=== PATIENT | female | born 1945 | race Two or more races ===

== ENCOUNTER 2022-01-14 13:46 | Inpatient (IN) | payer OTHER, MEDICAID ==
[~2022-01-14] VITALS: Ht 154.9 cm; Wt 74.5 kg
[2022-01-14] MEDS ORDERED: ONDANSETRON HCL 4 MG/2 ML VIAL IV ONE (14:00)
[2022-01-14 14:41] LABS: Basophils # (auto) 0 10 ^3/uL (0-0.2); Basophils % (auto) 0.2 % (0.0-2.0); Eosinophils # (auto) 0.2 10 ^3/uL (0-0.8); Hematocrit 38.3 % (36.0-46.0); Hemoglobin 12.3 g/dL (12.2-16.2); Lymphocytes # (auto) 1.5 10 ^3/uL (0.4-5.4); Lymphocytes % (auto) 21.7 % (10.0-50.0); Mean Corpuscular Hemoglobin 30.4 pg (28.0-32.0); Mean Corpuscular Hgb Conc. 32.1 g/dL (32.0-36.0); Mean Corpuscular Volume 94.7 fL (80.0-100.0); Monocytes # (auto) 0.4 10 ^3/uL (0-1.3); Monocytes % (auto) 5.7 % (0.0-12.0); Neutrophils # (auto) 4.9 10 ^3/uL (1.6-8.6); Neutrophils % (auto) 69.4 % (37.0-80.0); Nucleated Red Blood Cells % 0.1 %; Red Blood Cells 4.04 10^6/uL (4.0-5.20); Red Cell Distribution Width 16.2 % (11.8-14.3); White Blood Cell 7.1 10^3/uL (4.4-10.8)
[2022-01-14 15:01] LABS: Calcium 8.7 mg/dL (8.5-10.1); Magnesium 2.2 mg/dL (1.6-2.6); Potassium 3.8 mmol/L (3.5-5.1)
[2022-01-14 15:07] LABS: Bilirubin, Total 0.3 mg/dL (0.2-1.0); Total Protein 6.9 g/dL (6.4-8.2)
[2022-01-14 15:29] LABS: BUN/Creatinine Ratio 12.4
[2022-01-14] MEDS ORDERED: SODIUM CHLORIDE 0.9% 500 ML IV ONE ×2 (17:30→20:50)
[2022-01-14] MEDS ORDERED: methylPREDNISolone SOD SUCC 125 MG/2 ML VL IV ONE (18:30)
[2022-01-14] MEDS ORDERED: PIPERACILLIN-TAZOB 3.375GM 100 ML IV ONE (18:30)
[2022-01-14] MEDS ORDERED: AZITHROMYCIN 500MG/ 250ML 250 ML IV ONE (18:30)
[2022-01-14] MEDS ORDERED: NOREPINEPHRINE 8 MG/250ML KIT 250 ML IV ONE (18:44)
[2022-01-14 19:39] LABS: Lactic Acid w/Reflex 2.1 mmol/L (0.4-2.0)
[2022-01-14] MEDS ORDERED: VANCOMYCIN PER PHARMACY 0 MG IV SCH (20:00)
[2022-01-14] MEDS ORDERED: ACETAMINOPHEN 325 MG TAB PO PRN (20:50)
[2022-01-14] MEDS ORDERED: ONDANSETRON HCL 4 MG/2 ML VIAL IV PRN (20:50)
[2022-01-14] MEDS ORDERED: HYDROcodone-ACET 5/325MG TAB PO PRN (20:50)
[2022-01-14] MEDS ORDERED: DEXTROSE (50%) 50ML SYRG IV PRN (20:50)
[2022-01-14] MEDS ORDERED: MORPHINE SULFATE INJ 2 MG/ml SYRG IV PRN (20:50)
[2022-01-14] MEDS ORDERED: VANCOMYCIN 1GM/250ML 250 ML IV ONE (21:30)
[2022-01-14] MEDS ORDERED: PIPERACILLIN-TAZOB 3.375GM 100 ML IV SCH (22:00)
[2022-01-14] MEDS ORDERED: ALBUTEROL SULF 2.5 MG/0.5ML(0.5%) NEB SOLN NEB SCH (22:00)
[2022-01-14] MEDS: ACCU-CHEK COMFORT CURVE STRIP VI SCH (22:51)
[2022-01-14] MEDS: InsuLIN REG 1unit/0.01ml Soln (100units/ml) SC SCH (22:58)
[2022-01-15] MEDS: PIPERACILLIN-TAZOB 2.25GM 50 ML IV SCH ×4 (01:42→18:00)
[2022-01-15 02:05] VITALS: BP 95/68
[2022-01-15] MEDS: NOREPINEPHRINE 8 MG/250ML KIT 250 ML IV SCH (05:44)
[2022-01-15] MEDS ORDERED: ALBUTEROL SULF 2.5 MG/0.5ML(0.5%) NEB SOLN NEB PRN (06:00)
[2022-01-15] MEDS: ACCU-CHEK COMFORT CURVE STRIP VI SCH ×3 (06:57→18:28)
[2022-01-15] MEDS: InsuLIN REG 1unit/0.01ml Soln (100units/ml) SC SCH ×3 (06:58→17:00)
[2022-01-15 08:42] LABS: Hematocrit 35.1 % (36.0-46.0); Hemoglobin 11.2 g/dL (12.2-16.2); Mean Corpuscular Hemoglobin 30.1 pg (28.0-32.0); Mean Corpuscular Hgb Conc. 31.9 g/dL (32.0-36.0); Mean Corpuscular Volume 94.5 fL (80.0-100.0); Red Blood Cells 3.71 10^6/uL (4.0-5.20); Red Cell Distribution Width 15.9 % (11.8-14.3); White Blood Cell 6.6 10^3/uL (4.4-10.8)
[2022-01-15 08:45] LABS: Basophils % (manual) 0 (0.0-2.0); Blast Cells 0; Eosinophils % (manual) 0 (0-7); Myelocytes % 0; Promyelocytes % 0; Reactive Lymphocytes 0
[2022-01-15 08:56] LABS: Band Neutrophils % (manual) 32; Lymphocytes % (manual) 26 (10.0-50.0); Metamyelocytes % 4; Monocytes % (manual) 4 (0-12)
[2022-01-15] MEDS ORDERED: LORazepam 2MG/ML-1ML VIAL IV PRN (09:00)
[2022-01-15 09:04] LABS: BUN/Creatinine Ratio 13.6; Potassium 4.7 mmol/L (3.5-5.1)
[2022-01-15] MEDS: PANTOPRAZOLE 40 MG/10 ML VIAL INJ IV SCH (10:32)
[2022-01-15] MEDS ORDERED: HEPARIN 1,000 UNITS/ml 1ML VIAL IV ONE (12:15)
[2022-01-15] MEDS ORDERED: LIDOCAINE 1%HCL (LOCAL ANESTH) 10 ML MDV ONE (13:29)
[2022-01-15] MEDS ORDERED: LIDOCAINE 1% HCL (LOCAL ANESTH.) INJ 20ML MDV ID ONE (13:30)
[2022-01-15] MEDS ORDERED: LORazepam 2MG/ML-1ML VIAL IV ONE (14:15)
[2022-01-15] MEDS: BUMETANIDE 2.5mg/10ml (0.25 mg/ml) INJ IV SCH (18:00)
[2022-01-15 21:17] LABS: Free T4 (Free Thyroxine) 0.94 ng/dL (0.89-1.76)
[2022-01-16] MEDS: NOREPINEPHRINE 8 MG/250ML KIT 250 ML IV SCH (00:10)
[2022-01-16] MEDS: ACCU-CHEK COMFORT CURVE STRIP VI SCH ×5 (00:11→21:46)
[2022-01-16] MEDS: InsuLIN REG 1unit/0.01ml Soln (100units/ml) SC SCH ×5 (00:15→21:46)
[2022-01-16 05:00] VITALS: BP 110/68
[2022-01-16] MEDS: PIPERACILLIN-TAZOB 2.25GM 50 ML IV SCH ×4 (06:03→18:27)
[2022-01-16] MEDS: BUMETANIDE 2.5mg/10ml (0.25 mg/ml) INJ IV SCH ×2 (06:56→17:46)
[2022-01-16 09:00] VITALS: BP 150/63
[2022-01-16] MEDS: PANTOPRAZOLE 40 MG/10 ML VIAL INJ IV SCH (09:34)
[2022-01-16 09:44] LABS: Basophils # (auto) 0 10 ^3/uL (0-0.2); Basophils % (auto) 0.3 % (0.0-2.0); Eosinophils # (auto) 0.2 10 ^3/uL (0-0.8); Eosinophils % (auto) 2.1 % (0.0-7.0); Hematocrit 29.8 % (36.0-46.0); Hemoglobin 9.7 g/dL (12.2-16.2); Lymphocytes # (auto) 1.3 10 ^3/uL (0.4-5.4); Lymphocytes % (auto) 12.8 % (10.0-50.0); Mean Corpuscular Hemoglobin 30.3 pg (28.0-32.0); Mean Corpuscular Hgb Conc. 32.6 g/dL (32.0-36.0); Monocytes # (auto) 0.4 10 ^3/uL (0-1.3); Monocytes % (auto) 3.6 % (0.0-12.0); Neutrophils # (auto) 8.5 10 ^3/uL (1.6-8.6); Neutrophils % (auto) 81.2 % (37.0-80.0); Red Blood Cells 3.21 10^6/uL (4.0-5.20); Red Cell Distribution Width 15.6 % (11.8-14.3); White Blood Cell 10.5 10^3/uL (4.4-10.8)
[2022-01-16 10:02] LABS: Albumin 2.1 g/dL (3.4-5.0); Calcium 8.2 mg/dL (8.5-10.1); Potassium 4.3 mmol/L (3.5-5.1)
[2022-01-16 10:05] LABS: BUN/Creatinine Ratio 15.3; Bilirubin, Total 0.4 mg/dL (0.2-1.0); Total Protein 5.1 g/dL (6.4-8.2)
[2022-01-16] MEDS: ALBUTEROL SULF 2.5 MG/0.5ML(0.5%) NEB SOLN NEB SCH ×2 (11:03→18:50)
[2022-01-16] MEDS: IPRATROPIUM BROM 0.5 MG/2.5ML INH SOL NEB SCH ×2 (11:03→18:50)
[2022-01-16 13:00] VITALS: BP 151/64
[2022-01-16] MEDS: SOD CHL 0.45% 1,000 ML IV SCH ×2 (14:44→23:30)
[2022-01-16 16:26] LABS: Urine Bacteria NONE SEEN /hpf (None Seen); Urine Blood TRACE /uL (Negative); Urine Specific Gravity 1.013 (1.001-1.035); Urine WBC 9 /hpf (0 - 5)
[2022-01-16 16:44] LABS: Creatinine, Urine 59.4 mg/dL (30.0-125.0); Protein, Urine 132.1 mg/dL (0.0-11.9)
[2022-01-16 16:56] VITALS: BP 149/57
[2022-01-16] MEDS ORDERED: FUROSEMIDE 20 MG TAB PO SCH (21:00)
[2022-01-16] MEDS ORDERED: TEMAZEPAM 15 MG CAP PO PRN (21:00)
[2022-01-16 21:43] VITALS: BP 140/60
[2022-01-16] MEDS ORDERED: TICAGRELOR 60 MG TAB PO SCH (22:00)
[2022-01-16] MEDS ORDERED: PHENYTOIN SODIUM 100 MG CAP PO SCH (22:00)
[2022-01-16] MEDS ORDERED: DONEPEZIL HYDROCHLORIDE 5 MG TAB PO SCH (22:00)
[2022-01-17] MEDS: PIPERACILLIN-TAZOB 2.25GM 50 ML IV SCH ×5 (00:01→23:46)
[2022-01-17 04:42] VITALS: BP 144/66
[2022-01-17 05:29] LABS: Basophils # (auto) 0 10 ^3/uL (0-0.2); Basophils % (auto) 0.3 % (0.0-2.0); Eosinophils # (auto) 0.4 10 ^3/uL (0-0.8); Eosinophils % (auto) 3.2 % (0.0-7.0); Hematocrit 27.7 % (36.0-46.0); Hemoglobin 9.3 g/dL (12.2-16.2); Lymphocytes # (auto) 1.5 10 ^3/uL (0.4-5.4); Lymphocytes % (auto) 13.4 % (10.0-50.0); Mean Corpuscular Hemoglobin 31.2 pg (28.0-32.0); Mean Corpuscular Hgb Conc. 33.5 g/dL (32.0-36.0); Monocytes # (auto) 0.5 10 ^3/uL (0-1.3); Monocytes % (auto) 4.2 % (0.0-12.0); Neutrophils # (auto) 8.8 10 ^3/uL (1.6-8.6); Neutrophils % (auto) 78.9 % (37.0-80.0); Red Blood Cells 2.98 10^6/uL (4.0-5.20); Red Cell Distribution Width 15.4 % (11.8-14.3); White Blood Cell 11.2 10^3/uL (4.4-10.8)
[2022-01-17] MEDS ORDERED: AMLO-489 PO (05:38)
[2022-01-17] MEDS ORDERED: TICA90TA PO ×2 (05:38→18:47)
[2022-01-17 05:53] LABS: Potassium 4.2 mmol/L (3.5-5.1)
[2022-01-17] MEDS: ACCU-CHEK COMFORT CURVE STRIP VI SCH ×4 (05:57→21:32)
[2022-01-17] MEDS: BUMETANIDE 2.5mg/10ml (0.25 mg/ml) INJ IV SCH ×2 (05:57→18:09)
[2022-01-17] MEDS: InsuLIN REG 1unit/0.01ml Soln (100units/ml) SC SCH ×4 (06:00→21:30)
[2022-01-17 06:05] LABS: BUN/Creatinine Ratio 14.4; Bilirubin, Total 0.5 mg/dL (0.2-1.0); Calcium 8.4 mg/dL (8.5-10.1); Total Protein 5.8 g/dL (6.4-8.2)
[2022-01-17] MEDS: ALBUTEROL SULF 2.5 MG/0.5ML(0.5%) NEB SOLN NEB SCH ×3 (06:12→19:38)
[2022-01-17] MEDS: IPRATROPIUM BROM 0.5 MG/2.5ML INH SOL NEB SCH ×3 (06:12→19:38)
[2022-01-17 08:40] VITALS: BP 172/72
[2022-01-17] MEDS: SOD CHL 0.45% 1,000 ML IV SCH ×2 (09:30→19:30)
[2022-01-17] MEDS ORDERED: METOPROLOL TARTRATE 50 MG TAB PO SCH (10:00)
[2022-01-17] MEDS ORDERED: amLODIPine BESYLATE 5 MG TAB PO SCH (10:00)
[2022-01-17] MEDS ORDERED: DOCUSATE SOD 100 MG CAP PO SCH (10:00)
[2022-01-17] MEDS: PANTOPRAZOLE 40 MG/10 ML VIAL INJ IV SCH (10:55)
[2022-01-17 12:31] VITALS: BP 151/63
[2022-01-17 16:46] VITALS: BP 148/82
[2022-01-17] MEDS ORDERED: DONE10TA5 PO (18:37)
[2022-01-17] MEDS ORDERED: DOCU100T15 PO (18:37)
[2022-01-17] MEDS ORDERED: FURO1TAB33 PO (18:39)
[2022-01-17] MEDS ORDERED: MET25T PO (18:41)
[2022-01-17] MEDS ORDERED: PHE100C PO (18:42)
[2022-01-17] MEDS ORDERED: TEMA15CA2 PO (18:46)
[2022-01-17] MEDS ORDERED: AML5T PO (18:48)
[2022-01-17 22:00] VITALS: BP 148/76
[2022-01-17 23:20] VITALS: BP 148/76
[2022-01-18 05:30] VITALS: BP 187/73
[2022-01-18] MEDS: IPRATROPIUM BROM 0.5 MG/2.5ML INH SOL NEB SCH ×3 (06:23→19:11)
[2022-01-18] MEDS: ALBUTEROL SULF 2.5 MG/0.5ML(0.5%) NEB SOLN NEB SCH ×3 (06:23→19:10)
[2022-01-18] MEDS: SOD CHL 0.45% 1,000 ML IV SCH (06:24)
[2022-01-18] MEDS: PIPERACILLIN-TAZOB 2.25GM 50 ML IV SCH ×4 (06:24→23:39)
[2022-01-18] MEDS: BUMETANIDE 2.5mg/10ml (0.25 mg/ml) INJ IV SCH ×2 (06:24→17:33)
[2022-01-18] MEDS: InsuLIN REG 1unit/0.01ml Soln (100units/ml) SC SCH ×4 (06:26→21:01)
[2022-01-18] MEDS: ACCU-CHEK COMFORT CURVE STRIP VI SCH ×4 (06:26→21:00)
[2022-01-18 06:29] LABS: Albumin 2.3 g/dL (3.4-5.0); Calcium 8.9 mg/dL (8.5-10.1)
[2022-01-18 06:37] LABS: BUN/Creatinine Ratio 13.7; Bilirubin, Total 0.5 mg/dL (0.2-1.0); Total Protein 6.4 g/dL (6.4-8.2)
[2022-01-18] MEDS: hydrALAZINE HCL 10 MG TAB PO PRN ×3 (08:40→21:54)
[2022-01-18] MEDS ORDERED: LIDOCAINE 2% (LOCAL ANESTH.) PF 5ml SDV ONE (08:47)
[2022-01-18 09:00] VITALS: BP 198/77
[2022-01-18] MEDS: PANTOPRAZOLE 40 MG/10 ML VIAL INJ IV SCH (10:20)
[2022-01-18] MEDS ORDERED: amLODIPine BESYLATE 5 MG TAB PO ONE (10:45)
[2022-01-18] MEDS: METOPROLOL TARTRATE 25 MG TAB PO SCH ×2 (12:19→21:00)
[2022-01-18 12:48] LABS: Hepatitis B Surface Antibody Negative (Negative)
[2022-01-18] MEDS ORDERED: BUME1TAB3 PO (12:52)
[2022-01-18] MEDS ORDERED: CLIN300C8 PO (12:52)
[2022-01-18] MEDS ORDERED: LEVO500T31 PO (12:52)
[2022-01-18] MEDS ORDERED: MET25T PO (12:52)
[2022-01-18] MEDS ORDERED: LEVE500T32 PO (12:52)
[2022-01-18] MEDS ORDERED: levoFLOXacin 500 MG TAB PO ONE (13:15)
[2022-01-18 13:20] LABS: Hepatitis A Total Antibody Negative (Negative)
[2022-01-18 13:52] LABS: Hepatitis C Antibody Negative (Negative)
[2022-01-18 13:58] LABS: Folate (Folic Acid) 4.71 ng/mL (5.38-24)
[2022-01-18 17:01] VITALS: BP 153/70
[2022-01-18 21:33] VITALS: BP 168/58
[2022-01-18] MEDS ORDERED: cloNIDine HCL 0.1 MG TAB PO PRN (23:45)
[2022-01-19] MEDS: PIPERACILLIN-TAZOB 2.25GM 50 ML IV SCH ×2 (05:17→12:39)
[2022-01-19 05:18] VITALS: BP 161/67
[2022-01-19] MEDS: BUMETANIDE 2.5mg/10ml (0.25 mg/ml) INJ IV SCH (05:34)
[2022-01-19] MEDS: InsuLIN REG 1unit/0.01ml Soln (100units/ml) SC SCH ×3 (06:16→17:28)
[2022-01-19] MEDS: ACCU-CHEK COMFORT CURVE STRIP VI SCH ×3 (06:16→17:27)
[2022-01-19] MEDS: ALBUTEROL SULF 2.5 MG/0.5ML(0.5%) NEB SOLN NEB SCH ×2 (06:31→12:16)
[2022-01-19] MEDS: IPRATROPIUM BROM 0.5 MG/2.5ML INH SOL NEB SCH ×2 (06:31→12:16)
[2022-01-19 08:00] VITALS: BP 154/76
[2022-01-19 08:54] VITALS: BP 154/76
[2022-01-19] MEDS ORDERED: CYANOCOBALAMIN (B-12) 1000 MCG/1 ML VIAL IM ONE (10:00)
[2022-01-19] MEDS ORDERED: CYANOCOBALAMIN 500 MCG TAB PO SCH (10:00)
[2022-01-19] MEDS ORDERED: FOLIC ACID 1 MG in D5W 5% 50 ML INJ SCH (10:00)
[2022-01-19] MEDS ORDERED: amLODIPine BESYLATE 5 MG TAB PO SCH (10:00)
[2022-01-19] MEDS: PANTOPRAZOLE 40 MG/10 ML VIAL INJ IV SCH (11:21)
[2022-01-19] MEDS: METOPROLOL TARTRATE 25 MG TAB PO SCH (11:22)
[2022-01-19] MEDS: hydrALAZINE HCL 10 MG TAB PO PRN (12:37)
[2022-01-19 12:40] VITALS: BP 166/76
[2022-01-19 13:52] VITALS: BP 166/76
[2022-01-19 16:38] VITALS: BP 153/74
== END 2022-01-19 17:45 | disposition home health service (06) | DRG 193 ==
LOC: ER 13:46 → EDBD 13:46 → TELE 20:36 → TELE-WESTW 01-15 23:52
PROVIDERS: ADMIT Nurse Practitioner Family; ATTEND Internal Medicine
PROC: 06HM33Z Insertion of Infusion Device into Right Femoral Vein, Percutaneous Approach (ICD-10-PCS; 2022-01-14)
PROC: 0JPV3XZ Removal of Tunneled Vascular Access Device from Upper Extremity Subcutaneous Tissue and Fascia, Percutaneous Approach (ICD-10-PCS; principal; 2022-01-15)
DX: J18.9 Pneumonia, unspecified organism (principal); G92.8 Other toxic encephalopathy; J96.01 Acute respiratory failure with hypoxia; N18.6 End stage renal disease; E87.20 Acidosis, unspecified; I13.2 Hypertensive heart and chronic kidney disease with heart failure and with stage 5 chronic kidney disease, or end stage renal disease; J98.11 Atelectasis; D63.1 Anemia in chronic kidney disease; I95.9 Hypotension, unspecified; B96.89 Other specified bacterial agents as the cause of diseases classified elsewhere; K57.90 Diverticulosis of intestine, part unspecified, without perforation or abscess without bleeding; G40.909 Epilepsy, unspecified, not intractable, without status epilepticus; E11.22 Type 2 diabetes mellitus with diabetic chronic kidney disease; E11.65 Type 2 diabetes mellitus with hyperglycemia; E66.9 Obesity, unspecified; Z68.32 Body mass index [BMI] 32.0-32.9, adult; E78.5 Hyperlipidemia, unspecified; G30.9 Alzheimer's disease, unspecified; R74.01 Elevation of levels of liver transaminase levels; M79.602 Pain in left arm; Z20.822 Contact with and (suspected) exposure to COVID-19; F02.80 Dementia in other diseases classified elsewhere, unspecified severity, without behavioral disturbance, psychotic disturbance, mood disturbance, and anxiety; I25.10 Atherosclerotic heart disease of native coronary artery without angina pectoris; I50.9 Heart failure, unspecified; Z99.2 Dependence on renal dialysis
CPT/HCPCS: 36415; 36600; 70450; 70551; 71045; 74176; 76705; 80048; 80053; 81001; 82306; 82570; 82607; 82746; 82805; 82962; 83605; 83735; 83970; 84100; 84156; 84300; 84439; 84443; 84484; 85007; 85025; 85027; 86704; 86706; 86708; 86803; 87040; 87070; 87340; 87426; 93005; 93306; 94640; 95819; 96361; 96365; 96368; 96375; 97110; 97116; 97163; 97530; 99291; C9113; G0378; J1815; J2001; J2405; J2543; J7060

== ENCOUNTER → 2023-04-07 | Outpatient (CLI) | payer OTHER ==
[~2023-04-07] MED LIST: AML5T PO; AMLO1TAB22 PO; BUME1TAB3 PO; CLIN300C70 PO; DOCU100T15 PO; DONE10TA9 PO; LEVE500T40 PO; LEVO500T31 PO; MET25T PO; TICA90TA PO
[2023-04-07 12:07] LABS: Basophils # (auto) 0 10 ^3/uL (0-0.2); Basophils % (auto) 0.5 % (0.0-2.0); Eosinophils # (auto) 0.4 10 ^3/uL (0-0.8); Eosinophils % (auto) 4.5 % (0.0-7.0); Hemoglobin 10.8 g/dL (12.2-16.2); Lymphocytes # (auto) 2.1 10 ^3/uL (0.4-5.4); Lymphocytes % (auto) 26.9 % (10.0-50.0); Mean Corpuscular Hemoglobin 29.2 pg (28.0-32.0); Mean Corpuscular Hgb Conc. 31.8 g/dL (32.0-36.0); Monocytes # (auto) 0.7 10 ^3/uL (0-1.3); Monocytes % (auto) 8.4 % (0.0-12.0); Neutrophils # (auto) 4.8 10 ^3/uL (1.6-8.6); Neutrophils % (auto) 59.7 % (37.0-80.0); Nucleated Red Blood Cells % 0.1 %; Red Blood Cells 3.69 10^6/uL (4.0-5.20); Red Cell Distribution Width 13.7 % (11.8-14.3)
[2023-04-07 12:20] LABS: Albumin 4.2 g/dL (3.2-4.8); Alkaline Phosphatase 166 U/L (46-116); Anion Gap 11 (5-15); Aspartate Aminotransferase 21 U/L (13-40); BUN/Creatinine Ratio 16.7 (10.0-20.0); Blood Urea Nitrogen 52 mg/dL (9-23); Calcium 9.4 mg/dL (8.5-10.1); Carbon Dioxide 22 mmol/L (20-30); Chloride 111 mmol/L (98-107); Cholesterol 193 mg/dL (< 200); Glucose 150 mg/dL (74-106); HDL Cholesterol 79 mg/dL (40-59); LDL Cholesterol 85 mg/dL (< 100); Potassium 4.4 mmol/L (3.5-5.1); Sodium 144 mmol/L (136-145); Triglycerides 77 mg/dL (< 150)
[2023-04-07 12:21] LABS: Bilirubin, Total 0.3 mg/dL (0.2-1.0); Total Protein 7.1 g/dL (5.7-8.2)
[2023-04-07 12:25] LABS: Alanine Aminotransferase < 9 U/L (7-40)
[2023-04-07 12:39] LABS: Urine Bacteria NONE SEEN /hpf (None Seen); Urine Blood TRACE /uL (Negative); Urine Clarity Clear (Clear); Urine Color Colorless (Yellow); Urine Protein, UAD 3+ (Negative); Urine Specific Gravity 1.011 (1.001-1.035); Urine Urobilinogen Normal (Negative); Urine WBC <1 /hpf (0 - 5); Urine pH 6.5 (5.0-8.0)
== END | disposition home or self-care (01) ==
LOC: LAB 11:13
PROVIDERS: ATTEND Internal Medicine
DX: Z12.11 Encounter for screening for malignant neoplasm of colon (principal); E11.69 Type 2 diabetes mellitus with other specified complication; R68.89 Other general symptoms and signs; E78.5 Hyperlipidemia, unspecified
CPT/HCPCS: 36415; 80053; 80061; 81001; 83036; 85025

== ENCOUNTER 2023-04-22 14:18 | Emergency (ER) | payer OTHER ==
[~2023-04-22] VITALS: Ht 154.9 cm; Wt 74.0 kg
[2023-04-22 14:54] LABS: Basophils # (auto) 0 10 ^3/uL (0-0.2); Basophils % (auto) 0.5 % (0.0-2.0); Eosinophils # (auto) 0.4 10 ^3/uL (0-0.8); Eosinophils % (auto) 5.4 % (0.0-7.0); Hematocrit 36.1 % (36.0-46.0); Hemoglobin 11.7 g/dL (12.2-16.2); Lymphocytes # (auto) 1.8 10 ^3/uL (0.4-5.4); Lymphocytes % (auto) 25.6 % (10.0-50.0); Mean Corpuscular Hemoglobin 29.9 pg (28.0-32.0); Mean Corpuscular Hgb Conc. 32.3 g/dL (32.0-36.0); Mean Corpuscular Volume 92.6 fL (80.0-100.0); Monocytes # (auto) 0.5 10 ^3/uL (0-1.3); Monocytes % (auto) 6.8 % (0.0-12.0); Neutrophils # (auto) 4.4 10 ^3/uL (1.6-8.6); Neutrophils % (auto) 61.7 % (37.0-80.0); Nucleated Red Blood Cells % 0.2 %; Red Blood Cells 3.89 10^6/uL (4.0-5.20); White Blood Cell 7.1 10^3/uL (4.4-10.8)
[2023-04-22 15:16] LABS: INR 0.98 (0.9-1.15); Partial Thromboplastin Time 27.6 SEC (24.5-34.5); Prothrombin Time 10.3 sec (9.3-11.8)
[2023-04-22 15:25] LABS: Albumin 4.3 g/dL (3.2-4.8); Alkaline Phosphatase 218 U/L (46-116); Anion Gap 7 (5-15); Aspartate Aminotransferase 16 U/L (13-40); BUN/Creatinine Ratio 13.8 (10.0-20.0); Bilirubin, Total 0.2 mg/dL (0.2-1.0); Blood Urea Nitrogen 41 mg/dL (9-23); Carbon Dioxide 24 mmol/L (20-30); Chloride 110 mmol/L (98-107); Glucose 237 mg/dL (74-106); Magnesium 2.1 mg/dL (1.6-2.6); Potassium 4.6 mmol/L (3.5-5.1); Sodium 141 mmol/L (136-145); Total Protein 7.3 g/dL (5.7-8.2)
[2023-04-22 15:27] LABS: Alanine Aminotransferase < 9 U/L (7-40)
[2023-04-22 19:02] VITALS: BP 147/87; PULSE 52; RESP 19; TEMP 97.8; O2SAT 96
== END 2023-04-22 19:04 | disposition home or self-care (01) ==
LOC: ER 14:18
DX: R07.89 Other chest pain (principal); I13.0 Hypertensive heart and chronic kidney disease with heart failure and stage 1 through stage 4 chronic kidney disease, or unspecified chronic kidney disease; E11.22 Type 2 diabetes mellitus with diabetic chronic kidney disease; N18.9 Chronic kidney disease, unspecified; I50.9 Heart failure, unspecified; F03.90 Unspecified dementia, unspecified severity, without behavioral disturbance, psychotic disturbance, mood disturbance, and anxiety; E78.5 Hyperlipidemia, unspecified; I25.10 Atherosclerotic heart disease of native coronary artery without angina pectoris; Z79.899 Other long term (current) drug therapy
CPT/HCPCS: 36415; 71045; 80053; 83735; 83880; 84484; 85025; 85610; 85730; 93005

== ENCOUNTER → 2023-09-02 | Outpatient (CLI) | payer MEDICAID, OTHER ==
[~2023-09-02] MED LIST changes: +CLIN1CAP70 PO; -CLIN300C70 PO
[2023-09-02 13:14] LABS: Base Excess -1.6 mmol/L (-2.0-2.0)
== END | disposition home or self-care (01) ==
LOC: RT 12:31
PROVIDERS: ATTEND Internal Medicine
DX: I50.22 Chronic systolic (congestive) heart failure (principal)
CPT/HCPCS: 36600; 82805

== ENCOUNTER 2023-10-01 20:42 | Inpatient (IN) | payer OTHER, MEDICAID ==
[~2023-10-01] VITALS: Ht 154.9 cm; Wt 92.2 kg
[2023-10-01] MEDS: cloNIDine HCL 0.1 MG TAB PO ONE (23:43)
[2023-10-02] MEDS: cloNIDine HCL 0.1 MG TAB PO ONE (00:51)
[2023-10-02 03:13] LABS: Albumin 3.5 g/dL (3.2-4.8); Alkaline Phosphatase 144 U/L (46-116); Anion Gap 6 (5-15); Aspartate Aminotransferase 12 U/L (13-40); BUN/Creatinine Ratio 12.1 (10.0-20.0); Bilirubin, Total 0.3 mg/dL (0.2-1.0); Blood Urea Nitrogen 37 mg/dL (9-23); Calcium 9.2 mg/dL (8.7-10.4); Carbon Dioxide 23 mmol/L (20-30); Chloride 113 mmol/L (98-107); Glucose 149 mg/dL (74-106); Lipase 39 U/L (12-53); Potassium 4.7 mmol/L (3.5-5.1); Sodium 142 mmol/L (136-145); Total Protein 6.4 g/dL (5.7-8.2)
[2023-10-02 03:14] LABS: Basophils # (auto) 0 10 ^3/uL (0-0.2); Basophils % (auto) 0.3 % (0.0-2.0); Eosinophils # (auto) 0.3 10 ^3/uL (0-0.8); Eosinophils % (auto) 4.1 % (0.0-7.0); Hemoglobin 9.6 g/dL (12.2-16.2); Lymphocytes # (auto) 2.1 10 ^3/uL (0.4-5.4); Lymphocytes % (auto) 26.5 % (10.0-50.0); Mean Corpuscular Hemoglobin 28.3 pg (28.0-32.0); Mean Corpuscular Volume 88.5 fL (80.0-100.0); Monocytes # (auto) 0.6 10 ^3/uL (0-1.3); Monocytes % (auto) 7.2 % (0.0-12.0); Neutrophils % (auto) 61.9 % (37.0-80.0); Nucleated Red Blood Cells % 0.1 %; Red Blood Cells 3.39 10^6/uL (4.0-5.20); Red Cell Distribution Width 13.7 % (11.8-14.3)
[2023-10-02 03:15] LABS: Alanine Aminotransferase < 9 U/L (7-40)
[2023-10-02] MEDS ORDERED: ACETAMINOPHEN 325 MG TAB PO PRN (03:15)
[2023-10-02] MEDS ORDERED: ONDANSETRON HCL 4 MG/2 ML VIAL IV PRN (03:15)
[2023-10-02] MEDS ORDERED: DEXTROSE (50%) 50ML SYRG IV PRN (03:15)
[2023-10-02 04:42] VITALS: PULSE 59; RESP 17; O2SAT 97
[2023-10-02] MEDS: SODIUM CHLOR 0.9% PF (SALINE LOCK) 10ML VIAL/SYR IV SCH (06:04)
[2023-10-02 06:45] LABS: Alkaline Phosphatase 176 U/L (46-116); Anion Gap 8 (5-15); BUN/Creatinine Ratio 12.4 (10.0-20.0); Basophils # (auto) 0.1 10 ^3/uL (0-0.2); Basophils % (auto) 0.5 % (0.0-2.0); Blood Urea Nitrogen 40 mg/dL (9-23); Calcium 9.9 mg/dL (8.5-10.1); Carbon Dioxide 24 mmol/L (20-30); Chloride 110 mmol/L (98-107); Eosinophils # (auto) 0.4 10 ^3/uL (0-0.8); Eosinophils % (auto) 4.2 % (0.0-7.0); Glucose 199 mg/dL (74-106); Hematocrit 34.1 % (36.0-46.0); Hemoglobin 11.1 g/dL (12.2-16.2); Lymphocytes # (auto) 2.4 10 ^3/uL (0.4-5.4); Lymphocytes % (auto) 26.2 % (10.0-50.0); Mean Corpuscular Hemoglobin 28.9 pg (28.0-32.0); Mean Corpuscular Hgb Conc. 32.7 g/dL (32.0-36.0); Mean Corpuscular Volume 88.7 fL (80.0-100.0); Monocytes # (auto) 0.8 10 ^3/uL (0-1.3); Monocytes % (auto) 8.7 % (0.0-12.0); Neutrophils # (auto) 5.6 10 ^3/uL (1.6-8.6); Neutrophils % (auto) 60.4 % (37.0-80.0); Nucleated Red Blood Cells % 0.1 %; Potassium 4.9 mmol/L (3.5-5.1); Red Blood Cells 3.85 10^6/uL (4.0-5.20); Red Cell Distribution Width 13.4 % (11.8-14.3); Sodium 142 mmol/L (136-145); White Blood Cell 9.3 10^3/uL (4.4-10.8)
[2023-10-02 06:46] LABS: Albumin 4.2 g/dL (3.2-4.8); Aspartate Aminotransferase 13 U/L (13-40); Bilirubin, Total 0.3 mg/dL (0.2-1.0); Total Protein 7.3 g/dL (5.7-8.2)
[2023-10-02 06:50] LABS: Alanine Aminotransferase < 9 U/L (7-40)
[2023-10-02] MEDS: hydrALAZINE HCL 10 MG TAB PO ONE (06:57)
[2023-10-02] MEDS: ACCU-CHEK COMFORT CURVE STRIP VI SCH (07:11)
[2023-10-02] MEDS: InsuLIN REG 1unit/0.01ml Soln (100units/ml) SC SCH (07:18)
[2023-10-02] MEDS: FUROSEMIDE 40 MG/4 ML VIAL IV SCH (07:24)
[2023-10-02] MEDS ORDERED: NITROGLYCERIN 0.4 MG SL TAB SL PRN (07:30)
[2023-10-02] MEDS ORDERED: MORPHINE SULFATE INJ 2 MG/ml SYRG IV PRN (07:30)
[2023-10-02 08:00] VITALS: PULSE 50; RESP 12; O2SAT 98
[2023-10-02 09:06] LABS: Phosphorus 3.9 mg/dL (2.4-5.1)
[2023-10-02] MEDS: hydrALAZINE HCL 25 MG TAB PO ONE (09:31)
[2023-10-02] MEDS: NIFEdipine ER 30 MG TAB PO SCH (09:32)
[2023-10-02] MEDS: levETIRAcetam 500 mg/100ml 100 ML IV SCH (09:32)
[2023-10-02] MEDS ORDERED: amLODIPine BESYLATE 5 MG TAB PO SCH (10:00)
[2023-10-02] MEDS ORDERED: ASPirin 81 mg TAB PO SCH (10:00)
[2023-10-02] MEDS ORDERED: METOPROLOL TARTRATE 50 MG TAB PO SCH (10:00)
[2023-10-02 10:14] LABS: Triglycerides 74 mg/dL (< 150)
[2023-10-02 10:15] LABS: LDL Cholesterol 73 mg/dL (< 100)
[2023-10-02 10:16] LABS: HDL Cholesterol 61 mg/dL (40-59)
[2023-10-02 10:17] LABS: Cholesterol 153 mg/dL (< 200)
[2023-10-02] MEDS: TICAGRELOR 90 MG TAB PO SCH (12:07)
[2023-10-02] MEDS ORDERED: PREG150C PO (15:18)
[2023-10-02] MEDS: hydrALAZINE HCL 25 MG TAB PO SCH (15:40)
[2023-10-02 17:00] VITALS: BP 125/71; PULSE 54; RESP 17; TEMP 97.9; O2SAT 100
[2023-10-02 20:00] VITALS: PULSE 64; PULSE 68; RESP 18; O2SAT 99
[2023-10-02 21:34] VITALS: BP 155/81; PULSE 68; RESP 18; TEMP 97.8; O2SAT 99
[2023-10-02] MEDS ORDERED: ATORVASTATIN 20 MG TAB PO SCH (22:00)
[2023-10-02] MEDS: ATORVASTATIN 20 MG TAB PO SCH (22:39)
[2023-10-02] MEDS: DONEPEZIL HYDROCHLORIDE 5 MG TAB PO SCH (22:39)
[2023-10-02] MEDS: HEPARIN SODIUM (PORCINE) 5000 UNITS/ML 1ML VIAL SC SCH (22:48)
[2023-10-03] VITALS (10 sets, daily range): BP systolic 101–197; BP diastolic 55–86; PULSE 61–86; RESP 17–19; TEMP 97.5–98.2; O2SAT 97–100
[2023-10-03 06:50] LABS: Basophils # (auto) 0 10 ^3/uL (0-0.2); Basophils % (auto) 0.3 % (0.0-2.0); Eosinophils # (auto) 0.3 10 ^3/uL (0-0.8); Eosinophils % (auto) 3.6 % (0.0-7.0); Hematocrit 31.5 % (36.0-46.0); Hemoglobin 10.5 g/dL (12.2-16.2); Lymphocytes # (auto) 1.7 10 ^3/uL (0.4-5.4); Lymphocytes % (auto) 21.1 % (10.0-50.0); Mean Corpuscular Hgb Conc. 33.5 g/dL (32.0-36.0); Mean Corpuscular Volume 89.4 fL (80.0-100.0); Monocytes # (auto) 0.6 10 ^3/uL (0-1.3); Monocytes % (auto) 7.1 % (0.0-12.0); Neutrophils # (auto) 5.5 10 ^3/uL (1.6-8.6); Neutrophils % (auto) 67.9 % (37.0-80.0); Nucleated Red Blood Cells % 0.1 %; Red Blood Cells 3.52 10^6/uL (4.0-5.20); Red Cell Distribution Width 13.4 % (11.8-14.3); White Blood Cell 8.1 10^3/uL (4.4-10.8)
[2023-10-03 07:07] LABS: Alkaline Phosphatase 171 U/L (46-116); Anion Gap 7 (5-15); BUN/Creatinine Ratio 11.4 (10.0-20.0); Blood Urea Nitrogen 41 mg/dL (9-23); Calcium 9.6 mg/dL (8.7-10.4); Carbon Dioxide 22 mmol/L (20-30); Chloride 112 mmol/L (98-107); Glucose 148 mg/dL (74-106); Potassium 4.7 mmol/L (3.5-5.1); Sodium 141 mmol/L (136-145)
[2023-10-03 07:09] LABS: Albumin 3.8 g/dL (3.2-4.8); Aspartate Aminotransferase 15 U/L (13-40); Bilirubin, Total 0.2 mg/dL (0.2-1.0)
[2023-10-03 07:32] LABS: Alanine Aminotransferase < 9 U/L (7-40)
[2023-10-03] MEDS: NIFEdipine ER 30 MG TAB PO SCH (10:59)
[2023-10-03] MEDS: hydrALAZINE HCL 20 MG/ML VL IV PRN (12:39)
[2023-10-03] MEDS ORDERED: TICA1TAB PO (14:17)
[2023-10-03 14:20] LABS: Hepatitis C Antibody Negative (Negative)
[2023-10-03] MEDS ORDERED: METO25TA36 PO (14:23)
[2023-10-03] MEDS ORDERED: INSUINJ37 SC (14:23)
[2023-10-03] MEDS ORDERED: NIFE1TAB36 PO (14:23)
[2023-10-03] MEDS ORDERED: LIDO5PAD12 EX (14:23)
[2023-10-03] MEDS ORDERED: FURO40TA4 PO (14:26)
[2023-10-03] MEDS: FUROSEMIDE 40 MG TAB PO SCH (16:58)
[2023-10-03] MEDS: ISOSORBIDE DINITRATE 10 MG TAB PO SCH (16:59)
[2023-10-03] MEDS: hydrALAZINE HCL 25 MG TAB PO SCH (17:00)
[2023-10-03] MEDS: HYDROcodone-ACET 5/325MG TAB PO PRN (17:02)
[2023-10-03] MEDS: DOCUSATE SOD 100 MG CAP PO PRN (22:07)
[2023-10-03] MEDS: levETIRAcetam 500 MG TAB PO SCH (22:11)
[2023-10-03 23:20] LABS: Protein, Urine 160.9 mg/dL (0.0-11.9)
[2023-10-03 23:23] LABS: Creatinine, Urine 58.47 mg/dL (30.0-125.0)
[2023-10-03 23:27] LABS: Urine Bacteria MOD /hpf (None Seen); Urine Blood Negative /uL (Negative); Urine Clarity Clear (Clear); Urine Color Light-Yellow (Yellow); Urine Protein, UAD 2+ (Negative); Urine Specific Gravity 1.011 (1.001-1.035); Urine Urobilinogen Normal (Negative); Urine WBC 1 /hpf (0 - 5)
[2023-10-04] VITALS (8 sets, daily range): BP systolic 122–168; BP diastolic 59–83; PULSE 73–84; RESP 16–19; TEMP 98–98.1; O2SAT 95–100
[2023-10-04 03:40] LABS: Hepatitis B Surface Antigen Negative (Negative)
[2023-10-04 07:04] LABS: Albumin 3.7 g/dL (3.2-4.8); Alkaline Phosphatase 147 U/L (46-116); Anion Gap 16 (5-15); Aspartate Aminotransferase 14 U/L (13-40); BUN/Creatinine Ratio 10.5 (10.0-20.0); Blood Urea Nitrogen 36 mg/dL (9-23); Calcium 9.3 mg/dL (8.7-10.4); Carbon Dioxide 14 mmol/L (20-30); Chloride 111 mmol/L (98-107); Glucose 125 mg/dL (74-106); Potassium 4.8 mmol/L (3.5-5.1); Sodium 141 mmol/L (136-145)
[2023-10-04 07:05] LABS: Alanine Aminotransferase < 9 U/L (7-40); Bilirubin, Total 0.3 mg/dL (0.2-1.0); Total Protein 6.7 g/dL (5.7-8.2)
[2023-10-04 07:07] LABS: Basophils # (auto) 0 10 ^3/uL (0-0.2); Basophils % (auto) 0.3 % (0.0-2.0); Eosinophils # (auto) 0.3 10 ^3/uL (0-0.8); Eosinophils % (auto) 3.4 % (0.0-7.0); Hemoglobin 9.9 g/dL (12.2-16.2); Lymphocytes # (auto) 1.5 10 ^3/uL (0.4-5.4); Lymphocytes % (auto) 16.4 % (10.0-50.0); Mean Corpuscular Hemoglobin 28.9 pg (28.0-32.0); Mean Corpuscular Hgb Conc. 32.9 g/dL (32.0-36.0); Monocytes # (auto) 0.7 10 ^3/uL (0-1.3); Monocytes % (auto) 7.4 % (0.0-12.0); Neutrophils # (auto) 6.7 10 ^3/uL (1.6-8.6); Neutrophils % (auto) 72.5 % (37.0-80.0); Nucleated Red Blood Cells % 0.1 %; Red Cell Distribution Width 13.7 % (11.8-14.3); White Blood Cell 9.3 10^3/uL (4.4-10.8)
[2023-10-04] MEDS: METOPROLOL SUCCINATE XL 50 MG TAB PO ONE (11:53)
[2023-10-04 13:51] LABS: % Iron Saturation 21.5 % (15-50)
[2023-10-04] MEDS ORDERED: SODIUM BICARBONATE 650 MG TAB PO SCH (14:00)
[2023-10-04] MEDS: FERROUS SULFATE 325mg EC TAB PO ONE (22:25)
[2023-10-04] MEDS: SODIUM BICARBONATE 650 MG TAB PO SCH (22:26)
[2023-10-04] MEDS: PREGABALIN 25 MG CAP PO SCH (22:28)
[2023-10-05] VITALS (7 sets, daily range): BP systolic 132–167; BP diastolic 68–84; PULSE 71–85; RESP 16–20; TEMP 97.8–98.7; O2SAT 95–98
[2023-10-05 06:27] LABS: Albumin 3.7 g/dL (3.2-4.8); Alkaline Phosphatase 148 U/L (46-116); Anion Gap 9 (5-15); Aspartate Aminotransferase 13 U/L (13-40); BUN/Creatinine Ratio 9.6 (10.0-20.0); Bilirubin, Total 0.3 mg/dL (0.2-1.0); Blood Urea Nitrogen 35 mg/dL (9-23); Calcium 9.6 mg/dL (8.7-10.4); Carbon Dioxide 22 mmol/L (20-30); Chloride 111 mmol/L (98-107); Glucose 121 mg/dL (74-106); Potassium 5.1 mmol/L (3.5-5.1); Sodium 142 mmol/L (136-145); Total Protein 6.8 g/dL (5.7-8.2)
[2023-10-05 06:31] LABS: Alanine Aminotransferase < 9 U/L (7-40)
[2023-10-05 06:41] LABS: Basophils # (auto) 0 10 ^3/uL (0-0.2); Basophils % (auto) 0.3 % (0.0-2.0); Eosinophils # (auto) 0.2 10 ^3/uL (0-0.8); Eosinophils % (auto) 2.6 % (0.0-7.0); Hematocrit 32.5 % (36.0-46.0); Hemoglobin 10.5 g/dL (12.2-16.2); Lymphocytes # (auto) 1.9 10 ^3/uL (0.4-5.4); Lymphocytes % (auto) 20.6 % (10.0-50.0); Mean Corpuscular Hgb Conc. 32.3 g/dL (32.0-36.0); Mean Corpuscular Volume 89.9 fL (80.0-100.0); Monocytes # (auto) 0.7 10 ^3/uL (0-1.3); Neutrophils # (auto) 6.2 10 ^3/uL (1.6-8.6); Neutrophils % (auto) 68.5 % (37.0-80.0); Nucleated Red Blood Cells % 0.1 %; Red Blood Cells 3.62 10^6/uL (4.0-5.20); Red Cell Distribution Width 13.9 % (11.8-14.3)
[2023-10-05] MEDS: METOPROLOL SUCCINATE XL 50 MG TAB PO ONE (11:45)
[2023-10-05] MEDS ORDERED: SODI650T PO (14:54)
[2023-10-05] MEDS ORDERED: NIFE90TA75 PO (14:54)
[2023-10-06] MEDS ORDERED: SALI1SPR (03:40)
[2023-10-06] MEDS ORDERED: METOPROLOL SUCCINATE XL 50 MG TAB PO SCH (10:00)
== END 2023-10-05 17:15 | disposition home or self-care (01) | DRG 125 ==
LOC: ER 20:42 → TELE 10-02 07:18 → TELE-CENTR 10-02 14:15
PROVIDERS: ADMIT Internal Medicine; ATTEND Internal Medicine
PROC: 05HA33Z Insertion of Infusion Device into Left Brachial Vein, Percutaneous Approach (ICD-10-PCS; principal; 2023-10-02)
PROC: B54NZZA Ultrasonography of Left Upper Extremity Veins, Guidance (ICD-10-PCS; 2023-10-02)
DX: H11.32 Conjunctival hemorrhage, left eye (principal); I16.1 Hypertensive emergency; N17.9 Acute kidney failure, unspecified; N18.5 Chronic kidney disease, stage 5; I69.351 Hemiplegia and hemiparesis following cerebral infarction affecting right dominant side; I24.9 Acute ischemic heart disease, unspecified; I13.2 Hypertensive heart and chronic kidney disease with heart failure and with stage 5 chronic kidney disease, or end stage renal disease; I50.42 Chronic combined systolic (congestive) and diastolic (congestive) heart failure; I67.4 Hypertensive encephalopathy; E11.65 Type 2 diabetes mellitus with hyperglycemia; D63.1 Anemia in chronic kidney disease; E11.22 Type 2 diabetes mellitus with diabetic chronic kidney disease; F03.90 Unspecified dementia, unspecified severity, without behavioral disturbance, psychotic disturbance, mood disturbance, and anxiety; I25.10 Atherosclerotic heart disease of native coronary artery without angina pectoris; E78.5 Hyperlipidemia, unspecified; G40.909 Epilepsy, unspecified, not intractable, without status epilepticus; G89.29 Other chronic pain; E66.9 Obesity, unspecified; Z98.61 Coronary angioplasty status; Z68.38 Body mass index [BMI] 38.0-38.9, adult; Z79.4 Long term (current) use of insulin; Z90.710 Acquired absence of both cervix and uterus
CPT/HCPCS: 36415; 36600; 70450; 71045; 76775; 80053; 80061; 81001; 82306; 82570; 82728; 82805; 82962; 83036; 83540; 83550; 83690; 83735; 83880; 83970; 84100; 84156; 84300; 84443; 84484; 85025; 86803; 87340; 93005; 93306; 97110; 97116; 97163; 97530; G0378; J1815

== ENCOUNTER → 2023-10-05 | Emergency (ER) | payer OTHER, MEDICAID ==
[~2023-10-05] VITALS: Ht 154.9 cm; Wt 75.0 kg
[~2023-10-05] MED LIST changes: -AML5T PO; -BUME1TAB3 PO; -CLIN1CAP70 PO; -DOCU100T15 PO; +FURO40TA4 PO; +INSUINJ37 SC; -LEVO500T31 PO; +LIDO5PAD12 EX; -MET25T PO; +METO25TA36 PO; +NIFE1TAB36 PO; +NIFE90TA75 PO; +PREG150C PO; +SALI1SPR; +SODI650T PO; +TICA1TAB PO; -TICA90TA PO
[2023-10-05 22:16] VITALS: BP 152/64; PULSE 76; RESP 16; O2SAT 95
== END | disposition home or self-care (01) ==
LOC: ER 21:55
DX: S90.922A Unspecified superficial injury of left foot, initial encounter (principal); E11.9 Type 2 diabetes mellitus without complications; Z53.21 Procedure and treatment not carried out due to patient leaving prior to being seen by health care provider; X58.XXXA Exposure to other specified factors, initial encounter; Y93.89 Activity, other specified; Y92.89 Other specified places as the place of occurrence of the external cause; Y99.8 Other external cause status

== ENCOUNTER 2023-10-06 01:10 | Emergency (ER) | payer OTHER, MEDICAID ==
[~2023-10-06] VITALS: Ht 165.1 cm; Wt 81.8 kg
[~2023-10-06 01:10] MED LIST changes: -SALI1SPR
[2023-10-06 02:25] VITALS: TEMP 97.9
[2023-10-06 02:31] VITALS: PULSE 75; RESP 10; O2SAT 95
[2023-10-06 02:51] LABS: Basophils # (auto) 0 10 ^3/uL (0-0.2); Basophils % (auto) 0.4 % (0.0-2.0); Eosinophils # (auto) 0.1 10 ^3/uL (0-0.8); Eosinophils % (auto) 0.8 % (0.0-7.0); Hematocrit 29.8 % (36.0-46.0); Hemoglobin 9.9 g/dL (12.2-16.2); Lymphocytes # (auto) 1.7 10 ^3/uL (0.4-5.4); Lymphocytes % (auto) 14.2 % (10.0-50.0); Mean Corpuscular Hemoglobin 29.1 pg (28.0-32.0); Mean Corpuscular Hgb Conc. 33.1 g/dL (32.0-36.0); Mean Corpuscular Volume 87.8 fL (80.0-100.0); Monocytes # (auto) 1.1 10 ^3/uL (0-1.3); Neutrophils # (auto) 9.1 10 ^3/uL (1.6-8.6); Neutrophils % (auto) 75.6 % (37.0-80.0); Red Cell Distribution Width 13.6 % (11.8-14.3); White Blood Cell 12.1 10^3/uL (4.4-10.8)
[2023-10-06] MEDS: hydrALAZINE HCL 10 MG TAB PO ONE (02:52)
[2023-10-06 02:57] LABS: Calcium 10.1 mg/dL (8.7-10.4); Carbon Dioxide 23 mmol/L (20-30)
[2023-10-06 03:02] LABS: BUN/Creatinine Ratio 9.9 (10.0-20.0); Blood Urea Nitrogen 40 mg/dL (9-23); Glucose 269 mg/dL (74-106)
[2023-10-06 03:09] LABS: Anion Gap 7 (5-15); Chloride 110 mmol/L (98-107); Potassium 4.6 mmol/L (3.5-5.1); Sodium 140 mmol/L (136-145)
[2023-10-06 03:17] LABS: INR 1.01 (0.9-1.15); Partial Thromboplastin Time 29.4 SEC (24.5-34.5); Prothrombin Time 10.7 sec (9.3-11.8)
[2023-10-06] MEDS ORDERED: SALI1SPR (03:40)
[2023-10-06 03:50] VITALS: BP 138/54; PULSE 75; RESP 14; O2SAT 97
== END 2023-10-06 03:55 | disposition home or self-care (01) ==
LOC: ER 01:10 → EDBD 01:10 → EDUNIT# 01:10 → ER 03:50
DX: R04.0 Epistaxis (principal); E11.22 Type 2 diabetes mellitus with diabetic chronic kidney disease; I13.0 Hypertensive heart and chronic kidney disease with heart failure and stage 1 through stage 4 chronic kidney disease, or unspecified chronic kidney disease; N18.9 Chronic kidney disease, unspecified; I50.9 Heart failure, unspecified; E78.5 Hyperlipidemia, unspecified; Z90.49 Acquired absence of other specified parts of digestive tract
CPT/HCPCS: 36415; 80048; 84484; 85025; 85610; 85730

== ENCOUNTER 2024-01-10 06:35 | Inpatient (IN) | payer OTHER, MEDICAID ==
[~2024-01-10] VITALS: Ht 154.9 cm; Wt 74.6 kg
[~2024-01-10 06:35] MED LIST changes: +CEPH250C PO; +METO-289 PO; +MUPI2OIN2 TOP; +SALI1SPR
[2024-01-10 07:40] LABS: Basophils # (auto) 0 10 ^3/uL (0-0.2); Basophils % (auto) 0.3 % (0.0-2.0); Eosinophils # (auto) 0.3 10 ^3/uL (0-0.8); Eosinophils % (auto) 3.2 % (0.0-7.0); Hematocrit 33.3 % (36.0-46.0); Hemoglobin 11.1 g/dL (12.2-16.2); Lymphocytes # (auto) 1.7 10 ^3/uL (0.4-5.4); Mean Corpuscular Hemoglobin 30.1 pg (28.0-32.0); Mean Corpuscular Hgb Conc. 33.4 g/dL (32.0-36.0); Monocytes # (auto) 0.8 10 ^3/uL (0-1.3); Monocytes % (auto) 9.5 % (0.0-12.0); Neutrophils # (auto) 5.4 10 ^3/uL (1.6-8.6); Nucleated Red Blood Cells % 0.1 %; Platelet Count (auto) 263 10^3/uL (140-450); White Blood Cell 8.1 10^3/uL (4.4-10.8)
[2024-01-10 07:43] LABS: Chloride 111 mmol/L (98-107); Potassium 3.5 mmol/L (3.5-5.1); Sodium 143 mmol/L (136-145)
[2024-01-10 07:44] LABS: Anion Gap 10 (5-15); Calcium 9.8 mg/dL (8.7-10.4); Carbon Dioxide 22 mmol/L (20-31)
[2024-01-10 07:49] LABS: BUN/Creatinine Ratio 8.9 (10.0-20.0); Blood Urea Nitrogen 34 mg/dL (9-23); Glucose 211 mg/dL (74-106)
[2024-01-10] MEDS: hydrALAZINE HCL 20 MG/ML VL IV ONE (08:18)
[2024-01-10] MEDS: SODIUM CHLORIDE 0.9% 1,000 ML IV ONE (11:18)
[2024-01-10] MEDS ORDERED: MORPHINE SULFATE INJ 2 MG/ml SYRG IV PRN (13:30)
[2024-01-10] MEDS ORDERED: hydrALAZINE HCL 20 MG/ML VL IV PRN (13:30)
[2024-01-10] MEDS ORDERED: ONDANSETRON HCL 4 MG/2 ML VIAL IV PRN (13:30)
[2024-01-10] MEDS ORDERED: ACETAMINOPHEN 325 MG TAB PO PRN (13:30)
[2024-01-10] MEDS ORDERED: DEXTROSE (50%) 50ML SYRG IV PRN (13:30)
[2024-01-10] MEDS ORDERED: NITROGLYCERIN 0.4 MG SL TAB SL PRN (13:30)
[2024-01-10] MEDS: ACCU-CHEK COMFORT CURVE STRIP VI SCH (17:13)
[2024-01-10] MEDS: InsuLIN REG 1unit/0.01ml Soln (100units/ml) SC SCH ×2 (17:17→21:23)
[2024-01-10 18:52] VITALS: PULSE 81; RESP 16; O2SAT 96
[2024-01-10 20:00] VITALS: PULSE 78
[2024-01-10 21:00] VITALS: BP 151/85; PULSE 82; RESP 20; TEMP 98.5; O2SAT 95
[2024-01-10] MEDS: DONEPEZIL HYDROCHLORIDE 5 MG TAB PO SCH (21:06)
[2024-01-10] MEDS: levETIRAcetam 500 MG TAB PO SCH (21:06)
[2024-01-10] MEDS: FUROSEMIDE 40 MG TAB PO SCH (21:06)
[2024-01-11] VITALS (7 sets, daily range): BP systolic 108–125; BP diastolic 45–82; PULSE 67–79; RESP 17–18; TEMP 97.7–98.3; O2SAT 93–100
[2024-01-11 05:14] LABS: Basophils # (auto) 0 10 ^3/uL (0-0.2); Basophils % (auto) 0.3 % (0.0-2.0); Eosinophils # (auto) 0.2 10 ^3/uL (0-0.8); Eosinophils % (auto) 2.4 % (0.0-7.0); Hematocrit 29.6 % (36.0-46.0); Lymphocytes # (auto) 1.8 10 ^3/uL (0.4-5.4); Lymphocytes % (auto) 21.9 % (10.0-50.0); Mean Corpuscular Hgb Conc. 33.7 g/dL (32.0-36.0); Monocytes # (auto) 0.8 10 ^3/uL (0-1.3); Monocytes % (auto) 9.5 % (0.0-12.0); Neutrophils # (auto) 5.5 10 ^3/uL (1.6-8.6); Neutrophils % (auto) 65.9 % (37.0-80.0); Nucleated Red Blood Cells % 0.1 %; Platelet Count (auto) 282 10^3/uL (140-450); Red Blood Cells 3.33 10^6/uL (4.0-5.20); Red Cell Distribution Width 15.3 % (11.8-14.3); White Blood Cell 8.3 10^3/uL (4.4-10.8)
[2024-01-11 05:20] LABS: Anion Gap 10 (5-15); Carbon Dioxide 21 mmol/L (20-31); Chloride 113 mmol/L (98-107); Potassium 3.8 mmol/L (3.5-5.1); Sodium 144 mmol/L (136-145)
[2024-01-11 05:21] LABS: Calcium 9.3 mg/dL (8.7-10.4)
[2024-01-11 05:25] LABS: Glucose 199 mg/dL (74-106)
[2024-01-11 05:26] LABS: BUN/Creatinine Ratio 7.8 (10.0-20.0); Blood Urea Nitrogen 34 mg/dL (9-23)
[2024-01-11] MEDS: METOPROLOL SUCCINATE XL 50 MG TAB PO SCH (10:00)
[2024-01-11] MEDS: NIFEdipine ER 30 MG TAB PO SCH (10:01)
[2024-01-11] MEDS: TICAGRELOR 60 MG TAB PO SCH (10:04)
[2024-01-11 10:58] LABS: Free T4 (Free Thyroxine) 1.24 ng/dL (0.89-1.76)
[2024-01-11 10:59] LABS: Free T3 3.16 pg/mL (2.3-4.2)
[2024-01-11] MEDS: ERGOCALCIFEROL 50,000 UNIT(1.25MG) CAP PO SCH (13:08)
[2024-01-11] MEDS: levETIRAcetam 500 MG/5ML ORAL SOLN UD PO SCH (15:00)
[2024-01-11 20:24] LABS: Magnesium 1.8 mg/dL (1.6-2.6)
[2024-01-11 20:25] LABS: Phosphorus 2.4 mg/dL (2.4-5.1)
[2024-01-11 21:06] LABS: Urine Bacteria None Seen /hpf (None Seen)
[2024-01-11] MEDS: ATORVASTATIN 20 MG TAB PO SCH (21:28)
[2024-01-11 21:33] LABS: Protein, Urine 111.5 mg/dL (1-14)
[2024-01-11] MEDS: HEPARIN SODIUM (PORCINE) 5000 UNITS/ML 1ML VIAL SC SCH (21:33)
[2024-01-11 21:36] LABS: Creatinine, Urine 73.52 mg/dL (30.0-125.0); Urine Protein/Creatinine Ratio 1.52
[2024-01-11 21:38] LABS: Urine Blood Negative /uL (Negative); Urine Clarity Clear (Clear); Urine Color Colorless (Yellow); Urine Hyaline Cast FEW /lpf (0 - 2); Urine Mucus FEW (None Seen); Urine Protein, UAD 1+ (Negative); Urine Specific Gravity 1.009 (1.001-1.035); Urine Urobilinogen Normal (Negative); Urine WBC <1 /hpf (0 - 5); Urine pH 5.5 (5.0-9.0)
[2024-01-11] MEDS ORDERED: levETIRAcetam 500 MG/5ML ORAL SOLN UD GT SCH (22:00)
[2024-01-11 22:32] LABS: Creatinine, Urine 72.98 mg/dL (30.0-125.0)
[2024-01-12] VITALS (8 sets, daily range): BP systolic 103–148; BP diastolic 52–61; PULSE 54–71; RESP 17–20; TEMP 97.8–98.6; O2SAT 95–98
[2024-01-12 07:06] LABS: Chloride 113 mmol/L (98-107); Potassium 3.5 mmol/L (3.5-5.1); Sodium 142 mmol/L (136-145)
[2024-01-12 07:07] LABS: Anion Gap 9 (5-15); Calcium 9.4 mg/dL (8.7-10.4); Carbon Dioxide 20 mmol/L (20-31)
[2024-01-12 07:12] LABS: BUN/Creatinine Ratio 7.4 (10.0-20.0); Blood Urea Nitrogen 31 mg/dL (9-23); Glucose 137 mg/dL (74-106)
[2024-01-12 08:44] LABS: Hepatitis B Surface Antigen Negative (Negative)
[2024-01-12 09:05] LABS: Hepatitis C Antibody Negative (Negative)
[2024-01-12] MEDS: CALCITRIOL 0.25 MCG CAP PO SCH (11:46)
[2024-01-13] VITALS (7 sets, daily range): BP systolic 132–160; BP diastolic 62–87; PULSE 60–88; RESP 17–20; TEMP 36.8; O2SAT 96–100
[2024-01-13 06:19] LABS: Chloride 112 mmol/L (98-107); Potassium 3.6 mmol/L (3.5-5.1); Sodium 142 mmol/L (136-145)
[2024-01-13 06:20] LABS: Anion Gap 11 (5-15); Calcium 9.4 mg/dL (8.7-10.4); Carbon Dioxide 19 mmol/L (20-31)
[2024-01-13] MEDS: PANTOPRAZOLE 40 MG TAB PO SCH (06:24)
[2024-01-13 06:25] LABS: BUN/Creatinine Ratio 7.7 (10.0-20.0); Blood Urea Nitrogen 30 mg/dL (9-23); Glucose 127 mg/dL (74-106)
[2024-01-13] MEDS ORDERED: CALC0.25 PO (16:11)
== END 2024-01-13 18:20 | disposition home or self-care (01) | DRG 304 ==
LOC: EDBD 06:35 → ER 06:35 → TELE 13:42 → TELE-EAST 18:35 → EAST 01-12 15:27
PROVIDERS: ADMIT Internal Medicine; ATTEND Internal Medicine
DX: I16.1 Hypertensive emergency (principal); N17.0 Acute kidney failure with tubular necrosis; I50.22 Chronic systolic (congestive) heart failure; N25.81 Secondary hyperparathyroidism of renal origin; N18.4 Chronic kidney disease, stage 4 (severe); I13.0 Hypertensive heart and chronic kidney disease with heart failure and stage 1 through stage 4 chronic kidney disease, or unspecified chronic kidney disease; E78.5 Hyperlipidemia, unspecified; D63.1 Anemia in chronic kidney disease; E11.22 Type 2 diabetes mellitus with diabetic chronic kidney disease; F03.90 Unspecified dementia, unspecified severity, without behavioral disturbance, psychotic disturbance, mood disturbance, and anxiety; I25.10 Atherosclerotic heart disease of native coronary artery without angina pectoris; E11.65 Type 2 diabetes mellitus with hyperglycemia; G40.909 Epilepsy, unspecified, not intractable, without status epilepticus; E55.9 Vitamin D deficiency, unspecified; E05.80 Other thyrotoxicosis without thyrotoxic crisis or storm; Z90.49 Acquired absence of other specified parts of digestive tract; Z91.199 Patient's noncompliance with other medical treatment and regimen due to unspecified reason; Z82.49 Family history of ischemic heart disease and other diseases of the circulatory system; Z83.3 Family history of diabetes mellitus
CPT/HCPCS: 36415; 70450; 71045; 74176; 76775; 80048; 81001; 82306; 82550; 82570; 82607; 82962; 83036; 83735; 83880; 83935; 83970; 84100; 84156; 84300; 84439; 84443; 84481; 84484; 84550; 85025; 86803; 87340; 93005; 97163; 99291; G0378; J1815

== ENCOUNTER 2024-04-19 00:02 | Inpatient (IN) | payer OTHER ==
[2024-04-19] VITALS (9 sets, daily range): BP systolic 109–199; BP diastolic 44–95; PULSE 59–70; RESP 17–18; TEMP 97.5–98.9; O2SAT 96–100
[~2024-04-19] VITALS: Ht 154.9 cm; Wt 77.0 kg
[~2024-04-19 00:02] MED LIST changes: +CALC0.25 PO; -FURO40TA4 PO; -METO25TA36 PO; -NIFE1TAB36 PO; -SALI1SPR; -SODI650T PO
--- NOTE | 2024-04-19 04:38 | DVHHPRES ---
History of Present Illness Resident Creating Document: MASHA VIEYRA RESDIENT History of Present Illness This is a 78-year-old female with past medical history of CKD, diabetes mellitus, hyperlipidemia, hypertension, seizure, TIA, was admitted at [facility] for altered level of consciousness. per [facility] papers, patient was vitally stable and lab studies were significant for raised BUN at 74 and creatinine at 5.32 otherwise lab studies were unremarkable. The patient was admitted on the line of uremic encephalopathy in [facility]. Head CT scan was showing no acute intracranial abnormalities. Upon transfer of the patient to the [facility], patient reports that had dizziness and blurry vision since 1 day. She also reports of left-sided weakness which later on resolved. Currently, the patient still has blurry vision. Patient denies fever, chest pain, shortness of breath, nausea, vomiting, and any recent changes in bowel and bladder habits. PMHx: CKD, diabetes mellitus, hyperlipidemia, hypertension, seizure, TIA, was admitted at [facility] for altered level of consciousness Social history: Lives at home, use walker for mobility, ex-smoker, denies any other drug use Allergic history: No known allergies Review of Systems Review of Systems General: patient denies fever, fatigue, weaknes, sweating, any recent changes in appetite and weight HEENT: Reports blurry vision and dizzy Cardiovascular: Denies chest pain, palpitations, dyspnea on exertion, orthopnea, or claudication. Respiratory: No cough, and wheezing. Gastrointestinal: Denies nausea, vomiting, dysphagia, odynophagia, heartburn, abdominal pain, flatulence, bloating, diarrhea, constipation, change in stool, or blood in stool. Genitourinary: No dysuria, hematuria, discharge, frequency, urgency, nocturia, incontinence, and urinary retention. Endocrine: No heat or cold intolerance, polydipsia, polyuria, and polyphagia. Neurological: Reports left-sided weakness Psychiatric: Denies depression, anxiety,or insomnia. Musculoskeletal: Denies neck pain, stiffness and swelling, back pain, muscle weakness, joint pain, stiffness, swelling, or limited range of motion. Skin: No rashes, itching, skin lesion, changes in hair, nail, skin texture and breast. Hematologic/Lymphatic: Denies easy bruising, bleeding tendencies, or lymph node enlargement. Allergies: Coded Allergies: NO KNOWN ALLERGIES (Unverified , 01/14/22) Exam Vital Signs Vital Signs Date Time Temp Pulse Resp B/P (MAP) Pulse Ox O2 Delivery O2 Flow Rate FiO2 04/19/24 03:42 97.5 70 18 199/71 (113) 100 97.5 04/19/24 03:26 Room Air* 0 21 Exam General Appearance: Alert, Oriented X3, Cooperative, No acute distress HEENT: Atraumatic, PERRLA, EOMI, Mucous membrane moist/pink Respiratory: Clear to auscultation, Normal air movement Cardiovascular: Regular rate, Normal S1, Normal S2, No murmurs, no chest wall tenderness Abdominal: Normal bowel sounds, Soft, No tenderness, No hepatospenomegaly, No masses Extremities: No clubbing, No cyanosis, No edema, Normal pulses, No tenderness/swelling Skin: No rashes, No breakdown, No significant lesion Neuro: Normal gait, Normal speech, Strength at 5/5 X4 ext, Normal tone, Sensation intact, Cranial nerves 3-12 NL, Reflexes 2+ Psych/Mental Status: Mental status NL, Mood NL Assessment/Plan Assessment/Plan Intensive emergency leading to hypertensive encephalopathy Resume home medicine including metoprolol and nifedipine Inj. Labetalol Hydralazine 10 mg stat Hydralazine p.r.n. Check head CT CKD grade 5 Check RFT consulted nephrology Diabetes mellitus type 2 Insulin mild SS History of seizure Continue Keppra History of TIA Continue atorvastatin Head CT scan DIET: Diabetic CODE STATUS: Goal of care discussed for more than 20 minutes, full code DISPOSITION: Telemetry Patient's status and paln discussed with the patient Case discussed with Dr. Diaz Plan discussed with: Patient, Other (RN) My Orders Orders - HEWADMAL,HEWAD RESDIENT Procedure Category Date Status Time * Dietary Consult CONS 04/19/24 Transmitted 04:24 * Wound Consult CONS 04/19/24 Transmitted Date of Service: Apr 19, 2024 Billing Provider: VANESSA DIAZ MD Common Visit Codes: [id number] INP/OBS CARE (HIGH) Secondary Visit Codes: [id number] CARE PLAN 30 MINUTES HEWADMAL,HEWAD RESDIENT Apr 19, 2024 04:38 VANESSA DIAZ MD Apr 19, 2024 09:48
[2024-04-19] MEDS: METOPROLOL SUCCINATE XL 50 MG TAB PO ONE (04:45)
[2024-04-19] MEDS ORDERED: DEXTROSE (50%) 50ML SYRG IV PRN (04:45)
[2024-04-19] MEDS ORDERED: hydrALAZINE HCL 20 MG/ML VL IV PRN (04:45)
[2024-04-19] MEDS: hydrALAZINE HCL 20 MG/ML VL IV ONE (05:31)
[2024-04-19] MEDS: ATORVASTATIN 20 MG TAB PO ONE (05:32)
[2024-04-19] MEDS: NIFEdipine ER 30 MG TAB PO ONE (05:32)
[2024-04-19] MEDS: ACCU-CHEK COMFORT CURVE STRIP VI SCH (08:04)
[2024-04-19] MEDS: SEVELAMER 800 MG TAB PO SCH (08:04)
[2024-04-19] MEDS: InsuLIN REG 1unit/0.01ml Soln (100units/ml) SC SCH (08:13)
--- NOTE | 2024-04-19 09:20 | DVH ---
CT HEAD WITHOUT CONTRAST INDICATION: ALOC EXAM DATE: 04/19/2024 08:49 AM COMPARISON: CT HEAD WITHOUT CONTRAST on DOS: 01/10/24, CT HEAD WITHOUT CONTRAST on DOS: 01/10/24, CT HEAD WITHOUT CONTRAST on DOS: 10/02/23 RADIATION DOSE: CTDIvol: 48.98 mGy, DLP: 785.41 mGy*cm PROCEDURE: CT scans of the head were obtained from the vertex to the skull base. Sagittal and coronal reconstructions were provided. All CT scans at this medical facility are performed using dose modulation techniques as appropriate t o a performed exam including the following: Automated exposure control was utilized; adjustment of th e MA and/or KV according to patient size; and use of iterative reconstruction technique. FINDINGS: There is sulcal and ventricular prominence. The brainshows normal morphology and boss-whi te matter differentiation, without intracranial hemorrhage, extra-axial fluid collection, mass effect or acute large vessel infarct. The ventricles are normal in size. The basal cisterns are patent. The skull and visible facial bones are intact. The paranasal sinuses, mastoid air cells and middle ear c avities are well-aerated. The soft tissues of the scalp are unremarkable. IMPRESSION: No acute intracranial abnormality.
--- NOTE | 2024-04-19 09:20 | DVH ---
XY CHEST XRAY 1 VIEW, HISTORY: Pneumonia COMPARISON: XY CHEST PORTABLE on DOS: 01/10/24, XY CHEST PORTABLE on DOS: 10/02/23, XY CHEST PORTABLE o n DOS: 04/22/23 XY CHEST PORTABLE on DOS: 01/10/24, XY CHEST PORTABLE on DOS: 10/02/23, XY CHEST PORTABLE on DOS: TECHNICAL DATA: 1 view of the chest was obtained. FINDINGS: Lines and tubes: None Cardiomediastinal silhouette: normal Pulmonary vasculature: normal Lung expansion: normal Lung airspace: normal Lung interstitium: normal Pleura: normal Pneumothorax: no Bones: Unremarkable Other: no IMPRESSION: No acute intrathoracic abnormality.
[2024-04-19] MEDS: levETIRAcetam 500 MG TAB PO SCH (09:23)
[2024-04-19] MEDS: LABETALOL HCL 20 MG/4 ML VL IV ONE (09:24)
[2024-04-19 11:00] LABS: Basophils # (auto) 0 10 ^3/uL (0-0.2); Basophils % (auto) 0.4 % (0.0-2.0); Eosinophils # (auto) 0.2 10 ^3/uL (0-0.8); Eosinophils % (auto) 2.5 % (0.0-7.0); Hematocrit 31.7 % (36.0-46.0); Hemoglobin 10.4 g/dL (12.2-16.2); Lymphocytes # (auto) 2.3 10 ^3/uL (0.4-5.4); Lymphocytes % (auto) 31.2 % (10.0-50.0); Mean Corpuscular Hemoglobin 28.9 pg (28.0-32.0); Mean Corpuscular Hgb Conc. 32.7 g/dL (32.0-36.0); Mean Corpuscular Volume 88.5 fL (80.0-100.0); Monocytes # (auto) 0.7 10 ^3/uL (0-1.3); Monocytes % (auto) 9.7 % (0.0-12.0); Neutrophils # (auto) 4.2 10 ^3/uL (1.6-8.6); Neutrophils % (auto) 56.2 % (37.0-80.0); Nucleated Red Blood Cells % 0.1 %; Platelet Count (auto) 228 10^3/uL (140-450); Red Blood Cells 3.58 10^6/uL (4.0-5.20); Red Cell Distribution Width 13.7 % (11.8-14.3); White Blood Cell 7.4 10^3/uL (4.4-10.8)
--- NOTE | 2024-04-19 11:00 | DVHINCON2 ---
Date of service: Apr 19, [address] Philip Reason for Consultation Acute kidney injury History of Present Illness Patient is 78-year-old male with past medical history significant for CKD stage IV, diabetes mellitus, hyperlipidemia, hypertension, seizure, and TIA TIA, is transferred from [facility] for altered level of consciousness. Nephrology is consulted for acute kidney injury Past Medical History CKD, diabetes mellitus, hyperlipidemia, hypertension, seizure, TIA, Past Surgical History Patient denies Allergies: Coded Allergies: NO KNOWN ALLERGIES (Unverified , 01/14/22) Home Meds Active Scripts Calcitriol (Calcitriol) 0.25 Mcg Cap, 0.25 MCG PO DAILY for 30 Days, #30 CAP 2 Refills Prov:RAMSES HERNANDES 01/13/24 Nifedipine (Nifedipine Er) 90 Mg Tab, 90 MG PO DAILY for 30 Days, #30 TAB 3 Refills Prov:ARIANNE RIZO MD 10/05/23 Levetiracetam (Keppra) 500 Mg Tab, 1 TAB PO BID, #60 TAB 0 Refills Prov:DARIN CONWAY MD 01/18/22 Reported Medications Mupirocin (Pseudomonas Fluores (Mupirocin) 2 % Oin, TOP UD for CORNS AND CALLOSITIES APPLY OINTMENT TOPICALLY TO AFFECTED AREA THREE TIMES DAILY FOR 5 DAYS 01/11/24 Cephalexin (KEFLEX CAPSULE) 250 Mg Cp, 1 CAP PO QID for 10 Days, #40 01/11/24 Metoprolol Succinate (Metoprolol Succinate Er) 50 Mg Tab, 1 TAB PO DAILY for 90 Days, #90 01/11/24 Lidocaine (Lidocaine Patch 5%) 5 % Pad, 5 % EX DAILY, PAD APPLY ONE PATCH TOPICALLY TO CLEAN, DRY SKIN. LEAVE ON FOR 12 HOURS THEN REMOVE. MUST WAIT AT LEAST 12 HOURS BEFORE APPLYING PATCH(ES) AGAIN. 10/03/23 Insulin Glargine (Lantus Solostar) 100 Unit/Ml Inj, 20 UNIT SC DAILY, INJ 10/03/23 Ticagrelor Base (Brilinta) 60 Mg Tab, 60 MG PO DAILY, TAB 10/03/23 Pregabalin (Lyrica) 150 Mg Cap, 1 CAP PO BID, #60 CAP 5 Refills 10/02/23 Donepezil Hydrochloride (Aricept) 10 Mg Tab, 10 MG PO QPM, TAB 10/23/22 Amlodipine Besylate (Amlodipine Besylate) 5 Mg Tab, 5 MG PO DAILY for 30 Days, MG 01/17/22 Current Medications Current Medications Medications (Trade) Dose Ordered Sig/Deepak Route PRN Reason Start Time Stop Time Status Last Admin Diagnostic Test (Pha) (Accu-Chek Comfort Curve T) 1 strip IQ4HR 04/19/24 08:00 04/19/24 12:47 Insulin Human Regular (InsuLIN R) IQ4HR SC 04/19/24 08:00 04/19/24 12:54 Dextrose 50 ml UD PRN IV Blood Sugar LESS THAN 60 04/19/24 04:45 Nifedipine (Procardia Xl (Time-Release)) 90 mg DAILY PO 04/20/24 10:00 Metoprolol Succinate (Toprol Xl) 50 mg DAILY PO 04/20/24 10:00 Levetiracetam (Keppra Tablet) 500 mg BID PO 04/19/24 10:00 04/19/24 09:23 Hydralazine HCl (Apresoline Injection) 10 mg Q4HPRN PRN IV SBP>160 04/19/24 04:45 Atorvastatin Calcium (Lipitor) 20 mg HS PO 04/20/24 22:00 Sevelamer HCl (Renagel) 800 mg TIDWM PO 04/19/24 08:00 04/19/24 12:47 Family History: Diabetes mellitus G8 MOTHER Hypertension G8 FATHER Review of Systems All 12 item review of systems reviewed with the patient nonsignificant except what is mentioned in the history of present illness H&P Exam Vital Signs/I&O Vital Sign Date Time Temp Pulse Resp B/P (MAP) Pulse Ox O2 Delivery O2 Flow Rate FiO2 04/19/24 13:17 97.6 63 18 139/95 (110) 97 97.6 04/19/24 03:26 Room Air* 0 21 Intake and Output 04/18/24 04/19/24 19:00 07:00 Intake Total 240 ml Balance 240 ml Intake Oral 240 ml # Voids 1 Physical Exam Patient lying in bed in no acute distress Lungs clear to auscultation bilaterally Cardiac exam regular rate and rhythm GI soft bowel sounds are present normal Extremity trace pitting edema Neuro patient is awake and alert Labs/Diagnostic Data Labs/Diagnostic Data Laboratory Tests Test 04/19/24 13:17 04/19/24 10:38 Range/Units White Blood Count 7.4 4.4-10.8 10^3/uL Red Blood Count 3.58 L 4.0-5.20 10^6/uL Hemoglobin 10.4 L 12.2-16.2 g/dL Hematocrit 31.7 L 36.0-46.0 % Mean Corpuscular Volume 88.5 80.0-100.0 fL Mean Corpuscular Hemoglobin 28.9 28.0-32.0 pg Mean Corpuscular Hemoglobin Concent 32.7 32.0-36.0 g/dL Red Cell Distribution Width 13.7 11.8-14.3 % Platelet Count 228 140-450 10^3/uL Mean Platelet Volume 7.3 6.9-10.8 fL Neutrophils (%) (Auto) 56.2 37.0-80.0 % Lymphocytes (%) (Auto) 31.2 10.0-50.0 % Monocytes (%) (Auto) 9.7 0.0-12.0 % Eosinophils (%) (Auto) 2.5 0.0-7.0 % Basophils (%) (Auto) 0.4 0.0-2.0 % Neutrophils # (Auto) 4.2 1.6-8.6 10 ^3/uL Lymphocytes # (Auto) 2.3 0.4-5.4 10 ^3/uL Monocytes # (Auto) 0.7 0-1.3 10 ^3/uL Eosinophils # (Auto) 0.2 0-0.8 10 ^3/uL Basophils # (Auto) 0 0-0.2 10 ^3/uL Nucleated Red Blood Cells 0.1 % Prothrombin Time 10.9 9.3-11.8 sec Prothrombin Time INR 1.03 0.9-1.15 Sodium Level 140 136-145 mmol/L Potassium Level 3.7 3.5-5.1 mmol/L Chloride Level 105 98-107 mmol/L Carbon Dioxide Level 25 20-31 mmol/L Anion Gap 10 5-15 Blood Urea Nitrogen 61 H 9-23 mg/dL Creatinine 4.85 H 0.550-1.02 mg/dL Glomerular Filtration Rate Calc 9 >90 mL/min BUN/Creatinine Ratio 12.6 10.0-20.0 Serum Glucose 293 H 74-106 mg/dL Lactic Acid Level 2.5 *H 0.4-2.0 mmol/L Calcium Level 9.6 8.7-10.4 mg/dL Phosphorus Level 4.4 2.4-5.1 mg/dL Magnesium Level 2.0 1.6-2.6 mg/dL Total Bilirubin 0.2 0.2-1.0 mg/dL Aspartate Amino Transferase (AST) 9 L 13-40 U/L Alanine Aminotransferase (ALT) < 9 7-40 U/L Alkaline Phosphatase 130 H 46-116 U/L Ammonia < 10 L 11-32 umol/L Creatine Kinase 93 34-145 U/L Troponin I High Sensitivity 10 </=34 ng/L Total Protein 7.0 5.7-8.2 g/dL Albumin 4.0 3.2-4.8 g/dL Vitamin B12 Level 454 211-911 pg/mL Vitamin D 25-Hydroxy 24.5 L 30.0-100 ng/mL Thyroid Stimulating Hormone (TSH) 1.44 0.55-4.78 uIU/mL Parathyroid Hormone (Intact) 569.9 H 18.4-80.1 pg/mL Hepatitis B Surface Antigen Negative Negative Hepatitis C Antibody Negative Negative Assessment Acute kidney injury superimposed Chronic Kidney Disease secondary hemodynamic mediated Congestive heart failure, ejection 45% Diabetes mellitus type 2 Hypertension Anemia of chronic kidney disease Recommendations Closely monitor fluid and electrolytes Avoid nephrotoxic medications Jhaveri catheter Strict I&Os Check urinalysis urine electrolytes and urine protein excretion Check kidney ultrasound Renal diet Blood pressure control We will continue to follow Patient seen and examined by myself. I discussed my plan of care with the patient and primary nurse at the bedside I would like to thank and Dr. Diaz for the consult, will follow Plan discussed with: Patient OKSANA LORENZO MD Apr 19, 2024 11:00
[2024-04-19 11:20] LABS: Alanine Aminotransferase < 9 U/L (7-40); Alkaline Phosphatase 130 U/L (46-116); Anion Gap 10 (5-15); BUN/Creatinine Ratio 12.6 (10.0-20.0); Blood Urea Nitrogen 61 mg/dL (9-23); Calcium 9.6 mg/dL (8.7-10.4); Carbon Dioxide 25 mmol/L (20-31); Chloride 105 mmol/L (98-107); Creatine Kinase IFCC 93 U/L (34-145); Glucose 293 mg/dL (74-106); Phosphorus 4.4 mg/dL (2.4-5.1); Potassium 3.7 mmol/L (3.5-5.1); Sodium 140 mmol/L (136-145)
--- NOTE | 2024-04-19 11:20 | DVH ---
RENAL ULTRASOUND CLINICAL HISTORY: noemi TECHNIQUE: Multiple ultrasound images of the kidneys and bladder were obtained. COMPARISON: US KIDNEY on DOS: 01/11/24, US KIDNEY on DOS: 10/02/23 FINDINGS: The left kidney is partially obscured by bowel gas. The right kidney measures 8.6 cm in length. The l eft kidney measures 8.7 cm. Both kidneys appear mildly echogenic which May relate to medical renal di sease. There is a 2.4 x 1.2 cm right upper pole renal cyst. There is no sonographic evidence of nephr olithiasis or hydronephrosis. The bladder appears within normal limits with prevoid volume measuring 471 cc. IMPRESSION: 1. The kidneys appear mildly echogenic which May relate to medical renal disease. 2. 2.4 cm right upper pole renal cyst. HS:Y
[2024-04-19 11:22] LABS: Aspartate Aminotransferase 9 U/L (13-40); Bilirubin, Total 0.2 mg/dL (0.2-1.0); Lactic Acid w/Reflex 2.5 mmol/L (0.4-2.0)
[2024-04-19 11:23] LABS: INR 1.03 (0.9-1.15); Prothrombin Time 10.9 sec (9.3-11.8)
[2024-04-19 12:49] LABS: Hepatitis B Surface Antigen Negative (Negative); Hepatitis C Antibody Negative (Negative)
[2024-04-19] MEDS: SODIUM CHLORIDE 0.9% 250 ML IV ONE (17:42)
[2024-04-19 19:06] LABS: Sodium Urine 55 mmol/L (40-220)
[2024-04-19 19:10] LABS: Urine Bacteria FEW /hpf (None Seen); Urine Blood Negative /uL (Negative); Urine Clarity Clear (Clear); Urine Color Light-Yellow (Yellow); Urine Protein, UAD 2+ (Negative); Urine Specific Gravity 1.012 (1.001-1.035); Urine Squamous Epithelial Cell FEW /hpf (<5); Urine Urobilinogen Normal (Negative); Urine WBC < 1 /HPF (0-5)
[2024-04-19 19:11] LABS: Protein, Urine 134.3 mg/dL (1-14)
[2024-04-19 19:13] LABS: Creatinine, Urine 85.68 mg/dL (30.0-125.0)
[2024-04-19 19:14] LABS: Creatinine, Urine 84.27 mg/dL (30.0-125.0); Urine Protein/Creatinine Ratio 1.59
[2024-04-19 19:18] LABS: Amphetamine Screen, Urine Neg (NEGATIVE); Barbiturate Scree,Urine Neg (NEGATIVE); Benzodiazephine Screen, Urine Neg (NEGATIVE); Cannabinoid Screen, Urine Neg (NEGATIVE); Cocaine Screen, Urine Neg (NEGATIVE); Opiate Scree,Urine Neg (NEGATIVE); Phencyclidine Screen, Urine Neg (NEGATIVE)
[2024-04-20] VITALS (8 sets, daily range): BP systolic 119–155; BP diastolic 40–59; PULSE 56–81; RESP 16–18; TEMP 97.6–98; O2SAT 96–100
[2024-04-20 06:35] LABS: Chloride 106 mmol/L (98-107); Potassium 4.5 mmol/L (3.5-5.1); Sodium 140 mmol/L (136-145)
[2024-04-20 06:36] LABS: Anion Gap 11 (5-15); Carbon Dioxide 23 mmol/L (20-31)
[2024-04-20 06:37] LABS: Calcium 9.7 mg/dL (8.7-10.4)
[2024-04-20 06:41] LABS: BUN/Creatinine Ratio 12.5 (10.0-20.0)
[2024-04-20 06:42] LABS: Blood Urea Nitrogen 60 mg/dL (9-23); Glucose 128 mg/dL (74-106)
[2024-04-20] MEDS: NIFEdipine ER 30 MG TAB PO SCH (08:44)
[2024-04-20] MEDS: METOPROLOL SUCCINATE XL 50 MG TAB PO SCH (08:45)
--- NOTE | 2024-04-20 12:24 | DVHPN2 ---
Progress Note Date Seen: Apr 20, 2024 Medical Necessity Reason Pt with a Central, PICC or Fol: No Subjective Patient reports: No new complaints Other Systems: Patient seen and examined by myself today in follow-up Objective vital signs Vital Sign Date Time Temp Pulse Resp B/P (MAP) Pulse Ox O2 Delivery O2 Flow Rate FiO2 04/20/24 09:00 98.0 66 18 119/40 (66) 100 98.0 04/20/24 08:00 Room Air* 0 21 Total Intake and Output 04/19/24 04/19/24 04/20/24 15:00 23:00 07:00 Intake Total 200 ml 250 ml Output Total 300 ml Balance 200 ml -50 ml medications Current Medications Medications Dose Ordered Sig/Deepak Route Start Time Stop Time Status Last Admin Dose Admin Diagnostic Test (Pha) 1 strip IQ4HR 04/19/24 08:00 04/20/24 12:04 1 STRIP Insulin Human Regular IQ4HR SC 04/19/24 08:00 04/20/24 12:11 3 UNITS Dextrose 50 ml UD PRN IV 04/19/24 04:45 Nifedipine 90 mg DAILY PO 04/20/24 10:00 04/20/24 08:44 90 MG Metoprolol Succinate 50 mg DAILY PO 04/20/24 10:00 04/20/24 08:45 50 MG Levetiracetam 500 mg BID PO 04/19/24 10:00 04/20/24 08:43 500 MG Hydralazine HCl 10 mg Q4HPRN PRN IV 04/19/24 04:45 Atorvastatin Calcium 20 mg HS PO 04/20/24 22:00 Sevelamer HCl 800 mg TIDWM PO 04/19/24 08:00 04/20/24 12:16 800 MG Examination: LUNGS:Normal, CVS:Normal, MSK:Normal laboratory and microbiology Laboratory Tests 04/20/24 05:00 04/19/24 10:38 Test 04/20/24 05:00 Range/Units Serum Glucose 128 H 74-106 mg/dL Problem List/Assessment/Plan Problem List/Assessment/Plan Acute kidney injury superimposed Chronic Kidney Disease secondary hemodynamic mediated Proteinuria, mild due to underlying diabetic nephropathy Congestive heart failure, ejection 45% Diabetes mellitus type 2 Hypertension Anemia of chronic kidney disease Recommendations Kidney function stabilize Chronic Kidney Disease stage 5 Acid base and electrolytes are acceptable No indication for acute hemodialysis Strict I&Os kidney ultrasound reported bilateral echogenic kidney with simple cyst Renal diet Blood pressure control We will continue to follow Plan discussed with: Patient Dietary Evaluation Review Comments: Follow current diet regimen and monitor Intake to meet 785% of her needs Expected Outcomes/Goals: improved nutrition related lab values. gradual weight loss. OKSANA LORENZO MD Apr 20, 2024 12:24
[2024-04-20] MEDS: CALCITRIOL 0.25 MCG CAP PO SCH (13:38)
[2024-04-20] MEDS: ATORVASTATIN 20 MG TAB PO SCH (19:51)
[2024-04-21] VITALS (8 sets, daily range): BP systolic 101–164; BP diastolic 52–79; PULSE 60–98; RESP 17–20; TEMP 97.5–98.3; O2SAT 91–100
--- NOTE | 2024-04-21 11:43 | DVHPN2 ---
Progress Note Date Seen: Apr 21, 2024 Medical Necessity Reason Pt with a Central, PICC or Fol: No Subjective Patient reports: No new complaints Other Systems: Patient seen and examined by myself today in follow-up Objective vital signs Vital Sign Date Time Temp Pulse Resp B/P (MAP) Pulse Ox O2 Delivery O2 Flow Rate FiO2 04/21/24 09:26 146/61 04/21/24 09:25 61 04/21/24 08:30 98.0 18 98 98.0 04/21/24 08:00 Room Air* 0 21 Total Intake and Output 04/20/24 04/20/24 04/21/24 15:00 23:00 07:00 Intake Total 460 ml 200 ml Output Total 800 ml Balance -340 ml 200 ml medications Current Medications Medications Dose Ordered Sig/Deepak Route Start Time Stop Time Status Last Admin Dose Admin Diagnostic Test (Pha) 1 strip IQ4HR 04/19/24 08:00 04/21/24 04:00 1 STRIP Insulin Human Regular IQ4HR SC 04/19/24 08:00 04/20/24 16:49 2 UNITS Dextrose 50 ml UD PRN IV 04/19/24 04:45 Nifedipine 90 mg DAILY PO 04/20/24 10:00 04/21/24 09:26 90 MG Metoprolol Succinate 50 mg DAILY PO 04/20/24 10:00 04/21/24 09:25 50 MG Levetiracetam 500 mg BID PO 04/19/24 10:00 04/21/24 09:25 500 MG Hydralazine HCl 10 mg Q4HPRN PRN IV 04/19/24 04:45 Atorvastatin Calcium 20 mg HS PO 04/20/24 22:00 04/20/24 19:51 20 MG Sevelamer HCl 800 mg TIDWM PO 04/19/24 08:00 04/21/24 09:25 800 MG Calcitriol 0.25 mcg DAILY PO 04/20/24 12:30 04/21/24 09:26 0.25 MCG Examination: LUNGS:Normal, CVS:Normal, MSK:Normal laboratory and microbiology Laboratory Tests 04/20/24 05:00 04/19/24 10:38 Test 04/20/24 05:00 Range/Units Serum Glucose 128 H 74-106 mg/dL Problem List/Assessment/Plan Problem List/Assessment/Plan Acute kidney injury superimposed 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 Proteinuria, mild due to underlying diabetic nephropathy Congestive heart failure, ejection 45% Diabetes mellitus type 2 Hypertension Anemia of chronic kidney disease Recommendations Kidney function stabilized Chronic Kidney Disease stage 5 Acid base and electrolytes are acceptable No indication for acute hemodialysis Strict I&Os kidney ultrasound reported bilateral echogenic kidney with simple cyst Renal diet Blood pressure control Patient cleared from Nephrology for discharge follow-up with nephrology two weeks after discharge Plan discussed with: Patient My Orders My Orders Orders - OKSANA LORENZO MD Procedure Category Date Status Time Calcitriol Capsule PHA 04/20/24 In Process (Rocaltrol Capsule) 12:30 Dietary Evaluation Review Comments: Follow current diet regimen and monitor Intake to meet 785% of her needs Expected Outcomes/Goals: improved nutrition related lab values. gradual weight loss. OKSANA LORENZO MD Apr 21, 2024 11:43
--- NOTE | 2024-04-21 15:49 | DVHDS2 ---
Discharge Summary Date of Admission Apr 19, 2024 at 02:40 Date of Discharge: Apr 21, 2024 Admitting Diagnosis Hypertensive emergency leading to hypertensive encephalopathy CKD Stage 5 Diabetes mellitus type 2 History of seizure History of TIA Labs/Diagnostic Data: Laboratory Results Test 04/21/24 11:56 04/20/24 05:00 04/19/24 18:15 04/19/24 18:00 POC Glucose 154 mg/dl (70-106) Sodium Level 140 mmol/L (136-145) Potassium Level 4.5 mmol/L (3.5-5.1) Chloride Level 106 mmol/L (98-107) Carbon Dioxide Level 23 mmol/L (20-31) Anion Gap 11 (5-15) Blood Urea Nitrogen 60 mg/dL (9-23) Creatinine 4.80 mg/dL (0.550-1.02) Glomerular Filtration Rate Calc 9 mL/min (>90) BUN/Creatinine Ratio 12.5 (10.0-20.0) Serum Glucose 128 mg/dL (74-106) Calcium Level 9.7 mg/dL (8.7-10.4) Lactic Acid Level 2.0 mmol/L (0.4-2.0) Urine Color Light-yellow (Yellow) Urine Clarity Clear (Clear) Urine pH 6.0 (5.0-9.0) Urine Specific [place] 1.012 (1.001-1.035) Urine Protein 2+ (Negative) Urine Ketones Negative (Negative) Urine Blood Negative /uL (Negative) Urine Nitrite Negative (Negative) Urine Bilirubin Negative (Negative) Urine Urobilinogen Normal mg/dL (Negative) Urine Leukocyte Esterase Negative /uL (Negative) Urine RBC <1 /hpf (0 - 4) Urine Microscopic WBC < 1 /HPF (0-5) Urine Squamous Epithelial Cells Few /hpf (<5) Urine Bacteria Few /hpf (None Seen) Urine Osmolality 361 mOsm/kg Urine Creatinine 84.27 mg/dL (30.0-125.0) Urine Protein/Creatinine Ratio 1.59 Urine Sodium 55 mmol/L (40-220) Urine Glucose 1+ mg/dL (Normal) Urine Total Protein 134.3 mg/dL (1-14) Urine Opiates Screen Neg (NEGATIVE) Urine Fentanyl Screen Neg (NEGATIVE) Urine Barbiturates Screen Neg (NEGATIVE) Urine Phencyclidine Screen Neg (NEGATIVE) Urine Amphetamines Screen Neg (NEGATIVE) Urine Benzodiazepines Screen Neg (NEGATIVE) Urine Cocaine Screen Neg (NEGATIVE) Urine Cannabinoids Screen Neg (NEGATIVE) Test 04/19/24 10:38 White Blood Count 7.4 10^3/uL (4.4-10.8) Red Blood Count 3.58 10^6/uL (4.0-5.20) Hemoglobin 10.4 g/dL (12.2-16.2) Hematocrit 31.7 % (36.0-46.0) Mean Corpuscular Volume 88.5 fL (80.0-100.0) Mean Corpuscular Hemoglobin 28.9 pg (28.0-32.0) Mean Corpuscular Hemoglobin Concent 32.7 g/dL (32.0-36.0) Red Cell Distribution Width 13.7 % (11.8-14.3) Platelet Count 228 10^3/uL (140-450) Mean Platelet Volume 7.3 fL (6.9-10.8) Neutrophils (%) (Auto) 56.2 % (37.0-80.0) Lymphocytes (%) (Auto) 31.2 % (10.0-50.0) Monocytes (%) (Auto) 9.7 % (0.0-12.0) Eosinophils (%) (Auto) 2.5 % (0.0-7.0) Basophils (%) (Auto) 0.4 % (0.0-2.0) Neutrophils # (Auto) 4.2 10 ^3/uL (1.6-8.6) Lymphocytes # (Auto) 2.3 10 ^3/uL (0.4-5.4) Monocytes # (Auto) 0.7 10 ^3/uL (0-1.3) Eosinophils # (Auto) 0.2 10 ^3/uL (0-0.8) Basophils # (Auto) 0 10 ^3/uL (0-0.2) Nucleated Red Blood Cells 0.1 % Prothrombin Time 10.9 sec (9.3-11.8) Prothrombin Time INR 1.03 (0.9-1.15) Phosphorus Level 4.4 mg/dL (2.4-5.1) Magnesium Level 2.0 mg/dL (1.6-2.6) Total Bilirubin 0.2 mg/dL (0.2-1.0) Aspartate Amino Transferase (AST) 9 U/L (13-40) Alanine Aminotransferase (ALT) < 9 U/L (7-40) Alkaline Phosphatase 130 U/L (46-116) Ammonia < 10 umol/L (11-32) Creatine Kinase 93 U/L (34-145) Troponin I High Sensitivity 10 ng/L (</=34) Total Protein 7.0 g/dL (5.7-8.2) Albumin 4.0 g/dL (3.2-4.8) Vitamin B12 Level 454 pg/mL (211-911) Vitamin D 25-Hydroxy 24.5 ng/mL (30.0-100) Thyroid Stimulating Hormone (TSH) 1.44 uIU/mL (0.55-4.78) Parathyroid Hormone (Intact) 569.9 pg/mL (18.4-80.1) Hepatitis B Surface Antigen Negative (Negative) Hepatitis C Antibody Negative (Negative) Other Laboratory Tests 04/20/24 05:00 04/19/24 10:38 Brief Hx & Hospital Course: . This is a 78 years old female with past medical history of chronic kidney disease, diabetes type 2, hyperlipidemia, hypertension, seizure, TIA, was admitted to [facility] for altered mental status. The patient apparently was discharged home. Head CT showed no intracranial abnormality. The patient however still remained hypertensive urgency and emergency. The patient was alter mental status. The patient had left-sided weakness which resolved. The patient also complained of blurred vision. The patient was transferred to [facility]. The patient was treated with hypertensive medication, the patient was also given IV hydralazine p.r.n. for systolic greater than 160. Today the patient's blood pressure control. She alert oriented x3. I am going to discharge her home. Advised her to follow up with primary care physician 1-2 weeks. 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 Activity as tolerated. Diet renal diet. Physical exam: HEENT: Normocephalic atraumatic pupils equal react to light and accommodation. Extraocular muscles intact, conjunctiva pink, oropharynx moist, no thrush, no exudate. Lymphatic: No lymphadenopathy Cardiovascular exam: S1, S2 was heard. No murmurs, rubs, gallops Lung: Clear on auscultation bilaterally, no wheeze, rale, rhonchi. GI: Abdominal soft, nondistended, nontenderness, positive bowel sounds. Extremity: No crepitus, cyanosis, edema. Pedal pulses present bilateral. Full range of motion. Skin: Normal turgor, no rash. Psych: Alert, oriented x3. Neurology: No focal deficits, cranial nerve II to XII grossly intact. This medical document was created using an electronic medical record system with [employer] direct computerized dictation system. Although this document has been carefully reviewed, there may still be some phonetic and typographical errors. These areas are purely typographical due to imperfections of the software programs, and do not reflect any compromise in the patient's medical care. Condition at Discharge: Stable Final Diagnosis/Problems List Hypertensive emergency leading to hypertensive encephalopathy, resolved. Hypertension CKD Stage 5 Diabetes mellitus type 2 History of seizure History of TIA Discharge Disposition: Home Discharge Statement: "Patient was advised to return to the ER or call 911 if any headaches, dizziness, shortness of breath, chest pain, abdominal pain, bleeding, fevers, or worsening of medical condition. Patient was counseled about treatment plan, medications, possible side effects, patientverbalized understanding. All questions were answered to the best of my ability. This discharge took greater then 30 minutes in planning, reviewing documentation, counseling the patient, and discussing with other team members." ASSESSMENT ASSESSMENT Assessment Date of Service: Apr 21, 2024 Billing Provider: NATHANIEL ETIENNE MD Common Visit Codes: [id number] DISCH DAY >30min NATHANIEL ETIENNE MD Apr 21, 2024 15:49
--- NOTE | 2024-04-21 23:11 | DVHPN2 ---
Objective Vitals Vital Signs Date Time Temp Pulse Resp B/P (MAP) Pulse Ox O2 Delivery O2 Flow Rate FiO2 04/21/24 18:25 98.3 61 17 96 04/21/24 17:31 146/79 (101) 04/21/24 08:00 Room Air* 0 21 Intake/Output Intake and Output 04/21/24 07:00 Intake Total 660 ml Output Total 800 ml Balance -140 ml Intake Oral 660 ml Output Urine Total 800 ml Medications Current Medications Medications Dose Ordered Sig/Deepak Route Start Time Stop Time Status Last Admin Dose Admin Diagnostic Test (Pha) 1 strip IQ4HR 04/19/24 08:00 04/21/24 21:03 1 STRIP Insulin Human Regular IQ4HR SC 04/19/24 08:00 04/21/24 21:08 3 UNITS Dextrose 50 ml UD PRN IV 04/19/24 04:45 Nifedipine 90 mg DAILY PO 04/20/24 10:00 04/21/24 09:26 90 MG Metoprolol Succinate 50 mg DAILY PO 04/20/24 10:00 04/21/24 09:25 50 MG Levetiracetam 500 mg BID PO 04/19/24 10:00 04/21/24 21:00 500 MG Hydralazine HCl 10 mg Q4HPRN PRN IV 04/19/24 04:45 Atorvastatin Calcium 20 mg HS PO 04/20/24 22:00 04/21/24 21:00 20 MG Sevelamer HCl 800 mg TIDWM PO 04/19/24 08:00 04/21/24 17:14 800 MG Calcitriol 0.25 mcg DAILY PO 04/20/24 12:30 04/21/24 09:26 0.25 MCG Laboratory Results Laboratory Tests 04/19/24 10:38 04/20/24 05:00 Urinalysis Test 04/19/24 18:00 Urine Color Light-yellow (Yellow) Urine Clarity Clear (Clear) Urine pH 6.0 (5.0-9.0) Urine Specific [place] 1.012 (1.001-1.035) Urine Protein 2+ (Negative) H Urine Ketones Negative (Negative) Urine Blood Negative /uL (Negative) Urine Nitrite Negative (Negative) Urine Bilirubin Negative (Negative) Urine Urobilinogen Normal mg/dL (Negative) Urine Leukocyte Esterase Negative /uL (Negative) Urine RBC <1 /hpf (0 - 4) Urine Microscopic WBC < 1 /HPF (0-5) Urine Squamous Epithelial Cells Few /hpf (<5) Urine Bacteria Few /hpf (None Seen) H Urine Osmolality 361 mOsm/kg Urine Creatinine 84.27 mg/dL (30.0-125.0) Urine Protein/Creatinine Ratio 1.59 Urine Sodium 55 mmol/L (40-220) Urine Glucose 1+ mg/dL (Normal) H Urine Total Protein 134.3 mg/dL (1-14) H Assessment/Plan My Orders Orders - NATHANIEL ETIENNE MD Procedure Category Date Status Time Discharge DISCHARGE 04/21/24 Transmitted 15:49 NATHANIEL ETIENNE MD Apr 21, 2024 23:11
[2024-04-22] VITALS (7 sets, daily range): BP systolic 133–174; BP diastolic 49–99; PULSE 53–60; RESP 14–18; TEMP 97.4–97.9; O2SAT 98–100
--- NOTE | 2024-04-22 11:28 | DVHPN2 ---
Progress Note Date Seen: Apr 22, 2024 Medical Necessity Reason Pt with a Central, PICC or Fol: No Subjective Patient reports: No new complaints Other Systems: Patient seen and examined by myself today in follow-up Objective vital signs Vital Sign Date Time Temp Pulse Resp B/P (MAP) Pulse Ox O2 Delivery O2 Flow Rate FiO2 04/22/24 09:00 97.8 56 14 138/49 (78) 100 97.8 04/22/24 08:00 Room Air* 0 21 Total Intake and Output 04/21/24 04/21/24 04/22/24 15:00 23:00 07:00 Intake Total 820 ml 240 ml Output Total 1600 ml Balance -780 ml 240 ml medications Current Medications Medications Dose Ordered Sig/Deepak Route Start Time Stop Time Status Last Admin Dose Admin Diagnostic Test (Pha) 1 strip IQ4HR 04/19/24 08:00 04/22/24 04:32 1 STRIP Insulin Human Regular IQ4HR SC 04/19/24 08:00 04/21/24 21:08 3 UNITS Dextrose 50 ml UD PRN IV 04/19/24 04:45 Nifedipine 90 mg DAILY PO 04/20/24 10:00 04/22/24 08:32 90 MG Metoprolol Succinate 50 mg DAILY PO 04/20/24 10:00 04/22/24 08:33 50 MG Levetiracetam 500 mg BID PO 04/19/24 10:00 04/22/24 08:31 500 MG Hydralazine HCl 10 mg Q4HPRN PRN IV 04/19/24 04:45 Atorvastatin Calcium 20 mg HS PO 04/20/24 22:00 04/21/24 21:00 20 MG Sevelamer HCl 800 mg TIDWM PO 04/19/24 08:00 04/22/24 08:31 800 MG Calcitriol 0.25 mcg DAILY PO 04/20/24 12:30 04/22/24 08:32 0.25 MCG Examination: LUNGS:Normal, CVS:Normal, MSK:Normal laboratory and microbiology Laboratory Tests 04/20/24 05:00 04/19/24 10:38 Test 04/20/24 05:00 Range/Units Serum Glucose 128 H 74-106 mg/dL Problem List/Assessment/Plan Problem List/Assessment/Plan Acute kidney injury superimposed 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 Proteinuria, mild due to underlying diabetic nephropathy Congestive heart failure, ejection 45% Diabetes mellitus type 2 Hypertension Anemia of chronic kidney disease Recommendations Kidney function stabilized Chronic Kidney Disease stage 5 Acid base and electrolytes are acceptable No indication for acute hemodialysis Strict I&Os kidney ultrasound reported bilateral echogenic kidney with simple cyst Renal diet Blood pressure control I will sign off please refer patient to my clinic two weeks after discharge for Chronic Kidney Disease follow-up Thank you for the consult Plan discussed with: Patient Dietary Evaluation Review Comments: Follow current diet regimen and monitor Intake to meet 785% of her needs Expected Outcomes/Goals: improved nutrition related lab values. gradual weight loss. OKSANA LORENZO MD Apr 22, 2024 11:28
--- NOTE | 2024-04-22 20:01 | DVHPN2 ---
Subjective The patient is seen and examined at bedside. The patient had no complaint today. No headache. No dizziness. The patient was discharged yesterday but did not go home because nobody pick her. Her grandson was out of town and today he coming back and he will pick her up. Reviewed: Care Plan, H&P, Labs, Medications, Previous Orders, Radiology Changes from previous H/P or p: No Changes Objective Vitals Vital Signs Date Time Temp Pulse Resp B/P (MAP) Pulse Ox O2 Delivery O2 Flow Rate FiO2 04/22/24 16:32 97.6 60 18 145/99 (114) 99 97.6 04/22/24 08:00 Room Air* 0 21 Intake/Output Intake and Output 04/22/24 07:00 Intake Total 1060 ml Output Total 1600 ml Balance -540 ml Intake Oral 1060 ml Output Urine Total 1600 ml # Voids 1 General Appearance: Alert, Cooperative, No acute distress HEENT: Atraumatic, PERRLA, EOMI, Mucous membr. moist/pink Neck: Supple Lungs: Clear to auscultation, Normal air movement Cardiovascular: Regular rate, Normal S1, Normal S2, No murmurs, Gallops, Rubs Abdomen: Normal bowel sounds, Soft, No tenderness Neuro: Cranial nerves 3-12 NL Psych/Mental Status: Mental status NL Medications Current Medications Medications Dose Ordered Sig/Deepak Route Start Time Stop Time Status Last Admin Dose Admin Diagnostic Test (Pha) 1 strip IQ4HR 04/19/24 08:00 04/22/24 16:38 1 STRIP Insulin Human Regular IQ4HR SC 04/19/24 08:00 04/21/24 21:08 3 UNITS Dextrose 50 ml UD PRN IV 04/19/24 04:45 Nifedipine 90 mg DAILY PO 04/20/24 10:00 04/22/24 08:32 90 MG Metoprolol Succinate 50 mg DAILY PO 04/20/24 10:00 04/22/24 08:33 50 MG Levetiracetam 500 mg BID PO 04/19/24 10:00 04/22/24 08:31 500 MG Hydralazine HCl 10 mg Q4HPRN PRN IV 04/19/24 04:45 Atorvastatin Calcium 20 mg HS PO 04/20/24 22:00 04/21/24 21:00 20 MG Sevelamer HCl 800 mg TIDWM PO 04/19/24 08:00 04/22/24 12:12 800 MG Calcitriol 0.25 mcg DAILY PO 04/20/24 12:30 04/22/24 08:32 0.25 MCG Laboratory Results Laboratory Tests 04/19/24 10:38 04/20/24 05:00 Urinalysis Test 04/19/24 18:00 Urine Color Light-yellow (Yellow) Urine Clarity Clear (Clear) Urine pH 6.0 (5.0-9.0) Urine Specific [place] 1.012 (1.001-1.035) Urine Protein 2+ (Negative) H Urine Ketones Negative (Negative) Urine Blood Negative /uL (Negative) Urine Nitrite Negative (Negative) Urine Bilirubin Negative (Negative) Urine Urobilinogen Normal mg/dL (Negative) Urine Leukocyte Esterase Negative /uL (Negative) Urine RBC <1 /hpf (0 - 4) Urine Microscopic WBC < 1 /HPF (0-5) Urine Squamous Epithelial Cells Few /hpf (<5) Urine Bacteria Few /hpf (None Seen) H Urine Osmolality 361 mOsm/kg Urine Creatinine 84.27 mg/dL (30.0-125.0) Urine Protein/Creatinine Ratio 1.59 Urine Sodium 55 mmol/L (40-220) Urine Glucose 1+ mg/dL (Normal) H Urine Total Protein 134.3 mg/dL (1-14) H Labs and/or images reviewed: Labs reviewed by me Assessment/Plan Assessment/Plan Hypertensive emergency leading to hypertensive encephalopathy CKD Stage 5 Diabetes mellitus type 2 History of seizure History of TIA Continuing current management continuing with IV hydralazine and hypertensive medication. Continuing with Keppra. Continuing with sliding scale insulin. Continuing with statin. Discharge today. Plan discussed with: Patient My Orders Orders - NATHANIEL ETIENNE MD Procedure Category Date Status Time * Teacher Emotionally Impaired CONS 04/22/24 Transmitted Consult Date of Service: Apr 22, 2024 Billing Provider: NATHANIEL ETIENNE MD Common Visit Codes: [id number] INP/OBS CARE(HIGH) NATHANIEL ETIENNE MD Apr 22, 2024 20:01
== END 2024-04-22 20:10 | disposition home health service (06) | DRG 305 ==
LOC: TELE-WESTW 02:40 → WEST WING 23:33
PROVIDERS: ATTEND Internal Medicine
DX: I16.1 Hypertensive emergency (principal); I67.4 Hypertensive encephalopathy; N17.9 Acute kidney failure, unspecified; N18.5 Chronic kidney disease, stage 5; I13.2 Hypertensive heart and chronic kidney disease with heart failure and with stage 5 chronic kidney disease, or end stage renal disease; I50.9 Heart failure, unspecified; E11.22 Type 2 diabetes mellitus with diabetic chronic kidney disease; E78.5 Hyperlipidemia, unspecified; D63.1 Anemia in chronic kidney disease; Z86.73 Personal history of transient ischemic attack (TIA), and cerebral infarction without residual deficits; Z87.891 Personal history of nicotine dependence; Z82.49 Family history of ischemic heart disease and other diseases of the circulatory system; Z83.3 Family history of diabetes mellitus
CPT/HCPCS: 36415; 70450; 71045; 76775; 80048; 80053; 80307; 81001; 82140; 82306; 82550; 82570; 82607; 82962; 83605; 83735; 83935; 83970; 84100; 84156; 84300; 84443; 84484; 85025; 85610; 86803; 87340; 96361; 96374; 96375; G0378; J1815

== ENCOUNTER 2024-06-12 01:39 | Inpatient (IN) | payer OTHER ==
[~2024-06-12] VITALS: Ht 154.9 cm; Wt 71.3 kg
[2024-06-12] VITALS (15 sets, daily range): BP systolic 98–154; BP diastolic 52–85; PULSE 44–75; RESP 12–18; TEMP 97.3–98.1; O2SAT 95–100
[~2024-06-12 01:39] MED LIST changes: +ASPI81CH59 PO; +CALC667C PO; +FURO40TA4 PO; +HYDR50TA47 PO; -LIDO5PAD12 EX; +LIDO5PAD12 TOP; +SODI650T PO
--- NOTE | 2024-06-12 04:53 | DVHHPRES ---
History of Present Illness Resident Creating Document: MASHA VIEYRA RESDIENT History of Present Illness This is a 78-year-old female with past medical history of possible dementia, CKD, diabetes mellitus, hyperlipidemia, hypertension, seizure, TIA, was admitted at [facility] for altered level of consciousness status post mechanical fall. per [facility] papers, patient was vitally stable and lab studies were significant for raised BUN at 42 and creatinine at 4.41, otherwise lab studies were unremarkable. Head CT scan was showing no acute intracranial abnormalities. Upon transfer of the patient to the [facility], patient reports that had body stiffness. And due to altered level of consciousness, the patient could not provide proper history. Patient denies fever, chest pain, shortness of breath, nausea, vomiting, and any recent changes in bowel and bladder habits. PMHx: Possible dementia, CKD, diabetes mellitus, hyperlipidemia, hypertension, seizure, TIA, was admitted at [facility] for altered level of conscious ness Social history: Lives at home, use walker for mobility, ex-smoker, denies any other drug use Allergic history: No known allergies Review of Systems Review of Systems Due to altered mental status, review of systems could not obtain. Allergies: Coded Allergies: NO KNOWN ALLERGIES (Unverified , 01/14/22) Exam Exam General Appearance: Alert, Oriented X3, Cooperative, No acute distress HEENT: Atraumatic, PERRLA, EOMI, Mucous membrane moist/pink Respiratory: Clear to auscultation, Normal air movement Cardiovascular: Regular rate, Normal S1, Normal S2, No murmurs, no chest wall tenderness Abdominal: Normal bowel sounds, Soft, No tenderness, No hepatospenomegaly, No masses Extremities: No clubbing, No cyanosis, No edema, Normal pulses, No tenderness/swelling Skin: No rashes, No breakdown, No significant lesion Neuro: Normal gait, Normal speech, Strength at 5/5 X4 ext, Normal tone, Sensation intact, Cranial nerves 3-12 NL, Reflexes 2+ Psych/Mental Status: Mental status NL, Mood NL Assessment/Plan Assessment/Plan ALOC, status post mechanical fall Possible dementia Possible syncope History of TIA History of seizure Per [facility] record, head CT scan was showing no acute intracranial abnormalities Echocardiogram Continue atorvastatin Telemetry CKD, grade 5 Diabetes mellitus Hyperlipidemia History of coronary artery disease status post PTCA Hypertension Continue meds DIET: Diabetic diet DVT PROPHYLAXIS: Lovenox GI PROPHYLAXIS:: Protonix CODE STATUS: Patient is confused and could not provide history. DISPOSITION: Telemetry Patient's status and paln discussed with bedside nurse, tried multiple times to reach out to the family but could not. Case discussed with Dr. Diaz Plan discussed with: Patient, Other (RN) My Orders Orders - HEWADMBERNARDIVYLEONARDO RESDIENT Procedure Category Date Status Time Admit ADMIT 06/12/24 Transmitted 04:46 Code Status CODE 06/12/24 Transmitted 04:46 Review Orders With ZEKE 06/12/24 Transmitted Adm. 04:46 Consistent DIET 06/12/24 Transmitted Carb(Ccho)Diabetes Breakfast Docusate Sodium PHA 06/12/24 Transmitted Capsule (Colace 05:00 Acetaminophen Tablet PHA 06/12/24 Transmitted (Tylenol Tablet) 05:00 Notify Of Changes [facility] 06/12/24 Transmitted From Base 04:46 Advance Directive [facility] 06/12/24 Transmitted 04:46 Chest Two Views XY 06/13/24 Transmitted Routine 04:00 Echo 2d Mode Cardiac US 06/12/24 Transmitted DOP 04:46 Urinalysis LAB 06/12/24 Transmitted 04:46 Complete Blood Count LAB 06/12/24 Transmitted 04:46 Blood Culture NING 06/12/24 Transmitted 04:46 Urine Bacterial NING 06/12/24 Transmitted Culture 04:46 Patient Condition ORDERS 06/12/24 Transmitted 04:46 Allergies [facility] 06/12/24 Transmitted 04:46 Ondansetron Hcl PHA 06/12/24 Transmitted (Zofran) 05:00 Drug Screen LAB 06/12/24 Transmitted 04:46 Hemoglobin A1c LAB 06/12/24 Transmitted 04:46 Oxygen By Nasal RT 06/12/24 Transmitted Cannula 04:46 Stat Ekg For Chest [facility] 06/12/24 Transmitted Pain 04:46 Notify Md Of Changes [facility] 06/12/24 Transmitted From Base 04:46 Psychiatric Social Worker For [facility] 06/12/24 Transmitted 24 Hours 04:46 Emergency Dysrhythmia [facility] 06/12/24 Transmitted Protocol 04:46 Rhythm Strips Once [facility] 06/12/24 Transmitted Every Shift 04:46 Carotid Duplx W Color US 06/12/24 Transmitted DOP 04:46 Electrocardigram EKG 06/12/24 Transmitted 04:46 Date of Service: Jun 12, 2024 Billing Provider: VANESSA DIAZ MD Common Visit Codes: [id number] INP/OBS CARE (HIGH) Secondary Visit Codes: [id number] CARE PLAN 30 MINUTES MASHA VIEYRA Jun 12, 2024 04:53 VANESSA DIAZ MD Jun 12, 2024 17:43
[2024-06-12] MEDS ORDERED: ACETAMINOPHEN 325 MG TAB PO PRN (05:00)
[2024-06-12] MEDS ORDERED: DOCUSATE SOD 100 MG CAP PO PRN (05:00)
[2024-06-12] MEDS ORDERED: ONDANSETRON HCL 4 MG/2 ML VIAL IV PRN (05:00)
[2024-06-12 06:41] LABS: INR 0.94 (0.9-1.15); Partial Thromboplastin Time 21.7 SEC (24.5-34.5)
[2024-06-12 06:46] LABS: Magnesium 2.2 mg/dL (1.6-2.6)
[2024-06-12 07:39] LABS: Basophils # (auto) 0 10 ^3/uL (0-0.2); Basophils % (auto) 0.5 % (0.0-2.0); Eosinophils # (auto) 0.3 10 ^3/uL (0-0.8); Eosinophils % (auto) 3.7 % (0.0-7.0); Hematocrit 37.7 % (36.0-46.0); Hemoglobin 12.4 g/dL (12.2-16.2); Lymphocytes # (auto) 2.2 10 ^3/uL (0.4-5.4); Lymphocytes % (auto) 29.4 % (10.0-50.0); Mean Corpuscular Hemoglobin 29.1 pg (28.0-32.0); Mean Corpuscular Hgb Conc. 32.9 g/dL (32.0-36.0); Mean Corpuscular Volume 88.5 fL (80.0-100.0); Monocytes # (auto) 0.4 10 ^3/uL (0-1.3); Monocytes % (auto) 5.7 % (0.0-12.0); Neutrophils # (auto) 4.6 10 ^3/uL (1.6-8.6); Neutrophils % (auto) 60.7 % (37.0-80.0); Nucleated Red Blood Cells % 0.2 %; Platelet Count (auto) 259 10^3/uL (140-450); Red Blood Cells 4.26 10^6/uL (4.0-5.20); Red Cell Distribution Width 13.8 % (11.8-14.3); White Blood Cell 7.6 10^3/uL (4.4-10.8)
[2024-06-12 07:57] LABS: Albumin 4.5 g/dL (3.2-4.8); Alkaline Phosphatase 110 U/L (46-116); Anion Gap 14 (5-15); Aspartate Aminotransferase 15 U/L (13-40); BUN/Creatinine Ratio 8.2 (10.0-20.0); Bilirubin, Total 0.3 mg/dL (0.2-1.0); Calcium 10.3 mg/dL (8.7-10.4); Potassium 4.1 mmol/L (3.5-5.1); Sodium 142 mmol/L (136-145); Total Protein 7.7 g/dL (5.7-8.2)
[2024-06-12 07:58] LABS: Alanine Aminotransferase < 9 U/L (7-40); Blood Urea Nitrogen 35 mg/dL (9-23); Carbon Dioxide 19 mmol/L (20-31); Chloride 109 mmol/L (98-107); Glucose 148 mg/dL (74-106)
[2024-06-12] MEDS ORDERED: DEXTROSE (50%) 50ML SYRG IV PRN (08:00)
--- NOTE | 2024-06-12 08:31 | DVH ---
Carotid Duplex Clinical History: Syncope Comparison: None Technique: Duplex Doppler evaluation of the extracranial carotid and vertebral arteries including color Doppler and spectral/pulsed waveform analysis was performed. Findings: RIGHT SIDE: The peak systolic velocities are 74 cm/s in the CCA, 72 cm/s in the ICA. The ICA/CCA ratio is 1.0. The external carotid artery is patent with peak systolic velocity of 78 cm/s proximally. There is appropriate antegrade flow in the right vertebral artery. LEFT SIDE: The peak systolic velocities are 64 cm/s in the CCA, 86 cm/s in the ICA. The ICA/CCA ratio is 1.3. The external carotid artery is patent with peak systolic velocity of 50 cm/s proximally. There is appropriate antegrade flow in the left vertebral artery. IMPRESSION: Less than 50% stenosis of bilateral carotid artery system based on peak systolic velocity criteria an d presence of atheromatous plaque. Reference: Radiology 2003; [id number] Normal ICA PSV is <125 cm/sec and no plaque or intimal thickening is visible sonographically additional criteria include ICA/CCA PSV ratio <2.0 and ICA EDV <40 cm/sec <50% ICA stenosis ICA PSV is <125 cm/sec and plaque or intimal thickening is visible sonographically additional criteria include ICA/CCA PSV ratio <2.0 and ICA EDV <40 cm/sec 50-69% ICA stenosis ICA PSV is 125-230 cm/sec and plaque is visible sonographically additional criteria include ICA/CCA PSV ratio of 2.0-4.0 and ICA EDV of 40-100 cm/sec 70% ICA stenosis but less than near occlusion ICA PSV is >230 cm/sec and visible plaque and luminal narrowing are seen at boss-scale and color Dopp ler ultrasound (the higher the Doppler parameters lie above the threshold of 230 cm/sec, the greater the likelihood of severe disease) additional criteria include ICA/CCA PSV ratio >4 and ICA EDV >100 cm/sec
[2024-06-12] MEDS: IPRATROPIUM BROM 0.5 MG/2.5ML INH SOL NEB PRN (11:27)
[2024-06-12] MEDS: LEVALBUTEROL HCL 1.25 MG/3 ML NEB NEB PRN (11:28)
[2024-06-12] MEDS: ACCU-CHEK COMFORT CURVE STRIP VI SCH (11:30)
[2024-06-12] MEDS: ERGOCALCIFEROL 50,000 UNIT(1.25MG) CAP PO SCH (11:58)
[2024-06-12] MEDS ORDERED: LEVALBUTEROL HCL 1.25 MG/3 ML NEB NEB SCH (12:00)
[2024-06-12] MEDS ORDERED: IPRATROPIUM BROM 0.5 MG/2.5ML INH SOL NEB SCH (12:00)
[2024-06-12] MEDS: InsuLIN REG 1unit/0.01ml Soln (100units/ml) SC SCH (12:01)
--- NOTE | 2024-06-12 12:03 | DVH ---
EXAM: XY CHEST XRAY 1 VIEW Indication: Syncope Technique: Single frontal view of the chest was obtained Comparison: XY CHEST XRAY 1 VIEW on DOS: 04/19/24, XY CHEST PORTABLE on DOS: 01/10/24, XY CHEST PORTAB LE on DOS: 10/02/23, XY CHEST PORTABLE on DOS: 04/22/23, CHEST PORTABLE on DOS: 01/14/22 FINDINGS: Lines and Tubes: None Lungs: No focal consolidation. Pleura: No effusion. No pneumothorax. Cardiomediastinal contours: Unremarkable. Atherosclerotic vascular calcifications of the thoracic ao rta are noted. Bones: No acute osseous abnormality. IMPRESSION: No acute cardiopulmonary disease.
--- NOTE | 2024-06-12 15:35 | DVHPNRES ---
Progress Note Date Seen: Jun 12, 2024 Resident Creating Document: RUCHI TORREZ RESIDENT Medical Necessity Reason Pt with a Central, PICC or Fol: No Subjective Review of Systems This is a 78-year-old female who was admitted at [facility] for altered level of consciousness status post mechanical fall. PMHx: Possible dementia, CKD, diabetes mellitus, hyperlipidemia, hypertension, seizure, TIA, was admitted at [facility] for altered level of consciousness Social history: Lives at home, use walker for mobility, ex-smoker, denies any other drug use Allergic history: No known allergies Per [facility] papers, patient was vitally stable and lab studies were significant for raised BUN at 42 and creatinine at 4.41, otherwise lab studies were unremarkable. Head CT scan was showing no acute intracranial abnormalities. Upon transfer of the patient to the [place] [facility], patient reports that had body stiffness. And due to altered level of consciousness, the patient could not provide proper history. Patient denies fever, chest pain, shortness of breath, nausea, vomiting, and any recent changes in bowel and bladder habits. Patient has a carotid artery Doppler which was unremarkable, Objective vital signs Vital Sign Date Time Temp Pulse Resp B/P (MAP) Pulse Ox O2 Delivery O2 Flow Rate FiO2 06/12/24 14:45 56 18 151/52 98 1.0 21 06/12/24 13:00 97.8 97.8 06/12/24 11:32 Nasal Cannula* Total Intake and Output 06/11/24 06/11/24 06/12/24 15:00 23:00 07:00 Intake Total 110 ml Output Total 0 ml Balance 110 ml medications Current Medications Medications Dose Ordered Sig/Deepak Route Start Time Stop Time Status Last Admin Dose Admin Docusate Sodium 100 mg BIDPRN PRN PO 06/12/24 05:00 Acetaminophen 650 mg Q6HP PRN PO 06/12/24 05:00 Ondansetron HCl 4 mg Q4HP PRN IV 06/12/24 05:00 Ergocalciferol 50,000 unit Q7D PO 06/12/24 08:00 06/12/24 11:58 50,000 UNIT Diagnostic Test (Pha) 1 strip ACHS 06/12/24 11:30 06/12/24 11:30 1 STRIP Insulin Human Regular ACHS SC 06/12/24 11:30 06/12/24 12:01 4 UNITS Dextrose 50 ml UD PRN IV 06/12/24 08:00 Ipratropium [place] 0.5 mg Q6HWA PRN NEB 06/12/24 12:00 06/12/24 11:27 0.5 MG Levalbuterol HCl 0.625 mg Q6HR PRN NEB 06/12/24 12:00 06/12/24 11:28 0.625 MG Examination General: A&O x2 no distress HEENT: Head is normocephalic and atraumatic. Pupils are equal, round, and reactive to light. Neck: Supple with no cervical lymphadenopathy No meningismus. No goiter. Heart: Sinus bradycardia without murmur, rub, or gallop. Lungs: Equal breath sounds bilaterally with no wheezing, rales, or rhonchi. There is no chest wall tenderness or instability. Abdomen: No external sign of injury. Bowel sounds are present. Abdomen is soft, nontender. No rebound, no guarding, no rigidity. There are no palpable masses. There is no flank pain on exam. Extremities: Strong peripheral pulses. There is no clubbing, no cyanosis, and no edema. Skin: No rash. Neurologic: Cranial nerves II-XII intact without motor, sensory deficits. laboratory and microbiology Laboratory Tests 06/12/24 06:04 Test 06/12/24 06:04 Range/Units Serum Glucose 148 H 74-106 mg/dL Labs and/or images reviewed: Labs reviewed by me, Image(s) reviewed by me Problem List/Assessment/Plan Problem List/Assessment/Plan #ALOC, status post mechanical fall #Possible dementia #Possible syncope #Sinus bradycardia #History of TIA #History of seizure #CKD, stage 5 #Diabetes mellitus #Hyperlipidemia #History of coronary artery disease status post PTCA #Hypertension Plan: Hold beta-blockers and any AV blocking agents Per [facility] record, head CT scan was showing no acute intracranial abnormalities Echocardiogram pending Continue atorvastatin Insulin mild a.c. HS Continue Telemetry Carotid Doppler unremarkable Orthostatic vitals Physical therapy requested Continue hydralazine 50 mg p.o. t.i.d. Continue Keppra 500 mg p.o. b.i.d. Lactic acid normal, ammonia within normal limits, B12 normal, CBC unremarkable, hemoglobin A1c 6.9%. CRP within normal limits, pending urinalysis DIET: Diabetic diet DVT PROPHYLAXIS: Lovenox GI PROPHYLAXIS:: Protonix We have tried multiple times to reach out to the family but could not. Case discussed with Dr. Diaz Plan discussed with: Patient, Other (RN) My Orders My Orders Orders - RUCHI TORREZ RESIDENT Procedure Category Date Status Time Ergocalciferol PHA 06/12/24 In Process (Vitamin D 50,000 08:00 Glucose Blood PHA 06/12/24 In Process (Accu-Chek Comfort 11:30 Insulin R (Human) PHA 06/12/24 In Process (Insulin R) 11:30 Dextrose 50% Syringe PHA 06/12/24 In Process 08:00 Communication Order ORDERS 06/12/24 Transmitted 10:12 Ipratropium Medneb PHA 06/12/24 In Process (Atrovent Medneb) 12:00 Levalbuterol Hcl PHA 06/12/24 In Process (Xopenex Medneb) 12:00 Orthostatic Vital ORDERS 06/12/24 Transmitted Signs 10:49 Date of Service: Jun 12, 2024 Billing Provider: VANESSA DIAZ MD Common Visit Codes: [id number] INP/OBS CARE(HIGH) RUCHI TORREZ RESIDENT Jun 12, 2024 15:35 VANESSA DIAZ MD Jun 12, 2024 17:50
[2024-06-12] MEDS ORDERED: ALBUTEROL SULF 2.5 MG/0.5ML(0.5%) NEB SOLN NEB PRN (15:45)
--- NOTE | 2024-06-12 17:16 | DVHSR ---
APPROVED REPORT EXAM: Two-dimensional and M-mode echocardiogram with Doppler and color Doppler. Blood Pressure: 114/85 mmHg INDICATION Syncope RISK FACTORS Height: 64, Weight: 194 DIMENSIONS LVDd4.0 (3.8-5.7cm)LA (2D)4.0 (1.9-4.0cm)Aortic Root3.6 (2.0-3.7cm) LVDs2.7 (2.5-4.0cm)LA (MM) (1.9-4.0cm)Aortic Cusp Exc1.4 (1.5-2.0cm) EF (%) 60.0 (55-70%)Rt. Atrium (1.9-4.0cm)Asc. Aorta cm IVSd1.2 (0.7-1.1cm)RV (D) (1.8-2.4cm) PWd1.5 (0.7-1.1cm) Mitral Valve MitralMitral Stenosis E wave0.78m/sMV Mean GR.mmHg A wave0.77m/sMV Peak GR.mmHg E/A ratio1.02D MVAcm2 DECEL [id number] 1/2 Timems Aortic Valve Aortic ValveAortic Stenosis V10.70m/Farhana Mean GR.4mmHg V21.31m/Farhana Peak GR.7mmHg LVOT Diameter1.9 (1.8-2.4cm)Doppler AVA1.51cm2 Pulmonic Valve V20.70m/s Tricuspid Valve TR Velocity3.26m/s [id number] Other Information Technically limited study due to body habitus and patient position. Conclusion Normal biventricular size and systolic function. LVEF 60-65%. Normal wall motion. [id number] LV H. Normal diastolic function for age. Mild LA enlargement. No significant valvular disease. Trace TR. RVSP estimated at 46 mmHg + CVP. IVC not seen. No pericardial effusion. Sinus bradycardia.
[2024-06-12 19:26] LABS: Urine Bacteria MANY /hpf (None Seen); Urine Blood TRACE /uL (Negative); Urine Clarity Turbid (Clear); Urine Color Colorless (Yellow); Urine Protein, UAD 1+ (Negative); Urine Squamous Epithelial Cell FEW /hpf (<5); Urine Urobilinogen Normal (Negative); Urine WBC 10 /HPF (0-5); Urine pH 5.5 (5.0-9.0)
[2024-06-12 19:30] LABS: Protein, Urine 89.9 mg/dL (1-14)
[2024-06-12 19:32] LABS: Amphetamine Screen, Urine Neg (NEGATIVE); Creatinine, Urine 72.02 mg/dL (30.0-125.0); Creatinine, Urine 72.33 mg/dL (30.0-125.0); Urine Protein/Creatinine Ratio 1.25
[2024-06-12 19:33] LABS: Barbiturate Scree,Urine Neg (NEGATIVE); Benzodiazephine Screen, Urine Neg (NEGATIVE); Cocaine Screen, Urine Neg (NEGATIVE); Opiate Scree,Urine Neg (NEGATIVE); Phencyclidine Screen, Urine Neg (NEGATIVE)
[2024-06-12 19:34] LABS: Cannabinoid Screen, Urine Neg (NEGATIVE)
[2024-06-12] MEDS: SODIUM BICARB 8.4% 50Meq/50ml SYR Vial IV ONE ×2 (21:32→22:50)
[2024-06-12] MEDS: SODIUM BICARB 50mEq/50ml Vial 100 ML in D5W 5% 1,000 ML IV SCH (22:49)
[2024-06-12] MEDS: levETIRAcetam 500 MG TAB PO SCH (22:50)
[2024-06-13] VITALS (12 sets, daily range): BP systolic 116–170; BP diastolic 44–75; PULSE 46–69; RESP 13–17; TEMP 97.8–98.9; O2SAT 94–100
[2024-06-13] MEDS: cefTRIAXone 1GM/50ML D5W 50 ML IV ONE (00:40)
[2024-06-13 08:26] LABS: Basophils # (auto) 0 10 ^3/uL (0-0.2); Basophils % (auto) 0.3 % (0.0-2.0); Eosinophils # (auto) 0.3 10 ^3/uL (0-0.8); Eosinophils % (auto) 3.5 % (0.0-7.0); Hematocrit 34.6 % (36.0-46.0); Hemoglobin 11.8 g/dL (12.2-16.2); Lymphocytes # (auto) 1.6 10 ^3/uL (0.4-5.4); Lymphocytes % (auto) 21.8 % (10.0-50.0); Mean Corpuscular Hemoglobin 30.2 pg (28.0-32.0); Mean Corpuscular Hgb Conc. 34.1 g/dL (32.0-36.0); Mean Corpuscular Volume 88.7 fL (80.0-100.0); Monocytes # (auto) 0.4 10 ^3/uL (0-1.3); Monocytes % (auto) 5.8 % (0.0-12.0); Neutrophils # (auto) 4.9 10 ^3/uL (1.6-8.6); Neutrophils % (auto) 68.6 % (37.0-80.0); Nucleated Red Blood Cells % 0.1 %; Platelet Count (auto) 225 10^3/uL (140-450); White Blood Cell 7.2 10^3/uL (4.4-10.8)
[2024-06-13 08:36] LABS: Chloride 106 mmol/L (98-107); Potassium 4.1 mmol/L (3.5-5.1); Sodium 141 mmol/L (136-145)
[2024-06-13 08:37] LABS: Calcium 9.8 mg/dL (8.7-10.4)
[2024-06-13 08:42] LABS: BUN/Creatinine Ratio 8.5 (10.0-20.0); Glucose 192 mg/dL (74-106); Magnesium 2.1 mg/dL (1.6-2.6)
[2024-06-13] MEDS: hydrALAZINE HCL 25 MG TAB PO PRN (09:29)
--- NOTE | 2024-06-13 10:06 | DVH ---
CLINICAL INFORMATION: Acute loss of consciousness. TECHNIQUE: Axial imaging was obtained through the brain without contrast. Coronal and sagittal reform atted images were obtained, reviewed, and stored. Images were reviewed in brain and bone windows. Al l CT scans at this medical facility are performed using dose modulation techniques as appropriate to a performed exam including the following: Automated exposure control was utilized; adjustment of the MA and/or KV according to patient size; and use of iterative reconstruction technique. CTDIvol = 52.5 6 mGy DLP = 930.87 mGy-cm COMPARISON: CT HEAD WITHOUT CONTRAST on DOS: 04/19/24, CT HEAD WITHOUT CONTRAST on DOS: 01/10/24, CT H EAD WITHOUT CONTRAST on DOS: 01/10/24 FINDINGS: There is no acute intracranial hemorrhage. No mass effect or midline shift. Scattered areas of hypoattenuation are seen in the periventricular and subcortical white matter, which are nonspecif ic but most likely sequelae of small vessel ischemic disease. The ventricles and sulci are within nor mal limits in size for age. Basal cisterns are patent. The calvarium is unremarkable. Paranasal sinu ses and mastoid air cells are clear. IMPRESSION: 1. No CT evidence of acute intracranial abnormality. 2. Nonacute findings as described above
--- NOTE | 2024-06-13 11:18 | DVHCONRES ---
Date Seen: Jun 13, 2024 Resident Creating Document: KEN ESPINOSA RESIDENT Referring Physician Dr. Philip. Reason for Consultation JL on CKD History of Present Illness Ms. Elmer Mcelroy, a 78-year-old female with a history of possible dementia, CKD V, diabetes mellitus, hyperlipidemia, hypertension, seizures, and TIA was admitted to [facility] for altered consciousness following a mechanical fall. She was vitally stable, noted JL with LVH/HFpEF in echo, head CT CXR, and carotid Doppler grossly unremarkable. She denied fever, chest pain, shortness of breath, nausea, vomiting, and changes in bowel or bladder habits. At baseline lives at home, uses a walker. Past Medical History Possible dementia, CKD, diabetes mellitus, hyperlipidemia, hypertension, seizure, TIA, was admitted at [facility] for altered level of consciousness Past Surgical History unknown Family History: Diabetes mellitus G8 MOTHER Hypertension G8 FATHER Family History likely noncontributory Social History Lives at home, use walker for mobility, ex-smoker, denies any other drug use Allergies: Coded Allergies: NO KNOWN ALLERGIES (Unverified , 01/14/22) Home Meds Active Scripts Calcitriol (Calcitriol) 0.25 Mcg Cap, 0.25 MCG PO DAILY for 30 Days, #30 CAP 2 Refills Prov:RAMSES HERNANDES 01/13/24 Nifedipine (Nifedipine Er) 90 Mg Tab, 90 MG PO DAILY for 30 Days, #30 TAB 3 Refills Prov:ARIANNE RIZO MD 10/05/23 Levetiracetam (Keppra) 500 Mg Tab, 1 TAB PO BID, #60 TAB 0 Refills Prov:DARIN CONWAY MD 01/18/22 Reported Medications Mupirocin (Pseudomonas Fluores (Mupirocin) 2 % Oin, TOP UD for CORNS AND CALLOSITIES APPLY OINTMENT TOPICALLY TO AFFECTED AREA THREE TIMES DAILY FOR 5 DAYS 01/11/24 Cephalexin (KEFLEX CAPSULE) 250 Mg Cp, 1 CAP PO QID for 10 Days, #40 01/11/24 Metoprolol Succinate (Metoprolol Succinate Er) 50 Mg Tab, 1 TAB PO DAILY for 90 Days, #90 01/11/24 Lidocaine (Lidocaine Patch 5%) 5 % Pad, 5 % EX DAILY, PAD APPLY ONE PATCH TOPICALLY TO CLEAN, DRY SKIN. LEAVE ON FOR 12 HOURS THEN REMOVE. MUST WAIT AT LEAST 12 HOURS BEFORE APPLYING PATCH(ES) AGAIN. 10/03/23 Insulin Glargine (Lantus Solostar) 100 Unit/Ml Inj, 20 UNIT SC DAILY, INJ 10/03/23 Ticagrelor Base (Brilinta) 60 Mg Tab, 60 MG PO DAILY, TAB 10/03/23 Pregabalin (Lyrica) 150 Mg Cap, 1 CAP PO BID, #60 CAP 5 Refills 10/02/23 Donepezil Hydrochloride (Aricept) 10 Mg Tab, 10 MG PO QPM, TAB 01/17/22 Amlodipine Besylate (Amlodipine Besylate) 5 Mg Tab, 5 MG PO DAILY for 30 Days, MG 01/17/22 Current Medications Current Medications Medications (Trade) Dose Ordered Sig/Deepak Route PRN Reason Start Time Stop Time Status Last Admin Ipratropium [place] (Atrovent Medneb) 0.5 mg Q6HWA NEB 06/12/24 12:00 06/12/24 10:50 DC Levalbuterol HCl (Xopenex Medneb) 0.625 mg Q6HR NEB 06/12/24 12:00 06/12/24 10:50 DC Diagnostic Test (Pha) (Accu-Chek Comfort Curve T) 1 strip ACHS 06/12/24 11:30 06/13/24 06:31 Insulin Human Regular (InsuLIN R) ACHS SC 06/12/24 11:30 06/13/24 06:30 Ipratropium [place] (Atrovent Medneb) 0.5 mg Q6HWA PRN NEB SHORTNESS OF BREATH 06/12/24 12:00 06/12/24 18:37 Levalbuterol HCl (Xopenex Medneb) 0.625 mg Q6HR PRN NEB SHORTNESS OF BREATH 06/12/24 12:00 06/12/24 15:33 DC 06/12/24 11:28 Levetiracetam (Keppra Tablet) 500 mg BID PO 06/12/24 22:00 06/13/24 09:29 Hydralazine HCl (Apresoline Tablet) 50 mg TID PRN PO SBP>150 06/12/24 15:30 06/13/24 09:29 Albuterol (Ventolin Medneb) 2.5 mg Q6HPRN PRN NEB SHORTNESS OF BREATH 06/12/24 15:45 Sodium Bicarbonate 100 ml/Dextrose 1,100 ml @ 100 mls/hr Q11H IV 06/12/24 19:15 06/12/24 22:49 Ceftriaxone Sodium 50 ml @ 100 mls/hr DAILY@09 IV 06/13/24 09:00 Review of Systems HEENT:Normal, CVS:Normal, RESPIRATORY:Normal, GI:Normal, :Normal, MSK:Normal, NEURO:ALOC Vital Signs Vital Signs Date Time Temp Pulse Resp B/P (MAP) Pulse Ox O2 Delivery O2 Flow Rate FiO2 06/13/24 09:29 170/61 06/13/24 09:00 98.9 56 16 96 98.9 06/13/24 07:08 Nasal Cannula* 1 24 Physical Exam GENERAL:Normal, pleasant, HEENT:Normal, NECK:Normal, LUNGS:Normal, in RA no, crackles. CVS:Normal, ABDOMEN:Normal, MSK: Dry no pedal edema, SKIN:Normal, NEURO:Normal, AAO x 4, :[place] Labs/Diagnostic Data Labs Test 06/13/24 07:53 06/13/24 06:23 06/12/24 19:09 06/12/24 06:04 Range/Units White Blood Count 7.2 4.4-10.8 10^3/uL Red Blood Count 3.90 L 4.0-5.20 10^6/uL Hemoglobin 11.8 L 12.2-16.2 g/dL Hematocrit 34.6 L 36.0-46.0 % Mean Corpuscular Volume 88.7 80.0-100.0 fL Mean Corpuscular Hemoglobin 30.2 28.0-32.0 pg Mean Corpuscular Hemoglobin Concent 34.1 32.0-36.0 g/dL Red Cell Distribution Width 14.0 11.8-14.3 % Platelet Count 225 140-450 10^3/uL Mean Platelet Volume 7.0 6.9-10.8 fL Neutrophils (%) (Auto) 68.6 37.0-80.0 % Lymphocytes (%) (Auto) 21.8 10.0-50.0 % Monocytes (%) (Auto) 5.8 0.0-12.0 % Eosinophils (%) (Auto) 3.5 0.0-7.0 % Basophils (%) (Auto) 0.3 0.0-2.0 % Neutrophils # (Auto) 4.9 1.6-8.6 10 ^3/uL Lymphocytes # (Auto) 1.6 0.4-5.4 10 ^3/uL Monocytes # (Auto) 0.4 0-1.3 10 ^3/uL Eosinophils # (Auto) 0.3 0-0.8 10 ^3/uL Basophils # (Auto) 0 0-0.2 10 ^3/uL Nucleated Red Blood Cells 0.1 % Sodium Level 141 136-145 mmol/L Potassium Level 4.1 3.5-5.1 mmol/L Chloride Level 106 98-107 mmol/L Carbon Dioxide Level 26 20-31 mmol/L Blood Urea Nitrogen 31 H 9-23 mg/dL Creatinine 3.64 H 0.550-1.02 mg/dL Glomerular Filtration Rate Calc 12 >90 mL/min BUN/Creatinine Ratio 8.5 L 10.0-20.0 Serum Glucose 192 H 74-106 mg/dL Calcium Level 9.8 8.7-10.4 mg/dL Magnesium Level 2.1 1.6-2.6 mg/dL POC Glucose 200 H 70-106 mg/dl Urine Color Colorless Yellow Urine Clarity Turbid H Clear Urine pH 5.5 5.0-9.0 Urine Specific [place] 1.010 1.001-1.035 Urine Protein 1+ H Negative Urine Ketones Negative Negative Urine Blood Trace H Negative /uL Urine Nitrite Negative Negative Urine Bilirubin Negative Negative Urine Urobilinogen Normal Negative mg/dL Urine Leukocyte Esterase 2+ Negative /uL Urine RBC 2 0 - 4 /hpf Urine Microscopic WBC 10 H 0-5 /HPF Urine Squamous Epithelial Cells Few <5 /hpf Urine Bacteria Many H None Seen /hpf Urine Osmolality 304 mOsm/kg Urine Creatinine 72.02 30.0-125.0 mg/dL Urine Protein/Creatinine Ratio 1.25 Urine Sodium 54 40-220 mmol/L Urine Glucose Normal Normal mg/dL Urine Total Protein 89.9 H 1-14 mg/dL Urine Opiates Screen Neg NEGATIVE Urine Fentanyl Screen Neg NEGATIVE Urine Barbiturates Screen Neg NEGATIVE Urine Phencyclidine Screen Neg NEGATIVE Urine Amphetamines Screen Neg NEGATIVE Urine Benzodiazepines Screen Neg NEGATIVE Urine Cocaine Screen Neg NEGATIVE Urine Cannabinoids Screen Neg NEGATIVE Prothrombin Time 10.0 9.3-11.8 sec Prothrombin Time INR 0.94 0.9-1.15 Activated Partial Thromboplast Time 21.7 L 24.5-34.5 SEC Hemoglobin A1c 6.9 H <5.7 % A1C Lactic Acid Level 1.2 0.4-2.0 mmol/L Phosphorus Level 4.0 2.4-5.1 mg/dL Total Bilirubin 0.3 0.2-1.0 mg/dL Aspartate Amino Transferase (AST) 15 13-40 U/L Alanine Aminotransferase (ALT) < 9 7-40 U/L Alkaline Phosphatase 110 46-116 U/L Ammonia < 10 L 11-32 umol/L C-Reactive Protein High Sensitivity 0.73 <1.0 mg/dL B-Type Natriuretic Peptide 254.83 0-100 pg/mL Total Protein 7.7 5.7-8.2 g/dL Albumin 4.5 3.2-4.8 g/dL Vitamin B12 Level 535 211-911 pg/mL Vitamin D 25-Hydroxy 24.2 L 30.0-100 ng/mL Thyroid Stimulating Hormone (TSH) 1.03 0.55-4.78 uIU/mL Microbiology Date/Time Source Procedure Growth Status 06/12/24 19:09 Voided Urine Urine Culture - Preliminary Resulted 06/12/24 06:04 Blood Blood Culture - Preliminary NO GROWTH AFTER 24 HOURS OF INCUBATION. Resulted Assessment #JL likely VMN, prerenal intrarenal mixed, baseline Cr. 3.0 #Possible ATN osmolality 304, to rule out. #CKD, grade 5, follows Dr. Bonilla, 40 mg daily lasix and sodium bicarbonate 650 daily and calcium acetate tid. #Hypovitaminosis D #UTI with Gram Negative Rods, final cx pending on IV ceftriaxone. #Diabetes mellitus with insulin, 6.9 HbA1C controlled. #Sinus bradycardia? on tele cardiology evaluation ongoing SSS/conduction disorder. #Normocytic anemia #Likely metabolic encephalopathy. #ALOC, status post mechanical fall #Hyperlipidemia #History of CAD status post PTCA #H/o Hypertension, uncontrolled. Nifedipine, hydralazine, #History of TIA #History of seizure on keppra maintaninance #Hypertensive heart disease, [id number] LVH. Findings: #HnH stable with platelets. #FeNa: 1.9% (skewed with diuretics) #GFR: 10>12 #Creatinine: 4.27>3.64 (BL Cr. 3.0 around) #BUN: 35>31 #I&O: 684-400= (+284), since AM 350 cc u/o in 6 hours. #Urine protein: cr: 1.2 g/day #Fluid status: Dry to euvolemic on D5 NaHCO3 drip 100 cc/hour for ~12 hours Plan/Recommendation #Hold daily lasix for today, hold iv fluid and continue sodium bicarbonate 650 daily and vitamin D supplements. Will consider sevelamer 800 tid now and at discharge given higher level of serum Ca++ instead of calcium acetate. #Strict I&O on saucedo's and check Daily weight, Avoid Nephrotoxics, Avoid hyper/hypo tension and keep MAP > 65. Encourage, oral fluid intake. #Kidney Ultrasound Pending. #Daily BMP, and Correct electrolytes. one time check of Serum Phosphorus, Ferritin, CK . #Following Dr. Horn's Group: Dr. Bonilla at discharge every 2 week, still producing urine on diuretics but close to HD, will consider outpatient discussion for HD access. #Target BP as per AHA/ACC 130/80 around for diabetic hypertensive. #Rest of the management as per primary team & cardiology. Thank you for the opportunity to follow up on your patient. In case of any question feel free to reach out to the Nephrology team. Will follow up. Discussed with Nephrology attending Dr. Clark. Addendum Patient seen and examined, plan discussed with resident. Agree with above, we will follow closely DC bicarb drip Resume home medications No indication for renal replacement therapy yet Plan discussed with: Patient, Other ([facility] team, RN) KEN ESPINOSA RESIDENT Jun 13, 2024 11:18 TIFF CLARK MD Jun 13, 2024 15:03
[2024-06-13] MEDS: cefTRIAXone 1GM/50ML D5W 50 ML IV SCH (11:19)
[2024-06-13 11:58] LABS: Blood Urea Nitrogen 31 mg/dL (9-23)
[2024-06-13 12:05] LABS: Anion Gap 9 (5-15); Carbon Dioxide 26 mmol/L (20-31)
--- NOTE | 2024-06-13 12:36 | DVH ---
Renal ultrasound HISTORY: r/o obstruction. TECHNIQUE: 2 D ultrasound was performed with transaxial and longitudinal images. FINDINGS: Right kidney measures 7.3 cm and left kidney measures 7.6 cm. Echogenic renal parenchyma. There is a 2.3 cm cyst in the upper pole of the right kidney. No stones or hydronephrosis No mass stone or hydronephrosis of the left kidney. Jhaveri catheter within the urinary bladder IMPRESSION: 1. Echogenic renal parenchyma consistent with chronic renal parenchymal disease.Simple 2. Cyst upper pole of the right kidney 3. No urinary tract calculi or hydronephrosis
--- NOTE | 2024-06-13 13:32 | DVHPNRES ---
Progress Note Date Seen: Jun 13, 2024 Resident Creating Document: RUCHI TORREZ RESIDENT Medical Necessity Reason Pt with a Central, PICC or Fol: No Subjective Review of Systems Patient states feeling well, denies any complain. We have trying consistently reaching out to family members, no answer yet. Headt ct wnl. UA shows UTI, started rocephin, pending urine culture. Objective vital signs Vital Sign Date Time Temp Pulse Resp B/P (MAP) Pulse Ox O2 Delivery O2 Flow Rate FiO2 06/13/24 09:29 170/61 06/13/24 09:00 98.9 56 16 96 98.9 06/13/24 07:08 Nasal Cannula* 1 24 Total Intake and Output 06/12/24 06/12/24 06/13/24 15:00 23:00 07:00 Intake Total 534 ml 150 ml Output Total 400 ml Balance 534 ml -250 ml medications Current Medications Medications Dose Ordered Sig/Deepak Route Start Time Stop Time Status Last Admin Dose Admin Docusate Sodium 100 mg BIDPRN PRN PO 06/12/24 05:00 Acetaminophen 650 mg Q6HP PRN PO 06/12/24 05:00 Ondansetron HCl 4 mg Q4HP PRN IV 06/12/24 05:00 Ergocalciferol 50,000 unit Q7D PO 06/12/24 08:00 06/12/24 11:58 50,000 UNIT Diagnostic Test (Pha) 1 strip ACHS 06/12/24 11:30 06/13/24 11:30 1 STRIP Insulin Human Regular ACHS SC 06/12/24 11:30 06/13/24 12:06 4 UNITS Dextrose 50 ml UD PRN IV 06/12/24 08:00 Ipratropium [place] 0.5 mg Q6HWA PRN NEB 06/12/24 12:00 06/12/24 18:37 0.5 MG Levetiracetam 500 mg BID PO 06/12/24 22:00 06/13/24 09:29 500 MG Hydralazine HCl 50 mg TID PRN PO 06/12/24 15:30 06/13/24 09:29 50 MG Albuterol 2.5 mg Q6HPRN PRN NEB 06/12/24 15:45 Sodium Bicarbonate 100 ml/Dextrose 1,100 ml @ 100 mls/hr Q11H IV 06/12/24 19:15 06/12/24 22:49 100 MLS/HR Ceftriaxone Sodium 50 ml @ 100 mls/hr DAILY@09 IV 06/13/24 09:00 06/13/24 11:19 100 MLS/HR Examination General: A&O x2 no distress HEENT: Head is normocephalic and atraumatic. Pupils are equal, round, and reactive to light. Neck: Supple with no cervical lymphadenopathy No meningismus. No goiter. Heart: Sinus bradycardia without murmur, rub, or gallop. Lungs: Equal breath sounds bilaterally with no wheezing, rales, or rhonchi. There is no chest wall tenderness or instability. Abdomen: No external sign of injury. Bowel sounds are present. Abdomen is soft, nontender. No rebound, no guarding, no rigidity. There are no palpable masses. There is no flank pain on exam. Extremities: Strong peripheral pulses. There is no clubbing, no cyanosis, and no edema. Skin: No rash. Neurologic: Cranial nerves II-XII intact without motor, sensory deficits. laboratory and microbiology Laboratory Tests 06/13/24 07:53 Test 06/13/24 07:53 Range/Units Serum Glucose 192 H 74-106 mg/dL Microbiology Date/Time Source Procedure Growth Status 06/12/24 19:09 Voided Urine Urine Culture - Preliminary Resulted 06/12/24 06:04 Blood Blood Culture - Preliminary NO GROWTH AFTER 24 HOURS OF INCUBATION. Resulted Labs and/or images reviewed: Labs reviewed by me, Image(s) reviewed by me Problem List/Assessment/Plan Problem List/Assessment/Plan #ALOC, status post mechanical fall #Metabolic encephalopathy due to UTI #Possible dementia #Possible syncope #Sinus bradycardia #History of TIA #History of seizure #JL on CKD, stage 5 #Diabetes mellitus #Hyperlipidemia #History of coronary artery disease status post PTCA #Hypertension Plan: Hold beta-blockers and any AV blocking agents head CT scan showing no acute intracranial abnormalities Echocardiogram shows 60-65% EF, rvsp 46, Continue atorvastatin Insulin mild a.c. HS Continue Telemetry Carotid Doppler unremarkable Orthostatic vitals pending Physical therapy requested Continue hydralazine 50 mg p.o. t.i.d. Continue Keppra 500 mg p.o. b.i.d. Continue rocephin 1g iv qd Pending urine cx, growing gram (-) rods Pending nephrology consult PT requested DIET: Diabetic diet DVT PROPHYLAXIS: Lovenox GI PROPHYLAXIS:: Protonix We have tried multiple times to reach out to the family but could not. Case discussed with Dr. Diaz Plan discussed with: Patient, Other (RN) My Orders My Orders Orders - RUCHI TORREZ RESIDENT Procedure Category Date Status Time Pt Request For Service PT 06/12/24 Logged 15:23 Levetiracetam Tablet PHA 06/12/24 In Process (Keppra Tablet) 22:00 Hydralazine Hcl PHA 06/12/24 In Process Tablet (Apresoline 15:30 Albuterol Medneb PHA 06/12/24 In Process (Ventolin Medneb) 15:45 Insert/Manage Urinary ZEKE 06/12/24 In Process Catheter 17:46 Date of Service: Jun 13, 2024 Billing Provider: VANESSA DIAZ MD Common Visit Codes: [id number] INP/OBS CARE(HIGH) RUCHI TORREZ RESIDENT Jun 13, 2024 13:32 VANESSA DIAZ MD Jun 13, 2024 17:32
[2024-06-13] MEDS: SEVELAMER 800 MG TAB PO SCH (17:47)
--- NOTE | 2024-06-13 20:55 | DVHINCON2 ---
Date of service: Jun 13, [address] Diaz Reason for Consultation ALOC History of Present Illness Ms. Elmer Mcelroy is a 78 years old female with a history of hypertension, diabetes, dyslipidemia, coronary artery disease, congestive heart failure, chronic kidney failure on hemodialysis, dementia, seizure, TIA, she was transferred from the [facility] for ALOC brought to the [facility] on 01/14/2022 with a chief complaint of ALOC. At this time, she is awake, oriented to herself, but with reasonable social skills, and she follows, no family available for history. I reviewed the paperwork from the [facility], talked to her nurse and other medical staff I saw on 01/15/2022 for seizure and dementia She was sent to the [facility] on 06/11/2024 with a chief company of altered mental status. Apparently, the patient was had a mechanical fall and he hit his head during the fall. There was no ALOC. In the [facility] ER, the patient was found to have evidence of urinary tract infection Her lab reports from the [facility] and [facility] showed evidence of dehydration/acute on chronic kidney failure According to our external medical history, the patient was supposed to be on aspirin 81 mg daily, Keppra 500 mg b.i.d., Lyrica 150 mg b.i.d., Aricept 10 mg daily [phone], no answer, no answer [facility] Home medication includes: Plavix 75 mg daily BUN/CR, 06/11/2024: 42/4.41 GFR, 06/11/2024: 10 CT head, 06/11/2024: Unremarkable UDS, 06/12/2024: Negative Urinalysis, 06/12/2024: WBC: 10, urine leukocyte esterase: 2+ CBC, 06/12/2024: Unremarkable BUN/CR, 06/12/2024: 35/4.27, 06/13/2024: 31/3.64 HCO3, 06/12/2024: 19, 06/13/2024: 26 HGB A1c, 06/12/2024: 649 Liver function tests, 06/12/2024: Unremarkable Vitamin B12, 12/2021: 301, 05/2024: 535 Folic acid, 12/2020: 4.71 TSH, 12/2021: 0.73, 05/2024: 1.03 Chest x-ray, 01/14/2022: Mild pulmonary vascular congestion CT head, 06/13/2024: 1. No CT evidence of acute intracranial abnormality. 2. Nonacute findings as described above MRI head, 01/15/2022: There is mild to moderate microvascular ischemic disease of the supratentorial white matter and brainstem. There is no acute infarct Past Medical History Hypertension, diabetes, dyslipidemia, coronary artery disease, congestive heart failure, chronic kidney failure on hemodialysis, dementia, seizure, TIA Past Surgical History Unobtainable Family History: Diabetes mellitus G8 MOTHER Hypertension G8 FATHER Family History Hypertension, diabetes Social History She was a tobacco smoker, but no history of alcohol or recreational substance abuse Allergies: Coded Allergies: NO KNOWN ALLERGIES (Unverified , 01/14/22) Home Meds Active Scripts Calcitriol (Calcitriol) 0.25 Mcg Cap, 0.25 MCG PO DAILY for 30 Days, #30 CAP 2 Refills Prov:RAMSES HERNANDES 01/13/24 Nifedipine (Nifedipine Er) 90 Mg Tab, 90 MG PO DAILY for 30 Days, #30 TAB 3 Refills Prov:ARIANNE RIZO MD 10/05/23 Levetiracetam (Keppra) 500 Mg Tab, 1 TAB PO BID, #60 TAB 0 Refills Prov:DARIN CONWAY MD 01/18/22 Reported Medications Mupirocin (Pseudomonas Fluores (Mupirocin) 2 % Oin, TOP UD for CORNS AND CALLOSITIES APPLY OINTMENT TOPICALLY TO AFFECTED AREA THREE TIMES DAILY FOR 5 DAYS 01/11/24 Cephalexin (KEFLEX CAPSULE) 250 Mg Cp, 1 CAP PO QID for 10 Days, #40 01/11/24 Metoprolol Succinate (Metoprolol Succinate Er) 50 Mg Tab, 1 TAB PO DAILY for 90 Days, #90 01/11/24 Lidocaine (Lidocaine Patch 5%) 5 % Pad, 5 % EX DAILY, PAD APPLY ONE PATCH TOPICALLY TO CLEAN, DRY SKIN. LEAVE ON FOR 12 HOURS THEN REMOVE. MUST WAIT AT LEAST 12 HOURS BEFORE APPLYING PATCH(ES) AGAIN. 10/03/23 Insulin Glargine (Lantus Solostar) 100 Unit/Ml Inj, 20 UNIT SC DAILY, INJ 10/03/23 Ticagrelor Base (Brilinta) 60 Mg Tab, 60 MG PO DAILY, TAB 10/03/23 Pregabalin (Lyrica) 150 Mg Cap, 1 CAP PO BID, #60 CAP 5 Refills 10/02/23 Donepezil Hydrochloride (Aricept) 10 Mg Tab, 10 MG PO QPM, TAB 01/17/22 Amlodipine Besylate (Amlodipine Besylate) 5 Mg Tab, 5 MG PO DAILY for 30 Days, MG 01/17/22 Current Medications Current Medications Medications (Trade) Dose Ordered Sig/Deepak Route PRN Reason Start Time Stop Time Status Last Admin Levetiracetam (Keppra Tablet) 500 mg BID PO 06/12/24 22:00 06/13/24 09:29 Ceftriaxone Sodium 50 ml @ 100 mls/hr DAILY@09 IV 06/13/24 09:00 06/13/24 11:19 Sevelamer HCl (Renagel) 800 mg TIDWM PO 06/13/24 18:00 06/13/24 17:47 Hydralazine HCl (Apresoline Tablet) 50 mg TID PO 06/13/24 22:00 Review of Systems Unobtainable Vital Signs Vital Signs Date Time Temp Pulse Resp B/P (MAP) Pulse Ox O2 Delivery O2 Flow Rate FiO2 06/13/24 18:10 55 150/62 (91) 06/13/24 17:00 98.9 17 100 98.9 06/13/24 10:00 Nasal Cannula 1.0 06/13/24 10:00 24 Physical Exam GENERAL EXAM: General: the patient is well developed and nourished. No acute distress. HEENT: Normocephalic, neck is supple, no carotid bruits. No mass RESPIRATORY: Normal respiratory effort with symmetrical lung expansion. Lungs clear to auscultation. CARDIOVASCULAR: Regular rate and rhythm with no murmurs. S1, S2. ABDOMEN: Soft, nontender, normal bowel sound NEUROLOGICAL: MENTAL STATUS: Awake and alert. Oriented to self, SPEECH, LANGUAGE, HIGHER CORTICAL FUNCTION: no aphasia but her voice is very weak. CRANIAL NERVES: #2: Intact visual nichols to confrontation. The optic discs were sharp. #3,4,6: Pupils are equal, round and reactive. EOMs full and conjugate. No nystagmus. #5: Facial sensation intact in all three divisions bilaterally. Mandibular strength intact. #7: Facial muscles symmetrical and strength intact. #8: Hearing grossly normal to voice. #9,10: Uvula and soft palate rise in the midline. Swallow and voice are normal. #11: Trapezius and sternomastoid strength intact bilaterally. #12: Tongue midline. No fasciculations or atrophy. SENSATION: Sensation to touch and pinprick is normal. MOTOR: Normal tone in the upper and lower extremity. Normal muscle bulk. No fas ciculations. No abnormal movements or posturing. She moves her arms and legs slightly to be, less in the left upper extremity REFLEXES: Deep tendon reflexes are symmetrical. No pathological reflexes. CEREBELLAR/COORDINATION: Deferred GAIT/STATION: deferred Labs/Diagnostic Data Labs Test 06/13/24 17:42 06/13/24 07:53 06/12/24 19:09 06/12/24 06:04 Range/Units POC Glucose 122 H 70-106 mg/dl White Blood Count 7.2 4.4-10.8 10^3/uL Red Blood Count 3.90 L 4.0-5.20 10^6/uL Hemoglobin 11.8 L 12.2-16.2 g/dL Hematocrit 34.6 L 36.0-46.0 % Mean Corpuscular Volume 88.7 80.0-100.0 fL Mean Corpuscular Hemoglobin 30.2 28.0-32.0 pg Mean Corpuscular Hemoglobin Concent 34.1 32.0-36.0 g/dL Red Cell Distribution Width 14.0 11.8-14.3 % Platelet Count 225 140-450 10^3/uL Mean Platelet Volume 7.0 6.9-10.8 fL Neutrophils (%) (Auto) 68.6 37.0-80.0 % Lymphocytes (%) (Auto) 21.8 10.0-50.0 % Monocytes (%) (Auto) 5.8 0.0-12.0 % Eosinophils (%) (Auto) 3.5 0.0-7.0 % Basophils (%) (Auto) 0.3 0.0-2.0 % Neutrophils # (Auto) 4.9 1.6-8.6 10 ^3/uL Lymphocytes # (Auto) 1.6 0.4-5.4 10 ^3/uL Monocytes # (Auto) 0.4 0-1.3 10 ^3/uL Eosinophils # (Auto) 0.3 0-0.8 10 ^3/uL Basophils # (Auto) 0 0-0.2 10 ^3/uL Nucleated Red Blood Cells 0.1 % Sodium Level 141 136-145 mmol/L Potassium Level 4.1 3.5-5.1 mmol/L Chloride Level 106 98-107 mmol/L Carbon Dioxide Level 26 20-31 mmol/L Anion Gap 9 5-15 Blood Urea Nitrogen 31 H 9-23 mg/dL Creatinine 3.64 H 0.550-1.02 mg/dL Glomerular Filtration Rate Calc 12 >90 mL/min BUN/Creatinine Ratio 8.5 L 10.0-20.0 Serum Glucose 192 H 74-106 mg/dL Calcium Level 9.8 8.7-10.4 mg/dL Magnesium Level 2.1 1.6-2.6 mg/dL Creatine Kinase 46 34-145 U/L Urine Color Colorless Yellow Urine Clarity Turbid H Clear Urine pH 5.5 5.0-9.0 Urine Specific [place] 1.010 1.001-1.035 Urine Protein 1+ H Negative Urine Ketones Negative Negative Urine Blood Trace H Negative /uL Urine Nitrite Negative Negative Urine Bilirubin Negative Negative Urine Urobilinogen Normal Negative mg/dL Urine Leukocyte Esterase 2+ Negative /uL Urine RBC 2 0 - 4 /hpf Urine Microscopic WBC 10 H 0-5 /HPF Urine Squamous Epithelial Cells Few <5 /hpf Urine Bacteria Many H None Seen /hpf Urine Osmolality 304 mOsm/kg Urine Creatinine 72.02 30.0-125.0 mg/dL Urine Protein/Creatinine Ratio 1.25 Urine Sodium 54 40-220 mmol/L Urine Glucose Normal Normal mg/dL Urine Total Protein 89.9 H 1-14 mg/dL Urine Opiates Screen Neg NEGATIVE Urine Fentanyl Screen Neg NEGATIVE Urine Barbiturates Screen Neg NEGATIVE Urine Phencyclidine Screen Neg NEGATIVE Urine Amphetamines Screen Neg NEGATIVE Urine Benzodiazepines Screen Neg NEGATIVE Urine Cocaine Screen Neg NEGATIVE Urine Cannabinoids Screen Neg NEGATIVE Prothrombin Time 10.0 9.3-11.8 sec Prothrombin Time INR 0.94 0.9-1.15 Activated Partial Thromboplast Time 21.7 L 24.5-34.5 SEC Hemoglobin A1c 6.9 H <5.7 % A1C Lactic Acid Level 1.2 0.4-2.0 mmol/L Phosphorus Level 4.0 2.4-5.1 mg/dL Total Bilirubin 0.3 0.2-1.0 mg/dL Aspartate Amino Transferase (AST) 15 13-40 U/L Alanine Aminotransferase (ALT) < 9 7-40 U/L Alkaline Phosphatase 110 46-116 U/L Ammonia < 10 L 11-32 umol/L C-Reactive Protein High Sensitivity 0.73 <1.0 mg/dL B-Type Natriuretic Peptide 254.83 0-100 pg/mL Total Protein 7.7 5.7-8.2 g/dL Albumin 4.5 3.2-4.8 g/dL Vitamin B12 Level 535 211-911 pg/mL Vitamin D 25-Hydroxy 24.2 L 30.0-100 ng/mL Thyroid Stimulating Hormone (TSH) 1.03 0.55-4.78 uIU/mL Microbiology Date/Time Source Procedure Growth Status 06/12/24 19:09 Voided Urine Urine Culture - Preliminary Resulted 06/12/24 06:04 Blood Blood Culture - Preliminary NO GROWTH AFTER 24 HOURS OF INCUBATION. Resulted Assessment Altered mental status Metabolic encephalopathy secondary to UTI Dementia, ? Alzheimer disease Reported seizure Plan/Recommendation Monitoring Supportive treatment Telemetry Lip-id profilearice IV antibiotics Aricept 10 mg daily Keppra 500 mg b.i.d. GI prophylaxis Up to chair Physical therapy Nephrology on case Progress: Poor This medical document was created using an electronic medical record system with [employer] dictation system. Although this document has been carefully reviewed, there may still be some phonetic and typographical errors. These areas are purely typographical due to imperfections of the software programs, and do not reflect any compromise in the patient's medical care. Plan discussed with: Other CORAL KABA MD Jun 13, 2024 20:55
[2024-06-13] MEDS: DONEPEZIL HYDROCHLORIDE 5 MG TAB PO SCH (22:02)
[2024-06-13] MEDS: hydrALAZINE HCL 25 MG TAB PO SCH (22:02)
[2024-06-14] VITALS (12 sets, daily range): BP systolic 106–173; BP diastolic 49–73; PULSE 52–84; RESP 15–17; TEMP 97.4–98.2; O2SAT 95–100
[2024-06-14 05:20] LABS: Potassium 4.1 mmol/L (3.5-5.1); Sodium 140 mmol/L (136-145)
[2024-06-14 05:21] LABS: Anion Gap 8 (5-15); Calcium 9.6 mg/dL (8.7-10.4); Carbon Dioxide 25 mmol/L (20-31)
[2024-06-14 05:26] LABS: BUN/Creatinine Ratio 9.9 (10.0-20.0)
[2024-06-14 05:32] LABS: Blood Urea Nitrogen 35 mg/dL (9-23); Chloride 107 mmol/L (98-107); Glucose 142 mg/dL (74-106)
[2024-06-14] MEDS ORDERED: VANCOMYCIN PER PHARMACY 0 MG IV SCH (06:15)
[2024-06-14] MEDS ORDERED: VANCOMYCIN 1.5GM/250ML 250 ML IV ONE (06:30)
--- NOTE | 2024-06-14 06:39 | DVHPNRES ---
Progress Note Date Seen: Jun 14, 2024 Resident Creating Document: RUCHI TORREZ RESIDENT Medical Necessity Reason Pt with a Central, PICC or Fol: No Subjective Review of Systems Patient states feeling well, denies any complain. A&OX2 We have trying consistently reaching out to family members, no answer yet. Objective vital signs Vital Sign Date Time Temp Pulse Resp B/P (MAP) Pulse Ox O2 Delivery O2 Flow Rate FiO2 06/14/24 05:48 173/72 06/14/24 05:00 97.4 52 15 100 97.4 06/13/24 22:06 Nasal Cannula* 1 24 Total Intake and Output 06/13/24 06/13/24 06/14/24 15:00 23:00 07:00 Intake Total 50 ml 600 ml 300 ml Output Total 250 ml 500 ml Balance 50 ml 350 ml -200 ml medications Current Medications Medications Dose Ordered Sig/Deepak Route Start Time Stop Time Status Last Admin Dose Admin Docusate Sodium 100 mg BIDPRN PRN PO 06/12/24 05:00 Acetaminophen 650 mg Q6HP PRN PO 06/12/24 05:00 Ondansetron HCl 4 mg Q4HP PRN IV 06/12/24 05:00 Ergocalciferol 50,000 unit Q7D PO 06/12/24 08:00 06/12/24 11:58 50,000 UNIT Diagnostic Test (Pha) 1 strip ACHS 06/12/24 11:30 06/14/24 05:53 1 STRIP Insulin Human Regular ACHS SC 06/12/24 11:30 06/13/24 12:06 4 UNITS Dextrose 50 ml UD PRN IV 06/12/24 08:00 Ipratropium [place] 0.5 mg Q6HWA PRN NEB 06/12/24 12:00 06/12/24 18:37 0.5 MG Levetiracetam 500 mg BID PO 06/12/24 22:00 06/13/24 22:02 500 MG Albuterol 2.5 mg Q6HPRN PRN NEB 06/12/24 15:45 Ceftriaxone Sodium 50 ml @ 100 mls/hr DAILY@09 IV 06/13/24 09:00 06/13/24 11:19 100 MLS/HR Sevelamer HCl 800 mg TIDWM PO 06/13/24 18:00 06/13/24 17:47 800 MG Hydralazine HCl 50 mg TID PO 06/13/24 22:00 06/14/24 05:48 50 MG Aspirin 81 mg DAILY PO 06/14/24 10:00 Donepezil HCl 10 mg HS PO 06/13/24 22:00 06/13/24 22:02 10 MG Vancomycin HCl 0 ml @ 0 mls/hr UD IV 06/14/24 06:15 UNV Examination General: A&O x2 no distress HEENT: Head is normocephalic and atraumatic. Pupils are equal, round, and reactive to light. Neck: Supple with no cervical lymphadenopathy No meningismus. No goiter. Heart: Sinus bradycardia without murmur, rub, or gallop. Lungs: Equal breath sounds bilaterally with no wheezing, rales, or rhonchi. There is no chest wall tenderness or instability. Abdomen: No external sign of injury. Bowel sounds are present. Abdomen is soft, nontender. No rebound, no guarding, no rigidity. There are no palpable masses. There is no flank pain on exam. Extremities: Strong peripheral pulses. There is no clubbing, no cyanosis, and no edema. Skin: No rash. Neurologic: Cranial nerves II-XII intact without motor, sensory deficits. laboratory and microbiology Laboratory Tests 06/14/24 04:24 06/13/24 07:53 Test 06/14/24 04:24 Range/Units Serum Glucose 142 H 74-106 mg/dL Microbiology Date/Time Source Procedure Growth Status 06/12/24 19:09 Voided Urine Urine Culture - Preliminary Resulted 06/12/24 06:04 Blood Blood Culture - Preliminary Resulted Labs and/or images reviewed: Labs reviewed by me, Image(s) reviewed by me Problem List/Assessment/Plan Problem List/Assessment/Plan #ALOC, status post mechanical fall #Metabolic encephalopathy due to UTI #Possible bacteremia #Possible dementia #Possible syncope #Sinus bradycardia #History of TIA #History of seizure #JL on CKD, stage 5 #Diabetes mellitus #Hyperlipidemia #History of coronary artery disease status post PTCA #Hypertension Plan: Hold beta-blockers and any AV blocking agents head CT scan showing no acute intracranial abnormalities Echocardiogram shows 60-65% EF, rvsp 46, Continue atorvastatin Insulin mild a.c. HS Continue Telemetry Carotid Doppler unremarkable Orthostatic vitals pending Physical therapy requested Continue hydralazine 50 mg p.o. t.i.d. Nifedipine 90mg po qd Continue Keppra 500 mg p.o. b.i.d. Continue rocephin 1g iv qd Pending urine cx, growing gram (-) rods nephrology following neurology following PT requested Repeated blood cx, started vancomycin due to gram (+) cocci in clusters DIET: Diabetic diet DVT PROPHYLAXIS: Lovenox GI PROPHYLAXIS:: Protonix We have tried multiple times to reach out to the family but could not. Case discussed with Dr. Diaz Plan discussed with: Patient, Other (RN) My Orders My Orders Orders - RUCHI TORREZ Procedure Category Date Status Time Insert Jhaveri Catheter ZEKE 06/13/24 In Process 15:03 Hydralazine Hcl PHA 06/13/24 In Process Tablet (Apresoline 22:00 Vancomycin Per PHA 06/14/24 Pending Pharmacy 06:15 Blood Culture NING 06/14/24 Logged 06:12 Vancomycin PHA 06/14/24 In Process 1.5gm/250ml 06:30 Date of Service: Jun 14, 2024 Billing Provider: VANESSA DIAZ MD Common Visit Codes: [id number] INP/OBS CARE(HIGH) RUCHI TORREZ RESIDENT Jun 14, 2024 06:39 VANESSA DIAZ MD Jun 15, 2024 12:44
[2024-06-14] MEDS: NIFEdipine ER 30 MG TAB PO ONE (07:45)
[2024-06-14] MEDS: ASPirin-EC 81 mg tab PO SCH (09:19)
[2024-06-14] MEDS: VANCOMYCIN 1.5GM/250ML 250 ML IV ONE (09:21)
--- NOTE | 2024-06-14 09:54 | ECG ---
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
--- NOTE | 2024-06-14 10:05 | DVHPNRES ---
Progress Note Date Seen: Jun 14, 2024 Resident Creating Document: KEN ESPINOSA RESIDENT Medical Necessity Reason Pt with a Central, PICC or Fol: No Objective vital signs Vital Sign Date Time Temp Pulse Resp B/P (MAP) Pulse Ox O2 Delivery O2 Flow Rate FiO2 06/14/24 07:45 163/42 06/14/24 07:20 60 16 100 06/14/24 07:15 Nasal Cannula* 1 24 06/14/24 05:00 97.4 97.4 Total Intake and Output 06/13/24 06/13/24 06/14/24 15:00 23:00 07:00 Intake Total 50 ml 600 ml 300 ml Output Total 250 ml 500 ml Balance 50 ml 350 ml -200 ml medications Current Medications Medications Dose Ordered Sig/Deepak Route Start Time Stop Time Status Last Admin Dose Admin Docusate Sodium 100 mg BIDPRN PRN PO 06/12/24 05:00 Acetaminophen 650 mg Q6HP PRN PO 06/12/24 05:00 Ondansetron HCl 4 mg Q4HP PRN IV 06/12/24 05:00 Ergocalciferol 50,000 unit Q7D PO 06/12/24 08:00 06/12/24 11:58 50,000 UNIT Diagnostic Test (Pha) 1 strip ACHS 06/12/24 11:30 06/14/24 05:53 1 STRIP Insulin Human Regular ACHS SC 06/12/24 11:30 06/13/24 12:06 4 UNITS Dextrose 50 ml UD PRN IV 06/12/24 08:00 Ipratropium [place] 0.5 mg Q6HWA PRN NEB 06/12/24 12:00 06/14/24 07:15 0.5 MG Levetiracetam 500 mg BID PO 06/12/24 22:00 06/14/24 09:17 500 MG Albuterol 2.5 mg Q6HPRN PRN NEB 06/12/24 15:45 Ceftriaxone Sodium 50 ml @ 100 mls/hr DAILY@09 IV 06/13/24 09:00 06/14/24 09:19 100 MLS/HR Sevelamer HCl 800 mg TIDWM PO 06/13/24 18:00 06/14/24 09:17 800 MG Hydralazine HCl 50 mg TID PO 06/13/24 22:00 06/14/24 05:48 50 MG Aspirin 81 mg DAILY PO 06/14/24 10:00 06/14/24 09:19 81 MG Donepezil HCl 10 mg HS PO 06/13/24 22:00 06/13/24 22:02 10 MG Vancomycin HCl 0 ml @ 0 mls/hr UD IV 06/14/24 06:15 Nifedipine 90 mg DAILY PO 06/15/24 10:00 Examination GENERAL:Normal, pleasant, HEENT:Normal, NECK:Normal, LUNGS:Normal, in RA no, crackles. CVS:Normal, ABDOMEN:Normal, MSK: Dry no pedal edema, SKIN:Normal, NEURO:Normal, AAO x 4, :[facility]' laboratory and microbiology Laboratory Tests 06/14/24 04:24 06/13/24 07:53 Test 06/14/24 04:24 Range/Units Serum Glucose 142 H 74-106 mg/dL Microbiology Date/Time Source Procedure Growth Status 06/12/24 19:09 Voided Urine Urine Culture - Preliminary Escherichia coli Resulted 06/12/24 06:04 Blood Blood Culture - Preliminary Resulted Labs and/or images reviewed: Labs reviewed by me, Image(s) reviewed by me Problem List/Assessment/Plan Problem List/Assessment/Plan Ms. Elmer Mcelroy, a 78-year-old female with a history of possible dementia, CKD V, diabetes mellitus, hyperlipidemia, hypertension, seizures, and TIA was admitted to [facility] for altered consciousness following a mechanical fall. She was vitally stable, noted JL with LVH/HFpEF in echo, head CT CXR, and carotid Doppler grossly unremarkable. She denied fever, chest pain, shortness of breath, nausea, vomiting, and changes in bowel or bladder habits. At baseline lives at home, uses a walker. Still hypertensive in 160s, BP management ongoing. Improving renal function, u/o improved on foleys. 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 3.0 #Possible ATN osmolality 304, to rule out. #CKD, grade 5, follows Dr. Bonilla, 40 mg daily lasix and sodium bicarbonate 650 daily and calcium acetate tid. #Hypovitaminosis D #Renal cyst on US, R upper pole. #UTI with Gram Negative Rods, final cx pending on IV ceftriaxone. #Diabetes mellitus with insulin, 6.9 HbA1C controlled. #Sinus bradycardia? on tele cardiology evaluation ongoing SSS/conduction disorder. #Normocytic anemia #Likely metabolic encephalopathy. #ALOC, status post mechanical fall #Hyperlipidemia #History of CAD status post PTCA #H/o Hypertension, uncontrolled. Nifedipine, hydralazine, #History of TIA #History of seizure on keppra maintaninance #Hypertensive heart disease, [id number] LVH. Findings: #HnH stable with platelets. #FeNa: 1.9% (skewed with diuretics) #GFR: 10>12>13 #Creatinine: 4.27>3.64>3.53 (BL Cr. 3.0 around) #BUN: 35>31>35 #I&O: 950-750=+200 on foleys. #Urine protein: cr: 1.2 g/day #Fluid status: Dry to euvolemic on D5 NaHCO3 drip 100 cc/hour for ~12 hours off of drips. #Kidney Ultrasound: cyst and CKD specific changes Plan/Recommendation #No need of IV fluids. D/c foleys' #Diuresis with iv lasix 40 mg daily for now, at discharge will continue oral lasix 40 bid. #continue sodium bicarbonate 650 daily, vitamin D supplements, sevelamer 800 tid now and at discharge. #Strict I&O, Avoid Nephrotoxics, Avoid hyper/hypo tension and keep MAP > 65. Target BP as per AHA/ACC 130/80 around for diabetic hypertensive. #Daily BMP, and Correct electrolytes #Follow Dr. Bonilla at discharge every 2 week, still producing urine on diuretics but close to HD, will consider outpatient discussion for HD access. #Rest of the management as per primary team & cardiology. ok to discharge from Nephrology perspective Thank you for the opportunity to follow up on your patient. In case of any question feel free to reach out to the Nephrology team. Will follow up if remains in hospital. Discussed with Nephrology attending Dr. Clark. Addendum Patient seen and examined, plan discussed with resident. Agree with above, we will follow closely Plan discussed with: Patient, Other (RN) My Orders My Orders Orders - KEN ESPINOSA Procedure Category Date Status Time Kidney US 06/13/24 Resulted 10:29 Sevelamer (Renagel) PHA 06/13/24 In Process 18:00 KEN ESPINOSA RESIDENT Jun 14, 2024 10:05 TIFF CLARK MD Jun 14, 2024 21:07
--- NOTE | 2024-06-14 10:33 | CONS ---
Pharmacy Clinical Information: From Heart Failure Fallout Report on CQM Application, Elmer Mcelroy Jennifer Amado is a 78 year old female with PMH of DM, HLD, CKD, HTN, TIA, dementia, seizures. His LFTs are WNL. Per hospitalist note, continue atorvastatin. DREW LAUGHLIN PHARMACIST Jun 14, 2024 10:32
[2024-06-14] MEDS: FUROSEMIDE 40 MG/4 ML VIAL IV SCH (20:01)
--- NOTE | 2024-06-14 20:50 | DVHPN2 ---
Progress Note - Dictate Date Seen: Jun 14, 2024 Medical Necessity Reason Pt with a Central, PICC or Fol: No Subjective Ms. Elmer Mcelroy is a 78 years old female with a history of hypertension, diabetes, dyslipidemia, coronary artery disease, congestive heart failure, chronic kidney failure on hemodialysis, dementia, seizure, TIA, she was transferred from the [facility] for ALOC brought to the [facility] on 01/14/2022 with a chief complaint of ALOC. I saw on 01/15/2022 for seizure and dementia I have seen and examined the patient was, I have talked to her nurse, she was alert, looks better today, oriented to person, place, she follows verbal commands, she reports no pain or other new troubles [phone], no answer, , her sister answered, but she did not have password. [facility] Home medication includes: Plavix 75 mg daily BUN/CR, 06/11/2024: 42/4.41 GFR, 06/11/2024: 10 CT head, 06/11/2024: Unremarkable UDS, 06/12/2024: Negative Urinalysis, 06/12/2024: WBC: 10, urine leukocyte esterase: 2+ CBC, 06/12/2024: Unremarkable BUN/CR, 06/12/2024: 35/4.27, 06/13/2024: 31/3.64 HCO3, 06/12/2024: 19, 06/13/2024: 26 HGB A1c, 06/12/2024: 649 Liver function tests, 06/12/2024: Unremarkable TG/HDL/LDL/HDL, 09/2023: 74/153/73/61 Vitamin B12, 12/2021: 301, 05/2024: 535 Folic acid, 12/2020: 4.71 TSH, 12/2021: 0.73, 05/2024: 1.03 Chest x-ray, 01/14/2022: Mild pulmonary vascular congestion CT head, 06/13/2024: 1. No CT evidence of acute intracranial abnormality. 2. Nonacute findings as described above MRI head, 01/15/2022: There is mild to moderate microvascular ischemic disease of the supratentorial white matter and brainstem. There is no acute infarct vital signs Vital Sign Date Time Temp Pulse Resp B/P (MAP) Pulse Ox O2 Delivery O2 Flow Rate FiO2 06/14/24 20:01 133/60 06/14/24 17:00 97.9 71 17 99 97.9 06/14/24 10:00 Room Air 0.0 06/14/24 10:00 21 Total Intake and Output 06/13/24 06/13/24 06/14/24 15:00 23:00 07:00 Intake Total 50 ml 600 ml 300 ml Output Total 250 ml 500 ml Balance 50 ml 350 ml -200 ml medications Current Medications Medications Dose Ordered Sig/Deepak Route Start Time Stop Time Status Last Admin Dose Admin Docusate Sodium 100 mg BIDPRN PRN PO 06/12/24 05:00 Acetaminophen 650 mg Q6HP PRN PO 06/12/24 05:00 Ondansetron HCl 4 mg Q4HP PRN IV 06/12/24 05:00 Ergocalciferol 50,000 unit Q7D PO 06/12/24 08:00 06/12/24 11:58 50,000 UNIT Diagnostic Test (Pha) 1 strip ACHS 06/12/24 11:30 06/14/24 17:55 1 STRIP Insulin Human Regular ACHS SC 06/12/24 11:30 06/14/24 18:02 3 UNITS Dextrose 50 ml UD PRN IV 06/12/24 08:00 Ipratropium [place] 0.5 mg Q6HWA PRN NEB 06/12/24 12:00 06/14/24 07:15 0.5 MG Levetiracetam 500 mg BID PO 06/12/24 22:00 06/14/24 09:17 500 MG Albuterol 2.5 mg Q6HPRN PRN NEB 06/12/24 15:45 Ceftriaxone Sodium 50 ml @ 100 mls/hr DAILY@09 IV 06/13/24 09:00 06/14/24 09:19 100 MLS/HR Sevelamer HCl 800 mg TIDWM PO 06/13/24 18:00 06/14/24 17:52 800 MG Hydralazine HCl 50 mg TID PO 06/13/24 22:00 06/14/24 14:32 50 MG Aspirin 81 mg DAILY PO 06/14/24 10:00 06/14/24 09:19 81 MG Donepezil HCl 10 mg HS PO 06/13/24 22:00 06/13/24 22:02 10 MG Vancomycin HCl 0 ml @ 0 mls/hr UD IV 06/14/24 06:15 Nifedipine 90 mg DAILY PO 06/15/24 10:00 Atorvastatin Calcium 20 mg HS PO 06/14/24 22:00 Furosemide 40 mg DAILY IV 06/14/24 19:15 06/14/24 20:01 40 MG objective General: the patient is well developed and nourished. No acute distress. MENTAL STATUS: Subjective SPEECH, LANGUAGE, HIGHER CORTICAL FUNCTION: no aphasia but her voice is very weak. CRANIAL NERVES: Pupils are equal, round and reactive. EOMs full and conjugate. No nystagmus. Facial sensation intact in all three divisions bilaterally. Mandibular strength intact. Facial muscles symmetrical and strength intact. SENSATION: Sensation to touch and pinprick is normal. MOTOR: Normal tone in the upper and lower extremity. Normal muscle bulk. No fasciculations. No abnormal movements or posturing. She moves her arms and legs REFLEXES: Deep tendon reflexes are symmetrical. No pathological reflexes. CEREBELLAR/COORDINATION: Deferred GAIT/STATION: deferred laboratory and microbiology Laboratory Tests 06/14/24 04:24 06/13/24 07:53 Test 06/14/24 04:24 Range/Units Serum Glucose 142 H 74-106 mg/dL Problem List Altered mental status Metabolic encephalopathy secondary to UTI Dementia, ? Alzheimer disease Reported seizure Assessment/Plan Monitoring Supportive treatment Telemetry Lipid profilearice IV antibiotics Aricept 10 mg daily Keppra 500 mg b.i.d. GI prophylaxis Up to chair Physical therapy Nephrology on case This medical document was created using an electronic medical record system with [employer] dictation system. Although this document has been carefully reviewed, there may still be some phonetic and typographical errors. These areas are purely typographical due to imperfections of the software programs, and do not reflect any compromise in the patient's medical care. Prognosis poor Plan discussed with: Other Total Time (mins): 35 CORAL KABA MD Jun 14, 2024 20:50
[2024-06-14 21:09] LABS: Triglycerides 122 mg/dL (< 150)
[2024-06-14 21:10] LABS: LDL Cholesterol 83 mg/dL (< 100)
[2024-06-14 21:11] LABS: Cholesterol 153 mg/dL (< 200); HDL Cholesterol 43 mg/dL (40-59)
[2024-06-14] MEDS: ATORVASTATIN 20 MG TAB PO SCH (21:20)
[2024-06-15 01:20] VITALS: BP 139/82; PULSE 82; RESP 17; TEMP 97.9; O2SAT 95
[2024-06-15 05:00] VITALS: BP 171/89; PULSE 79; RESP 19; TEMP 97.9; O2SAT 97
--- NOTE | 2024-06-15 06:34 | DVHDSRES ---
Discharge Summary Date of Admission Resident Creating Document: RUCHI TORREZ RESIDENT Jun 12, 2024 at 03:36 Date of Discharge: Jun 15, 2024 Admitting Diagnosis ALOC Labs/Diagnostic Data: Laboratory Results Test 06/15/24 05:16 06/14/24 04:24 06/13/24 07:53 06/12/24 19:09 POC Glucose 134 mg/dl (70-106) Sodium Level 140 mmol/L (136-145) Potassium Level 4.1 mmol/L (3.5-5.1) Chloride Level 107 mmol/L (98-107) Carbon Dioxide Level 25 mmol/L (20-31) Anion Gap 8 (5-15) Blood Urea Nitrogen 35 mg/dL (9-23) Creatinine 3.53 mg/dL (0.550-1.02) Glomerular Filtration Rate Calc 13 mL/min (>90) BUN/Creatinine Ratio 9.9 (10.0-20.0) Serum Glucose 142 mg/dL (74-106) Calcium Level 9.6 mg/dL (8.7-10.4) Triglycerides Level 122 mg/dL (< 150) Cholesterol Level 153 mg/dL (< 200) LDL Cholesterol 83 mg/dL (< 100) HDL Cholesterol 43 mg/dL (40-59) White Blood Count 7.2 10^3/uL (4.4-10.8) Red Blood Count 3.90 10^6/uL (4.0-5.20) Hemoglobin 11.8 g/dL (12.2-16.2) Hematocrit 34.6 % (36.0-46.0) Mean Corpuscular Volume 88.7 fL (80.0-100.0) Mean Corpuscular Hemoglobin 30.2 pg (28.0-32.0) Mean Corpuscular Hemoglobin Concent 34.1 g/dL (32.0-36.0) Red Cell Distribution Width 14.0 % (11.8-14.3) Platelet Count 225 10^3/uL (140-450) Mean Platelet Volume 7.0 fL (6.9-10.8) Neutrophils (%) (Auto) 68.6 % (37.0-80.0) Lymphocytes (%) (Auto) 21.8 % (10.0-50.0) Monocytes (%) (Auto) 5.8 % (0.0-12.0) Eosinophils (%) (Auto) 3.5 % (0.0-7.0) Basophils (%) (Auto) 0.3 % (0.0-2.0) Neutrophils # (Auto) 4.9 10 ^3/uL (1.6-8.6) Lymphocytes # (Auto) 1.6 10 ^3/uL (0.4-5.4) Monocytes # (Auto) 0.4 10 ^3/uL (0-1.3) Eosinophils # (Auto) 0.3 10 ^3/uL (0-0.8) Basophils # (Auto) 0 10 ^3/uL (0-0.2) Nucleated Red Blood Cells 0.1 % Magnesium Level 2.1 mg/dL (1.6-2.6) Creatine Kinase 46 U/L (34-145) Urine Color Colorless (Yellow) Urine Clarity Turbid (Clear) Urine pH 5.5 (5.0-9.0) Urine Specific [place] 1.010 (1.001-1.035) Urine Protein 1+ (Negative) Urine Ketones Negative (Negative) Urine Blood Trace /uL (Negative) Urine Nitrite Negative (Negative) Urine Bilirubin Negative (Negative) Urine Urobilinogen Normal mg/dL (Negative) Urine Leukocyte Esterase 2+ /uL (Negative) Urine RBC 2 /hpf (0 - 4) Urine Microscopic WBC 10 /HPF (0-5) Urine Squamous Epithelial Cells Few /hpf (<5) Urine Bacteria Many /hpf (None Seen) Urine Osmolality 304 mOsm/kg Urine Creatinine 72.02 mg/dL (30.0-125.0) Urine Protein/Creatinine Ratio 1.25 Urine Sodium 54 mmol/L (40-220) Urine Glucose Normal mg/dL (Normal) Urine Total Protein 89.9 mg/dL (1-14) Urine Opiates Screen Neg (NEGATIVE) Urine Fentanyl Screen Neg (NEGATIVE) Urine Barbiturates Screen Neg (NEGATIVE) Urine Phencyclidine Screen Neg (NEGATIVE) Urine Amphetamines Screen Neg (NEGATIVE) Urine Benzodiazepines Screen Neg (NEGATIVE) Urine Cocaine Screen Neg (NEGATIVE) Urine Cannabinoids Screen Neg (NEGATIVE) Test 06/12/24 06:04 Prothrombin Time 10.0 sec (9.3-11.8) Prothrombin Time INR 0.94 (0.9-1.15) Activated Partial Thromboplast Time 21.7 SEC (24.5-34.5) Hemoglobin A1c 6.9 % A1C (<5.7) Lactic Acid Level 1.2 mmol/L (0.4-2.0) Phosphorus Level 4.0 mg/dL (2.4-5.1) Total Bilirubin 0.3 mg/dL (0.2-1.0) Aspartate Amino Transferase (AST) 15 U/L (13-40) Alanine Aminotransferase (ALT) < 9 U/L (7-40) Alkaline Phosphatase 110 U/L (46-116) Ammonia < 10 umol/L (11-32) C-Reactive Protein High Sensitivity 0.73 mg/dL (<1.0) B-Type Natriuretic Peptide 254.83 pg/mL (0-100) Total Protein 7.7 g/dL (5.7-8.2) Albumin 4.5 g/dL (3.2-4.8) Vitamin B12 Level 535 pg/mL (211-911) Vitamin D 25-Hydroxy 24.2 ng/mL (30.0-100) Thyroid Stimulating Hormone (TSH) 1.03 uIU/mL (0.55-4.78) Other Laboratory Tests 06/14/24 04:24 06/13/24 07:53 Brief Hx & Hospital Course: This is a 78-year-old female who was admitted at [facility] for altered level of consciousness status post mechanical fall. PMHx: Possible dementia, CKD, diabetes mellitus, hyperlipidemia, hypertension, seizure, TIA, was admitted at [facility] for altered level of consciousness Social history: Lives at home, use walker for mobility, ex-smoker, denies any other drug use Allergic history: No known allergies Per [facility] papers, patient was vitally stable and lab studies were significant for raised BUN at 42 and creatinine at 4.41, otherwise lab studies were unremarkable. Head CT scan was showing no acute intracranial abnormalities. Upon transfer of the patient to the [facility], patient reports that had body stiffness. And due to altered level of consciousness, the patient could not provide proper history. Patient denies fever, chest pain, shortness of breath, nausea, vomiting, and any recent changes in bowel and bladder habits. Patient has a carotid artery Doppler which was unremarkable. Patient states feeling well, denies any complain. A&OX2. We have trying consistently reaching out to family members, no answer yet. Patient's urine culture grew E coli and Proteus mirabilis, we narrow down the antibiotics and put her on Rocephin IV. A blood culture came back positive for Gram-positive catching clusters, vancomycin was started, blood culture were repeated, however 2nd blood culture was negative and repeat blood cultures did not show any growth, this was likely contaminant, vancomycin was then discontinued. Patient has had significant clinical improvement from hospitalization, she stated feeling better, she was A&O x3, she denied any shortness of breath, chest pain, abdominal pain, nausea, vomiting, dizziness, lightheadedness. She is tolerating diet. Physical examination as below: General: A&O x2 no distress HEENT: Head is normocephalic and atraumatic. Pupils are equal, round, and reactive to light. Neck: Supple with no cervical lymphadenopathy No meningismus. No goiter. Heart: Sinus bradycardia without murmur, rub, or gallop. Lungs: Equal breath sounds bilaterally with no wheezing, rales, or rhonchi. There is no chest wall tenderness or instability. Abdomen: No external sign of injury. Bowel sounds are present. Abdomen is soft, nontender. No rebound, no guarding, no rigidity. There are no palpable masses. There is no flank pain on exam. Extremities: Strong peripheral pulses. There is no clubbing, no cyanosis, and no edema. Skin: No rash. Neurologic: Cranial nerves II-XII intact without motor, sensory deficits. Patient will be discharged home on continue medications as prescribed. She will continue taking cefpodoxime, she will also follow with PCP within 1-2 weeks, we stopped beta-blockers, we spent over 30 minute explaining the DC plan. Case discussed with Dr. Diaz Consults/Reason for consult Neurology was consulted due to encephalopathy Nephrology was consulted due to CKD Operations or Procedures [place] [address] Ph: [phone] DIAGNOSTIC IMAGING Diagnostic Imaging Report : [id number] Signed PATIENT: LAMAR HARO CACCT: [id number] UNIT: [id number] : 1945 LOC: [facility] AGE / SEX: 78 / F ADM STATUS: ADM IN SERVICE 0446 ORDERING PHYSICIAN: MASHA VIEYRA RESDINARESH PROCEDURE(s): ECIDC - ECHO 2D MODE CARDIAC DOP REASON: Syncope ORDER NUMBER(s): [id number], ACCESSION NUMBER(s): [id number] APPROVED REPORT EXAM: Two-dimensional and M-mode echocardiogram with Doppler and color Doppler. Blood Pressure: 114/85 mmHg INDICATION Syncope RISK FACTORS Height: 64, Weight: 194 DIMENSIONS LVDd 4.0 (3.8-5.7cm) LA (2D) 4.0 (1.9-4.0cm) Aortic Root 3.6 (2.0- 3.7cm) LVDs 2.7 (2.5-4.0cm) LA (MM) (1.9-4.0cm) Aortic Cusp Exc 1.4 (1.5- 2.0cm) EF (%) 60.0 (55-70%) Rt. Atrium (1.9-4.0cm) Asc. Aorta cm IVSd 1.2 (0.7-1.1cm) RV (D) (1.8-2.4cm) PWd 1.5 (0.7-1.1cm) Mitral Valve Mitral Mitral Stenosis E wave 0.78m/s MV Mean GR. mmHg A wave 0.77m/s MV Peak GR. mmHg E/A ratio 1.0 2D MVA cm2 DECEL Time 201ms PRESS 1/2 Time ms Aortic Valve Aortic Valve Aortic Stenosis V1 0.70m/s AO Mean GR. 4mmHg V2 1.31m/s AO Peak GR. 7mmHg LVOT Diameter 1.9 (1.8-2.4cm) Doppler ROLLY 1.51cm2 Pulmonic Valve V2 0.70m/s Tricuspid Valve TR Velocity 3.26m/s RVSP 46mmHg Other Information Technically limited study due to body habitus and patient position. Conclusion Normal biventricular size and systolic function. LVEF 60-65%. Normal wall motion. Zfyi-wk-frkkiivi LVH. Normal diastolic function for age. Mild LA enlargement. No significant valvular disease. Trace TR. RVSP estimated at 46 mmHg + CVP. IVC not seen. No pericardial effusion. Sinus bradycardia. SIGNED BY: LEONCIO ROMERO DO SIGNED DATE/TIME: 06/12/24 8363 CC: [address] [address] Ph: [phone] DIAGNOSTIC IMAGING Diagnostic Imaging Report : [id number] Signed PATIENT: LAMAR HARO CACCT: [id number] UNIT: [id number] : 1945 LOC: [facility] ROOM / BED: [facility] / A AGE / SEX: 78 / F ADM STATUS: ADM IN SERVICE 3111 ORDERING PHYSICIAN: MASHA VIEYRA RESDINARESH PROCEDURE(s): CARCL - CAROTID DUPLX W COLOR DOP REASON: Syncope ORDER NUMBER(s): [id number], ACCESSION NUMBER(s): [id number] Carotid Duplex Clinical History: Syncope Comparison: None Technique: Duplex Doppler evaluation of the extracranial carotid and vertebral arteries including color Doppler and spectral/pulsed waveform analysis was performed. Findings: RIGHT SIDE: The peak systolic velocities are 74 cm/s in the CCA, 72 cm/s in the ICA. The ICA/CCA ratio is 1.0. The external carotid artery is patent with peak systolic velocity of 78 cm/s proximally. There is appropriate antegrade flow in the right vertebral artery. LEFT SIDE: The peak systolic velocities are 64 cm/s in the CCA, 86 cm/s in the ICA. The ICA/CCA ratio is 1.3. The external carotid artery is patent with peak systolic velocity of 50 cm/s proximally. There is appropriate antegrade flow in the left vertebral artery. IMPRESSION: Less than 50% stenosis of bilateral carotid artery system based on peak systolic velocity criteria and presence of atheromatous plaque. Reference: Radiology 2003; [id number] Normal ICA PSV is <125 cm/sec and no plaque or intimal thickening is visible sonographically additional criteria include ICA/CCA PSV ratio <2.0 and ICA EDV <40 cm/sec <50% ICA stenosis ICA PSV is <125 cm/sec and plaque or intimal thickening is visible sonographically additional criteria include ICA/CCA PSV ratio <2.0 and ICA EDV <40 cm/sec 50-69% ICA stenosis ICA PSV is 125-230 cm/sec and plaque is visible sonographically additional criteria include ICA/CCA PSV ratio of 2.0-4.0 and ICA EDV of 40-100 cm/sec 70% ICA stenosis but less than near occlusion ICA PSV is >230 cm/sec and visible plaque and luminal narrowing are seen at boss-scale and color Doppler ultrasound (the higher the Doppler parameters lie above the threshold of 230 cm/sec, the greater the likelihood of severe disease) additional criteria include ICA/CCA PSV ratio >4 and ICA EDV >100 cm/sec ATED BY: RAZA ENRIQUEZ MD DICTATED DATE/TIME: 06/12/24827 SIGNED BY: RAZA ENRIQUEZ MD SIGNED DATE/TIME: 06/12/24827 CC: [place] [address] Ph: [phone] DIAGNOSTIC IMAGING Diagnostic Imaging Report : [id number] Signed PATIENT: LAMAR HARO CACCT: [id number] UNIT: [id number] : 1945 LOC: [facility] ROOM / BED: [facility] / A AGE / SEX: 78 / F ADM STATUS: ADM IN SERVICE 0 ORDERING PHYSICIAN: YANDY BHATT RESIDENT PROCEDURE(s): CXR1 - CHEST XRAY 1 VIEW REASON: Syncope ORDER NUMBER(s): [id number], ACCESSION NUMBER(s): [id number] EXAM: XY CHEST XRAY 1 VIEW Indication: Syncope Technique: Single frontal view of the chest was obtained Comparison: XY CHEST XRAY 1 VIEW on DOS: 04/19/24, XY CHEST PORTABLE on DOS: 01/10/24, XY CHEST PORTABLE on DOS: 10/02/23, XY CHEST PORTABLE on DOS: 04/22/23, CHEST PORTABLE on DOS: 01/14/22 FINDINGS: Lines and Tubes: None Lungs: No focal consolidation. Pleura: No effusion. No pneumothorax. Cardiomediastinal contours: Unremarkable. Atherosclerotic vascular calcifications of the thoracic aorta are noted. Bones: No acute osseous abnormality. IMPRESSION: No acute cardiopulmonary disease. ATED BY: AMARILIS MEDINA MD DICTATED DATE/TIME: 06/12/24 1200 SIGNED BY: AMARILIS MEDINA MD SIGNED DATE/TIME: 06/12/24 1200 CC: [place] [address] Ph: [phone] DIAGNOSTIC IMAGING Diagnostic Imaging Report : [id number] Signed PATIENT: LAMAR HARO CACCT: [id number] UNIT: [id number] : 1945 LOC: [facility] ROOM / BED: [facility] / A AGE / SEX: 78 / F ADM STATUS: ADM IN SERVICE 09 ORDERING PHYSICIAN: VANESSA DIAZ MD PROCEDURE(s): HWOCT - HEAD WITHOUT CONTRAST REASON: ALOC ORDER NUMBER(s): [id number], ACCESSION NUMBER(s): [id number] CLINICAL INFORMATION: Acute loss of consciousness. TECHNIQUE: Axial imaging was obtained through the brain without contrast. Coronal and sagittal reformatted images were obtained, reviewed, and stored. Images were reviewed in brain and bone windows. All CT scans at this medical facility are performed using dose modulation techniques as appropriate to a performed exam including the following: Automated exposure control was utilized; adjustment of the MA and/or KV according to patient size; and use of iterative reconstruction technique. CTDIvol = 52.56 mGy DLP = 930.87 mGy-cm COMPARISON: CT HEAD WITHOUT CONTRAST on DOS: 04/19/24, CT HEAD WITHOUT CONTRAST on DOS: 01/10/24, CT HEAD WITHOUT CONTRAST on DOS: 01/10/24 FINDINGS: There is no acute intracranial hemorrhage. No mass effect or midline shift. Scattered areas of hypoattenuation are seen in the periventricular and subcortical white matter, which are nonspecific but most likely sequelae of small vessel ischemic disease. The ventricles and sulci are within normal limits in size for age. Basal cisterns are patent. The calvarium is unremarkable. Paranasal sinuses and mastoid air cells are clear. IMPRESSION: 1. No CT evidence of acute intracranial abnormality. 2. Nonacute findings as described above ATED BY: KEN CELAYA DO DICTATED DATE/TIME: 06/13/24 1003 SIGNED BY: KEN CELAYA DO SIGNED DATE/TIME: 06/13/24 1003 CC: [place] [address] Ph: [phone] DIAGNOSTIC IMAGING Diagnostic Imaging Report : [id number] Signed PATIENT: LAMAR HARO CACCT: [id number] UNIT: [id number] : 1945 LOC: [facility] ROOM / BED: 021 / A AGE / SEX: 78 / F ADM STATUS: ADM IN SERVICE 1029 ORDERING PHYSICIAN: KEN ESPINOSA RESIDENT PROCEDURE(s): KIDUS - KIDNEY REASON: r/o obstruction. ORDER NUMBER(s): [id number], ACCESSION NUMBER(s): [id number] Renal ultrasound HISTORY: r/o obstruction. TECHNIQUE: 2 D ultrasound was performed with transaxial and longitudinal images. FINDINGS: Right kidney measures 7.3 cm and left kidney measures 7.6 cm. Echogenic renal parenchyma. There is a 2.3 cm cyst in the upper pole of the right kidney. No stones or hydronephrosis No mass stone or hydronephrosis of the left kidney. Jhaveri catheter within the urinary bladder IMPRESSION: 1. Echogenic renal parenchyma consistent with chronic renal parenchymal disease.Simple 2. Cyst upper pole of the right kidney 3. 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 Patient was counseled about treatment plan, medications, possible side effects, patientverbalized understanding. All questions were answered to the best of my ability. This discharge took greater then 30 minutes in planning, reviewing documentation, counseling the patient, and discussing with other team members." ASSESSMENT ASSESSMENT Assessment Date of Service: Jun 15, 2024 Billing Provider: VANESSA DIAZ MD Common Visit Codes: 64153-JEY/OBS DISCH DAY >30min RUCHI TORREZ RESIDENT Jun 15, 2024 06:34 VANESSA DIAZ MD Jun 15, 2024 18:52
[2024-06-15] MEDS ORDERED: SEVE800T7 PO (06:37)
[2024-06-15] MEDS ORDERED: CEFP200T15 PO (06:37)
[2024-06-15] MEDS ORDERED: ERGO1CAP23 PO (06:37)
[2024-06-15 08:00] VITALS: PULSE 77
[2024-06-15 09:00] VITALS: BP 179/80; PULSE 77; RESP 18; TEMP 97.5; O2SAT 94
[2024-06-15 09:10] VITALS: O2SAT 100
[2024-06-15] MEDS: NIFEdipine ER 30 MG TAB PO SCH (09:44)
[2024-06-15 10:00] VITALS: O2SAT 95
[2024-06-15 11:28] LABS: Anion Gap 13 (5-15); Carbon Dioxide 23 mmol/L (20-31); Chloride 104 mmol/L (98-107); Potassium 3.8 mmol/L (3.5-5.1); Sodium 140 mmol/L (136-145)
[2024-06-15 11:29] LABS: Calcium 10.2 mg/dL (8.7-10.4)
[2024-06-15 11:34] LABS: BUN/Creatinine Ratio 9.8 (10.0-20.0)
[2024-06-15 11:38] LABS: Blood Urea Nitrogen 38 mg/dL (9-23); Glucose 221 mg/dL (74-106)
--- NOTE | 2024-06-15 13:23 | DVHPNRES ---
Progress Note Date Seen: Jun 15, 2024 Resident Creating Document: KEN ESPINOSA RESIDENT Medical Necessity Reason Pt with a Central, PICC or Fol: No Subjective Patient reports: Feels better Other Systems: Patient seen and examined by myself today in round with the resident, I agree with his assessment and plan Objective vital signs Vital Sign Date Time Temp Pulse Resp B/P (MAP) Pulse Ox O2 Delivery O2 Flow Rate FiO2 06/15/24 10:00 95 Room Air 0.0 06/15/24 10:00 21 06/15/24 09:45 179/80 06/15/24 09:00 97.5 77 18 97.5 Total Intake and Output 06/14/24 06/14/24 06/15/24 15:00 23:00 07:00 Intake Total 620 ml 1200 ml 950 ml Output Total 330 ml Balance 620 ml 1200 ml 620 ml Examination GENERAL:Normal, pleasant, HEENT:Normal, NECK:Normal, LUNGS:Normal, in RA no, crackles. CVS:Normal, ABDOMEN:Normal, MSK: Dry no pedal edema, SKIN:Normal, NEURO:Normal, AAO x 4, : off of foleys. laboratory and microbiology Laboratory Tests 06/15/24 11:00 06/13/24 07:53 Test 06/15/24 11:00 Range/Units Serum Glucose 221 H 74-106 mg/dL Microbiology Date/Time Source Procedure Growth Status 06/14/24 11:22 Blood Blood Culture - Preliminary NO GROWTH AFTER 24 HOURS OF INCUBATION. Resulted 06/12/24 19:09 Voided Urine Urine Culture - Final Escherichia coli Proteus mirabilis Complete Labs and/or images reviewed: Labs reviewed by me, Image(s) reviewed by me Problem List/Assessment/Plan Problem List/Assessment/Plan Ms. Elmer Mcelroy, a 78-year-old female with a history of possible dementia, CKD V, diabetes mellitus, hyperlipidemia, hypertension, seizures, and TIA was admitted to [facility] for altered consciousness following a mechanical fall. She was vitally stable, noted JL with LVH/HFpEF in echo, head CT CXR, and carotid Doppler grossly unremarkable. She denied fever, chest pain, shortness of breath, nausea, vomiting, and changes in bowel or bladder habits. At baseline lives at home, uses a walker. Still hypertensive in 160s, BP management ongoing. Improving renal function, u/o improved on foleys, off of foleys, iv lasix helped to maintain urine output. 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 3.0 #Possible ATN osmolality 304, to rule out. #CKD, grade 5, follows Dr. Bonilla, 40 mg daily lasix and sodium bicarbonate 650 daily and calcium acetate tid. #Hypovitaminosis D #Renal cyst on US, R upper pole. #UTI with Gram Negative Rods positive for proteus+EColi. on IV ceftriaxone. #Diabetes mellitus with insulin, 6.9 HbA1C controlled. #Sinus bradycardia? on tele cardiology evaluation ongoing SSS/conduction disorder. #Normocytic anemia #Likely metabolic encephalopathy. #ALOC, status post mechanical fall #Hyperlipidemia #History of CAD status post PTCA #H/o Hypertension, uncontrolled. Nifedipine, hydralazine, #History of TIA #History of seizure on keppra maintaninance #Hypertensive heart disease, [id number] LVH. Findings: #HnH stable with platelets. #FeNa: 1.9% (skewed with diuretics) #GFR: 10>12>13>11 #Creatinine: 4.27>3.64>3.53>3.8 (BL Cr. 3.0 around, worsening renal function) #BUN: 35>31>35>38 #I&O: continues to produce urine #Urine protein: cr: 1.2 g/day #Kidney Ultrasound: cyst and CKD specific changes Plan/Recommendation #Ok to discharge from Nephrology perspective, appropriate antibiotic for proteus and E.coli based on culture result. #At discharge will continue oral Lasix 40 bid, sodium bicarbonate 650 daily, vitamin D supplements, sevelamer 800 tid at discharge. #Follow Dr. Bonilla at discharge every 2 week, still producing urine on diuretics but close to HD, will consider outpatient discussion for HD access. #Strict I&O, Avoid Nephrotoxics, Avoid hyper/hypo tension and keep MAP > 65. Target BP as per AHA/ACC 130/80 around for diabetic hypertensive. #Daily BMP, and Correct electrolytes if stays in hospital, Rest of the management as per primary team & cardiology. ok to discharge from Nephrology perspective Thank you for the opportunity to follow up on your patient. In case of any question feel free to reach out to the Nephrology team. Will sign off. Discussed with Nephrology attending Dr. Lara. Plan discussed with: Patient, Other Dietary Evaluation Review Comments: 1. Follow current diet order/regimen, restrict dietary protein to 43g if pt is not on dialysis. 2. Follow current diet order.regimen, provided dietary protein base on 0.8-1.0g/kg BW (57-71g), if pt is on routine dialysis, 3. Encourage none protein dietary caloric resources 4. Tight blood glucose controll for promoting wound healing. Expected Outcomes/Goals: Meet 75% of Pt's energy needs, Controlled DM, gradually healed wounds, minimize uremic syndrome, gradual wt loss. KEN ESPINOSA Jun 15, 2024 13:23 OKSANA LARA MD Jun 15, 2024 16:30
== END 2024-06-15 12:53 | disposition home or self-care (01) | DRG 689 ==
LOC: TELE-CENTR 03:36
PROVIDERS: ADMIT Internal Medicine; ATTEND Internal Medicine
PROC: 05H933Z Insertion of Infusion Device into Right Brachial Vein, Percutaneous Approach (ICD-10-PCS; principal; 2024-06-12)
PROC: B54MZZA Ultrasonography of Right Upper Extremity Veins, Guidance (ICD-10-PCS; 2024-06-12)
DX: N39.0 Urinary tract infection, site not specified (principal); G93.41 Metabolic encephalopathy; I13.2 Hypertensive heart and chronic kidney disease with heart failure and with stage 5 chronic kidney disease, or end stage renal disease; N18.5 Chronic kidney disease, stage 5; I50.32 Chronic diastolic (congestive) heart failure; N17.9 Acute kidney failure, unspecified; F02.80 Dementia in other diseases classified elsewhere, unspecified severity, without behavioral disturbance, psychotic disturbance, mood disturbance, and anxiety; B96.20 Unspecified Escherichia coli [E. coli] as the cause of diseases classified elsewhere; E78.5 Hyperlipidemia, unspecified; D64.9 Anemia, unspecified; E55.9 Vitamin D deficiency, unspecified; I25.10 Atherosclerotic heart disease of native coronary artery without angina pectoris; F17.200 Nicotine dependence, unspecified, uncomplicated; R56.9 Unspecified convulsions; E86.0 Dehydration; R00.1 Bradycardia, unspecified; E11.22 Type 2 diabetes mellitus with diabetic chronic kidney disease; G30.9 Alzheimer's disease, unspecified; Z86.73 Personal history of transient ischemic attack (TIA), and cerebral infarction without residual deficits; Z79.02 Long term (current) use of antithrombotics/antiplatelets; Z83.3 Family history of diabetes mellitus; Z82.49 Family history of ischemic heart disease and other diseases of the circulatory system; Z79.2 Long term (current) use of antibiotics; Z79.899 Other long term (current) drug therapy; Z79.4 Long term (current) use of insulin
CPT/HCPCS: 36415; 70450; 71045; 76775; 80048; 80053; 80061; 80202; 80307; 81001; 82140; 82306; 82550; 82570; 82607; 82962; 83036; 83605; 83735; 83880; 83935; 84100; 84156; 84300; 84443; 85025; 85610; 85730; 86141; 87040; 87086; 87088; 87186; 93005; 93306; 93886; 94640; 97110; 97116; 97163; 97530; G0378; J1815

== ENCOUNTER 2024-08-17 17:13 | Emergency (ER) | payer MEDICARE, OTHER ==
[~2024-08-17] VITALS: Ht 154.9 cm; Wt 67.2 kg
[~2024-08-17 17:13] MED LIST changes: -AMLO1TAB22 PO; +CEFP200T15 PO; -CEPH250C PO; +ERGO1CAP23 PO; -METO-289 PO; -MUPI2OIN2 TOP; +SEVE800T7 PO
--- NOTE | 2024-08-17 18:33 | ED.PDOC ---
History of Present Illness HPI Comments 78-year-old female came to ER for tube replacement. Patient has history of hypertension, diabetes, chronic kidney failure. Patient was sent here by her primary care provider to have a dialysis port inserted. Patient denies any fever, chest pains or shortness a breath. Patient is still presents with adequate urine output. Patient has no subjective complaints at this time of care Chief Complaint: Tube Replacement Time Seen by MD: 18:33 Primary Care Provider: UNSURE Reviewed Notes: Nurses Notes Allergies: Coded Allergies: NO KNOWN ALLERGIES (Unverified , 01/14/22) Home Meds Active Scripts Cefpodoxime Proxetil (Cefpodoxime Proxetil) 200 Mg Tab, 1 TAB PO BID for 5 Days, #10 TAB Prov:RUCHI TORREZ RESIDENT 06/15/24 Sevelamer Hydrochloride (Renagel) 800 Mg Tab, 800 MG PO TIDWM for 30 Days, #90 TAB 2 Refills Prov:RUCHI TORREZ 06/15/24 Ergocalciferol (VITAMIN D 79723 UNIT) 50,000 [place], [address] UNIT PO Q7D for 90 Days, #12 CAP Prov:RUCHI TORREZ 06/15/24 Calcitriol (Calcitriol) 0.25 Mcg Cap, 0.25 MCG PO DAILY for 30 Days, #30 CAP 2 Refills Prov:RAMSES HERNANDES 01/13/24 Nifedipine (Nifedipine Er) 90 Mg Tab, 90 MG PO DAILY for 30 Days, #30 TAB 3 Refills Prov:ARIANNE RIZO MD 10/05/23 Reported Medications Calcium Acetate (Phosphate Bin (Calcium Acetate) 667 Mg Cap, 1 CAP PO TIDWM for 60 Days, #180 3/25 Sodium Bicarbonate (Sodium Bicarbonate) 650 Mg Tab, 1 TAB PO DAILY for 30 Days, #30 3/25 Hydralazine Hcl (Hydralazine Hcl) 50 Mg Tab, 1 TAB PO TID for 30 Days, #90 25 Furosemide (Furosemide) 40 Mg Tab, 1 TAB PO DAILY for 30 Days, #60 3//25 Aspirin (Aspirin Low Dose) 81 Mg Chw, 1 TAB PO DAILY for 90 Days, #90 3//25 Levetiracetam (Keppra) 500 Mg Tab, 1 TAB PO BID for 90 Days, #180 06/14/24 Lidocaine (Lidocaine Patch 5%) 5 % Pad, 1 PATCH TOP DAILY for 90 Days, #90 APPLY ONE PATCH TOPICALLY TO CLEAN, DRY SKIN. LEAVE ON FOR 12 HOURS THEN REMOVE. MUST WAIT AT LEAST 12 HOURS BEFORE APPLYING PATCH(ES) AGAIN. 10/03/23 Insulin Glargine (Lantus Solostar) 100 Unit/Ml Inj, 20 UNIT SC DAILY for 75 Days, #15 10/03/23 Ticagrelor Base (Brilinta) 60 Mg Tab, 1 TAB PO DAILY for 90 Days, #90 10/03/23 Pregabalin (Lyrica) 150 Mg Cap, 1 CAP PO BID for 90 Days, #180 10/02/23 Donepezil Hydrochloride (Aricept) 10 Mg Tab, 1 TAB PO QPM for 100 Days, #100 01/17/22 Information Source: Patient Mode of Arrival: Wheelchair Severity: Mild Timing: Days Duration: Since onset Past Medical History PAST MEDICAL HISTORY: CAD, CHF, CKF, Dementia, DM, High Lipids, HTN, Seizures Surgical History: Cholecystectomy, PTCA PIPING MANAGER History: Denies all PIPING MANAGER Hx Family History Family History: Reviewed,noncontributory to illness Social History Smoker: Non-Smoker Alcohol: Denies ETOH Use Drugs: Denies Drug Use Lives In: Home Constitutional: denies: chills, diaphoresis, fatigue, fever, malaise, sweats, weakness, others EENTM: denies: blurred vision, double vision, ear bleeding, ear discharge, ear drainage, ear pain, ear ringing, eye pain, eye redness, hearing loss, mouth pain, mouth swelling, nasal discharge, nose bleeding, nose congestion, nose pain, photophobia, tearing, throat pain, throat swelling, voice changes, others Respiratory: denies: cough, hemoptysis, orthopnea, SOB at rest, shortness of breath, SOB with excertion, stridor, wheezing, others Cardiovascular: denies: chest pain, dizzy spells, diaphoresis, Dyspnea on exertion, edema, irregular heart beat, left arm pain, lightheadedness, palpitations, PND, syncope, others Gastrointestinal: denies: abdomen distended, abdominal pain, blood streaked bowels, constipated, diarrhea, dysphagia, difficulty swallowing, hematemesis, melena, nausea, poor appetite, poor fluid intake, rectal bleeding, rectal pain, vomiting, others Genitourinary: denies: abnormal vagina bleeding, burning, dyspareunia, dysuria, flank pain, frequency, hematuria, incontinence, pain, , vagina discharge, urgency, others Neurological: denies: dizziness, fainting, headache, left sided numbness, left sided weakness, numbness, paresthesia, pre-existing deficit, right sided numbness, right sided weakness, seizure, speech problems, tingling, tremors, weakness, others Musculoskeletal: denies: back pain, gout, joint pain, joint swelling, muscle pain, muscle stiffness, neck pain, others Integumetry: denies: bruises, change in color, change in hair/nails, dryness, laceration, lesions, lumps, rash, wounds, others Allergic/Immunocompromised: denies: Difficulty Healing, Frequent Infections, Hives, Itching, others Hematologic/Lymphatic: denies: anemia, blood clots, easy bleeding, easy bruising, swollen glands, others Endocrine: denies: excessive hunger, excessive sweating, excessive thirst, excessive urination, flushing, intolerance to cold, intolerance to heat, unexplained weight gain, unexplained weight loss, others Psychiatric: denies: anxiety, bipolar disorder, depression, hopeless, panic disorder, schizophrenia, sleepless, suicidal, others Physical Exam General Appearance: No Apparent Distress, Normal HEENT: Normal ENT Inspection, Pharynx Normal, TMs Normal Neck: Full Range of Motion, Non-Tender, Normal, Normal Inspection Respiratory: Chest Non-Tender, Lungs Clear, No Accessory Muscle Use, No Respiratory Distress, Normal Breath Sounds Cardiovascular: No Edema, No JVD, No Murmur, No Gallop, Normal Peripheral Pulses, Regular Rate/Rhythm Breast Exam: Deferred Gastrointestinal: No Organomegaly, Non Tender, No Pulsatile Mass, Normal Bowel Sounds, Soft Genitalia: Deferred Pelvic: Deferred Rectal: Deferred Extremities: No calf tenderness, Normal capillary refill, Normal inspection, Normal range of motion, Non-tender, No pedal edema Musculoskeletal : Apperance: Normal Neurologic: Alert, hand wrapper operator II-XII nml as Tested, No Motor Deficits, Normal Affect, Normal Mood, No Sensory Deficits Cerebellar Function: Normal Reflexes: Normal Skin: Dry, Normal Color, Warm Lymphatic: No Adenopathy Was a procedure done? Was a procedure done?: No Differential Dx Considerations may include: Anemia, electrolyte imbalance, chronic kidney failure X-Ray, Labs, Meds, VS Vital Signs Date Time Temp Pulse Resp B/P (MAP) Pulse Ox O2 Delivery O2 Flow Rate FiO2 08/17/24 21:55 96 Room Air* 0 21 21 08/17/24 20:46 97.7 59 18 144/74 (97) 97 97.7 08/17/24 18:32 98.0 66 20 157/88 (111) 96 98.0 Lab Test 08/17/24 19:17 Range/Units White Blood Count 7.2 4.4-10.8 10^3/uL Red Blood Count 4.10 4.0-5.20 10^6/uL Hemoglobin 12.2 12.2-16.2 g/dL Hematocrit 36.7 36.0-46.0 % Mean Corpuscular Volume 89.5 80.0-100.0 fL Mean Corpuscular Hemoglobin 29.8 28.0-32.0 pg Mean Corpuscular Hemoglobin Concent 33.3 32.0-36.0 g/dL Red Cell Distribution Width 14.2 11.8-14.3 % Platelet Count 255 140-450 10^3/uL Mean Platelet Volume 6.8 L 6.9-10.8 fL Neutrophils (%) (Auto) 65.8 37.0-80.0 % Lymphocytes (%) (Auto) 21.3 10.0-50.0 % Monocytes (%) (Auto) 9.2 0.0-12.0 % Eosinophils (%) (Auto) 3.4 0.0-7.0 % Basophils (%) (Auto) 0.3 0.0-2.0 % Neutrophils # (Auto) 4.8 1.6-8.6 10 ^3/uL Lymphocytes # (Auto) 1.5 0.4-5.4 10 ^3/uL Monocytes # (Auto) 0.7 0-1.3 10 ^3/uL Eosinophils # (Auto) 0.2 0-0.8 10 ^3/uL Basophils # (Auto) 0 0-0.2 10 ^3/uL Nucleated Red Blood Cells 0.1 % Sodium Level 141 136-145 mmol/L Potassium Level 3.5 3.5-5.1 mmol/L Chloride Level 109 H 98-107 mmol/L Carbon Dioxide Level 20 20-31 mmol/L Anion Gap 12 5-15 Blood Urea Nitrogen 38 H 9-23 mg/dL Creatinine 4.34 H 0.550-1.02 mg/dL Glomerular Filtration Rate Calc 10 >90 mL/min BUN/Creatinine Ratio 8.8 L 10.0-20.0 Serum Glucose 178 H 74-106 mg/dL Calcium Level 9.3 8.7-10.4 mg/dL Time of 1ST Reevaluation: 18:28 Reevaluation 1ST: Unchanged Patient Education/Counseling: Diagnosis, Treatment Family Education/Counseling: No Family Present Departure 1 Departure Time of Disposition: 20:30 Impression: Primary Impression: Renal insufficiency Disposition: 01 HOME / SELF CARE / HOMELESS Condition: Stable Discharged With: Self Critical Care Note Critical Care Time?: No Stability Stability form required: No Heart Score Heart Score: Heart Score Response (Comments) Value History N/A 0 EKG N/A 0 Age N/A 0 Risk Factors N/A 0 Troponin N/A 0 Total 0 I personally scribed for JOSE A CARDENAS MD ([email or web address]) on 08/17/24 at 18:33. Electronically submitted by Stan Cartwright ([email or web address]). JOSE A CARDENAS MD August 17, 2024 18:33
--- NOTE | 2024-08-17 19:08 | DVH ---
CHEST RADIOGRAPH Indication: ESRD possible fluid overload Technique: Single frontal view of the chest was obtained Comparison: XY CHEST XRAY 1 VIEW on DOS: 06/12/24, XY CHEST XRAY 1 VIEW on DOS: 04/19/24, XY CHEST PORT ABLE on DOS: 01/10/24 FINDINGS: Lines and Tubes: None Lungs: No focal consolidation. Pleura: No plain film findings to suggest pleural effusions. If more detailed information is of pete rn recommend CT of the chest. No pneumothorax. Cardiomediastinal contours: Unremarkable Bones: No acute osseous abnormality. IMPRESSION: 1. No pleural effusion noted on single view chest. 2. If greater detail is a clinical concern recommend CT chest.
[2024-08-17 19:34] LABS: Basophils # (auto) 0 10 ^3/uL (0-0.2); Basophils % (auto) 0.3 % (0.0-2.0); Eosinophils # (auto) 0.2 10 ^3/uL (0-0.8); Eosinophils % (auto) 3.4 % (0.0-7.0); Hematocrit 36.7 % (36.0-46.0); Hemoglobin 12.2 g/dL (12.2-16.2); Lymphocytes # (auto) 1.5 10 ^3/uL (0.4-5.4); Lymphocytes % (auto) 21.3 % (10.0-50.0); Mean Corpuscular Hemoglobin 29.8 pg (28.0-32.0); Mean Corpuscular Hgb Conc. 33.3 g/dL (32.0-36.0); Mean Corpuscular Volume 89.5 fL (80.0-100.0); Monocytes # (auto) 0.7 10 ^3/uL (0-1.3); Monocytes % (auto) 9.2 % (0.0-12.0); Neutrophils # (auto) 4.8 10 ^3/uL (1.6-8.6); Neutrophils % (auto) 65.8 % (37.0-80.0); Nucleated Red Blood Cells % 0.1 %; Platelet Count (auto) 255 10^3/uL (140-450); Red Cell Distribution Width 14.2 % (11.8-14.3); White Blood Cell 7.2 10^3/uL (4.4-10.8)
[2024-08-17 19:45] LABS: Anion Gap 12 (5-15); Sodium 141 mmol/L (136-145)
[2024-08-17 19:46] LABS: Calcium 9.3 mg/dL (8.7-10.4)
[2024-08-17 19:51] LABS: BUN/Creatinine Ratio 8.8 (10.0-20.0)
[2024-08-17 20:03] LABS: Blood Urea Nitrogen 38 mg/dL (9-23); Carbon Dioxide 20 mmol/L (20-31); Chloride 109 mmol/L (98-107); Glucose 178 mg/dL (74-106); Potassium 3.5 mmol/L (3.5-5.1)
[2024-08-17 20:46] VITALS: BP 144/74; PULSE 59; RESP 18; TEMP 97.7
[2024-08-17 21:55] VITALS: O2SAT 96
== END 2024-08-17 21:57 | disposition home or self-care (01) ==
LOC: ER 17:13
DX: N28.9 Disorder of kidney and ureter, unspecified (principal); I13.2 Hypertensive heart and chronic kidney disease with heart failure and with stage 5 chronic kidney disease, or end stage renal disease; I50.9 Heart failure, unspecified; N18.6 End stage renal disease; I25.10 Atherosclerotic heart disease of native coronary artery without angina pectoris; F03.90 Unspecified dementia, unspecified severity, without behavioral disturbance, psychotic disturbance, mood disturbance, and anxiety; E11.22 Type 2 diabetes mellitus with diabetic chronic kidney disease; E78.5 Hyperlipidemia, unspecified; Z86.69 Personal history of other diseases of the nervous system and sense organs; Z79.899 Other long term (current) drug therapy; Z90.49 Acquired absence of other specified parts of digestive tract; Z99.2 Dependence on renal dialysis
CPT/HCPCS: 36415; 71045; 80048; 85025

== ENCOUNTER → 2024-10-23 | Outpatient (CLI) | payer OTHER, MEDICAID ==
[2024-10-23 16:46] LABS: Hematocrit 38.1 % (36.0-46.0); Hemoglobin 12.4 g/dL (12.2-16.2); Mean Corpuscular Hemoglobin 29.8 pg (28.0-32.0); Mean Corpuscular Volume 92.0 fL (80.0-100.0); Nucleated Red Blood Cells % 0.1 %
[2024-10-23 16:56] LABS: INR 0.97 (0.9-1.15); Partial Thromboplastin Time 22.1 SEC (24.5-34.5); Prothrombin Time 10.3 sec (9.3-11.8)
[2024-10-23 17:00] LABS: Calcium 10.3 mg/dL (8.7-10.4); Carbon Dioxide 25 mmol/L (20-31); Potassium 4.6 mmol/L (3.5-5.1); Sodium 143 mmol/L (136-145)
[2024-10-23 17:01] LABS: Alanine Aminotransferase < 9 U/L (7-40); Albumin 4.6 g/dL (3.2-4.8); Alkaline Phosphatase 149 U/L (46-116); Anion Gap 11 (5-15); BUN/Creatinine Ratio 9.0 (10.0-20.0); Bilirubin, Total 0.4 mg/dL (0.2-1.0); Blood Urea Nitrogen 35 mg/dL (9-23); Chloride 107 mmol/L (98-107); Glucose 190 mg/dL (74-106); Total Protein 7.7 g/dL (5.7-8.2)
== END | disposition home or self-care (01) ==
LOC: LAB 15:53
PROVIDERS: ATTEND Nurse Practitioner
DX: Z01.812 Encounter for preprocedural laboratory examination (principal)
CPT/HCPCS: 36415; 80053; 85025; 85610; 85730

== ENCOUNTER 2024-10-30 07:49 | Outpatient (CLI) | payer OTHER, MEDICAID ==
[~2024-10-30 07:49] MED LIST changes: -CALC667C PO; -CEFP200T15 PO; -HYDR50TA47 PO; +METO-158 PO; -SEVE800T7 PO; -SODI650T PO
[2024-10-30] MEDS: fentaNYL CITRATE 100 MCG/2 ML VL ONE (10:00)
[2024-10-30] MEDS: LIDOCAINE 2%HCL (LOCAL ANESTH.) INJ 20ML MDV ONE ×2 (10:00→10:24)
[2024-10-30] MEDS: MIDAZOLAM HCL 2MG/2ML 2ml VIAL (1mg/ml) ONE (10:00)
[2024-10-30] MEDS: HEPARIN SODIUM (PORCINE) 5000 UNITS/ML 1ML VIAL ONE (10:00)
[2024-10-30] MEDS: ceFAZolin 1GM/50ML 0 ML IV ONE ×2 (10:30→11:53)
[2024-10-30 11:21] VITALS: BP 149/80; PULSE 62; RESP 11; TEMP 97.8; O2SAT 94
[2024-10-30 11:36] VITALS: BP 174/72; PULSE 58; RESP 13; O2SAT 99
--- NOTE | 2024-10-30 11:47 | DVH ---
PROCEDURE: Tunneled dialysis catheter placement Procedural Personnel Attending physician(s): Kade Ivey Fellow physician(s): None Resident physician(s): None Advanced practice provider(s): None Pre-procedure diagnosis: End stage renal disease Post-procedure diagnosis: Same Indication: Performance of hemodialysis Additional clinical history: None Complications: No immediate complications. IMPRESSION: Insertion of right -sided tunneled dialysis catheter, with tip in the expected location of the right atrium . Plan: The catheter may be used immediately. PROCEDURE SUMMARY: - Venous access with ultrasound guidance - Tunneled dialysis catheter insertion with fluoroscopic guidance - Additional procedure(s): None PROCEDURE DETAILS: Pre-procedure Consent: Informed consent for the procedure including risks, benefits and alternatives was obtained a nd time-out was performed prior to the procedure. Preparation: The site was prepared and draped using maximal sterile barrier technique including cutan eous antisepsis. Anesthesia/sedation level of anesthesia/sedation: Moderate sedation (conscious sedation) Anesthesia/sedation administered by: Independent trained observer under attending supervision with co ntinuous monitoring of the patient s level of consciousness and physiologic status Total intra-service sedation time (minutes): 45 Access Local anesthesia was administered. The vessel was sonographically evaluated and determined to be garduno nt Real time ultrasound was used to visualize needle entry into the vessel and a permanent image was not stored . Laterality: Right Vein accessed: Internal jugular vein Internal jugular vein patency: Patent or otherwise accessible on at least one side Access technique: Micropuncture set with 21 gauge needle Venography indication for venography: None Catheter tip position for venography: Not applicable Findings: Not applicable Catheter placement An incision was made near the venous access site and the catheter was tunneled subcutaneously to the venous access site. The catheter was advanced via a peel-away sheath into the vein under fluoroscopic guidance. Catheter tip location was fluoroscopically verified and a permanent image was stored. Catheter placed: Duramax Catheter cuff-to-tip length (cm): 19 Catheter tip: right atrium Catheter flush: Heparin (1000 units/mL) Closure A sterile dressing was applied. Access site closure technique: Tissue adhesive Catheter securement technique: Non-absorbable suture Contrast Contrast agent: None Contrast volume (mL): 0 Radiation Dose Fluoroscopy time (minutes ): 1.8 Reference air kerma (mGy ): 11 Kerma area product (Gy-cm2 ): 160.70 Additional Details Additional description of procedure: None Registry event: V /3 /g Device used: None Equipment details: None Unique Device Identifiers: Not available Specimens removed: None Estimated blood loss (mL): Less than 10 Standardized report: [email or web address] Attestation Signer name: Kade Ivey I attest that I was present for the entire procedure . I reviewed the stored images and agree with e report as written.
[2024-10-30 11:50] VITALS: BP 156/63; PULSE 57; RESP 13; O2SAT 100
[2024-10-30] MEDS: cefTRIAXone 1GM/50ML D5W 50 ML IV ONE (11:50)
[2024-10-30 12:06] VITALS: BP 158/63; PULSE 59; RESP 14; O2SAT 100
[2024-10-30 12:20] VITALS: BP 161/68; PULSE 58; RESP 14; O2SAT 100
[2024-10-30 12:35] VITALS: BP 157/64; PULSE 59; RESP 13; O2SAT 100
== END 2024-10-30 17:00 | disposition home or self-care (01) ==
LOC: CATH 07:49
PROVIDERS: ATTEND Radiology Diagnostic Radiology
DX: N18.6 End stage renal disease (principal); I50.9 Heart failure, unspecified; F41.8 Other specified anxiety disorders; Z79.4 Long term (current) use of insulin; Z79.899 Other long term (current) drug therapy; Z87.01 Personal history of pneumonia (recurrent); Z95.1 Presence of aortocoronary bypass graft; Z95.5 Presence of coronary angioplasty implant and graft; Z95.820 Peripheral vascular angioplasty status with implants and grafts; Z83.3 Family history of diabetes mellitus; Z82.49 Family history of ischemic heart disease and other diseases of the circulatory system
CPT/HCPCS: 36558; 77001; C1750; C1758; C1769; C1894; J0696; J1644; J2250; J3010; J7040; 99152

== ENCOUNTER 2024-11-29 17:00 | Inpatient (IN) | payer OTHER, MEDICAID ==
[~2024-11-29] VITALS: Ht 154.9 cm; Wt 69.8 kg
--- NOTE | 2024-11-29 17:53 | ED.PDOC ---
HPI Comments This is a 79 year old female KEVINA presenting to the ED with chief complaint of seizure-like activity. EMS reports patient had been undergoing dialysis and speaking to her nephew when she blanked out for 2 minutes staring blankly. EMS relays that the patient then returned to normal, but EMS was called. Patient found to have a BG of 185 and a blood pressure of 210/90. Patient denies any chest pain, SOB, numbness, weakness, tingling, dizziness, N/V/D, or abdominal pain. Chief Complaint: High Blood Pressure Time Seen by MD: 17:00 Primary Care Provider: UNKNOWN Reviewed Notes: Nurses Notes, Oral And Maxillofacial Pathologist Notes, Medications, Allergies Allergies: Coded Allergies: NO KNOWN ALLERGIES (Unverified , 01/14/22) Home Meds Active Scripts Ergocalciferol (VITAMIN D 26805 UNIT) 50,000 [place], [address] UNIT PO Q7D for 90 Days, #12 CAP Prov:RUCHI TORREZ RESIDENT 06/15/24 Calcitriol (Calcitriol) 0.25 Mcg Cap, 0.25 MCG PO DAILY for 30 Days, #30 CAP 2 Refills Prov:RAMSES HERNANDES RESIDENT 01/13/24 Nifedipine (Nifedipine Er) 90 Mg Tab, 90 MG PO DAILY for 30 Days, #30 TAB 3 Refills Prov:ARIANNE RIZO MD 10/05/23 Reported Medications Metoprolol Tartrate (Metoprolol Tartrate) 50 Mg Tab, 50 MG PO DAILY for 30 Days, MG 10/26/24 Furosemide (Furosemide) 40 Mg Tab, 1 TAB PO DAILY for 30 Days, #60 06/14/24 Aspirin (Aspirin Low Dose) 81 Mg Chw, 1 TAB PO DAILY for 90 Days, #90 06/14/24 Levetiracetam (Keppra) 500 Mg Tab, 1 TAB PO BID for 90 Days, #180 06/14/24 Lidocaine (Lidocaine Patch 5%) 5 % Pad, 1 PATCH TOP DAILY for 90 Days, #90 APPLY ONE PATCH TOPICALLY TO CLEAN, DRY SKIN. LEAVE ON FOR 12 HOURS THEN REMOVE. MUST WAIT AT LEAST 12 HOURS BEFORE APPLYING PATCH(ES) AGAIN. 10/03/23 Insulin Glargine (Lantus Solostar) 100 Unit/Ml Inj, 20 UNIT SC DAILY for 75 Days, #15 10/03/23 Ticagrelor Base (Brilinta) 60 Mg Tab, 1 TAB PO DAILY for 90 Days, #90 10/03/23 Pregabalin (Lyrica) 150 Mg Cap, 1 CAP PO BID for 90 Days, #180 10/02/23 Donepezil Hydrochloride (Aricept) 10 Mg Tab, 1 TAB PO QPM for 100 Days, #100 01/17/22 Information Source: Patient, Emergency Med Personnel Mode of Arrival: EMS Severity: Moderate Timing: Hours Duration: Minutes Prehospital treatment: None Past Medical History PAST MEDICAL HISTORY: CAD, CHF, CKF, Dementia, DM, High Lipids, HTN, Seizures Surgical History: Cholecystectomy, PTCA FERRULER History: Denies all FERRULER Hx Family History Family History: Reviewed,noncontributory to illness Social History Smoker: Non-Smoker Alcohol: Denies ETOH Use Drugs: Denies Drug Use Lives In: Home Constitutional: denies: chills, diaphoresis, fatigue, fever, malaise, sweats, weakness, others EENTM: denies: blurred vision, double vision, ear bleeding, ear discharge, ear drainage, ear pain, ear ringing, eye pain, eye redness, hearing loss, mouth pain, mouth swelling, nasal discharge, nose bleeding, nose congestion, nose pain, photophobia, tearing, throat pain, throat swelling, voice changes, others Respiratory: denies: cough, hemoptysis, orthopnea, SOB at rest, shortness of breath, SOB with excertion, stridor, wheezing, others Cardiovascular: denies: chest pain, dizzy spells, diaphoresis, Dyspnea on exertion, edema, irregular heart beat, left arm pain, lightheadedness, palpitations, PND, syncope, others Gastrointestinal: denies: abdomen distended, abdominal pain, blood streaked bowels, constipated, diarrhea, dysphagia, difficulty swallowing, hematemesis, melena, nausea, poor appetite, poor fluid intake, rectal bleeding, rectal pain, vomiting, others Genitourinary: denies: abnormal vagina bleeding, burning, dyspareunia, dysuria, flank pain, frequency, hematuria, incontinence, pain, , vagina discharge, urgency, others Neurological: reports: seizure; denies: dizziness, fainting, headache, left sided numbness, left sided weakness, numbness, paresthesia, pre-existing deficit, right sided numbness, right sided weakness, speech problems, tingling, tremors, weakness, others Musculoskeletal: denies: back pain, gout, joint pain, joint swelling, muscle pain, muscle stiffness, neck pain, others Integumetry: denies: bruises, change in color, change in hair/nails, dryness, laceration, lesions, lumps, rash, wounds, others Allergic/Immunocompromised: denies: Difficulty Healing, Frequent Infections, Hives, Itching, others Hematologic/Lymphatic: denies: anemia, blood clots, easy bleeding, easy bruising, swollen glands, others Endocrine: denies: excessive hunger, excessive sweating, excessive thirst, excessive urination, flushing, intolerance to cold, intolerance to heat, unexplained weight gain, unexplained weight loss, others Psychiatric: denies: anxiety, bipolar disorder, depression, hopeless, panic disorder, schizophrenia, sleepless, suicidal, others All Other Systems: Reviewed and Negative Physical Exam General Appearance: No Apparent Distress, Normal HEENT: Normal ENT Inspection, Pharynx Normal, TMs Normal Neck: Full Range of Motion, Non-Tender, Normal, Normal Inspection Respiratory: Chest Non-Tender, Lungs Clear, No Accessory Muscle Use, No Respiratory Distress, Normal Breath Sounds Cardiovascular: No Edema, No JVD, No Murmur, No Gallop, Normal Peripheral Pulses, Regular Rate/Rhythm Breast Exam: Deferred Gastrointestinal: No Organomegaly, Non Tender, No Pulsatile Mass, Normal Bowel Sounds, Soft Genitalia: Deferred Pelvic: Deferred Rectal: Deferred Extremities: No calf tenderness, Normal capillary refill, Normal inspection, Normal range of motion, Non-tender, No pedal edema Musculoskeletal : Apperance: Normal Neurologic: Alert, ethylbenzene converter operator II-XII nml as Tested, No Motor Deficits, Normal Affect, Normal Mood, No Sensory Deficits Cerebellar Function: Normal Reflexes: Normal Skin: Dry, Normal Color, Warm Lymphatic: No Adenopathy Was a procedure done? Was a procedure done?: No CP Differential Dx Differential Diagnosis: MAT, [place], PAC's Differential Diagnosis: Medical NonCompliance, Induced Differential Diagnosis: Chest Wall Pain, Gastritis, Myocardial Infarction X-Ray, Labs, Meds, VS Vital Signs Date Time Temp Pulse Resp B/P (MAP) Pulse Ox O2 Delivery O2 Flow Rate FiO2 11/29/24 17:13 98.1 58 18 185/83 100 98.1 Time of 1ST Reevaluation: 18:00 Reevaluation 1ST: Unchanged Patient Education/Counseling: Diagnosis, Treatment Family Education/Counseling: No Family Present SEPSIS Sepsis Screen Date sepsis recognized/suspect: Nov 29, 2024 Time Sepsis recognized/suspect: 1699 Recent Procedure: No On Antibiotic Therapy: No Respiratory Rate >20: No Heart Rate >90: No Temp<36 C (96.8 F) or >38.3 C: No SBP <90 or MAP <65 mmHG: No New Acute Mental Status Change: No Is the patient on CPAP, BIPAP,: No Physician Orders Basic Metabolic Panel (11/29/24 17:58) Complete Blood Count (11/29/24 17:58) Troponin-I Hs (11/29/24 17:58) Urinalysis (11/29/24 17:58) Chest Portable (11/29/24 17:58) Electrocardigram (11/29/24 17:58) Troponin-I Hs (11/29/24 18:58) Troponin-I Hs (11/29/24 20:58) Electrocardigram (11/29/24 18:58) Electrocardigram (11/29/24 20:58) Head Without Contrast (11/29/24 17:58) Vital Signs Date Time Temp Pulse Resp B/P (MAP) Pulse Ox O2 Delivery O2 Flow Rate FiO2 11/29/24 17:13 98.1 58 18 185/83 100 98.1 Departure 1 Departure Time of Disposition: 19:10 (Patient presented with syncope today and should be admitted. Data: 1. I ordered and reviewed the result of at least 3 labs including a CBC, BMP, and troponin. 2. I independently interpreted the following tests: EKG which shows a sinus arrhythmia and a chest x-ray which shows benign chest and a CT head which shows benign brain.Risk:This patient has a high risk of morbidity due to further diagnostic testing or treatment and may suffer from an acute cardiac, neurologic, or infectious disorder. Rationale: Patient should be admitted to the hospital for further management.) Impression: Primary Impression: Syncope and collapse Disposition: ADMITTED INPATIENT Admit to: Med Surg Condition: Serious Critical Care Note Critical Care Time?: Yes Critical care comment: Syncope Authorized and Performed by: Liv Alatorre MD Total critical care time: Approximately 38 minutes Due to a high probability of clinically significant, life threatening deterioration, the patient required my highest level of preparedness to intervene emergently and I personally spent this critical care time directly and personally managing the patient. This critical care time included obtaining a history; examining the patient; pulse oximetry; ordering and review of studies; arranging urgent treatment with development of a management plan; evaluation of patient's response to treatment; frequent reassessment; and, discussions with other providers. This critical care time was performed to assess and manage the high probability of imminent, life-threatening deterioration that could result in multi-organ failure. It was exclusive of separately billable procedures and treating other patients and teaching time. Please see my other sections and the rest of the note for further information on patient assessment and treatment. Stability Stability form required: No Heart Score Heart Score: Heart Score Response (Comments) Value History Highly Suspicious 2 EKG Normal 0 Age >65 2 Risk Factors >3 or Hx ASHD 2 Troponin Normal limit 0 Total 6 I personally scribed for LIV ALATORRE MD ([email or web address]) on 11/29/24 at 17:53. Electronically submitted by Paul Ramos ([email or web address]). ILV ALATORRE MD Nov 29, 2024 17:53
--- NOTE | 2024-11-29 18:42 | DVH ---
CLINICAL HISTORY: htn TECHNIQUE: Single view of the chest was obtained. COMPARISON: XY CHEST XRAY 1 VIEW on DOS: 08/17/24, XY CHEST XRAY 1 VIEW on DOS: 06/12/24, XY CHEST XRAY 1 VIEW on DOS: 04/19/24, XY CHEST PORTABLE on DOS: 01/10/24, XY CHEST PORTABLE on DOS: 10/02/23 FINDINGS: A right dialysis catheter terminates at the cavoatrial junction. The heart size and pulmonary vascula ture are normal. The lungs are clear. IMPRESSION: NO ACUTE CARDIOPULMONARY PROCESS.
--- NOTE | 2024-11-29 18:53 | DVH ---
CLINICAL HISTORY: syncope TECHNIQUE: Helical scanning was performed of the head from the skull base to the vertex. Multiplanar reconstructions were performed. This exam was performed according to our departmental dose optimizat ion program. Up-to-date CT equipment and radiation dose reduction techniques are utilized as appropri ate. CTDI 50.9 DLP 861.0 COMPARISON: CT HEAD WITHOUT CONTRAST on DOS: 06/13/24, CT HEAD WITHOUT CONTRAST on DOS: 04/19/24, CT HE AD WITHOUT CONTRAST on DOS: 01/10/24, CT HEAD WITHOUT CONTRAST on DOS: 01/10/24, CT HEAD WITHOUT CONT RAST on DOS: 10/02/23 FINDINGS: There is no evidence for acute intracranial hemorrhage, acute ischemic changes, mass, mass effect, or extra-axial fluid collection. There is no hydrocephalus or midline shift. There is no effacement of the cerebral sulci and basal subarachnoid cisterns. The boss-white matter differentiation is well jose david ntained. The imaged paranasal sinuses are clear. IMPRESSION: NO ACUTE INTRACRANIAL ABNORMALITY SEEN.
[2024-11-29 19:44] LABS: Hematocrit 37.3 % (36.0-46.0); Hemoglobin 12.4 g/dL (12.2-16.2); Mean Corpuscular Hemoglobin 29.3 pg (28.0-32.0); Mean Corpuscular Volume 88.3 fL (80.0-100.0); Nucleated Red Blood Cells % 0.3 %
[2024-11-29 19:55] LABS: Chloride 101 mmol/L (98-107); Sodium 140 mmol/L (136-145)
[2024-11-29 19:56] LABS: Anion Gap 13 (5-15); Calcium 9.6 mg/dL (8.7-10.4); Carbon Dioxide 26 mmol/L (20-31)
[2024-11-29 19:58] LABS: Anisocytosis Slight
[2024-11-29 20:01] LABS: BUN/Creatinine Ratio 6.5 (10.0-20.0); Blood Urea Nitrogen 14 mg/dL (9-23)
[2024-11-29 20:08] LABS: Glucose 129 mg/dL (74-106); Potassium 3.4 mmol/L (3.5-5.1)
[2024-11-30] VITALS (13 sets, daily range): BP systolic 134–213; BP diastolic 56–84; PULSE 51–73; RESP 12–19; TEMP 97.7–98.2; O2SAT 96–100
[2024-11-30] MEDS ORDERED: HYDROcodone-ACET 5/325MG TAB PO PRN (00:45)
[2024-11-30] MEDS ORDERED: hydrALAZINE HCL 20 MG/ML VL IV PRN ×2 (00:45→13:00)
[2024-11-30] MEDS ORDERED: DEXTROSE (50%) 50ML SYRG IV PRN (00:45)
[2024-11-30] MEDS ORDERED: ONDANSETRON HCL 4 MG/2 ML VIAL IV PRN (00:45)
[2024-11-30] MEDS ORDERED: DOCUSATE SOD 100 MG CAP PO PRN (00:45)
[2024-11-30] MEDS ORDERED: ACETAMINOPHEN 325 MG TAB PO PRN (00:45)
--- NOTE | 2024-11-30 02:59 | DVHHP2 ---
History of Present Illness Reason for Visit: Syncope and collapse History of Present Illness The patient is a 79-year-old female with multiple past medical history including Coronary artery disease, dementia, diabetes mellitus, end-stage renal disease on hemodialysis Tuesdays, , and Tuesday, and seizures presented to [facility] ED with complaint of seizure-like activity. As reported by EMS, patient was on dialysis session speaking to her nephew when she blank out for 2 minute staring blankly and then returned to normal. Patient was found to have elevated blood pressure 210/90, blood sugar 185. Patient was seen and evaluated in the ED, laboratory data shows WBC 10.6, platelets 112, sodium 140, potassium 3.4, BUN 14, creatinine 2.17, glucose 129, calcium 9.6, troponin 10. Head CT showed no acute intracranial abnormality. Please see medication orders section in the computer. On my assessment, patient denies chest pain, no headache, no dizziness, no diaphoresis, no shortness of breaths, no abdominal pain, no nausea, no vomiting, no fever, no chills. Patient was admitted for further evaluation and medical management. Past Medical History CAD, CHF, CKF, Dementia, DM, High Lipids, HTN, Seizures Past Surgical History Cholecystectomy, PTCA Family History Reviewed, noncontributory to the management of this case. Past Social History The patient lives at home, denies smoking, alcohol or illicit drugs abuse. Review of Systems Constitutional: Yes: Weakness; No: Fever, Chills, Sweats, Malaise, Other Eyes: No: Pain, Vision change, Conjunctivae inflammation, Eyelid inflammation, Other, Redness ENT: No: Ear pain, Ear discharge, Nose pain, Nose discharge, Nose congestion, Mouth pain, Mouth swelling, Throat pain, Throat swelling, Other Respiratory: No: Cough, Dry, Shortness of breath, SOB with excertion, Wheezing, Hemoptysis, Pleuritic Pain, Sputum, Wheezing, Other Cardiovascular: Other (Syncope); No: Chest Pain, Palpitations, Orthopnea, Paroxysmal Noc. Dyspnea, Edema, Lt Headedness Gastrointestinal: No: Nausea, Vomiting, Abdominal Pain, Diarrhea, Constipation, Melena, Hematochezia, Other Genitourinary: No Dysuria, No Frequency, No Incontinence, No Hematuria, No Retention; Other (PermCath right chest, on hemodialysis.) Musculoskeletal: No: other, neck pain, shoulder pain, arm pain, back pain, hand pain, leg pain, foot pain Skin: No: Rash, Lesions, Jaundice, Bruising, Other Neurological: Seizures; No: Weakness, Numbness, Incoordination, Change in speech, Confusion, Other Allergies: Coded Allergies: NO KNOWN ALLERGIES (Unverified , 01/14/22) Medications Current Medications Medications Dose Ordered Sig/Deepak Route Start Time Stop Time Status Last Admin Dose Admin Aspirin 81 mg DAILY PO 11/30/24 10:00 Levetiracetam 100 ml @ 400 mls/hr BID IV 11/30/24 10:00 Sevelamer HCl 800 mg TIDWM PO 11/30/24 08:00 Multivit/Ca Carb/ B Cmplx/FA/Prenat 1 tab DAILY PO 11/30/24 10:00 Amlodipine Besylate 5 mg DAILY PO 11/30/24 10:00 Hydralazine HCl 10 mg Q6HP PRN IV 11/30/24 00:45 Diagnostic Test (Pha) 1 strip ACHS 11/30/24 07:00 Insulin Human Regular HS SC 11/30/24 22:00 Insulin Human Regular AC SC 11/30/24 07:00 Dextrose 50 ml UD PRN IV 11/30/24 00:45 Sodium Chloride 10 ml Q8HR IV 11/30/24 06:00 Acetaminophen/ Hydrocodone Bitart 1 tab Q4HP PRN PO 11/30/24 00:45 Ondansetron HCl 4 mg Q4HP PRN IV 11/30/24 00:45 Docusate Sodium 100 mg BIDPRN PRN PO 11/30/24 00:45 Acetaminophen 650 mg Q6HP PRN PO 11/30/24 00:45 Nitroglycerin 0.4 mg Q5MINP PRN SL 11/30/24 03:00 UNV Morphine Sulfate 2 mg Q30M PRN IV 11/30/24 03:00 UNV Exam Vital Signs Vital Signs Date Time Temp Pulse Resp B/P (MAP) Pulse Ox O2 Delivery O2 Flow Rate FiO2 11/29/24 22:41 97.6 55 12 204/85 (124) 96 97.6 General Appearance: Alert, Oriented X3, Cooperative, No acute distress HEENT: Atraumatic, PERRLA, EOMI, Mucous membr. moist/pink Respiratory: Normal air movement Cardiovascular: Regular rate, Normal S1, Normal S2, No murmurs Abdominal: Normal bowel sounds, Soft, No tenderness, No hepatospenomegaly, No masses Extremities: No clubbing, No cyanosis, No edema, Normal pulses, No tenderness/swelling Skin: No rashes, No significant lesion Neuro: Normal speech, Normal tone, Sensation intact, Cranial nerves 3-12 NL, Reflexes 2+, Other (Generalized weakness) Psych/Mental Status: Mental status NL, Mood NL Labs/Xrays Labs Test 11/29/24 20:28 11/29/24 19:10 Range/Units Troponin I High Sensitivity 11 </=34 ng/L White Blood Count 10.6 4.4-10.8 10^3/uL Red Blood Count 4.22 4.0-5.20 10^6/uL Hemoglobin 12.4 12.2-16.2 g/dL Hematocrit 37.3 36.0-46.0 % Mean Corpuscular Volume 88.3 80.0-100.0 fL Mean Corpuscular Hemoglobin 29.3 28.0-32.0 pg Mean Corpuscular Hemoglobin Concent 33.2 32.0-36.0 g/dL Red Cell Distribution Width 13.9 11.8-14.3 % Platelet Count 112 L 140-450 10^3/uL Mean Platelet Volume 7.8 6.9-10.8 fL Neutrophils (%) (Auto) 72.6 37.0-80.0 % Lymphocytes (%) (Auto) 20.7 10.0-50.0 % Monocytes (%) (Auto) 4.8 0.0-12.0 % Eosinophils (%) (Auto) 1.7 0.0-7.0 % Basophils (%) (Auto) 0.2 0.0-2.0 % Neutrophils # (Auto) 7.7 1.6-8.6 10 ^3/uL Lymphocytes # (Auto) 2.2 0.4-5.4 10 ^3/uL Monocytes # (Auto) 0.5 0-1.3 10 ^3/uL Eosinophils # (Auto) 0.2 0-0.8 10 ^3/uL Basophils # (Auto) 0 0-0.2 10 ^3/uL Nucleated Red Blood Cells 0.3 % Platelet Estimate Decreased Clumped Platelets Moderate Anisocytosis (manual) Slight Sodium Level 140 136-145 mmol/L Potassium Level 3.4 L 3.5-5.1 mmol/L Chloride Level 101 98-107 mmol/L Carbon Dioxide Level 26 20-31 mmol/L Anion Gap 13 5-15 Blood Urea Nitrogen 14 9-23 mg/dL Creatinine 2.17 H 0.550-1.02 mg/dL Glomerular Filtration Rate Calc 23 >90 mL/min BUN/Creatinine Ratio 6.5 L 10.0-20.0 Serum Glucose 129 H 74-106 mg/dL Calcium Level 9.6 8.7-10.4 mg/dL PATIENT: LAMRA GLOVER CACCT: [id number] UNIT: [id number] : 1945 LOC: ER ROOM / BED: / AGE / SEX: 79 / F ADM STATUS: REG ER SERVICE [id number] ORDERING PHYSICIAN: LIV ALATORRE MD PROCEDURE(s): HWOCT - HEAD WITHOUT CONTRAST REASON: syncope ORDER NUMBER(s): [id number], ACCESSION NUMBER(s): [id number] CLINICAL HISTORY: syncope TECHNIQUE: Helical scanning was performed of the head from the skull base to the vertex. Multiplanar reconstructions were performed. This exam was performed according to our departmental dose optimization program. Up-to-date CT equipment and radiation dose reduction techniques are utilized as appropriate. CTDI 50.9 DLP 861.0 COMPARISON: CT HEAD WITHOUT CONTRAST on DOS: 06/13/24, CT HEAD WITHOUT CONTRAST on DOS: 04/19/24, CT HEAD WITHOUT CONTRAST on DOS: 01/10/24, CT HEAD WITHOUT CONTRAST on DOS: 01/10/24, CT HEAD WITHOUT CONTRAST on DOS: 10/02/23 FINDINGS: There is no evidence for acute intracranial hemorrhage, acute ischemic changes, mass, mass effect, or extra-axial fluid collection. There is no hydrocephalus or midline shift. There is no effacement of the cerebral sulci and basal subarachnoid cisterns. The boss-white matter differentiation is well maintained. The imaged paranasal sinuses are clear. IMPRESSION: NO ACUTE INTRACRANIAL ABNORMALITY SEEN. ORDERING PHYSICIAN: LIV ALATORRE MD PROCEDURE(s): CXRP - CHEST PORTABLE REASON: htn ORDER NUMBER(s): [id number], ACCESSION NUMBER(s): [id number] CLINICAL HISTORY: htn TECHNIQUE: Single view of the chest was obtained. COMPARISON: XY CHEST XRAY 1 VIEW on DOS: 08/17/24, XY CHEST XRAY 1 VIEW on DOS: 06/12/24, XY CHEST XRAY 1 VIEW on DOS: 04/19/24, XY CHEST PORTABLE on DOS: 01/10/24, XY CHEST PORTABLE on DOS: 10/02/23 FINDINGS: A right dialysis catheter terminates at the cavoatrial junction. The heart size and pulmonary vasculature are normal. The lungs are clear. IMPRESSION: NO ACUTE CARDIOPULMONARY PROCESS. SEPSIS Sepsis Screen Date sepsis recognized/suspect: Nov 29, 2024 Time Sepsis recognized/suspect: 1699 Recent Procedure: No On Antibiotic Therapy: No Respiratory Rate >20: No Heart Rate >90: No Temp<36 C (96.8 F) or >38.3 C: No SBP <90 or MAP <65 mmHG: No New Acute Mental Status Change: No Is the patient on CPAP, BIPAP,: No Physician Orders Complete Blood Count (11/30/24 04:00) Comprehensive Metabolic Panel (11/30/24 04:00) Aspirin Tablet (11/30/24 10:00) *[facility] (11/30/24 00:31) Levetiracetam 500 Mg/100ml (Levetiraceta (11/30/24 10:00) Consistent Carb(Ccho)Diabetes (11/30/24 Breakfast) Sevelamer (Renagel) (11/30/24 08:00) B-Complex W/ C & Folic Tablet (Nephro-Vi (11/30/24 10:00) Amlodipine Tablet (Norvasc Tablet) (11/30/24 10:00) Hydralazine Injection (Apresoline Inject (11/30/24 00:45) Glucose Blood (Accu-Chek Comfort Curve T (11/30/24 07:00) Insulin R (Human) (Insulin R) (11/30/24 22:00) Insulin R (Human) (Insulin R) (11/30/24 07:00) Dextrose 50% Syringe (11/30/24 00:45) Allergies (11/30/24 00:31) Code Status (11/30/24 00:31) Renal Standard(2gna,3gk,Lopho) (11/30/24 Breakfast) Sodium Chloride Lock (Saline Lock Ns) (11/30/24 06:00) Oxygen Per Hour (11/30/24 00:31) Hydrocodone-Acet 5/325mg Tab ([place] (11/30/24 00:45) Ondansetron Hcl (Zofran) (11/30/24 00:45) Docusate Sodium Capsule (Colace Capsule) (11/30/24 00:45) Fall Risk Precautions In Place QSHIFT (11/30/24 00:31) Complete Blood Count (12/01/24 04:00) Comprehensive Metabolic Panel (12/01/24 04:00) Condition: Serious (11/30/24 00:31) Acetaminophen Tablet (Tylenol Tablet) (11/30/24 00:45) Maintain Bed Rest (11/30/24 00:31) Sequential Compression Device (11/30/24 ) Admit (11/30/24 02:52) Nitroglycerin Sublingual (Ntrostat Subli (11/30/24 03:00) Morphine Sulfate Injection (11/30/24 03:00) Stat Ekg For Chest Pain (11/30/24 02:52) Notify Md Of Changes From Base (11/30/24 02:52) Timber Selector For 24 Hours (11/30/24 02:52) Emergency Dysrhythmia Protocol (11/30/24 02:52) Rhythm Strips Once Every Shift (11/30/24 02:52) Oxygen By Nasal Cannula (11/30/24 02:52) Vital Signs Date Time Temp Pulse Resp B/P (MAP) Pulse Ox O2 Delivery O2 Flow Rate FiO2 11/29/24 22:41 97.6 55 12 204/85 (124) 96 97.6 Laboratory Tests Test 11/29/24 19:10 White Blood Count 10.6 10^3/uL (4.4-10.8) Assessment/Plan Assessment/Plan Syncope and collapse Hypertensive urgency Generalized weakness End-stage renal disease on hemodialysis Plan 1. Admit to telemetry unit 2. Breathing treatment 3. Pain control management 4. Management of fluids and electrolytes 5. Consultation for Nephrology 6. Diagnostic tests head CT 7. DVT prophylaxis-on aspirin 8. Repeat labs CBC, CMP in a.m. 9. Continue with current medical management 10. Treatment plan discussed with patient and RN. Patient verbalized understanding. Plan discussed with: Patient, Other (RN) My Orders Orders - RONNELL DIEGO DNP Procedure Category Date Status Time Complete Blood Count LAB 11/30/24 Logged 04:00 Comprehensive LAB 11/30/24 Logged Metabolic Panel 04:00 Aspirin Tablet PHA 11/30/24 In Process 10:00 *[facility] CONS 11/30/24 Transmitted -[place] 00:31 Levetiracetam 500 PHA 11/30/24 In Process Mg/100ml (Levetiraceta 10:00 Consistent DIET 11/30/24 Transmitted Carb(Ccho)Diabetes Breakfast Sevelamer (Renagel) PHA 11/30/24 In Process 08:00 B-Complex W/ C & PHA 11/30/24 In Process Folic Tablet 10:00 Amlodipine Tablet PHA 11/30/24 In Process (Norvasc Tablet) 10:00 Hydralazine Injection PHA 11/30/24 In Process (Apresoline Inject 00:45 Glucose Blood PHA 11/30/24 In Process (Accu-Chek Comfort 07:00 Insulin R (Human) PHA 11/30/24 In Process (Insulin R) 22:00 Insulin R (Human) PHA 11/30/24 In Process (Insulin R) 07:00 Dextrose 50% Syringe PHA 11/30/24 In Process 00:45 Allergies ZEKE 11/30/24 In Process 00:31 Code Status CODE 11/30/24 Transmitted 00:31 Renal DIET 11/30/24 Transmitted Standard(2gna,3gk,Lopho) Breakfast Sodium Chloride Lock PHA 11/30/24 In Process (Saline Lock Ns) 06:00 Oxygen Per Hour RT 11/30/24 Transmitted 00:31 Hydrocodone-Acet PHA 11/30/24 In Process 5/325mg Tab ([place] 00:45 Ondansetron Hcl PHA 11/30/24 In Process (Zofran) 00:45 Docusate Sodium PHA 11/30/24 In Process Capsule (Colace 00:45 Fall Risk Precautions ZEKE 11/30/[address] 00:31 Complete Blood Count LAB 12/01/24 Verified 04:00 Comprehensive LAB 12/01/24 Verified Metabolic Panel 04:00 Condition: Serious ZEKE 11/30/24 In Process 00:31 Acetaminophen Tablet [facility] 11/30/24 In Process (Tylenol Tablet) 00:45 Maintain Bed Rest [facility] 11/30/24 In Process 00:31 Sequential [facility] 11/30/24 In Process Compression Device Admit ADMIT 11/30/24 Transmitted 02:52 Nitroglycerin [facility] 11/30/24 Logged Sublingual (Ntrostat 03:00 Morphine Sulfate [facility] 11/30/24 Logged Injection 03:00 Stat Ekg For Chest [facility] 11/30/24 In Process Pain 02:52 Notify Md Of Changes [facility] 11/30/24 In Process From Base 02:52 Timber Selector For [facility] 11/30/24 In Process 24 Hours 02:52 Emergency Dysrhythmia [facility] 11/30/24 In Process Protocol 02:52 Rhythm Strips Once [facility] 11/30/24 In Process Every Shift 02:52 Oxygen By Nasal 11/30/24 Transmitted Cannula 02:52 Problem List: (1) Syncope and collapse (2) Hypertensive urgency (3) Generalized weakness (4) End-stage renal disease on hemodialysis Date of Service: Nov 30, 2024 Billing Provider: RONNELL DIEGO DNP Common Visit Codes: [id number] INP/OBS CARE (HIGH) RONNELL DIEGO DNP Nov 30, 2024 02:59
[2024-11-30] MEDS ORDERED: NITROGLYCERIN 0.4 MG SL TAB SL PRN (03:00)
[2024-11-30] MEDS ORDERED: MORPHINE SULFATE INJ 2 MG/ml SYRG IV PRN (03:00)
[2024-11-30] MEDS: hydrALAZINE HCL 20 MG/ML VL IV ONE (05:17)
[2024-11-30] MEDS: SODIUM CHLOR 0.9% PF (SALINE LOCK) 10ML VIAL/SYR IV SCH (06:50)
[2024-11-30] MEDS: ACCU-CHEK COMFORT CURVE STRIP VI SCH (06:52)
[2024-11-30] MEDS: InsuLIN REG 1unit/0.01ml Soln (100units/ml) SC SCH ×2 (06:52→22:27)
[2024-11-30] MEDS: SEVELAMER 800 MG TAB PO SCH (08:00)
[2024-11-30] MEDS: LOSARTAN POTASSIUM 50 MG TAB PO SCH (08:00)
[2024-11-30 08:03] LABS: Hematocrit 30.4 % (36.0-46.0); Hemoglobin 10.1 g/dL (12.2-16.2); Mean Corpuscular Hemoglobin 29.8 pg (28.0-32.0); Mean Corpuscular Volume 89.7 fL (80.0-100.0); Nucleated Red Blood Cells % 0.1 %
[2024-11-30 08:14] LABS: Anion Gap 12 (5-15); BUN/Creatinine Ratio 5.1 (10.0-20.0); Blood Urea Nitrogen 14 mg/dL (9-23); Calcium 9.0 mg/dL (8.7-10.4); Carbon Dioxide 25 mmol/L (20-31); Chloride 104 mmol/L (98-107); Sodium 141 mmol/L (136-145); Total Protein 6.9 g/dL (5.7-8.2)
[2024-11-30 08:15] LABS: Albumin 3.7 g/dL (3.2-4.8)
[2024-11-30 08:16] LABS: Bilirubin, Total 0.3 mg/dL (0.2-1.0)
[2024-11-30 08:18] LABS: Alanine Aminotransferase 9 U/L (7-40); Alkaline Phosphatase 168 U/L (46-116); Glucose 161 mg/dL (74-106); Potassium 3.0 mmol/L (3.5-5.1)
--- NOTE | 2024-11-30 08:23 | DVHINCON2 ---
Date of service: Nov 30, 2024 Reason for Consultation End-stage renal disease History of Present Illness 79-year-old female down so renal service for end-stage renal disease mellitus started on dialysis, history of dementia. Patient presents to the hospital after dialysis treatment change in mental state. Patient was in the ER evaluated noted to have systolic blood pressure greater than 200 Allergies: Coded Allergies: NO KNOWN ALLERGIES (Unverified , 01/14/22) Home Meds Active Scripts Ergocalciferol (VITAMIN D 45181 UNIT) 50,[address] [place], [address] UNIT PO Q7D for 90 Days, #12 CAP Prov:RUCHI TORREZ RESIDENT 06/15/24 Calcitriol (Calcitriol) 0.25 Mcg Cap, 0.25 MCG PO DAILY for 30 Days, #30 CAP 2 Refills Prov:RAMSES HERNANDES RESIDENT 01/13/24 Nifedipine (Nifedipine Er) 90 Mg Tab, 90 MG PO DAILY for 30 Days, #30 TAB 3 Refills Prov:ARIANNE RIZO MD 10/05/23 Reported Medications Metoprolol Tartrate (Metoprolol Tartrate) 50 Mg Tab, 50 MG PO DAILY for 30 Days, MG 10/26/24 Furosemide (Furosemide) 40 Mg Tab, 1 TAB PO DAILY for 30 Days, #60 06/14/24 Aspirin (Aspirin Low Dose) 81 Mg Chw, 1 TAB PO DAILY for 90 Days, #90 06/14/24 Levetiracetam (Keppra) 500 Mg Tab, 1 TAB PO BID for 90 Days, #180 06/14/24 Lidocaine (Lidocaine Patch 5%) 5 % Pad, 1 PATCH TOP DAILY for 90 Days, #90 APPLY ONE PATCH TOPICALLY TO CLEAN, DRY SKIN. LEAVE ON FOR 12 HOURS THEN REMOVE. MUST WAIT AT LEAST 12 HOURS BEFORE APPLYING PATCH(ES) AGAIN. 10/03/23 Insulin Glargine (Lantus Solostar) 100 Unit/Ml Inj, 20 UNIT SC DAILY for 75 Days, #15 10/03/23 Ticagrelor Base (Brilinta) 60 Mg Tab, 1 TAB PO DAILY for 90 Days, #90 10/03/23 Pregabalin (Lyrica) 150 Mg Cap, 1 CAP PO BID for 90 Days, #180 10/02/23 Donepezil Hydrochloride (Aricept) 10 Mg Tab, 1 TAB PO QPM for 100 Days, #100 01/17/22 Current Medications Current Medications Medications (Trade) Dose Ordered Sig/Deepak Route PRN Reason Start Time Stop Time Status Last Admin Aspirin 81 mg DAILY PO 11/30/24 10:00 11/30/24 10:57 Levetiracetam 100 ml @ 400 mls/hr BID IV 11/30/24 10:00 11/30/24 10:59 Sevelamer HCl (Renagel) 800 mg TIDWM PO 11/30/24 08:00 11/30/24 17:20 Multivit/Ca Carb/ B Cmplx/FA/Prenat (Nephro-Joey Tablet) 1 tab DAILY PO 11/30/24 10:00 11/30/24 10:57 Amlodipine Besylate (Norvasc Tablet) 5 mg DAILY PO 11/30/24 10:00 11/30/24 07:58 DC Hydralazine HCl (Apresoline Injection) 10 mg Q6HP PRN IV SBP>150 11/30/24 00:45 11/30/24 13:09 DC Diagnostic Test (Pha) (Accu-Chek Comfort Curve T) 1 strip ACHS 11/30/24 07:00 11/30/24 16:37 Insulin Human Regular (InsuLIN R) HS SC 11/30/24 22:00 Insulin Human Regular (InsuLIN R) AC SC 11/30/24 07:00 11/30/24 16:48 Dextrose 50 ml UD PRN IV Blood Sugar LESS THAN 60 11/30/24 00:45 Sodium Chloride (Saline Lock Ns) 10 ml Q8HR IV 11/30/24 06:00 11/30/24 13:12 Acetaminophen/ Hydrocodone Bitart ([place] 5/325MG Tab) 1 tab Q4HP PRN PO MODERATE PAIN (4-6 PAIN SCALE) 11/30/24 00:45 Ondansetron HCl (Zofran) 4 mg Q4HP PRN IV NAUSEA / VOMITING 11/30/24 00:45 Docusate Sodium (Colace Capsule) 100 mg BIDPRN PRN PO FOR CONSTIPATION 11/30/24 00:45 Acetaminophen (Tylenol Tablet) 650 mg Q6HP PRN PO PAIN SCALE 1-3 OR TEMP>100.4 11/30/24 00:45 Nitroglycerin (Ntrostat Sublingual) 0.4 mg Q5MINP PRN SL FOR CHEST PAIN 11/30/24 03:00 Morphine Sulfate 2 mg Q30M PRN IV FOR CHEST PAIN 11/30/24 03:00 Losartan Potassium (Cozaar Tablet) 100 mg DAILY PO 11/30/24 08:00 11/30/24 10:56 Nifedipine (Procardia Xl (Time-Release)) 60 mg DAILY PO 11/30/24 10:00 11/30/24 14:06 DC 11/30/24 10:57 Hydralazine HCl (Apresoline Injection) 10 mg Q6HP PRN IV SBP>160 11/30/24 13:00 Carvedilol (Coreg Tablet) 6.25 mg Q12HR PO 11/30/24 13:00 11/30/24 14:30 DC Carvedilol (Coreg Tablet) 6.25 mg BID PO 11/30/24 22:00 Nifedipine (Procardia Xl (Time-Release)) 90 mg DAILY PO 12/01/24 10:00 Family History: Diabetes mellitus G8 MOTHER Hypertension G8 FATHER H&P Exam Vital Signs/I&O Vital Sign Date Time Temp Pulse Resp B/P (MAP) Pulse Ox O2 Delivery O2 Flow Rate FiO2 11/30/24 17:19 98.2 52 12 149/56 (87) 97 98.2 11/30/24 08:00 Room Air* 0 21 Labs/Diagnostic Data Labs/Diagnostic Data Laboratory Tests Test 11/30/24 16:33 11/30/24 11:09 11/30/24 07:29 11/30/24 06:47 Range/Units POC Glucose 236 H 107 H 165 H 70-106 mg/dl White Blood Count 8.5 4.4-10.8 10^3/uL Red Blood Count 3.39 L 4.0-5.20 10^6/uL Hemoglobin 10.1 #L 12.2-16.2 g/dL Hematocrit 30.4 #L 36.0-46.0 % Mean Corpuscular Volume 89.7 80.0-100.0 fL Mean Corpuscular Hemoglobin 29.8 28.0-32.0 pg Mean Corpuscular Hemoglobin Concent 33.2 32.0-36.0 g/dL Red Cell Distribution Width 14.0 11.8-14.3 % Platelet Count 161 140-450 10^3/uL Mean Platelet Volume 7.2 6.9-10.8 fL Neutrophils (%) (Auto) 60.3 37.0-80.0 % Lymphocytes (%) (Auto) 29.2 10.0-50.0 % Monocytes (%) (Auto) 7.7 0.0-12.0 % Eosinophils (%) (Auto) 2.5 0.0-7.0 % Basophils (%) (Auto) 0.3 0.0-2.0 % Neutrophils # (Auto) 5.1 1.6-8.6 10 ^3/uL Lymphocytes # (Auto) 2.5 0.4-5.4 10 ^3/uL Monocytes # (Auto) 0.7 0-1.3 10 ^3/uL Eosinophils # (Auto) 0.2 0-0.8 10 ^3/uL Basophils # (Auto) 0 0-0.2 10 ^3/uL Nucleated Red Blood Cells 0.1 % Sodium Level 141 136-145 mmol/L Potassium Level 3.0 L 3.5-5.1 mmol/L Chloride Level 104 98-107 mmol/L Carbon Dioxide Level 25 20-31 mmol/L Anion Gap 12 5-15 Blood Urea Nitrogen 14 9-23 mg/dL Creatinine 2.77 H 0.550-1.02 mg/dL Glomerular Filtration Rate Calc 17 >90 mL/min BUN/Creatinine Ratio 5.1 L 10.0-20.0 Serum Glucose 161 H 74-106 mg/dL Calcium Level 9.0 8.7-10.4 mg/dL Total Bilirubin 0.3 0.2-1.0 mg/dL Aspartate Amino Transferase (AST) 22 13-40 U/L Alanine Aminotransferase (ALT) 9 7-40 U/L Alkaline Phosphatase 168 H 46-116 U/L Total Protein 6.9 5.7-8.2 g/dL Albumin 3.7 3.2-4.8 g/dL Test 11/29/24 20:28 11/29/24 19:10 Range/Units Troponin I High Sensitivity 11 10 </=34 ng/L White Blood Count 10.6 4.4-10.8 10^3/uL Red Blood Count 4.22 4.0-5.20 10^6/uL Hemoglobin 12.4 12.2-16.2 g/dL Hematocrit 37.3 36.0-46.0 % Mean Corpuscular Volume 88.3 80.0-100.0 fL Mean Corpuscular Hemoglobin 29.3 28.0-32.0 pg Mean Corpuscular Hemoglobin Concent 33.2 32.0-36.0 g/dL Red Cell Distribution Width 13.9 11.8-14.3 % Platelet Count 112 L 140-450 10^3/uL Mean Platelet Volume 7.8 6.9-10.8 fL Neutrophils (%) (Auto) 72.6 37.0-80.0 % Lymphocytes (%) (Auto) 20.7 10.0-50.0 % Monocytes (%) (Auto) 4.8 0.0-12.0 % Eosinophils (%) (Auto) 1.7 0.0-7.0 % Basophils (%) (Auto) 0.2 0.0-2.0 % Neutrophils # (Auto) 7.7 1.6-8.6 10 ^3/uL Lymphocytes # (Auto) 2.2 0.4-5.4 10 ^3/uL Monocytes # (Auto) 0.5 0-1.3 10 ^3/uL Eosinophils # (Auto) 0.2 0-0.8 10 ^3/uL Basophils # (Auto) 0 0-0.2 10 ^3/uL Nucleated Red Blood Cells 0.3 % Platelet Estimate Decreased Clumped Platelets Moderate Anisocytosis (manual) Slight Sodium Level 140 136-145 mmol/L Potassium Level 3.4 L 3.5-5.1 mmol/L Chloride Level 101 98-107 mmol/L Carbon Dioxide Level 26 20-31 mmol/L Anion Gap 13 5-15 Blood Urea Nitrogen 14 9-23 mg/dL Creatinine 2.17 H 0.550-1.02 mg/dL Glomerular Filtration Rate Calc 23 >90 mL/min BUN/Creatinine Ratio 6.5 L 10.0-20.0 Serum Glucose 129 H 74-106 mg/dL Calcium Level 9.6 8.7-10.4 mg/dL Assessment Altered mental status during dialysis End-stage renal disease History of dementia, altered mental state Hypertension Resume oral blood pressure medications, add losartan, change to nifedipine no beta cathryn b/c HR 50s Recommend neurology workup Status post CT had put recommend Neurology and MRI of the brain Renal diet We will continue daily labs assessment monitoring Plan discussed with: Patient OLADELE,DARION M MD Nov 30, 2024 08:23
[2024-11-30] MEDS: B-COMPLEX W/ C & FOLIC ACID(NEPHROVITE TAB) PO SCH (10:57)
[2024-11-30] MEDS: levETIRAcetam 500 mg/100ml 100 ML IV SCH (10:59)
[2024-11-30] MEDS ORDERED: CARVEDILOL 3.125 MG TAB PO SCH (13:00)
--- NOTE | 2024-11-30 13:08 | DVHPN2 ---
Subjective Patient doing well, not confused any further. Reviewed: Care Plan Changes from previous H/P or p: No Changes General: Per HPI Eyes: No Pain, No Vision change, No Conjunctivae inflammation, No Eyelid inflammation, No Other, No Redness ENT: No Ear pain, No Ear discharge, No Nose pain, No Nose discharge, No Nose congestion, No Mouth pain, No Mouth swelling, No Throat pain, No Throat swelling, No Other Cardiovascular: No Chest Pain, No Palpitations, No Orthopnea, No Paroxysmal Noc. Dyspnea, No Edema, No Lt Headedness; Other (Syncope) Respiratory: No Cough, No Dry, No Shortness of breath, No SOB with excertion, No Wheezing, No Hemoptysis, No Pleuritic Pain, No Sputum, No Other Gastrointestinal: No Nausea, No Vomiting, No Abdominal Pain, No Diarrhea, No Constipation, No Melena, No Hematochezia, No Other Genitourinary: No Dysuria, No Frequency, No Incontinence, No Hematuria, No Retention; Other (PermCath right chest, on hemodialysis.) Musculoskeletal: No other, No neck pain, No shoulder pain, No arm pain, No back pain, No hand pain, No leg pain, No foot pain Skin: No Rash, No Lesions, No Jaundice, No Bruising, No Other Objective Vitals Vital Signs Date Time Temp Pulse Resp B/P (MAP) Pulse Ox O2 Delivery O2 Flow Rate FiO2 11/30/24 10:57 172/69 11/30/24 10:18 97.8 62 16 99 97.8 11/30/24 08:00 Room Air* 0 21 Exam GEN: Healthy appearing, well-developed, NAD. HEENT: NC/AT; MMM. CV: RRR, no m/r/g. LUNGS: CTAB, no w/r/c. Chest wall right side dialysis tunnel cath. ABD: Soft, NT/ND, NBS, no masses or organomegaly. EXT: skin Warm, well perfused. no rashes. No clubbing, cyanosis, or edema. NEURO: Ambulating with no limitations. No focal deficits. Medications Current Medications Medications Dose Ordered Sig/Deepak Route Start Time Stop Time Status Last Admin Dose Admin Aspirin 81 mg DAILY PO 11/30/24 10:00 11/30/24 10:57 81 MG Levetiracetam 100 ml @ 400 mls/hr BID IV 11/30/24 10:00 11/30/24 10:59 400 MLS/HR Sevelamer HCl 800 mg TIDWM PO 11/30/24 08:00 11/30/24 11:39 800 MG Multivit/Ca Carb/ B Cmplx/FA/Prenat 1 tab DAILY PO 11/30/24 10:00 11/30/24 10:57 1 TAB Hydralazine HCl 10 mg Q6HP PRN IV 11/30/24 00:45 Diagnostic Test (Pha) 1 strip ACHS 11/30/24 07:00 11/30/24 11:10 1 STRIP Insulin Human Regular HS SC 11/30/24 22:00 Insulin Human Regular AC SC 11/30/24 07:00 11/30/24 06:52 3 UNITS Dextrose 50 ml UD PRN IV 11/30/24 00:45 Sodium Chloride 10 ml Q8HR IV 11/30/24 06:00 11/30/24 06:50 10 ML Acetaminophen/ Hydrocodone Bitart 1 tab Q4HP PRN PO 11/30/24 00:45 Ondansetron HCl 4 mg Q4HP PRN IV 11/30/24 00:45 Docusate Sodium 100 mg BIDPRN PRN PO 11/30/24 00:45 Acetaminophen 650 mg Q6HP PRN PO 11/30/24 00:45 Nitroglycerin 0.4 mg Q5MINP PRN SL 11/30/24 03:00 Morphine Sulfate 2 mg Q30M PRN IV 11/30/24 03:00 Losartan Potassium 100 mg DAILY PO 11/30/24 08:00 11/30/24 10:56 100 MG Nifedipine 60 mg DAILY PO 11/30/24 10:00 11/30/24 10:57 60 MG Laboratory Results Laboratory Tests 11/30/24 07:29 Chemistry Test 11/29/24 19:10 11/30/24 07:29 Calcium Level 9.6 mg/dL (8.7-10.4) 9.0 mg/dL (8.7-10.4) Albumin 3.7 g/dL (3.2-4.8) Total Protein 6.9 g/dL (5.7-8.2) LFT Test 11/30/24 07:29 Alanine Aminotransferase (ALT) 9 U/L (7-40) Alkaline Phosphatase 168 U/L (46-116) H Aspartate Amino Transferase (AST) 22 U/L (13-40) Total Bilirubin 0.3 mg/dL (0.2-1.0) Labs and/or images reviewed: Labs reviewed by me, Image(s) reviewed by me Assessment/Plan Assessment/Plan 79-year-old female with multiple past medical history including Coronary artery disease, dementia, diabetes mellitus, end-stage renal disease on hemodialysis Tuesdays, , and Tuesday, and seizures presented to [facility] ED with complaint of seizure-like activity. As reported by EMS, patient was on dialysis session speaking to her nephew when she blank out for 2 minute staring blankly and then returned to normal. Patient was found to have elevated blood pressure 210/90, blood sugar 185. 11/30: Patient has a hypertensive encephalopathy, status post HD session. Nephrology is following adding losartan and change to nifedipine. Nephrology recommending MRI, head CT normal, no findings of focal deficits, we will defer Neurology and MRI, patient can schedule outpatient. If blood pressure is stable tomorrow can discharge home and follow up with Nephrology outpatient. Otherwise continue regular scheduled HD schedule per Nephrology. will add coreg 6.25 bid Diagnosis: Hypertensive encephalopathy Acute toxic metabolic encephalopathy due to above ESRD on HD Plan: Losartan 100 Nifedipine 60 will add coreg 6.25 bid Continue other home meds Tele P.r.n. antiemetic Hydralazine p.r.n. for SBP more than 160 Continue aspirin, Keppra, Tele Full code Plan discussed with: Patient Date of Service: Nov 30, 2024 Billing Provider: FRANCA SLADE MD Common Visit Codes: [id number] INP/OBS CARE(HIGH) FRANCA SLADE MD Nov 30, 2024 13:07
[2024-11-30] MEDS: CARVEDILOL 3.125 MG TAB PO ONE (14:29)
[2024-11-30] MEDS: CARVEDILOL 3.125 MG TAB PO SCH (22:05)
[2024-12-01] VITALS (11 sets, daily range): BP systolic 107–138; BP diastolic 54–70; PULSE 55–72; RESP 16–18; TEMP 97.2–98.3; O2SAT 94–98
[2024-12-01 08:31] LABS: Hematocrit 27.8 % (36.0-46.0); Hemoglobin 9.3 g/dL (12.2-16.2); Mean Corpuscular Hemoglobin 30.5 pg (28.0-32.0); Mean Corpuscular Volume 91.3 fL (80.0-100.0); Nucleated Red Blood Cells % 0.2 %
[2024-12-01 08:50] LABS: Albumin 3.4 g/dL (3.2-4.8); Anion Gap 11 (5-15); BUN/Creatinine Ratio 5.2 (10.0-20.0); Bilirubin, Total 0.3 mg/dL (0.2-1.0); Blood Urea Nitrogen 20 mg/dL (9-23); Calcium 8.7 mg/dL (8.7-10.4); Carbon Dioxide 26 mmol/L (20-31); Chloride 103 mmol/L (98-107); Sodium 140 mmol/L (136-145); Total Protein 6.2 g/dL (5.7-8.2)
[2024-12-01 08:51] LABS: Alanine Aminotransferase < 9 U/L (7-40); Alkaline Phosphatase 151 U/L (46-116); Glucose 117 mg/dL (74-106); Potassium 3.3 mmol/L (3.5-5.1)
[2024-12-01] MEDS: CARVEDILOL 3.125 MG TAB PO ONE (17:07)
--- NOTE | 2024-12-01 17:21 | DVHPN2 ---
Progress Note Date Seen: Dec 01, 2024 Medical Necessity Reason Pt with a Central, PICC or Fol: No Subjective Patient reports: Feels worse Objective vital signs Vital Sign Date Time Temp Pulse Resp B/P (MAP) Pulse Ox O2 Delivery O2 Flow Rate FiO2 12/01/24 17:08 97.2 72 18 112/70 (84) 97 97.2 12/01/24 08:00 Room Air* 0 21 Total Intake and Output 11/30/24 11/30/24 12/01/24 15:00 23:00 07:00 Intake Total 100 ml 100 ml Balance 100 ml 100 ml medications Current Medications Medications Dose Ordered Sig/Deepak Route Start Time Stop Time Status Last Admin Dose Admin Aspirin 81 mg DAILY PO 11/30/24 10:00 12/01/24 11:10 81 MG Levetiracetam 100 ml @ 400 mls/hr BID IV 11/30/24 10:00 12/01/24 11:10 400 MLS/HR Sevelamer HCl 800 mg TIDWM PO 11/30/24 08:00 12/01/24 17:07 800 MG Multivit/Ca Carb/ B Cmplx/FA/Prenat 1 tab DAILY PO 11/30/24 10:00 12/01/24 11:10 1 TAB Diagnostic Test (Pha) 1 strip ACHS 11/30/24 07:00 12/01/24 17:09 1 STRIP Insulin Human Regular HS SC 11/30/24 22:00 11/30/24 22:27 2 UNITS Insulin Human Regular AC SC 11/30/24 07:00 12/01/24 17:08 6 UNITS Dextrose 50 ml UD PRN IV 11/30/24 00:45 Sodium Chloride 10 ml Q8HR IV 11/30/24 06:00 12/01/24 12:11 10 ML Acetaminophen/ Hydrocodone Bitart 1 tab Q4HP PRN PO 11/30/24 00:45 Ondansetron HCl 4 mg Q4HP PRN IV 11/30/24 00:45 Docusate Sodium 100 mg BIDPRN PRN PO 11/30/24 00:45 Acetaminophen 650 mg Q6HP PRN PO 11/30/24 00:45 Nitroglycerin 0.4 mg Q5MINP PRN SL 11/30/24 03:00 Morphine Sulfate 2 mg Q30M PRN IV 11/30/24 03:00 Losartan Potassium 100 mg DAILY PO 11/30/24 08:00 11/30/24 10:56 100 MG Hydralazine HCl 10 mg Q6HP PRN IV 11/30/24 13:00 Carvedilol 6.25 mg BID PO 11/30/24 22:00 11/30/24 22:05 6.25 MG Nifedipine 90 mg DAILY PO 12/01/24 10:00 Examination: GENERAL:Abnormal, CVS:Normal, NEURO:Abnormal laboratory and microbiology Laboratory Tests 12/01/24 07:00 Test 12/01/24 07:00 Range/Units Serum Glucose 117 H 74-106 mg/dL Problem List/Assessment/Plan Problem List/Assessment/Plan Altered mental status during dialysis End-stage renal disease History of dementia, altered mental state Hypertension s/p HD today noted drop in SBP during treatment , UF turned off Resume oral blood pressure medications, losartan, nifedipine no beta cathryn b/c HR 50s Recommend neurology workup Status post CT had put recommend Neurology and MRI of the brain Renal diet We will continue daily labs assessment monitoring Plan discussed with: Patient My Orders My Orders Orders - DARION SUERO MD Procedure Category Date Status Time Hemodialysis Orders ORDERS 12/01/24 Transmitted 06:59 Total Time (mins): 33 DARION SUERO MD Dec 01, 2024 17:21
--- NOTE | 2024-12-01 18:47 | DVHDS2 ---
Discharge Summary Date of Admission Nov 30, 2024 at 02:52 Date of Discharge: Dec 01, 2024 Labs/Diagnostic Data: Laboratory Results Test 12/01/24 15:58 12/01/24 07:00 11/29/24 20:28 11/29/24 19:10 POC Glucose 217 mg/dl (70-106) White Blood Count 7.8 10^3/uL (4.4-10.8) Red Blood Count 3.05 10^6/uL (4.0-5.20) Hemoglobin 9.3 g/dL (12.2-16.2) Hematocrit 27.8 % (36.0-46.0) Mean Corpuscular Volume 91.3 fL (80.0-100.0) Mean Corpuscular Hemoglobin 30.5 pg (28.0-32.0) Mean Corpuscular Hemoglobin Concent 33.4 g/dL (32.0-36.0) Red Cell Distribution Width 14.0 % (11.8-14.3) Platelet Count 189 10^3/uL (140-450) Mean Platelet Volume 7.5 fL (6.9-10.8) Neutrophils (%) (Auto) 50.6 % (37.0-80.0) Lymphocytes (%) (Auto) 39.3 % (10.0-50.0) Monocytes (%) (Auto) 7.1 % (0.0-12.0) Eosinophils (%) (Auto) 2.7 % (0.0-7.0) Basophils (%) (Auto) 0.3 % (0.0-2.0) Neutrophils # (Auto) 3.9 10 ^3/uL (1.6-8.6) Lymphocytes # (Auto) 3.1 10 ^3/uL (0.4-5.4) Monocytes # (Auto) 0.6 10 ^3/uL (0-1.3) Eosinophils # (Auto) 0.2 10 ^3/uL (0-0.8) Basophils # (Auto) 0 10 ^3/uL (0-0.2) Nucleated Red Blood Cells 0.2 % Sodium Level 140 mmol/L (136-145) Potassium Level 3.3 mmol/L (3.5-5.1) Chloride Level 103 mmol/L (98-107) Carbon Dioxide Level 26 mmol/L (20-31) Anion Gap 11 (5-15) Blood Urea Nitrogen 20 mg/dL (9-23) Creatinine 3.85 mg/dL (0.550-1.02) Glomerular Filtration Rate Calc 11 mL/min (>90) BUN/Creatinine Ratio 5.2 (10.0-20.0) Serum Glucose 117 mg/dL (74-106) Calcium Level 8.7 mg/dL (8.7-10.4) Total Bilirubin 0.3 mg/dL (0.2-1.0) Aspartate Amino Transferase (AST) 19 U/L (13-40) Alanine Aminotransferase (ALT) < 9 U/L (7-40) Alkaline Phosphatase 151 U/L (46-116) Total Protein 6.2 g/dL (5.7-8.2) Albumin 3.4 g/dL (3.2-4.8) Hepatitis B Surface Antigen Negative (Negative) Troponin I High Sensitivity 11 ng/L (</=34) Platelet Estimate Decreased Clumped Platelets Moderate Anisocytosis (manual) Slight Other Laboratory Tests 12/01/24 07:00 Brief Hx & Hospital Course: A 79-year-old female with CAD, dementia, and ESRD on hemodialysis presented with a seizure-like episode during her routine Tuesday dialysis session. She "blanked out" for approximately 2 minutes with elevated blood pressure before returning to baseline mental status. Post-event vitals showed BP 107/54, pulse 65, and oxygen saturation 96% on room air. She completed her dialysis treatment. Now not confused, will defer neuro to outpatient. stable to dc home. resume HD outpatient. not initiating AEM Condition at Discharge: Stable Final Diagnosis/Problems List HTN encephalopathy ESRD on HD Discharge Disposition: Home Discharge Instruct/Medications Diet: Renal Activity: No Restrictions, As Tolerated Follow Up/Referral: resume HD OP Medications: unchanged Scheduled Aspirin (Aspirin Low Dose), 1 TAB PO DAILY, (Reported) Calcitriol (Calcitriol), 0.25 MCG PO DAILY Donepezil Hydrochloride (Aricept), 1 TAB PO QPM, (Reported) Ergocalciferol (Vitamin D 64073 Unit), 50,000 UNIT PO Q7D Furosemide (Furosemide), 1 TAB PO DAILY, (Reported) Insulin Glargine (Lantus Solostar), 20 UNIT SC DAILY, (Reported) Levetiracetam (Keppra), 1 TAB PO BID, (Reported) Lidocaine (Lidocaine Patch 5%), 1 PATCH TOP DAILY, (Reported) Metoprolol Tartrate (Metoprolol Tartrate), 50 MG PO DAILY, (Reported) Nifedipine (Nifedipine Er), 90 MG PO DAILY Pregabalin (Lyrica), 1 CAP PO BID, (Reported) Ticagrelor Base (Brilinta), 1 TAB PO DAILY, (Reported) Discharge Statement: "Patient was advised to return to the ER or call 911 if any headaches, dizziness, shortness of breath, chest pain, abdominal pain, bleeding, fevers, or worsening of medical condition. Patient was counseled about treatment plan, medications, possible side effects, patientverbalized understanding. All questions were answered to the best of my ability. This discharge took greater then 30 minutes in planning, reviewing documentation, counseling the patient, and discussing with other team members." ASSESSMENT ASSESSMENT Assessment HTN encephalopathy ESRD on HD Date of Service: Dec 01, 2024 Billing Provider: HANNAH WILBURN MD Common Visit Codes: [id number] DISCH DAY >30min HANNAH WILBURN MD Dec 01, 2024 18:47
== END 2024-12-01 21:25 | disposition home or self-care (01) | DRG 77 ==
LOC: ER 17:00 → EDBD 17:00 → OVERFLOW 11-30 02:52 → TELE-WESTW 11-30 20:08
PROVIDERS: ADMIT Student in an Organized Health Care Education/Training Program; ATTEND Student in an Organized Health Care Education/Training Program
PROC: 5A1D70Z Performance of Urinary Filtration, Intermittent, Less than 6 Hours Per Day (ICD-10-PCS; principal; 2024-12-01)
DX: I67.4 Hypertensive encephalopathy (principal); G92.8 Other toxic encephalopathy; N18.6 End stage renal disease; I13.2 Hypertensive heart and chronic kidney disease with heart failure and with stage 5 chronic kidney disease, or end stage renal disease; I16.0 Hypertensive urgency; E11.22 Type 2 diabetes mellitus with diabetic chronic kidney disease; F03.90 Unspecified dementia, unspecified severity, without behavioral disturbance, psychotic disturbance, mood disturbance, and anxiety; I50.9 Heart failure, unspecified; I25.10 Atherosclerotic heart disease of native coronary artery without angina pectoris; R56.9 Unspecified convulsions; Z79.82 Long term (current) use of aspirin; Z79.899 Other long term (current) drug therapy; Z79.4 Long term (current) use of insulin; Z90.49 Acquired absence of other specified parts of digestive tract; Z99.2 Dependence on renal dialysis; Z82.49 Family history of ischemic heart disease and other diseases of the circulatory system; Z83.3 Family history of diabetes mellitus
CPT/HCPCS: 36415; 70450; 71045; 80048; 80053; 82962; 84484; 85025; 87340; 90935; 96374; 97163; 99291; G0378; J1815

== ENCOUNTER 2024-12-15 03:31 | Inpatient (IN) | payer OTHER, MEDICAID ==
[2024-12-15] VITALS (8 sets, daily range): BP systolic 143–176; BP diastolic 67–77; PULSE 52–60; RESP 14–18; TEMP 96.8–98.2; O2SAT 95–98
[~2024-12-15] VITALS: Ht 154.9 cm; Wt 72.5 kg
--- NOTE | 2024-12-15 03:52 | ED.PDOC ---
HPI (NEURO) HPI Comments 79 year old female who came to ER via EMS for weakness. Patient has a ground level fall night, hitting her head at around 10:00 p.m.. She woke up the day after with left lower extremity weakness and imbalance. Patient went to [facility], diagnostic tests were done, diagnosed with stroke- like symptoms, type 2 diabetes with foot ulcer, and end-stage renal disease. Patient transferred here for further evaluation and management. Blood pressure upon arrival 193/92 mm Hg. REVIEW OF SYSTEMS: General: No fever, no chills, or fatigue HEENT: No sore throat, no earache, no congestion, no neck pain. Cardiac: No chest pain. No palpitations. Lungs: No shortness of breath, no cough. GI: No nausea, no vomiting, no diarrhea, no constipation, no abdominal pain : No dysuria, frequency, or urgency. No hematuria. Musculoskeletal: No joint pain , no joint swelling, no extremity edema. Skin: No rash, no itching. Neuro: No headache, no dizziness, (+) left sided weakness PHYSICAL EXAM: General: Awake, alert and oriented. No acute distress. Skin: Skin in warm, dry and intact without rashes or lesions. HEENT: The head is normocephalic and atraumatic. Conjunctivae are clear without exudates or hemorrhage. Sclera is non-icteric. Neck: Normal range of motion. No JVD. Cardiac: Regular rate Respiratory: No signs of respiratory distress. No Stridor. Extremities: Upper and lower extremities are atraumatic in appearance without deformity. Neurological: The patient is awake, alert and oriented to person, place, and time with normal speech. Speech is clear. There is no facial asymmetry. Positive left upper and left lower extremity weakness. 3/5 Psychiatric: Appropriate mood and affect. Good judgement and insight. 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 Was a procedure done?: No Differential Diagnosis (SZ) CVA: CVA, Electrolyte Imbalance, Hypoglycemia, Hypoxemia, TIA X-Ray, Labs, Meds, VS Vital Signs Date Time Temp Pulse Resp B/P (MAP) Pulse Ox O2 Delivery O2 Flow Rate FiO2 12/15/24 03:31 97.9 58 14 193/92 97 97.9 Lab Test 12/15/24 03:40 Range/Units White Blood Count Pending Red Blood Count Pending Hemoglobin Pending Hematocrit Pending Mean Corpuscular Volume Pending Mean Corpuscular Hemoglobin Pending Mean Corpuscular Hemoglobin Concent Pending Red Cell Distribution Width Pending Platelet Count Pending Mean Platelet Volume Pending Neutrophils (%) (Auto) Pending Lymphocytes (%) (Auto) Pending Monocytes (%) (Auto) Pending Basophils (%) (Auto) Pending Neutrophils # (Auto) Pending Lymphocytes # (Auto) Pending Monocytes # (Auto) Pending Sodium Level Pending Potassium Level Pending Chloride Level Pending Carbon Dioxide Level Pending Anion Gap Pending Blood Urea Nitrogen Pending Creatinine Pending Glomerular Filtration Rate Calc Pending BUN/Creatinine Ratio Pending Serum Glucose Pending Calcium Level Pending Time of 1ST Reevaluation: 03:46 Reevaluation 1ST: Unchanged Patient Education/Counseling: Need For Follow Up Family Education/Counseling: No Family Present Departure 1 Departure Time of Disposition: 03:57 Impression: Primary Impression: Stroke-like symptoms Additional Impression: Hypertension Disposition: 09 ADMITTED INPATIENT Condition: Stable Comments 79-year-old female transferred from [facility] for admission for stroke-like symptoms, left upper extremity and left lower extremity weakness with hypertension. Left-sided weakness improved at this time. Blood pressure improved at this time. Patient admitted to hospitalist service for further treatment, evaluation and monitoring. Critical Care Note Critical Care Time?: No Stability Stability form required: No Heart Score Heart Score: Heart Score Response (Comments) Value History N/A 0 EKG N/A 0 Age N/A 0 Risk Factors N/A 0 Troponin N/A 0 Total 0 I personally scribed for KENIA RECIO MD ([email or web address]) on 12/15/24 at 03:52. Electronically submitted by Stan Cartwright ([email or web address]). KENIA RECIO MD Dec 15, 2024 03:52
[2024-12-15 04:08] LABS: Potassium 4.5 mmol/L (3.5-5.1); Sodium 143 mmol/L (136-145)
[2024-12-15 04:09] LABS: Anion Gap 10 (5-15); Calcium 9.0 mg/dL (8.7-10.4); Carbon Dioxide 26 mmol/L (20-31)
[2024-12-15 04:14] LABS: BUN/Creatinine Ratio 6.8 (10.0-20.0)
[2024-12-15 04:15] LABS: Hematocrit 33.1 % (36.0-46.0); Hemoglobin 10.8 g/dL (12.2-16.2); Mean Corpuscular Hemoglobin 30.0 pg (28.0-32.0); Mean Corpuscular Volume 92.2 fL (80.0-100.0); Nucleated Red Blood Cells % 0.3 %
[2024-12-15 04:18] LABS: Blood Urea Nitrogen 25 mg/dL (9-23); Chloride 107 mmol/L (98-107); Glucose 204 mg/dL (74-106)
[2024-12-15] MEDS ORDERED: DEXTROSE (50%) 50ML SYRG IV PRN (07:45)
[2024-12-15] MEDS ORDERED: ACETAMINOPHEN 325 MG TAB PO PRN (07:45)
[2024-12-15] MEDS ORDERED: NITROGLYCERIN 0.4 MG SL TAB SL PRN (07:45)
[2024-12-15] MEDS ORDERED: ONDANSETRON HCL 4 MG/2 ML VIAL IV PRN (07:45)
[2024-12-15] MEDS ORDERED: MORPHINE SULFATE INJ 2 MG/ml SYRG IV PRN (07:45)
--- NOTE | 2024-12-15 07:53 | DVHHP2 ---
History of Present Illness Reason for Visit: Hypertensive urgency and weakness History of Present Illness Jennifer Lambert is a 79-year-old female with past medical history of diabetes, ESRD on HD (/), hypertension, hyperlipidemia, CAD, dementia, seizures, cholecystectomy, and PTCA x3 who presents to the ED with weakness. Patient reports that she had a ground level fall on night hitting her head around 10:00 p.m. and denies losing consciousness. Patient reports that she was using a cane and holding food in her hands walking from the kitchen to the bedroom where she fell on the floor hit her head and left side. She states that she had a caregiver and had 2 young kids in the house with her the time and was startled by the young children. She also reports that she is compliant with her medications. Patient has a right chest HD cath. Upon examination assessed both feet with the nurse and do not see any wounds or ulcers. Patient also states that she had gone to [facility] had some imaging done and was diagnosed with stroke-like symptoms. She was then transferred here for further management. Per notes patient also came in with a blood pressure of 193/92. 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 seizures) Renal/: Chronic renal failure Endocrine: Diabetes Past Surgical History: Cholecystectomy, Other (PTCA x3) Family History: None Smoke: No ALCOHOL: none Drugs: None Lives: with Family Domestic Violence: Neg Review of Systems Constitutional: Yes: Weakness Allergies: Coded Allergies: NO KNOWN ALLERGIES (Unverified , 01/14/22) Exam Vital Signs Vital Signs Date Time Temp Pulse Resp B/P (MAP) Pulse Ox O2 Delivery O2 Flow Rate FiO2 12/15/24 05:39 170/64 12/15/24 05:17 61 12/15/24 04:28 18 96 Room Air* 0 21 12/15/24 04:28 98.1 98.1 General Appearance: Alert, Oriented X3, Cooperative, No acute distress HEENT: Atraumatic, PERRLA, EOMI, Mucous membr. moist/pink Respiratory: Clear to auscultation, Normal air movement Cardiovascular: Normal S1, Normal S2, No murmurs Abdominal: Normal bowel sounds, Soft Extremities: No clubbing, No cyanosis, No edema, Normal pulses, No tenderness/swelling Skin: No significant lesion Neuro: Normal speech, Strength at 5/5 X4 ext, Normal tone, Sensation intact Psych/Mental Status: Mental status NL, Mood NL Labs/Xrays Labs Test 12/15/24 03:40 Range/Units White Blood Count 11.5 H 4.4-10.8 10^3/uL Red Blood Count 3.59 L 4.0-5.20 10^6/uL Hemoglobin 10.8 L 12.2-16.2 g/dL Hematocrit 33.1 L 36.0-46.0 % Mean Corpuscular Volume 92.2 80.0-100.0 fL Mean Corpuscular Hemoglobin 30.0 28.0-32.0 pg Mean Corpuscular Hemoglobin Concent 32.5 32.0-36.0 g/dL Red Cell Distribution Width 15.0 H 11.8-14.3 % Platelet Count 257 140-450 10^3/uL Mean Platelet Volume 7.6 6.9-10.8 fL Neutrophils (%) (Auto) 52.6 37.0-80.0 % Lymphocytes (%) (Auto) 35.3 10.0-50.0 % Monocytes (%) (Auto) 9.0 0.0-12.0 % Eosinophils (%) (Auto) 2.7 0.0-7.0 % Basophils (%) (Auto) 0.4 0.0-2.0 % Neutrophils # (Auto) 6.1 1.6-8.6 10 ^3/uL Lymphocytes # (Auto) 4.1 0.4-5.4 10 ^3/uL Monocytes # (Auto) 1.0 0-1.3 10 ^3/uL Eosinophils # (Auto) 0.3 0-0.8 10 ^3/uL Basophils # (Auto) 0 0-0.2 10 ^3/uL Nucleated Red Blood Cells 0.3 % Sodium Level 143 136-145 mmol/L Potassium Level 4.5 3.5-5.1 mmol/L Chloride Level 107 98-107 mmol/L Carbon Dioxide Level 26 20-31 mmol/L Anion Gap 10 5-15 Blood Urea Nitrogen 25 H 9-23 mg/dL Creatinine 3.67 H 0.550-1.02 mg/dL Glomerular Filtration Rate Calc 12 >90 mL/min BUN/Creatinine Ratio 6.8 L 10.0-20.0 Serum Glucose 204 H 74-106 mg/dL Calcium Level 9.0 8.7-10.4 mg/dL CHEST RADIOGRAPH Indication: r/o pna Technique: Single frontal view of the chest was obtained COMPARISON: XY CHEST PORTABLE on DOS: 11/29/24, XY CHEST XRAY 1 VIEW on DOS: 08/17/24, XY CHEST XRAY 1 VIEW on DOS: 06/12/24, XY CHEST XRAY 1 VIEW on DOS: 04/19/24, XY CHEST PORTABLE on DOS: 01/10/24 FINDINGS: Lines and Tubes: Tunneled right central venous catheter in satisfactory position Lungs: Congestion Pleura: No effusion. No pneumothorax. Cardiomediastinal contours: Unremarkable Bones: Unremarkable IMPRESSION: Increased interstital prominence. This may represent pulmonary vascular congestion and/or viral pneumonia. Clinical correlation advised. CLINICAL HISTORY: r/o dvt TECHNIQUE: Color and duplex doppler imagine of the bilateral lower extremity veins was performed. Vessel compression and augmentation if possible was also performed. COMPARISON: None FINDINGS: Right Lower Extremity: Right common femoral vein: Normal compressibility and flow. Right superficial femoral vein: Normal compressibility and flow. Right popliteal vein: Normal compressibility and flow. Proximal calf veins demonstrate flow. Left Lower Extremity: Left common femoral vein: Normal compressibility and flow. Left superficial femoral vein: Normal compressibility and flow. Left popliteal vein: Normal compressibility and flow. Proximal calf veins demonstrate flow. IMPRESSION: NO SONOGRAPHIC EVIDENCE FOR DEEP VENOUS THROMBOSIS IN THE BILATERAL LOWER EXTREMITY VEINS. SEPSIS Sepsis Screen Date sepsis recognized/suspect: Dec 15, 2024 Time Sepsis recognized/suspect: 434 Recent Procedure: No On Antibiotic Therapy: No Respiratory Rate >20: No Heart Rate >90: No Temp<36 C (96.8 F) or >38.3 C: No SBP <90 or MAP <65 mmHG: No New Acute Mental Status Change: No Is the patient on CPAP, BIPAP,: No Vital Signs Date Time Temp Pulse Resp B/P (MAP) Pulse Ox O2 Delivery O2 Flow Rate FiO2 12/15/24 05:39 170/64 12/15/24 05:17 61 177/76 (109) 12/15/24 04:39 182/75 12/15/24 04:35 182/75 (110) 12/15/24 04:28 60 18 96 Room Air* 0 21 12/15/24 04:28 98.1 59 18 206/79 (121) 96 98.1 12/15/24 04:00 60 12/15/24 03:31 97.9 58 14 193/92 97 97.9 Laboratory Tests Test 12/15/24 03:40 White Blood Count 11.5 10^3/uL (4.4-10.8) H Medications Medications Dose Ordered Sig/Deepak Route Start Time Stop Time Status Last Admin Dose Admin Clonidine HCl 0.1 mg ONCE ONCE PO 12/15/24 04:30 12/15/24 04:31 DC 12/15/24 04:39 0.1 MG Assessment/Plan Assessment/Plan Assessment Hypertensive urgency/emergency Generalized weakness Diabetes Normocytic anemia ESRD on HD (T//) Rule out CVA History of hypertension History of hyperlipidemia History of CAD History of dementia History of seizures History of cholecystectomy History of PTCA x3 2 years ago reported per patient Plan [place] [facility] [place] Antihypertensives Echo ordered Last echo on 06/12/2024 EF 60-65% Antiemetics Pain management IV antibiotics-ceftriaxone Hemoglobin A1c ISS and Accu-Cheks CT head Bilateral lower extremity venous ultrasound ordered UA UDS Chest x-ray Diet Home medications reconciled DVT prophylaxis-SCDs PUD prophylaxis-not indicated no history of GERD or GI bleed Discussed plan of care with patient and nurse Nephrology consulted Neuro consult [id number] Preventive counseling healthy eating habits, physical activity, and regular checkups Plan discussed with: Patient Date of Service: Dec 15, 2024 Billing Provider: ISMAEL JARAMILLO Common Visit Codes: [id number] INP/OBS CARE (HIGH) Secondary Visit Codes: [id number] COUNSELING IND ISMAEL JARAMILLO Dec 15, 2024 07:53
--- NOTE | 2024-12-15 08:30 | DVH ---
CHEST RADIOGRAPH Indication: r/o pna Technique: Single frontal view of the chest was obtained COMPARISON: XY CHEST PORTABLE on DOS: 11/29/24, XY CHEST XRAY 1 VIEW on DOS: 08/17/24, XY CHEST XRAY 1 V IEW on DOS: 06/12/24, XY CHEST XRAY 1 VIEW on DOS: 04/19/24, XY CHEST PORTABLE on DOS: 01/10/24 FINDINGS: Lines and Tubes: Tunneled right central venous catheter in satisfactory position Lungs: Congestion Pleura: No effusion. No pneumothorax. Cardiomediastinal contours: Unremarkable Bones: Unremarkable IMPRESSION: Increased interstital prominence. This may represent pulmonary vascular congestion and/or viral pneum onia. Clinical correlation advised.
--- NOTE | 2024-12-15 08:54 | DVH ---
CLINICAL HISTORY: r/o dvt TECHNIQUE: Color and duplex doppler imagine of the bilateral lower extremity veins was performed. Ves allison compression and augmentation if possible was also performed. COMPARISON: None FINDINGS: Right Lower Extremity: Right common femoral vein: Normal compressibility and flow. Right superficial femoral vein: Normal compressibility and flow. Right popliteal vein: Normal compressibility and flow. Proximal calf veins demonstrate flow. Left Lower Extremity: Left common femoral vein: Normal compressibility and flow. Left superficial femoral vein: Normal compressibility and flow. Left popliteal vein: Normal compressibility and flow. Proximal calf veins demonstrate flow. IMPRESSION: NO SONOGRAPHIC EVIDENCE FOR DEEP VENOUS THROMBOSIS IN THE BILATERAL LOWER EXTREMITY VEINS.
[2024-12-15] MEDS: TICAGRELOR 60 MG TAB PO SCH (10:00)
[2024-12-15] MEDS: PREGABALIN CAPSULE 75 MG CAP PO SCH (10:00)
[2024-12-15] MEDS: FUROSEMIDE 40 MG/4 ML VIAL IV SCH (10:26)
[2024-12-15] MEDS: ERGOCALCIFEROL 50,000 UNIT(1.25MG) CAP PO SCH (10:29)
[2024-12-15] MEDS: CALCITRIOL 0.25 MCG CAP PO SCH (10:30)
[2024-12-15] MEDS: METOPROLOL SUCCINATE XL 50 MG TAB PO SCH (10:30)
[2024-12-15] MEDS: levETIRAcetam 500 MG TAB PO SCH (10:31)
[2024-12-15] MEDS: ASPirin-EC 81 mg tab PO SCH (10:31)
[2024-12-15] MEDS: ACCU-CHEK COMFORT CURVE STRIP VI SCH (11:30)
--- NOTE | 2024-12-15 12:27 | DVH ---
Indication: sp fall Comparison: CT HEAD WITHOUT CONTRAST on DOS: 11/29/24, CT HEAD WITHOUT CONTRAST on DOS: 06/13/24, CT HEA D WITHOUT CONTRAST on DOS: 04/19/24, CT HEAD WITHOUT CONTRAST on DOS: 01/10/24, CT HEAD WITHOUT CONTRA ST on DOS: 01/10/24 Technique: Utilizing a multislice CT scanner, a CT scan of the brain was performed without intravenou s contrast. Coronal and sagittal reformatted images. All CT scans at this facility use dose modulation, iterative reconstruction, and/or weight based dosi ng when appropriate to reduce radiation dose to as low as reasonably achievable. Findings: There is no acute infarct, intracranial hemorrhage, or mass effect. There is no hydrocephalus or sign ificant midline shift. There is moderate chronic microvascular ischemic changes and moderate parenchymal volume loss. No acute, depressed calvarial fractures. No large scalp hematomas. Bilateral lens surgeries. Impression: 1. No acute intracranial abnormality.
[2024-12-15] MEDS: InsuLIN REG 1unit/0.01ml Soln (100units/ml) SC SCH (12:48)
--- NOTE | 2024-12-15 21:22 | DVHINCON2 ---
Date of service: Dec 15, 2024 Reason for Consultation esrd History of Present Illness 79 years old female with past medical history of hypertension, diabetes, dyslipidemia, coronary artery disease, CVA, congestive heart failure, ESRD on dialysis, dementia , seizures, TIA presented with chief complaints of fall and hitting head she denied dizziness or loss of consciousness She missed dialysis On arrival her blood pressure was very high with blood SBP greater than 200 Past Medical History As documented in HPI Past Surgical History As documented in HPI Allergies: Coded Allergies: NO KNOWN ALLERGIES (Unverified , 01/14/22) Home Meds Active Scripts Ergocalciferol (VITAMIN D 73034 UNIT) 50,000 [place], [address] UNIT PO Q7D for 90 Days, #12 CAP Prov:RUCHI TORREZ RESIDENT 06/15/24 Calcitriol (Calcitriol) 0.25 Mcg Cap, 0.25 MCG PO DAILY for 30 Days, #30 CAP 2 Refills Prov:RAMSES HERNANDES RESIDENT 01/13/24 Nifedipine (Nifedipine Er) 90 Mg Tab, 90 MG PO DAILY for 30 Days, #30 TAB 3 Refills Prov:ARIANNE RIZO MD 10/05/23 Reported Medications Metoprolol Tartrate (Metoprolol Tartrate) 50 Mg Tab, 50 MG PO DAILY for 30 Days, MG 10/26/24 Furosemide (Furosemide) 40 Mg Tab, 1 TAB PO DAILY for 30 Days, #60 06/14/24 Aspirin (Aspirin Low Dose) 81 Mg Chw, 1 TAB PO DAILY for 90 Days, #90 06/14/24 Levetiracetam (Keppra) 500 Mg Tab, 1 TAB PO BID for 90 Days, #180 06/14/24 Lidocaine (Lidocaine Patch 5%) 5 % Pad, 1 PATCH TOP DAILY for 90 Days, #90 APPLY ONE PATCH TOPICALLY TO CLEAN, DRY SKIN. LEAVE ON FOR 12 HOURS THEN REMOVE. MUST WAIT AT LEAST 12 HOURS BEFORE APPLYING PATCH(ES) AGAIN. 10/03/23 Insulin Glargine (Lantus Solostar) 100 Unit/Ml Inj, 20 UNIT SC DAILY for 75 Days, #15 10/03/23 Ticagrelor Base (Brilinta) 60 Mg Tab, 1 TAB PO DAILY for 90 Days, #90 10/03/23 Pregabalin (Lyrica) 150 Mg Cap, 1 CAP PO BID for 90 Days, #180 10/02/23 Donepezil Hydrochloride (Aricept) 10 Mg Tab, 1 TAB PO QPM for 100 Days, #100 01/17/22 Current Medications Current Medications Medications (Trade) Dose Ordered Sig/Deepak Route PRN Reason Start Time Stop Time Status Last Admin Diagnostic Test (Pha) (Accu-Chek Comfort Curve T) 1 strip ACHS 12/15/24 11:30 12/16/24 07:03 Insulin Human Regular (InsuLIN R) ACHS SC 12/15/24 11:30 12/15/24 22:00 Donepezil HCl (Aricept Tablet) 10 mg HS PO 12/15/24 22:00 12/15/24 22:12 Lorazepam (Ativan Inj) 1 mg Q5MINP PRN IV SEIZURES 12/15/24 22:00 Family History: Diabetes mellitus G8 MOTHER Hypertension G8 FATHER Review of Systems As per HPI H&P Exam Vital Signs/I&O Vital Sign Date Time Temp Pulse Resp B/P (MAP) Pulse Ox O2 Delivery O2 Flow Rate FiO2 12/16/24 09:00 97.9 55 18 143/69 (93) 96 97.9 12/16/24 08:00 Room Air* 0 21 Intake and Output 12/15/24 12/16/24 19:00 07:00 Intake Total 50 ml 800 ml Balance 50 ml 800 ml Intake Oral 800 ml IV Total 50 ml # Voids 2 1 # Bowel Movements 1 Physical Exam General-not in any distress HEENT-normocephalic, no icterus, no pallor, neck supple Respiratory-fair air entry bilateral, no rhonchi, no wheeze [id number] heard, no murmurs appreciated Abdominal-soft, nontender, nondistended Musculoskeletal-no pedal edema, no calf tenderness Genitourinary-deferred Neuro-awake alert oriented x3, Psychiatric-not agitated, cooperative, Labs/Diagnostic Data Labs/Diagnostic Data Laboratory Tests Test 12/16/24 06:13 12/16/24 05:23 12/15/24 22:19 12/15/24 17:26 Range/Units POC Glucose 102 166 H 166 H 70-106 mg/dl White Blood Count 6.9 # 4.4-10.8 10^3/uL Red Blood Count 3.44 L 4.0-5.20 10^6/uL Hemoglobin 10.4 L 12.2-16.2 g/dL Hematocrit 31.5 L 36.0-46.0 % Mean Corpuscular Volume 91.5 80.0-100.0 fL Mean Corpuscular Hemoglobin 30.1 28.0-32.0 pg Mean Corpuscular Hemoglobin Concent 32.9 32.0-36.0 g/dL Red Cell Distribution Width 14.7 H 11.8-14.3 % Platelet Count 247 140-450 10^3/uL Mean Platelet Volume 7.1 6.9-10.8 fL Neutrophils (%) (Auto) 55.2 37.0-80.0 % Lymphocytes (%) (Auto) 34.0 10.0-50.0 % Monocytes (%) (Auto) 6.6 0.0-12.0 % Eosinophils (%) (Auto) 3.8 0.0-7.0 % Basophils (%) (Auto) 0.4 0.0-2.0 % Neutrophils # (Auto) 3.8 1.6-8.6 10 ^3/uL Lymphocytes # (Auto) 2.3 0.4-5.4 10 ^3/uL Monocytes # (Auto) 0.5 0-1.3 10 ^3/uL Eosinophils # (Auto) 0.3 0-0.8 10 ^3/uL Basophils # (Auto) 0 0-0.2 10 ^3/uL Nucleated Red Blood Cells 0.2 % Sodium Level 141 136-145 mmol/L Potassium Level 4.5 3.5-5.1 mmol/L Chloride Level 105 98-107 mmol/L Carbon Dioxide Level 24 20-31 mmol/L Anion Gap 12 5-15 Blood Urea Nitrogen 32 H 9-23 mg/dL Creatinine 4.22 H 0.550-1.02 mg/dL Glomerular Filtration Rate Calc 10 >90 mL/min BUN/Creatinine Ratio 7.6 L 10.0-20.0 Serum Glucose 92 74-106 mg/dL Calcium Level 9.3 8.7-10.4 mg/dL Total Bilirubin 0.3 0.2-1.0 mg/dL Aspartate Amino Transferase (AST) 16 13-40 U/L Alanine Aminotransferase (ALT) < 9 7-40 U/L Alkaline Phosphatase 171 H 46-116 U/L Total Protein 7.0 5.7-8.2 g/dL Albumin 3.9 3.2-4.8 g/dL Test 12/15/24 12:44 12/15/24 03:40 12/15/24 03:25 Range/Units POC Glucose 146 H 70-106 mg/dl White Blood Count 11.5 H 4.4-10.8 10^3/uL Red Blood Count 3.59 L 4.0-5.20 10^6/uL Hemoglobin 10.8 L 12.2-16.2 g/dL Hematocrit 33.1 L 36.0-46.0 % Mean Corpuscular Volume 92.2 80.0-100.0 fL Mean Corpuscular Hemoglobin 30.0 28.0-32.0 pg Mean Corpuscular Hemoglobin Concent 32.5 32.0-36.0 g/dL Red Cell Distribution Width 15.0 H 11.8-14.3 % Platelet Count 257 140-450 10^3/uL Mean Platelet Volume 7.6 6.9-10.8 fL Neutrophils (%) (Auto) 52.6 37.0-80.0 % Lymphocytes (%) (Auto) 35.3 10.0-50.0 % Monocytes (%) (Auto) 9.0 0.0-12.0 % Eosinophils (%) (Auto) 2.7 0.0-7.0 % Basophils (%) (Auto) 0.4 0.0-2.0 % Neutrophils # (Auto) 6.1 1.6-8.6 10 ^3/uL Lymphocytes # (Auto) 4.1 0.4-5.4 10 ^3/uL Monocytes # (Auto) 1.0 0-1.3 10 ^3/uL Eosinophils # (Auto) 0.3 0-0.8 10 ^3/uL Basophils # (Auto) 0 0-0.2 10 ^3/uL Nucleated Red Blood Cells 0.3 % Sodium Level 143 136-145 mmol/L Potassium Level 4.5 3.5-5.1 mmol/L Chloride Level 107 98-107 mmol/L Carbon Dioxide Level 26 20-31 mmol/L Anion Gap 10 5-15 Blood Urea Nitrogen 25 H 9-23 mg/dL Creatinine 3.67 H 0.550-1.02 mg/dL Glomerular Filtration Rate Calc 12 >90 mL/min BUN/Creatinine Ratio 6.8 L 10.0-20.0 Serum Glucose 204 H 74-106 mg/dL Calcium Level 9.0 8.7-10.4 mg/dL Triglycerides Level 62 < 150 mg/dL Cholesterol Level 167 < 200 mg/dL LDL Cholesterol 61 < 100 mg/dL HDL Cholesterol 87 H 40-59 mg/dL Hemoglobin A1c 7.0 H <5.7 % A1C Assessment ESRD on hemodialysis Hypertensive emergency Diabetes Coronary artery disease CVA History of seizures Recommendations Dialysis will be arranged tomorrow she has a tunneled catheter Neurology eval ongoing Patient will need strict antihypertensive regimen on discharge for controlling blood pressure We will follow closely Plan discussed with: Patient TIFF CLARK MD Dec 15, 2024 21:22
--- NOTE | 2024-12-15 21:29 | DVHINCON2 ---
Date of service: Dec 15, [address] Garcia Reason for Consultation R/O CVA History of Present Illness Ms. Lambert is a 79 years old female with a history of hypertension, diabetes, dyslipidemia, coronary artery disease, congestive heart failure, chronic kidney failure on hemodialysis, dementia, seizure, TIA, she was transferred from the [facility] to the [facility] 12/15/24 with a chief complaint of for stroke-like syndrome. At this time, she is awake, oriented to person, place, she knows year and the month, she has good social skills, but it is not very good historian, the history is obtained from her, and her family Paperwork from the [facility] reviewed and summarized I saw on 01/15/2022 for seizure and dementia, 06/13/2024 for ALOC On 12/14/2024, she had fall at home and she noticed weakness in the left arm than leg and she was not able to get up, he noticed the left foot did not feel the shoe. she was sent to the [facility] and was seen by a tele stroke specialist. Her CT brain, CT perfusion were unremarkable, CTA shows some carotid disorder She denies history of stroke, but her family relates she mentioned having stroke a few years ago, but family is not aware of the symptoms Around 2021, the patient was sleepy or sleep excessively, and on waking up, she had shaking in the left face and shoulder, he was sent to the [facility] where she was said to have seizure, and she has been on Keppra 500 mg b.i.d. since, she also takes Lyrica 150 mg b.i.d. He was said to have dementia On 12/15/2024, her family reported that she is on Brilinta 60 mg q.d, Aricept 10 mg daily, aspirin 81 mg daily, keppra 500mg bid, lyrica 150mg bid [phone] [facility] Tele stroke consultation, 12/14/2024: NIHSS: 2 CT head, 12/14/2024: No acute intracranial abnormality CTA head, neck, 12/14/2024: There is moderate atherosclerotic calcification of the cavernous internal carotid arteries resulting in approximately 50% stenosis CT perfusion brain, 12/14/2024: No convincing cerebral perfusion defect to indicate territorial hypoperfusion WBC/HB/PLT, 12/15/2024: 11.5/10.8/257/92.2 BUN/CR, 06/12/2024: 35/4.27, 06/13/2024: 31/3.64, 12/15/2024: 25/3.67 GFR, 12/15/2024: 12m. HGB A1c, 06/12/2024: 6.9. 12/15/2024: 7 TBI/AST/ALT/AP, 12/01/24: 0.3/19/9/151 TG/HDL/LDL/HDL, 09/2023: 74/153/73/61. 06/14/2024: 120/153/83/43 Vitamin B12, 12/2021: 301, 05/2024: 535 Folic acid, 12/2020: 4.71 TSH, 12/2021: 0.73, 05/2024: 1.03 Chest x-ray, 01/14/2022: Mild pulmonary vascular congestion CT head, 06/13/2024: 1. No CT evidence of acute intracranial abnormality. 2. Nonacute findings as described above CT head, 12/15/2024: No acute intracranial abnormality MRI head, 01/15/2022: There is mild to moderate microvascular ischemic disease of the supratentorial white matter and brainstem. There is no acute infarct Past Medical History Hypertension, diabetes, dyslipidemia, coronary artery disease, congestive heart failure, chronic kidney failure on hemodialysis, dementia, seizure, TIA/CVA Past Surgical History Cholecystectomy, PTCA Family History: Diabetes mellitus G8 MOTHER Hypertension G8 FATHER Family History Hypertension, diabetes Social History She was a tobacco smoker, but no history of alcohol or recreational substance abuse Allergies: Coded Allergies: NO KNOWN ALLERGIES (Unverified , 01/14/22) Home Meds Active Scripts Ergocalciferol (VITAMIN D 51403 UNIT) 50,[place], [address] UNIT PO Q7D for 90 Days, #12 CAP Prov:RUCHI TORREZ RESIDENT 06/15/24 Calcitriol (Calcitriol) 0.25 Mcg Cap, 0.25 MCG PO DAILY for 30 Days, #30 CAP 2 Refills Prov:RAMSES HERNANDES RESIDENT 01/13/24 Nifedipine (Nifedipine Er) 90 Mg Tab, 90 MG PO DAILY for 30 Days, #30 TAB 3 Refills Prov:ARIANNE RIZO MD 10/05/23 Reported Medications Metoprolol Tartrate (Metoprolol Tartrate) 50 Mg Tab, 50 MG PO DAILY for 30 Days, MG 10/26/24 Furosemide (Furosemide) 40 Mg Tab, 1 TAB PO DAILY for 30 Days, #60 06/14/24 Aspirin (Aspirin Low Dose) 81 Mg Chw, 1 TAB PO DAILY for 90 Days, #90 06/14/24 Levetiracetam (Keppra) 500 Mg Tab, 1 TAB PO BID for 90 Days, #180 06/14/24 Lidocaine (Lidocaine Patch 5%) 5 % Pad, 1 PATCH TOP DAILY for 90 Days, #90 APPLY ONE PATCH TOPICALLY TO CLEAN, DRY SKIN. LEAVE ON FOR 12 HOURS THEN REMOVE. MUST WAIT AT LEAST 12 HOURS BEFORE APPLYING PATCH(ES) AGAIN. 10/03/23 Insulin Glargine (Lantus Solostar) 100 Unit/Ml Inj, 20 UNIT SC DAILY for 75 Days, #15 10/03/23 Ticagrelor Base (Brilinta) 60 Mg Tab, 1 TAB PO DAILY for 90 Days, #90 10/03/23 Pregabalin (Lyrica) 150 Mg Cap, 1 CAP PO BID for 90 Days, #180 10/02/23 Donepezil Hydrochloride (Aricept) 10 Mg Tab, 1 TAB PO QPM for 100 Days, #100 01/17/22 Current Medications Current Medications Medications (Trade) Dose Ordered Sig/Deepak Route PRN Reason Start Time Stop Time Status Last Admin Hydralazine HCl (Apresoline Injection) 10 mg Q6HP PRN IV SBP>150 12/15/24 07:45 Ondansetron HCl (Zofran) 4 mg Q4HP PRN IV NAUSEA / VOMITING 12/15/24 07:45 Acetaminophen (Tylenol Tablet) 650 mg Q6HP PRN PO PAIN SCALE 1-3 OR TEMP>100.4 12/15/24 07:45 Nitroglycerin (Ntrostat Sublingual) 0.4 mg Q5MINP PRN SL FOR CHEST PAIN 12/15/24 07:45 Morphine Sulfate 2 mg Q30M PRN IV FOR CHEST PAIN 12/15/24 07:45 Diagnostic Test (Pha) (Accu-Chek Comfort Curve T) 1 strip ACHS 12/15/24 11:30 12/15/24 17:28 Insulin Human Regular (InsuLIN R) ACHS SC 12/15/24 11:30 12/15/24 17:31 Dextrose 50 ml UD PRN IV Blood Sugar LESS THAN 60 12/15/24 07:45 Calcitriol (Rocaltrol Capsule) 0.25 mcg DAILY PO 12/15/24 10:00 12/15/24 10:30 Ergocalciferol (Vitamin D 50,000 Unit) 50,000 unit Q7D PO 12/15/24 08:00 12/15/24 10:29 Levetiracetam (Keppra Tablet) 500 mg BID PO 12/15/24 10:00 12/15/24 10:31 Metoprolol Succinate (Toprol Xl) 50 mg DAILY PO 12/15/24 10:00 12/15/24 10:30 Ticagrelor (Brilinta) 60 mg DAILY PO 12/15/24 10:00 Aspirin (Ecotrin Enteric Coated Tablet) 81 mg DAILY PO 12/15/24 10:00 12/15/24 10:31 Donepezil HCl (Aricept Tablet) 10 mg HS PO 12/15/24 22:00 Nifedipine (Procardia Xl (Time-Release)) 90 mg DAILY PO 12/15/24 10:00 12/15/24 10:29 Pregabalin (Lyrica Capsule) 150 mg BID PO 12/15/24 10:00 Furosemide (Lasix Injection) 40 mg DAILY IV 12/15/24 10:00 12/15/24 10:26 Ceftriaxone Sodium 50 ml @ 100 mls/hr DAILY@09 IV 12/15/24 09:00 12/15/24 10:21 Review of Systems Unobtainable Vital Signs Vital Signs Date Time Temp Pulse Resp B/P (MAP) Pulse Ox O2 Delivery O2 Flow Rate FiO2 12/15/24 16:45 97.5 53 18 143/75 (97) 97 97.5 12/15/24 12:33 Room Air* 0 21 Physical Exam GENERAL EXAM: General: the patient is well developed and nourished. No acute distress. HEENT: Normocephalic, neck is supple, no carotid bruits. No mass RESPIRATORY: Normal respiratory effort with symmetrical lung expansion. Lungs clear to auscultation. CARDIOVASCULAR: Regular rate and rhythm with no murmurs. S1, S2. ABDOMEN: Soft, nontender, normal bowel sound NEUROLOGICAL: MENTAL STATUS: Awake and alert. Oriented to self, SPEECH, LANGUAGE, HIGHER CORTICAL FUNCTION: no aphasia but her voice is very weak. CRANIAL NERVES: #2: Intact visual nichols to confrontation. The optic discs were sharp. #3,4,6: Pupils are equal, round and reactive. EOMs full and conjugate. No nystagmus. #5: Facial sensation intact in all three divisions bilaterally. Mandibular strength intact. #7: Facial muscles symmetrical and strength intact. #8: Hearing grossly normal to voice. #9,10: Uvula and soft palate rise in the midline. Swallow and voice are normal. #11: Trapezius and sternomastoid strength intact bilaterally. #12: Tongue midline. No fasciculations or atrophy. SENSATION: Sensation to touch and pinprick is normal. MOTOR: Normal tone in the upper and lower extremity. Normal muscle bulk. No fasciculations. No abnormal movements or posturing. She moves her arms and legs slightly to be, less in the left upper extremity REFLEXES: Deep tendon reflexes are symmetrical. No pathological reflexes. CEREBELLAR/COORDINATION: Deferred GAIT/STATION: deferred Labs/Diagnostic Data Labs Test 12/15/24 12:44 12/15/24 03:40 12/15/24 03:25 Range/Units POC Glucose 146 H 70-106 mg/dl White Blood Count 11.5 H 4.4-10.8 10^3/uL Red Blood Count 3.59 L 4.0-5.20 10^6/uL Hemoglobin 10.8 L 12.2-16.2 g/dL Hematocrit 33.1 L 36.0-46.0 % Mean Corpuscular Volume 92.2 80.0-100.0 fL Mean Corpuscular Hemoglobin 30.0 28.0-32.0 pg Mean Corpuscular Hemoglobin Concent 32.5 32.0-36.0 g/dL Red Cell Distribution Width 15.0 H 11.8-14.3 % Platelet Count 257 140-450 10^3/uL Mean Platelet Volume 7.6 6.9-10.8 fL Neutrophils (%) (Auto) 52.6 37.0-80.0 % Lymphocytes (%) (Auto) 35.3 10.0-50.0 % Monocytes (%) (Auto) 9.0 0.0-12.0 % Eosinophils (%) (Auto) 2.7 0.0-7.0 % Basophils (%) (Auto) 0.4 0.0-2.0 % Neutrophils # (Auto) 6.1 1.6-8.6 10 ^3/uL Lymphocytes # (Auto) 4.1 0.4-5.4 10 ^3/uL Monocytes # (Auto) 1.0 0-1.3 10 ^3/uL Eosinophils # (Auto) 0.3 0-0.8 10 ^3/uL Basophils # (Auto) 0 0-0.2 10 ^3/uL Nucleated Red Blood Cells 0.3 % Sodium Level 143 136-145 mmol/L Potassium Level 4.5 3.5-5.1 mmol/L Chloride Level 107 98-107 mmol/L Carbon Dioxide Level 26 20-31 mmol/L Anion Gap 10 5-15 Blood Urea Nitrogen 25 H 9-23 mg/dL Creatinine 3.67 H 0.550-1.02 mg/dL Glomerular Filtration Rate Calc 12 >90 mL/min BUN/Creatinine Ratio 6.8 L 10.0-20.0 Serum Glucose 204 H 74-106 mg/dL Calcium Level 9.0 8.7-10.4 mg/dL Hemoglobin A1c 7.0 H <5.7 % A1C Assessment Fall, left-sided weakness Rule out stroke Partial seizure Dementia, ? Alzheimer disease Plan/Recommendation Monitoring Supportive treatment Telemetry Echocardiogram MRI head Brilinta 60 mg q.d Aspirin 81 mg daily Lipitor 10 mg daily (LDL without statin: 05/2024: 83) Keppra 500mg bid, Lyrica 150mg bid Ativan for seizure breakthrough GI prophylaxis Up to chair Physical therapy Nephrology on case Progress: Poor This medical document was created using an electronic medical record system with [employer] dictation system. Although this document has been carefully reviewed, there may still be some phonetic and typographical errors. These areas are purely typographical due to imperfections of the software programs, and do not reflect any compromise in the patient's medical care. Plan discussed with: Daughter, Son, Other CORAL KABA MD Dec 15, 2024 21:29
[2024-12-15] MEDS ORDERED: LORazepam 2MG/ML-1ML VIAL IV PRN (22:00)
[2024-12-15] MEDS: DONEPEZIL HYDROCHLORIDE 5 MG TAB PO SCH (22:12)
[2024-12-15 22:53] LABS: Triglycerides 62 mg/dL (< 150)
[2024-12-15 22:55] LABS: Cholesterol 167 mg/dL (< 200)
[2024-12-15 23:01] LABS: HDL Cholesterol 87 mg/dL (40-59)
[2024-12-16] VITALS (8 sets, daily range): BP systolic 102–152; BP diastolic 38–76; PULSE 53–64; RESP 16–20; TEMP 96.3–97.9; O2SAT 86–99
[2024-12-16 06:11] LABS: Hematocrit 31.5 % (36.0-46.0); Hemoglobin 10.4 g/dL (12.2-16.2); Mean Corpuscular Hemoglobin 30.1 pg (28.0-32.0); Mean Corpuscular Volume 91.5 fL (80.0-100.0); Nucleated Red Blood Cells % 0.2 %
[2024-12-16 06:30] LABS: Albumin 3.9 g/dL (3.2-4.8); Anion Gap 12 (5-15); BUN/Creatinine Ratio 7.6 (10.0-20.0); Calcium 9.3 mg/dL (8.7-10.4); Carbon Dioxide 24 mmol/L (20-31); Chloride 105 mmol/L (98-107); Glucose 92 mg/dL (74-106); Potassium 4.5 mmol/L (3.5-5.1); Sodium 141 mmol/L (136-145); Total Protein 7.0 g/dL (5.7-8.2)
[2024-12-16 06:44] LABS: Alanine Aminotransferase < 9 U/L (7-40); Alkaline Phosphatase 171 U/L (46-116); Bilirubin, Total 0.3 mg/dL (0.2-1.0); Blood Urea Nitrogen 32 mg/dL (9-23)
[2024-12-16] MEDS: SODIUM CHL 0.9% 1000 ML BAG XX ONE (10:00)
[2024-12-16] MEDS: CATHFLO ACTIVASE (ALTEPLASE) 2 MG VIAL IV ONE (10:20)
--- NOTE | 2024-12-16 14:41 | DVH ---
EXAMINATION: MRI BRAIN HEAD WO CONTRAST INDICATION: CVA COMPARISON: CT HEAD WITHOUT CONTRAST on DOS: 12/15/24, CT HEAD WITHOUT CONTRAST on DOS: 11/29/24, CT HEA D WITHOUT CONTRAST on DOS: 06/13/24, CT HEAD WITHOUT CONTRAST on DOS: 04/19/24, CT HEAD WITHOUT CONTRAS T on DOS: 01/10/24 TECHNIQUE: Multiplanar, multisequence magnetic resonance imaging of the brain was performed without the use of i ntravenous contrast. FINDINGS: There is a punctate area of restricted diffusion within the right brainstem. There is periventricular/deep white matter T2/FLAIR hyperintensity is nonspecific, but most commonly associated with chronic microvascular disease. The ventricles and sulci are normal in size for age. Clear basal cisterns. Flow voids in the major intracranial vessels are maintained. No abnormality of the orbits. Paranasal sinuses and mastoid air cells are clear. No abnormality of the visualized osseous structures and extracranial soft tissues. IMPRESSION: 1. Acute right brainstem infarct, no evidence of acute bleed no significant edema
--- NOTE | 2024-12-16 15:57 | DVHSR ---
APPROVED REPORT EXAM: Two-dimensional and M-mode echocardiogram with Doppler and color Doppler. Blood Pressure: 170/64 mmHg INDICATION Weakness RISK FACTORS Height: 5'2", Weight: 138 DIMENSIONS LVDd4.2 (3.8-5.7cm)LA (2D)4.4 (1.9-4.0cm)Aortic Root3.2 (2.0-3.7cm) LVDs3.0 (2.5-4.0cm)LA (MM) (1.9-4.0cm)Aortic Cusp Exc1.4 (1.5-2.0cm) EF (%) 55.0 (55-70%)Rt. Atrium (1.9-4.0cm)Asc. Aorta cm IVSd1.0 (0.7-1.1cm)RV (D) (1.8-2.4cm) PWd1.0 (0.7-1.1cm) Mitral Valve MitralMitral Stenosis E wave0.94m/sMV Mean GR.mmHg A wave0.37m/sMV Peak GR.mmHg E/A ratio2.52D MVAcm2 DECEL [id number] 1/2 Timems Aortic Valve Aortic ValveAortic Stenosis V10.76m/Farhana Mean GR.4mmHg V21.38m/Farhana Peak GR.8mmHg LVOT Diameter1.8 (1.8-2.4cm)Doppler AVA1.40cm2 Pulmonic Valve V20.77m/s Tricuspid Valve TR Velocity3.82m/s [id number] Conclusion MILD LVH AND MILD LV DIASTOLIC DYSFUNCTION LV EF IS 60% SLIGHTLY DILATED LA SEVERE PULMONARY HYPERTENSION RVSP IS 61 MM OF HG AND IS VERY HIGH NORMAL VALVES NO EFFUSION
--- NOTE | 2024-12-16 18:48 | DVHPN2 ---
Progress Note Date Seen: Dec 16, 2024 Medical Necessity Reason Pt with a Central, PICC or Fol: No Subjective Patient reports: Other (She dropped blood pressure during dialysis and Bolus L was given events noted) Review of Systems: Deferred Objective vital signs Vital Sign Date Time Temp Pulse Resp B/P (MAP) Pulse Ox O2 Delivery O2 Flow Rate FiO2 12/16/24 17:00 96.3 63 20 139/62 (87) 90 96.3 12/16/24 08:00 Room Air* 0 21 Total Intake and Output 12/15/24 12/15/24 12/16/24 15:00 23:00 07:00 Intake Total 50 ml 800 ml Balance 50 ml 800 ml medications Current Medications Medications Dose Ordered Sig/Deepak Route Start Time Stop Time Status Last Admin Dose Admin Hydralazine HCl 10 mg Q6HP PRN IV 12/15/24 07:45 Ondansetron HCl 4 mg Q4HP PRN IV 12/15/24 07:45 Acetaminophen 650 mg Q6HP PRN PO 12/15/24 07:45 Nitroglycerin 0.4 mg Q5MINP PRN SL 12/15/24 07:45 Morphine Sulfate 2 mg Q30M PRN IV 12/15/24 07:45 Diagnostic Test (Pha) 1 strip ACHS 12/15/24 11:30 12/16/24 17:03 1 STRIP Insulin Human Regular ACHS SC 12/15/24 11:30 12/16/24 17:02 4 UNITS Dextrose 50 ml UD PRN IV 12/15/24 07:45 Calcitriol 0.25 mcg DAILY PO 12/15/24 10:00 12/16/24 11:21 0.25 MCG Ergocalciferol 50,000 unit Q7D PO 12/15/24 08:00 12/15/24 10:29 50,000 UNIT Levetiracetam 500 mg BID PO 12/15/24 10:00 12/16/24 11:27 500 MG Ticagrelor 60 mg DAILY PO 12/15/24 10:00 12/16/24 12:41 60 MG Aspirin 81 mg DAILY PO 12/15/24 10:00 12/16/24 11:36 81 MG Donepezil HCl 10 mg HS PO 12/15/24 22:00 12/15/24 22:12 10 MG Nifedipine 90 mg DAILY PO 12/15/24 10:00 12/15/24 10:29 90 MG Pregabalin 150 mg BID PO 12/15/24 10:00 12/16/24 11:30 150 MG Furosemide 40 mg DAILY IV 12/15/24 10:00 12/15/24 10:26 40 MG Ceftriaxone Sodium 50 ml @ 100 mls/hr DAILY@09 IV 12/15/24 09:00 12/16/24 11:36 100 MLS/HR Lorazepam 1 mg Q5MINP PRN IV 12/15/24 22:00 Examination: GENERAL:Normal, HEENT:Normal, NECK:Normal, LUNGS:Normal, CVS:Abnormal, ABDOMEN:Normal, MSK:Normal, SKIN:Normal, NEURO:Normal, :Normal laboratory and microbiology Laboratory Tests 12/16/24 05:23 Test 12/16/24 05:23 Range/Units Serum Glucose 92 74-106 mg/dL Microbiology Date/Time Source Procedure Growth Status 12/15/24 13:30 Nose MRSA Screen - Final Complete Problem List/Assessment/Plan Problem List/Assessment/Plan ESRD on hemodialysis Hypertensive emergency SBP greater than 200 on admission 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
[2024-12-17] VITALS (8 sets, daily range): BP systolic 106–185; BP diastolic 43–99; PULSE 60–79; RESP 12–18; TEMP 97–97.7; O2SAT 94–98
[2024-12-17] MEDS: hydrALAZINE HCL 20 MG/ML VL IV PRN (01:11)
--- NOTE | 2024-12-17 07:19 | ECG ---
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
--- NOTE | 2024-12-17 09:06 | DVHPN2 ---
Progress Note Date Seen: Dec 17, 2024 Medical Necessity Reason Pt with a Central, PICC or Fol: No Subjective Review of Systems: Deferred Objective vital signs Vital Sign Date Time Temp Pulse Resp B/P (MAP) Pulse Ox O2 Delivery O2 Flow Rate FiO2 12/17/24 08:56 97.7 66 16 125/66 (85) 97 97.7 12/16/24 20:10 Room Air* 0 21 Total Intake and Output 12/16/24 12/16/24 12/17/24 15:00 23:00 07:00 Intake Total 50 ml Balance 50 ml medications Current Medications Medications Dose Ordered Sig/Deepak Route Start Time Stop Time Status Last Admin Dose Admin Hydralazine HCl 10 mg Q6HP PRN IV 12/15/24 07:45 12/17/24 01:11 10 MG Ondansetron HCl 4 mg Q4HP PRN IV 12/15/24 07:45 Acetaminophen 650 mg Q6HP PRN PO 12/15/24 07:45 Nitroglycerin 0.4 mg Q5MINP PRN SL 12/15/24 07:45 Morphine Sulfate 2 mg Q30M PRN IV 12/15/24 07:45 Diagnostic Test (Pha) 1 strip ACHS 12/15/24 11:30 12/17/24 06:30 1 STRIP Insulin Human Regular ACHS SC 12/15/24 11:30 12/16/24 21:52 2 UNITS Dextrose 50 ml UD PRN IV 12/15/24 07:45 Calcitriol 0.25 mcg DAILY PO 12/15/24 10:00 12/16/24 11:21 0.25 MCG Ergocalciferol 50,000 unit Q7D PO 12/15/24 08:00 12/15/24 10:29 50,000 UNIT Levetiracetam 500 mg BID PO 12/15/24 10:00 12/16/24 21:49 500 MG Ticagrelor 60 mg DAILY PO 12/15/24 10:00 12/16/24 12:41 60 MG Aspirin 81 mg DAILY PO 12/15/24 10:00 12/16/24 11:36 81 MG Donepezil HCl 10 mg HS PO 12/15/24 22:00 12/16/24 21:49 10 MG Nifedipine 90 mg DAILY PO 12/15/24 10:00 12/15/24 10:29 90 MG Pregabalin 150 mg BID PO 12/15/24 10:00 12/16/24 21:49 150 MG Furosemide 40 mg DAILY IV 12/15/24 10:00 12/15/24 10:26 40 MG Ceftriaxone Sodium 50 ml @ 100 mls/hr DAILY@09 IV 12/15/24 09:00 12/16/24 11:36 100 MLS/HR Lorazepam 1 mg Q5MINP PRN IV 12/15/24 22:00 laboratory and microbiology Laboratory Tests 12/16/24 05:23 Test 12/16/24 05:23 Range/Units Serum Glucose 92 74-106 mg/dL Microbiology Date/Time Source Procedure Growth Status 12/15/24 13:30 Nose MRSA Screen - Final Complete Problem List/Assessment/Plan Problem List/Assessment/Plan ESRD on hemodialysis Hypertensive emergency SBP greater than 200 on admission 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
--- NOTE | 2024-12-17 11:29 | DVHINCON2 ---
Date Seen: Dec 17, 2024 Referring Physician MD Tacho Reason for Consultation Bradycardia History of Present Illness This is a 79-year-old female patient who presents to emergency room with chief complaint of generalized weakness and fall. The patient reports that she was at home coming out of her kitchen when suddenly it felt as though her legs gave out from underneath her. She denies losing any consciousness. She does report falling onto her left side for which she began experiencing left-sided body pains. She was initially taken to [facility] and transferred to this facility for further evaluation. Initial twelve electrocardiogram done at this facility reveals sinus bradycardia with T-wave inversion to lateral leads. The patient is a very poor historian. Spoke with the patient's caregiver and [id number], Maite. History obtained from patient and previous medical records. Significant past medical history includes coronary artery disease status post PTCA including 3 JENSEN in 2021, congestive heart failure, hypertension, dyslipidemia, CVA with right-sided hemiparesis in 2022, end-stage renal disease on hemodialysis, insulin-dependent diabetes mellitus, seizure activity, and dementia. Per patient's [id number] Maite, the patient has been out of her nifedipine medication for approximately six months due to being unable to get an appointment with her primary care physician. Past Medical History Past medical history reviewed. No other significant than mentioned above. Past Surgical History Multiple PTCAs Hysterectomy Family History: Diabetes mellitus G8 MOTHER Hypertension G8 FATHER Family History Family history reviewed. Social History Denies the use of tobacco, alcohol or illicit drugs. Allergies: Coded Allergies: NO KNOWN ALLERGIES (Unverified , 01/14/22) Home Meds Active Scripts Ergocalciferol (VITAMIN D 04104 UNIT) 50,000 [place], [address] UNIT PO Q7D for 90 Days, #12 CAP Prov:RUCHI TORREZ RESIDENT 06/15/24 Calcitriol (Calcitriol) 0.25 Mcg Cap, 0.25 MCG PO DAILY for 30 Days, #30 CAP 2 Refills Prov:RAMSES HERNANDES RESIDENT 01/13/24 Nifedipine (Nifedipine Er) 90 Mg Tab, 90 MG PO DAILY for 30 Days, #30 TAB 3 Refills Prov:ARIANNE RIZO MD 10/05/23 Reported Medications Metoprolol Tartrate (Metoprolol Tartrate) 50 Mg Tab, 50 MG PO DAILY for 30 Days, MG 10/26/24 Furosemide (Furosemide) 40 Mg Tab, 1 TAB PO DAILY for 30 Days, #60 06/14/24 Aspirin (Aspirin Low Dose) 81 Mg Chw, 1 TAB PO DAILY for 90 Days, #90 06/14/24 Levetiracetam (Keppra) 500 Mg Tab, 1 TAB PO BID for 90 Days, #180 06/14/24 Lidocaine (Lidocaine Patch 5%) 5 % Pad, 1 PATCH TOP DAILY for 90 Days, #90 APPLY ONE PATCH TOPICALLY TO CLEAN, DRY SKIN. LEAVE ON FOR 12 HOURS THEN REMOVE. MUST WAIT AT LEAST 12 HOURS BEFORE APPLYING PATCH(ES) AGAIN. 10/03/23 Insulin Glargine (Lantus Solostar) 100 Unit/Ml Inj, 20 UNIT SC DAILY for 75 Days, #15 10/03/23 Ticagrelor Base (Brilinta) 60 Mg Tab, 1 TAB PO DAILY for 90 Days, #90 10/03/23 Pregabalin (Lyrica) 150 Mg Cap, 1 CAP PO BID for 90 Days, #180 10/02/23 Donepezil Hydrochloride (Aricept) 10 Mg Tab, 1 TAB PO QPM for 100 Days, #100 01/17/22 Home Meds Home medications reviewed. Review of Systems Constitutional: Generalized weakness Ears, Nose, & Throat: No symptom reported Eyes: No symptom reported Neurological: No symptoms reported Pulmonary/Respiratory: No symptoms reported Cardiovascular: No symptom reported Gastrointestinal: No symptom reported Genitourinary: No symptom reported Musculoskeletal: No symptom reported Skin: No symptom reported Psychiatric: No symptom reported Endocrine: No symptom reported Hematologic/Lymphatic: No symptom reported Vital Signs Vital Signs Date Time Temp Pulse Resp B/P (MAP) Pulse Ox O2 Delivery O2 Flow Rate FiO2 12/17/24 09:53 125/66 12/17/24 08:56 97.7 66 16 97 97.7 12/16/24 20:10 Room Air* 0 21 Physical Exam General Appearance: Cooperative. Well-developed. Well-nourished. No acute distress. Pulmonary/Respiratory: Clear, bilateral breaths sounds. Cardiovascular/Chest: Regular rate and rhythm. Peripheral Pulses: 2+ Radial (R). 2+ Radial (L). 2+ Pedal (R). 2+ Pedal (L) Abdominal Exam: Normal bowel sounds. Ankle Exam: Negative ankle edema Lower extremities: Negative lower extremity edema Neuro/Mental Status: A/OX4, coherent. Thoughts/Psych: Normal thought pattern. Appropriate mood and affect. Good judgment and insight. Appearance: No acute distress. Skin Exam: Normal inspection. Normal color. Warm and dry. Labs/Diagnostic Data Labs Test 12/16/24 21:08 12/16/24 05:23 12/15/24 03:40 12/15/24 03:25 Range/Units POC Glucose 150 H 70-106 mg/dl White Blood Count 6.9 # 4.4-10.8 10^3/uL Red Blood Count 3.44 L 4.0-5.20 10^6/uL Hemoglobin 10.4 L 12.2-16.2 g/dL Hematocrit 31.5 L 36.0-46.0 % Mean Corpuscular Volume 91.5 80.0-100.0 fL Mean Corpuscular Hemoglobin 30.1 28.0-32.0 pg Mean Corpuscular Hemoglobin Concent 32.9 32.0-36.0 g/dL Red Cell Distribution Width 14.7 H 11.8-14.3 % Platelet Count 247 140-450 10^3/uL Mean Platelet Volume 7.1 6.9-10.8 fL Neutrophils (%) (Auto) 55.2 37.0-80.0 % Lymphocytes (%) (Auto) 34.0 10.0-50.0 % Monocytes (%) (Auto) 6.6 0.0-12.0 % Eosinophils (%) (Auto) 3.8 0.0-7.0 % Basophils (%) (Auto) 0.4 0.0-2.0 % Neutrophils # (Auto) 3.8 1.6-8.6 10 ^3/uL Lymphocytes # (Auto) 2.3 0.4-5.4 10 ^3/uL Monocytes # (Auto) 0.5 0-1.3 10 ^3/uL Eosinophils # (Auto) 0.3 0-0.8 10 ^3/uL Basophils # (Auto) 0 0-0.2 10 ^3/uL Nucleated Red Blood Cells 0.2 % Sodium Level 141 136-145 mmol/L Potassium Level 4.5 3.5-5.1 mmol/L Chloride Level 105 98-107 mmol/L Carbon Dioxide Level 24 20-31 mmol/L Anion Gap 12 5-15 Blood Urea Nitrogen 32 H 9-23 mg/dL Creatinine 4.22 H 0.550-1.02 mg/dL Glomerular Filtration Rate Calc 10 >90 mL/min BUN/Creatinine Ratio 7.6 L 10.0-20.0 Serum Glucose 92 74-106 mg/dL Calcium Level 9.3 8.7-10.4 mg/dL Total Bilirubin 0.3 0.2-1.0 mg/dL Aspartate Amino Transferase (AST) 16 13-40 U/L Alanine Aminotransferase (ALT) < 9 7-40 U/L Alkaline Phosphatase 171 H 46-116 U/L Total Protein 7.0 5.7-8.2 g/dL Albumin 3.9 3.2-4.8 g/dL Triglycerides Level 62 < 150 mg/dL Cholesterol Level 167 < 200 mg/dL LDL Cholesterol 61 < 100 mg/dL HDL Cholesterol 87 H 40-59 mg/dL Hemoglobin A1c 7.0 H <5.7 % A1C Microbiology Date/Time Source Procedure Growth Status 12/15/24 13:30 Nose MRSA Screen - Final Complete Assessment Sinus bradycardia Acute right brainstem infarct Hypertensive emergency Coronary artery disease status post PTCA (on Brilinta and aspirin) Chronic HFpEF, NYHA class II Dyslipidemia Pulmonary hypertension, severe degree Insulin-dependent diabetes mellitus End-stage renal disease on hemodialysis Obesity Seizure disorder Dementia Plan/Recommendation We will continue with the following plan/recommendations (Dr. Sherman): Case discussed with . A transthoracic echocardiogram reveals an EF of 60%, RVSP 61 mmHg. At the time of assessment, the patient is off monitoring and evaluation advisor. monitoring and evaluation advisor reviewed. Patient noted to have episodes of sinus bradycardia without atrioventricular blocks or pauses. It was worth noting, the patient also takes metoprolol 50 mg daily at home, which is likely the cause for sinus bradycardia. Consider decreasing metoprolol dose to 25 mg. It is also noted that the patient's blood pressure has been uncontrolled. The patient has an outpatient prescription for nifedipine for which she has been out of for over six months according to her caregiver. Nifedipine has been reestablished during this visit. Can consider oral hydralazine as well for tighter blood pressure control. Continue with dual antiplatelet therapy and lipid-lowering agent. Proceed with close cardiac surveillance. Thank you for allowing us to care for this patient. Please call with any questions or concerns. Critical care time spent: 44 minutes This medical document was created using an electronic medical record system with voice recognition software and computerized dictation system. Although this doc ument has been carefully reviewed, there might still be some phonetic and typographical errors. Occasional wrong-word or ``sound-alike substitutions may have occurred due to the inherent limitations of voice recognition software. These areas are purely typographical due to imperfections of the software programs and do not reflect any compromise in the patient's medical care. Wilfredo jarvis read the chart carefully and recognize, using context, where these substitutions have occurred. Plan discussed with: Patient NYHA Physical activity limitations: NA Date of Service: Dec 17, 2024 Billing Provider: DOUG KIM Cardiology Common Codes: 51817-HQHEYDG INP/OBS CARE (High) Cardiology Consultation Codes: 79000-PENEGTMZU CONSULT <45MIN DOUG KIM Dec 17, 2024 11:29
--- NOTE | 2024-12-17 15:39 | DVHPN2 ---
Subjective Continue to complain of facial droop with dysarthria along with left-sided weakness Reviewed: Care Plan, H&P, Labs, Medications, Previous Orders, Radiology, Other (Consultations) Changes from previous H/P or p: No Changes Objective Vitals Vital Signs Date Time Temp Pulse Resp B/P (MAP) Pulse Ox O2 Delivery O2 Flow Rate FiO2 12/17/24 12:35 97.6 67 16 185/67 (106) 94 97.6 12/17/24 08:00 Room Air* 0 21 Intake/Output Intake and Output 12/17/24 07:00 Intake Total 50 ml Balance 50 ml IV Total 50 ml General Appearance: Alert, Oriented X3, Cooperative, No acute distress HEENT: Atraumatic Lungs: Clear to auscultation, Normal air movement Chest/Breasts: Other (Right chest hemodialysis catheter with no signs of bleeding/infection) Cardiovascular: Regular rate, Normal S1, Normal S2 Abdomen: Normal bowel sounds, Soft, No tenderness Extremities: No edema Neuro: Other (Mild dysarthria with facial droop and left-sided weakness) Psych/Mental Status: Mental status NL, Mood NL Medications Current Medications Medications Dose Ordered Sig/Deepak Route Start Time Stop Time Status Last Admin Dose Admin Hydralazine HCl 10 mg Q6HP PRN IV 12/15/24 07:45 12/17/24 12:10 10 MG Ondansetron HCl 4 mg Q4HP PRN IV 12/15/24 07:45 Acetaminophen 650 mg Q6HP PRN PO 12/15/24 07:45 Nitroglycerin 0.4 mg Q5MINP PRN SL 12/15/24 07:45 Morphine Sulfate 2 mg Q30M PRN IV 12/15/24 07:45 Diagnostic Test (Pha) 1 strip ACHS 12/15/24 11:30 12/17/24 11:55 1 STRIP Insulin Human Regular ACHS SC 12/15/24 11:30 12/17/24 12:08 3 UNITS Dextrose 50 ml UD PRN IV 12/15/24 07:45 Calcitriol 0.25 mcg DAILY PO 12/15/24 10:00 12/17/24 09:53 0.25 MCG Ergocalciferol 50,000 unit Q7D PO 12/15/24 08:00 12/15/24 10:29 50,000 UNIT Levetiracetam 500 mg BID PO 12/15/24 10:00 12/17/24 09:53 500 MG Ticagrelor 60 mg DAILY PO 12/15/24 10:00 12/17/24 10:09 60 MG Aspirin 81 mg DAILY PO 12/15/24 10:00 12/17/24 09:54 81 MG Donepezil HCl 10 mg HS PO 12/15/24 22:00 12/16/24 21:49 10 MG Nifedipine 90 mg DAILY PO 12/15/24 10:00 12/17/24 09:53 90 MG Pregabalin 150 mg BID PO 12/15/24 10:00 12/17/24 09:53 150 MG Furosemide 40 mg DAILY IV 12/15/24 10:00 12/17/24 09:52 40 MG Ceftriaxone Sodium 50 ml @ 100 mls/hr DAILY@09 IV 12/15/24 09:00 12/17/24 09:51 100 MLS/HR Lorazepam 1 mg Q5MINP PRN IV 12/15/24 22:00 Laboratory Results Laboratory Tests 12/16/24 05:23 Microbiology Microbiology Date/Time Source Procedure Growth Status 12/15/24 13:30 Nose MRSA Screen - Final Complete Labs and/or images reviewed: Labs reviewed by me, Image(s) reviewed by me Assessment/Plan Assessment/Plan Covering: Acute right brainstem infarct with mild dysarthria with facial droop and left- sided weakness Hypertensive emergency resulting in acute stroke CAD status post stenting Hypertensive heart disease with chronic HFpEF, NYHA class II; not in exacerbation Sinus bradycardia in the setting of above Metabolic syndrome with dyslipidemia Pulmonary hypertension, severe degree Type 2 diabetes mellitus Seizure disorder Early dementia ESRD on hemodialysis via right chest hemodialysis catheter Suspected sepsis with leukocytosis due to suspected pneumonia Chronic normocytic anemia; most likely inflammatory in the setting of ESRD Obesity Continue antihypertensive medications and adjust according to blood pressure monitoring Continue insulin management and adjust according to blood glucose monitoring Continue aspirin, Brilinta, and statin Hemodialysis as per Nephrology Reviewed lab work and available imaging studies Cardiology, Nephrology and Neurology are following Encouraged the patient to continue working with physical therapy Counseled the patient on the importance of adopting healthy lifestyle with diet and exercise in order to lose weight Telemetry Seizures and fall precautions Continue antiseizure medications No signs/symptoms of infection Continue donepezil Continue IV antibiotics Continue monitoring Goals of care discussed with the patient for 20 minutes; full code Late Entry. This medical document was created using an electronic medical record system with computerized dictation system. Although this document has been carefully reviewed, there might still be some phonetic and typographical errors. These areas are purely typographical due to imperfections of the software programs, and do not reflect any compromise in the patient's medical care. Plan discussed with: Patient, Other (Nurse) Date of Service: Dec 17, 2024 Billing Provider: AMANDA CARRINGTON MD Common Visit Codes: 77929-[id number] INP/OBS CARE(HIGH) Secondary Visit Codes: [id number]-[id number] CARE PLAN 30 MINUTES (20 minutes) AMANDA CARRINGTON MD Dec 17, 2024 15:39
--- NOTE | 2024-12-17 22:28 | DVHPN2 ---
Progress Note - Dictate Date Seen: Dec 17, 2024 Medical Necessity Reason Pt with a Central, PICC or Fol: No Subjective Ms. aLmbert is a 79 years old female with a history of hypertension, diabetes, dyslipidemia, coronary artery disease, congestive heart failure, chronic kidney failure on hemodialysis, dementia, seizure, TIA, she was transferred from the [facility] to the [facility] 12/15/24 with a chief complaint of for stroke-like syndrome. I saw on 01/15/2022 for seizure and dementia, 06/13/2024 for ALOC I have seen examined the patient, I have talked to her nurse, she is doing fine, no new complaints On 12/15/2024, her family reported that she is on Brilinta 60 mg q.d, Aricept 10 mg daily, aspirin 81 mg daily, keppra 500mg bid, lyrica 150mg bid [facility] Tele stroke consultation, 12/14/2024: NIHSS: 2 CT head, 12/14/2024: No acute intracranial abnormality CTA head, neck, 12/14/2024: There is moderate atherosclerotic calcification of the cavernous internal carotid arteries resulting in approximately 50% stenosis CT perfusion brain, 12/14/2024: No convincing cerebral perfusion defect to indicate territorial hypoperfusion WBC/HB/PLT, 12/15/2024: 11.5/10.8/257/92.2 BUN/CR, 06/12/2024: 35/4.27, 06/13/2024: 31/3.64, 12/15/2024: 25/3.67 GFR, 12/15/2024: 12m. HGB A1c, 06/12/2024: 6.9. 12/15/2024: 7 TBI/AST/ALT/AP, 12/01/24: 0.3/19/9/151 TG/HDL/LDL/HDL, 09/2023: 74/153/73/61. 06/14/2024: 120/153/83/43 Vitamin B12, 12/2021: 301, 05/2024: 535 Folic acid, 12/2020: 4.71 TSH, 12/2021: 0.73, 05/2024: 1.03 Echocardiogram, 12/16/2024: MILD LVH AND MILD LV DIASTOLIC DYSFUNCTION LV EF IS 60% SLIGHTLY DILATED LA SEVERE PULMONARY HYPERTENSION RVSP IS 61 MM OF HG AND IS VERY HIGH NORMAL VALVES NO EFFUSION CT head, 06/13/2024: 1. No CT evidence of acute intracranial abnormality. 2. Nonacute findings as described above CT head, 12/15/2024: No acute intracranial abnormality MRI head, 01/15/2022: There is mild to moderate microvascular ischemic disease of the supratentorial white matter and brainstem. There is no acute infarct MR head, 12/16/2024: Acute right brainstem infarct, no evidence of acute bleed no significant edema vital signs Vital Sign Date Time Temp Pulse Resp B/P (MAP) Pulse Ox O2 Delivery O2 Flow Rate FiO2 12/17/24 20:59 97.7 74 17 152/85 (107) 98 97.7 12/17/24 20:00 Room Air* 0 21 Total Intake and Output 12/16/24 12/16/24 12/17/24 15:00 23:00 07:00 Intake Total 50 ml Balance 50 ml medications Current Medications Medications Dose Ordered Sig/Deepak Route Start Time Stop Time Status Last Admin Dose Admin Hydralazine HCl 10 mg Q6HP PRN IV 12/15/24 07:45 12/17/24 12:10 10 MG Ondansetron HCl 4 mg Q4HP PRN IV 12/15/24 07:45 Acetaminophen 650 mg Q6HP PRN PO 12/15/24 07:45 Nitroglycerin 0.4 mg Q5MINP PRN SL 12/15/24 07:45 Morphine Sulfate 2 mg Q30M PRN IV 12/15/24 07:45 Diagnostic Test (Pha) 1 strip ACHS 12/15/24 11:30 12/17/24 21:13 1 STRIP Insulin Human Regular ACHS SC 12/15/24 11:30 12/17/24 21:16 3 UNITS Dextrose 50 ml UD PRN IV 12/15/24 07:45 Calcitriol 0.25 mcg DAILY PO 12/15/24 10:00 12/17/24 09:53 0.25 MCG Ergocalciferol 50,000 unit Q7D PO 12/15/24 08:00 12/15/24 10:29 50,000 UNIT Levetiracetam 500 mg BID PO 12/15/24 10:00 12/17/24 21:13 500 MG Ticagrelor 60 mg DAILY PO 12/15/24 10:00 12/17/24 10:09 60 MG Aspirin 81 mg DAILY PO 12/15/24 10:00 12/17/24 09:54 81 MG Donepezil HCl 10 mg HS PO 12/15/24 22:00 12/17/24 21:13 10 MG Nifedipine 90 mg DAILY PO 12/15/24 10:00 12/17/24 09:53 90 MG Pregabalin 150 mg BID PO 12/15/24 10:00 12/17/24 21:13 150 MG Furosemide 40 mg DAILY IV 12/15/24 10:00 12/17/24 09:52 40 MG Ceftriaxone Sodium 50 ml @ 100 mls/hr DAILY@09 IV 12/15/24 09:00 12/17/24 09:51 100 MLS/HR Lorazepam 1 mg Q5MINP PRN IV 12/15/24 22:00 objective General: the patient is well developed and nourished. No acute distress. MENTAL STATUS: Awake and alert. Oriented to self, SPEECH, LANGUAGE, HIGHER CORTICAL FUNCTION: no aphasia but her voice is very weak. CRANIAL NERVES: Pupils are equal, round and reactive. EOMs full and conjugate. No nystagmus. Facial sensation intact in all three divisions bilaterally. Mandibular strength intact. Facial muscles symmetrical and strength intact. SENSATION: Sensation to touch and pinprick is normal. MOTOR: Normal tone in the upper and lower extremity. Normal muscle bulk. No fasciculations. No abnormal movements or posturing. She moves her arms and legs with possible left upper extremity drift REFLEXES: Deep tendon reflexes are symmetrical. No pathological reflexes. CEREBELLAR/COORDINATION: Deferred GAIT/STATION: deferred laboratory and microbiology Laboratory Tests 12/16/24 05:23 Test 12/16/24 05:23 Range/Units Serum Glucose 92 74-106 mg/dL Problem List Fall, left-sided weakness Rule out stroke Partial seizure Dementia, ? Alzheimer disease Assessment/Plan Monitoring Supportive treatment Telemetry Brilinta 60 mg q.d Aspirin 81 mg daily Lipitor 10 mg daily (LDL without statin: 05/2024: 83) Keppra 500mg bid, Lyrica 150mg bid Ativan for seizure breakthrough GI prophylaxis Up to chair Physical therapy Nephrology on case This medical document was created using an electronic medical record system with Dragon computerized dictation system. Although this document has been carefully reviewed, there may still be some phonetic and typographical errors. These areas are purely typographical due to imperfections of the software programs, and do not reflect any compromise in the patient's medical care. Prognosis poor Plan discussed with: Other CORAL KABA MD Dec 17, 2024 22:28
[2024-12-18] VITALS (10 sets, daily range): BP systolic 117–173; BP diastolic 49–88; PULSE 65–86; RESP 16–19; TEMP 97.5–98.6; O2SAT 95–98
[2024-12-18] MEDS ORDERED: SODIUM CHL 0.9% 1000 ML BAG XX ONE (07:00)
[2024-12-18 09:43] LABS: Hematocrit 31.6 % (36.0-46.0); Hemoglobin 10.1 g/dL (12.2-16.2); Mean Corpuscular Hemoglobin 29.6 pg (28.0-32.0); Mean Corpuscular Volume 92.7 fL (80.0-100.0); Nucleated Red Blood Cells % 0.1 %
[2024-12-18 09:45] LABS: Chloride 99 mmol/L (98-107); Potassium 4.8 mmol/L (3.5-5.1)
[2024-12-18 09:46] LABS: Anion Gap 12 (5-15); Carbon Dioxide 25 mmol/L (20-31)
[2024-12-18 09:47] LABS: Calcium 8.9 mg/dL (8.7-10.4)
[2024-12-18 09:52] LABS: BUN/Creatinine Ratio 7.9 (10.0-20.0); Glucose 104 mg/dL (74-106)
[2024-12-18 09:53] LABS: Blood Urea Nitrogen 41 mg/dL (9-23); Sodium 136 mmol/L (136-145)
--- NOTE | 2024-12-18 10:25 | DVHPN2 ---
Progress Note Date Seen: Dec 18, 2024 Medical Necessity Reason Pt with a Central, PICC or Fol: Yes The following are medically ne: Central Line (tunnel HD catheter) Subjective Changes from previous H/P or p: No Changes Objective vital signs Vital Sign Date Time Temp Pulse Resp B/P (MAP) Pulse Ox O2 Delivery O2 Flow Rate FiO2 12/18/24 08:44 97.8 71 18 136/75 (95) 98 97.8 12/17/24 20:00 Room Air* 0 21 Total Intake and Output 12/17/24 12/17/24 12/18/24 14:59 22:59 06:59 Intake Total 50 ml 300 ml Balance 50 ml 300 ml medications Current Medications Medications Dose Ordered Sig/Deepak Route Start Time Stop Time Status Last Admin Dose Admin Hydralazine HCl 10 mg Q6HP PRN IV 12/15/24 07:45 12/17/24 12:10 10 MG Ondansetron HCl 4 mg Q4HP PRN IV 12/15/24 07:45 Acetaminophen 650 mg Q6HP PRN PO 12/15/24 07:45 Nitroglycerin 0.4 mg Q5MINP PRN SL 12/15/24 07:45 Morphine Sulfate 2 mg Q30M PRN IV 12/15/24 07:45 Diagnostic Test (Pha) 1 strip ACHS 12/15/24 11:30 12/18/24 06:08 1 STRIP Insulin Human Regular ACHS SC 12/15/24 11:30 12/18/24 06:09 2 UNITS Dextrose 50 ml UD PRN IV 12/15/24 07:45 Calcitriol 0.25 mcg DAILY PO 12/15/24 10:00 12/17/24 09:53 0.25 MCG Ergocalciferol 50,000 unit Q7D PO 12/15/24 08:00 12/15/24 10:29 50,000 UNIT Levetiracetam 500 mg BID PO 12/15/24 10:00 12/17/24 21:13 500 MG Ticagrelor 60 mg DAILY PO 12/15/24 10:00 12/17/24 10:09 60 MG Aspirin 81 mg DAILY PO 12/15/24 10:00 12/17/24 09:54 81 MG Donepezil HCl 10 mg HS PO 12/15/24 22:00 12/17/24 21:13 10 MG Nifedipine 90 mg DAILY PO 12/15/24 10:00 12/17/24 09:53 90 MG Pregabalin 150 mg BID PO 12/15/24 10:00 12/17/24 21:13 150 MG Furosemide 40 mg DAILY IV 12/15/24 10:00 12/17/24 09:52 40 MG Ceftriaxone Sodium 50 ml @ 100 mls/hr DAILY@09 IV 12/15/24 09:00 12/17/24 09:51 100 MLS/HR Lorazepam 1 mg Q5MINP PRN IV 12/15/24 22:00 Examination: GENERAL:Normal, NEURO:Abnormal laboratory and microbiology Laboratory Tests 12/18/24 09:08 Test 12/18/24 09:08 Range/Units Serum Glucose 104 74-106 mg/dL Microbiology Date/Time Source Procedure Growth Status 12/15/24 13:30 Nose MRSA Screen - Final Complete Problem List/Assessment/Plan Problem List/Assessment/Plan ESRD on hemodialysis Hypertensive emergency SBP greater than 200 on admission Acute CVA likely ischemic--brainstem infarct Diabetes Coronary artery disease seizures Recommendations neuro recs in regards to BP, this am BP is WNL range /normaltensive Neurology following, pending carotid dopplers currently on anti-PLT, and anti- seizure meds HD today on vit D oral, check phos level hb at target range Plan discussed with: Patient My Orders My Orders Orders - DARION SUERO MD Procedure Category Date Status Time Hemodialysis Orders ORDERS 12/18/24 Transmitted 07:00 Dialysis Nursing ZEKE 12/18/24 In Process Message 07:00 Document Fluid Input ZEKE 12/18/24 In Process And Outpu 07:00 DARION SUERO MD Dec 18, 2024 10:25
[2024-12-18] MEDS ORDERED: ROSU20TA14 PO (18:13)
--- NOTE | 2024-12-18 18:16 | DVHDS2 ---
Discharge Summary Date of Admission Dec 15, 2024 at 07:43 Date of Discharge: Dec 18, 2024 Labs/Diagnostic Data: Laboratory Results Test 12/18/24 16:57 12/18/24 09:08 12/17/24 18:29 12/16/24 05:23 POC Glucose 199 mg/dl (70-106) White Blood Count 6.8 10^3/uL (4.4-10.8) Red Blood Count 3.41 10^6/uL (4.0-5.20) Hemoglobin 10.1 g/dL (12.2-16.2) Hematocrit 31.6 % (36.0-46.0) Mean Corpuscular Volume 92.7 fL (80.0-100.0) Mean Corpuscular Hemoglobin 29.6 pg (28.0-32.0) Mean Corpuscular Hemoglobin Concent 31.9 g/dL (32.0-36.0) Red Cell Distribution Width 14.9 % (11.8-14.3) Platelet Count 194 10^3/uL (140-450) Mean Platelet Volume 7.1 fL (6.9-10.8) Neutrophils (%) (Auto) 44.5 % (37.0-80.0) Lymphocytes (%) (Auto) 43.0 % (10.0-50.0) Monocytes (%) (Auto) 9.5 % (0.0-12.0) Eosinophils (%) (Auto) 2.8 % (0.0-7.0) Basophils (%) (Auto) 0.2 % (0.0-2.0) Neutrophils # (Auto) 3.0 10 ^3/uL (1.6-8.6) Lymphocytes # (Auto) 2.9 10 ^3/uL (0.4-5.4) Monocytes # (Auto) 0.6 10 ^3/uL (0-1.3) Eosinophils # (Auto) 0.2 10 ^3/uL (0-0.8) Basophils # (Auto) 0 10 ^3/uL (0-0.2) Nucleated Red Blood Cells 0.1 % Sodium Level 136 mmol/L (136-145) Potassium Level 4.8 mmol/L (3.5-5.1) Chloride Level 99 mmol/L (98-107) Carbon Dioxide Level 25 mmol/L (20-31) Anion Gap 12 (5-15) Blood Urea Nitrogen 41 mg/dL (9-23) Creatinine 5.19 mg/dL (0.550-1.02) Glomerular Filtration Rate Calc 8 mL/min (>90) BUN/Creatinine Ratio 7.9 (10.0-20.0) Serum Glucose 104 mg/dL (74-106) Calcium Level 8.9 mg/dL (8.7-10.4) Magnesium Level 2.1 mg/dL (1.6-2.6) Thyroid Stimulating Hormone (TSH) 2.55 uIU/mL (0.55-4.78) Total Bilirubin 0.3 mg/dL (0.2-1.0) Aspartate Amino Transferase (AST) 16 U/L (13-40) Alanine Aminotransferase (ALT) < 9 U/L (7-40) Alkaline Phosphatase 171 U/L (46-116) Total Protein 7.0 g/dL (5.7-8.2) Albumin 3.9 g/dL (3.2-4.8) Test 12/15/24 03:40 12/15/24 03:25 Triglycerides Level 62 mg/dL (< 150) Cholesterol Level 167 mg/dL (< 200) LDL Cholesterol 61 mg/dL (< 100) HDL Cholesterol 87 mg/dL (40-59) Hemoglobin A1c 7.0 % A1C (<5.7) Other Laboratory Tests 12/18/24 09:08 Brief Hx & Hospital Course: 79-year-old female with past medical history of diabetes, ESRD on HD (T//), hypertension, hyperlipidemia, CAD, dementia, seizures, cholecystectomy, and PTCA x3 who presents to the ED with weakness. Patient reports that she had a ground level fall on night hitting her head around 10:00 p.m. and denies losing consciousness. Patient reports that she was using a cane and holding food in her hands walking from the kitchen to the bedroom where she fell on the floor hit her head and left side. She states that she had a caregiver and had 2 young kids in the house with her the time and was startled by the young children. She also reports that she is compliant with her medications. Patient has a right chest HD cath. Upon examination assessed both feet with the nurse and do not see any wounds or ulcers. Patient also states that she had gone to [facility] had some imaging done and was diagnosed with stroke-like symptoms. She was then transferred here for further management. Per notes patient also came in with a blood pressure of 193/92. 12/18: brain MRI show Acute right brainstem infarct. echo w LVH, mild LVDD, LVEF 60%, dilated LA, sever PH rvsp 61, normal valves. neurologist seen patient, made recommendations for medications. no carotid U/S or CTA h/n needed. BP stable now. stable for dc per plan below. dx: Acute right brainstem infarct with mild dysarthria with left facial droop and left-sided weakness Hypertensive emergency resulting in acute stroke CAD status post stenting Hypertensive heart disease with chronic HFpEF, NYHA class II; not in exacerbation Sinus bradycardia in the setting of above Metabolic syndrome with dyslipidemia Pulmonary hypertension, severe degree Type 2 diabetes mellitus Seizure disorder Early dementia ESRD on hemodialysis via right chest hemodialysis catheter Suspected sepsis with leukocytosis due to suspected pneumonia Chronic normocytic anemia; most likely inflammatory in the setting of ESRD Obesity Plan: - HH for Home PT - continue brilinta 60mg q.d , - Aspirin 81 mg daily, - crestor 10mg daily , - Keppra 500mg bid,, - Lyrica 150mg bid, - for BP: take nifedipineXL 90mg qday - continue other home medications - close follow-up with PCP and neurology. Condition at Discharge: Fair Final Diagnosis/Problems List Acute right brainstem infarct with mild dysarthria with left facial droop and left-sided weakness Hypertensive emergency resulting in acute stroke CAD status post stenting Hypertensive heart disease with chronic HFpEF, NYHA class II; not in exacerbation Sinus bradycardia in the setting of above Metabolic syndrome with dyslipidemia Pulmonary hypertension, severe degree Type 2 diabetes mellitus Seizure disorder Early dementia ESRD on hemodialysis via right chest hemodialysis catheter Suspected sepsis with leukocytosis due to suspected pneumonia Chronic normocytic anemia; most likely inflammatory in the setting of ESRD Obesity Discharge Disposition: Home with Health Services Discharge Instruct/Medications Scheduled Aspirin (Aspirin Low Dose), 1 TAB PO DAILY, (Reported) Calcitriol (Calcitriol), 0.25 MCG PO DAILY Donepezil Hydrochloride (Aricept), 1 TAB PO QPM, (Reported) Ergocalciferol (Vitamin D 48998 Unit), 50,000 UNIT PO Q7D Furosemide (Furosemide), 1 TAB PO DAILY, (Reported) Insulin Glargine (Lantus Solostar), 20 UNIT SC DAILY, (Reported) Levetiracetam (Keppra), 1 TAB PO BID, (Reported) Lidocaine (Lidocaine Patch 5%), 1 PATCH TOP DAILY, (Reported) Metoprolol Tartrate (Metoprolol Tartrate), 50 MG PO DAILY, (Reported) Nifedipine (Nifedipine Er), 90 MG PO DAILY Pregabalin (Lyrica), 1 CAP PO BID, (Reported) Ticagrelor Base (Brilinta), 1 TAB PO DAILY, (Reported) Discharge Statement: "Patient was advised to return to the ER or call 911 if any headaches, dizziness, shortness of breath, chest pain, abdominal pain, bleeding, fevers, or worsening of medical condition. Patient was counseled about treatment plan, medications, possible side effects, patientverbalized understanding. All questions were answered to the best of my ability. This discharge took greater then 30 minutes in planning, reviewing documentation, counseling the patient, and discussing with other team members." ASSESSMENT ASSESSMENT Assessment Date of Service: Dec 18, 2024 Billing Provider: FRANCA SLADE MD Common Visit Codes: 48614-SNE/OBS DISCH DAY >30min FRANCA SLADE MD Dec 18, 2024 18:16
--- NOTE | 2024-12-18 21:18 | DVHPN2 ---
Progress Note - Dictate Date Seen: Dec 18, 2024 Medical Necessity Reason Pt with a Central, PICC or Fol: Yes The following are medically ne: Central Line (tunnel HD catheter) Subjective Ms. Lambert is a 79 years old female with a history of hypertension, diabetes, dyslipidemia, coronary artery disease, congestive heart failure, chronic kidney failure on hemodialysis, dementia, seizure, TIA, she was transferred from the [facility] to the [facility] 12/15/24 with a chief complaint of for stroke-like syndrome. I saw on 01/15/2022 for seizure and dementia, 06/13/2024 for ALOC I have seen examined the patient, I have talked to her nurse, the case was discussed with Dr. Chi Shaw, she is doing fine, no new complaints, but still has mild left-sided weakness On 12/15/2024, her family reported that she is on Brilinta 60 mg q.d, Aricept 10 mg daily, aspirin 81 mg daily, keppra 500mg bid, lyrica 150mg bid [facility] Tele stroke consultation, 12/14/2024: NIHSS: 2 CT head, 12/14/2024: No acute intracranial abnormality CTA head, neck, 12/14/2024: There is moderate atherosclerotic calcification of the cavernous internal carotid arteries resulting in approximately 50% stenosis CT perfusion brain, 12/14/2024: No convincing cerebral perfusion defect to indicate territorial hypoperfusion WBC/HB/PLT, 12/15/2024: 11.5/10.8/257/92.2 BUN/CR, 06/12/2024: 35/4.27, 06/13/2024: 31/3.64, 12/15/2024: 25/3.67 GFR, 12/15/2024: 12m. HGB A1c, 06/12/2024: 6.9. 12/15/2024: 7 TBI/AST/ALT/AP, 12/01/24: 0.3//9/151 TG/HDL/LDL/HDL, 09/2023: 74/153/73/61. 06/14/2024: 120/153/83/43 Vitamin B12, 12/2021: 301, 05/2024: 535 Folic acid, 12/2020: 4.71 TSH, 12/2021: 0.73, 05/2024: 1.03 Echocardiogram, 12/16/2024: MILD LVH AND MILD LV DIASTOLIC DYSFUNCTION LV EF IS 60% SLIGHTLY DILATED LA SEVERE PULMONARY HYPERTENSION RVSP IS 61 MM OF HG AND IS VERY HIGH NORMAL VALVES NO EFFUSION CT head, 06/13/2024: 1. No CT evidence of acute intracranial abnormality. 2. Nonacute findings as described above CT head, 12/15/2024: No acute intracranial abnormality MRI head, 01/15/2022: There is mild to moderate microvascular ischemic disease of the supratentorial white matter and brainstem. There is no acute infarct MR head, 12/16/2024: Acute right brainstem infarct, no evidence of acute bleed no significant edema vital signs Vital Sign Date Time Temp Pulse Resp B/P (MAP) Pulse Ox O2 Delivery O2 Flow Rate FiO2 12/18/24 20:00 Room Air* 0 21 12/18/24 16:52 97.8 72 18 153/66 (95) 95 97.8 Total Intake and Output 12/17/24 12/17/24 12/18/24 15:00 23:00 07:00 Intake Total 50 ml 300 ml Balance 50 ml 300 ml medications Current Medications Medications Dose Ordered Sig/Deepak Route Start Time Stop Time Status Last Admin Dose Admin Hydralazine HCl 10 mg Q6HP PRN IV 12/15/24 07:45 12/17/24 12:10 10 MG Ondansetron HCl 4 mg Q4HP PRN IV 12/15/24 07:45 Acetaminophen 650 mg Q6HP PRN PO 12/15/24 07:45 Nitroglycerin 0.4 mg Q5MINP PRN SL 12/15/24 07:45 Morphine Sulfate 2 mg Q30M PRN IV 12/15/24 07:45 Diagnostic Test (Pha) 1 strip ACHS 12/15/24 11:30 12/18/24 17:13 1 STRIP Insulin Human Regular ACHS SC 12/15/24 11:30 12/18/24 17:11 3 UNITS Dextrose 50 ml UD PRN IV 12/15/24 07:45 Calcitriol 0.25 mcg DAILY PO 12/15/24 10:00 12/18/24 11:07 0.25 MCG Ergocalciferol 50,000 unit Q7D PO 12/15/24 08:00 12/15/24 10:29 50,000 UNIT Levetiracetam 500 mg BID PO 12/15/24 10:00 12/18/24 11:06 500 MG Ticagrelor 60 mg DAILY PO 12/15/24 10:00 12/18/24 11:08 60 MG Aspirin 81 mg DAILY PO 12/15/24 10:00 12/18/24 11:07 81 MG Donepezil HCl 10 mg HS PO 12/15/24 22:00 12/17/24 21:13 10 MG Nifedipine 90 mg DAILY PO 12/15/24 10:00 12/17/24 09:53 90 MG Pregabalin 150 mg BID PO 12/15/24 10:00 12/18/24 11:07 150 MG Furosemide 40 mg DAILY IV 12/15/24 10:00 12/17/24 09:52 40 MG Ceftriaxone Sodium 50 ml @ 100 mls/hr DAILY@09 IV 12/15/24 09:00 12/18/24 11:08 100 MLS/HR Lorazepam 1 mg Q5MINP PRN IV 12/15/24 22:00 objective General: the patient is well developed and nourished. No acute distress. MENTAL STATUS: Awake and alert. Oriented to self, SPEECH, LANGUAGE, HIGHER CORTICAL FUNCTION: no aphasia but her voice is very weak. CRANIAL NERVES: Pupils are equal, round and reactive. EOMs full and conjugate. No nystagmus. Facial sensation intact in all three divisions bilaterally. Mandibular strength intact. Facial muscles symmetrical and strength intact. SENSATION: Sensation to touch and pinprick is normal. MOTOR: Normal tone in the upper and lower extremity. Normal muscle bulk. No fasciculations. No abnormal movements or posturing. She moves her arms and legs with possible left upper extremity drift REFLEXES: Deep tendon reflexes are symmetrical. No pathological reflexes. CEREBELLAR/COORDINATION: Deferred GAIT/STATION: deferred laboratory and microbiology Laboratory Tests 12/18/24 09:08 Test 12/18/24 09:08 Range/Units Serum Glucose 104 74-106 mg/dL Problem List Fall, left-sided weakness Rule out stroke Partial seizure Dementia, ? Alzheimer disease Assessment/Plan Monitoring Supportive treatment Telemetry Brilinta 60 mg q.d Aspirin 81 mg daily Lipitor 10 mg daily (LDL without statin: 05/2024: 83) Keppra 500mg bid, Lyrica 150mg bid Ativan for seizure breakthrough GI prophylaxis Up to chair Physical therapy Nephrology on case Okay to discharge from a neurologic point of view This medical document was created using an electronic medical record system with [employer] dictation system. Although this document has been carefully reviewed, there may still be some phonetic and typographical errors. These areas are purely typographical due to imperfections of the software programs, and do not reflect any compromise in the patient's medical care. Prognosis poor Plan discussed with: Other CORAL KABA MD Dec 18, 2024 21:18
== END 2024-12-18 23:49 | disposition home health service (06) | DRG 64 ==
LOC: EDBD 03:31 → ER 03:36 → OVERFLOW 07:43 → WEST WING 12:08 → TELE-WESTW 12-16 12:14
PROVIDERS: ADMIT Student in an Organized Health Care Education/Training Program; ATTEND Student in an Organized Health Care Education/Training Program
PROC: 5A1D70Z Performance of Urinary Filtration, Intermittent, Less than 6 Hours Per Day (ICD-10-PCS; principal; 2024-12-16)
PROC: 5A1D70Z Performance of Urinary Filtration, Intermittent, Less than 6 Hours Per Day (ICD-10-PCS; 2024-12-18)
DX: I63.9 Cerebral infarction, unspecified (principal); A41.9 Sepsis, unspecified organism; N18.6 End stage renal disease; J18.9 Pneumonia, unspecified organism; I50.32 Chronic diastolic (congestive) heart failure; I16.1 Hypertensive emergency; G81.94 Hemiplegia, unspecified affecting left nondominant side; I13.2 Hypertensive heart and chronic kidney disease with heart failure and with stage 5 chronic kidney disease, or end stage renal disease; E11.22 Type 2 diabetes mellitus with diabetic chronic kidney disease; G30.9 Alzheimer's disease, unspecified; D64.9 Anemia, unspecified; Z99.2 Dependence on renal dialysis; F02.80 Dementia in other diseases classified elsewhere, unspecified severity, without behavioral disturbance, psychotic disturbance, mood disturbance, and anxiety; I25.10 Atherosclerotic heart disease of native coronary artery without angina pectoris; E66.9 Obesity, unspecified; I27.20 Pulmonary hypertension, unspecified; G40.909 Epilepsy, unspecified, not intractable, without status epilepticus; E88.810 Metabolic syndrome; E78.5 Hyperlipidemia, unspecified; F17.200 Nicotine dependence, unspecified, uncomplicated; Z79.899 Other long term (current) drug therapy; Z90.710 Acquired absence of both cervix and uterus; Z95.5 Presence of coronary angioplasty implant and graft; Z90.49 Acquired absence of other specified parts of digestive tract; Z79.82 Long term (current) use of aspirin; Z79.4 Long term (current) use of insulin; Z83.3 Family history of diabetes mellitus; Z82.49 Family history of ischemic heart disease and other diseases of the circulatory system; Z68.29 Body mass index [BMI] 29.0-29.9, adult
CPT/HCPCS: 36415; 70450; 70551; 71045; 80048; 80053; 80061; 82962; 83036; 83735; 84443; 85025; 87081; 87340; 90935; 93005; 93306; 93970; 96374; 96375; 97110; 97116; 97163; G0378; J1642; J1815

== ENCOUNTER 2024-12-25 16:24 | Inpatient (IN) | payer OTHER, MEDICAID ==
[~2024-12-25] VITALS: Ht 154.9 cm; Wt 67.6 kg
[~2024-12-25 16:24] MED LIST changes: -METO-158 PO; +ROSU20TA14 PO
[2024-12-25 19:23] VITALS: BP 144/69; PULSE 76; RESP 18; TEMP 97.4; O2SAT 96
[2024-12-25 21:14] VITALS: PULSE 76; RESP 18; O2SAT 96
[2024-12-25] MEDS ORDERED: ACETAMINOPHEN 325 MG TAB PO PRN (22:45)
[2024-12-25] MEDS ORDERED: ONDANSETRON HCL 4 MG/2 ML VIAL IV PRN (22:45)
--- NOTE | 2024-12-25 22:57 | DVHHP2 ---
History of Present Illness Reason for Visit: Subdural hematoma History of Present Illness 79-year-old female being transferred in stable condition from [facility] for continuity of care and disposition. Patient presented to [facility] on 12/22/2024 for evaluation of altered level of consciousness. CT of the head revealed a left subdural hematoma. Patient was transferred for higher level of care to [facility]. Patient was evaluated by Neurosurgery who did not recommend any acute surgical intervention. Patient was medically managed. It was recommended patient to start antiplatelets/anticoagulants two weeks (01/05/2025) after stable CT of the head (12/23/2024). Patient does have left-sided deficits from recent CVA on 12/14/2024. Patient is a poor historian with history of dementia. Past Medical History CVA, hypertension, dementia, CAD, seizure, end-stage renal disease Past Surgical History Dialysis access, cholecystectomy, PTCA Family History Noncontributory Smoke: No ALCOHOL: none Drugs: None Lives: with Family Review of Systems Review of Systems Review of systems are currently negative otherwise addressed in HPI. Allergies: Coded Allergies: NO KNOWN ALLERGIES (Unverified , 01/14/22) Medications Current Medications Medications Dose Ordered Sig/Deepak Route Start Time Stop Time Status Last Admin Dose Admin Levetiracetam 1,000 mg BID PO 12/26/24 10:00 UNV Furosemide 40 mg DAILY PO 12/26/24 10:00 UNV Atorvastatin Calcium 20 mg HS PO 12/26/24 22:00 UNV Donepezil HCl 10 mg HS PO 12/26/24 22:00 UNV Nifedipine 90 mg DAILY PO 12/26/24 10:00 UNV Ondansetron HCl 4 mg Q4HP PRN IV 12/25/24 22:45 UNV Acetaminophen 650 mg Q6HP PRN PO 12/25/24 22:45 UNV Exam Vital Signs Vital Signs Date Time Temp Pulse Resp B/P (MAP) Pulse Ox O2 Delivery O2 Flow Rate FiO2 12/25/24 19:23 97.4 76 18 144/69 (94) 96 97.4 Exam Gen: 79-year-old female in mild distress Skin: Warm, dry, normal color and texture, no rash. HEENT: Normocephalic atraumatic, mucous membranes moist and pink. Neck: Cervical and supraclavicular nodes normal without enlargement, trachea is midline, thyroid gland is normal without masses. Pulmonary: Clear to auscultation and percussion bilaterally. Cardiac: Regular rate and rhythm. No murmur Abdomen: Soft, nontender, nondistended, bowel sounds present all 4 quadrants, no guarding, no rigidity, no organomegaly. Extremities: No cyanosis, clubbing, no edema Neuro: Left-sided deficits from previous CVA Labs/Xrays CT of the brain from outside facility 12/23/24 shows stable left subdural hematoma AGE / SEX: 79 / F ADM STATUS: ADM IN SERVICE 48 ORDERING PHYSICIAN: CORAL KABA MD PROCEDURE(s): MBHL - BRAIN HEAD WO CONTRAST REASON: CVA ORDER NUMBER(s): [id number], ACCESSION NUMBER(s): [id number] EXAMINATION: MRI BRAIN HEAD WO CONTRAST INDICATION: CVA COMPARISON: CT HEAD WITHOUT CONTRAST on DOS: 12/15/24, CT HEAD WITHOUT CONTRAST on DOS: 11/29/24, CT HEAD WITHOUT CONTRAST on DOS: 06/13/24, CT HEAD WITHOUT CONTRAST on DOS: 04/19/24, CT HEAD WITHOUT CONTRAST on DOS: 01/10/24 TECHNIQUE: Multiplanar, multisequence magnetic resonance imaging of the brain was performed without the use of intravenous contrast. FINDINGS: There is a punctate area of restricted diffusion within the right brainstem. There is periventricular/deep white matter T2/FLAIR hyperintensity is nonspecific, but most commonly associated with chronic microvascular disease. The ventricles and sulci are normal in size for age. Clear basal cisterns. Flow voids in the major intracranial vessels are maintained. No abnormality of the orbits. Paranasal sinuses and mastoid air cells are clear. No abnormality of the visualized osseous structures and extracranial soft tissues. IMPRESSION: 1. Acute right brainstem infarct, no evidence of acute bleed no significant edema IS Sepsis Screen Physician Orders Complete Blood Count (12/25/24 22:37) Comprehensive Metabolic Panel (12/25/24 22:37) Troponin-I Hs (12/25/24 22:37) Chest Xray 1 View (12/25/24 22:37) Pt Request For Service (12/25/24 22:40) Levetiracetam Tablet (Keppra Tablet) (12/26/24 10:00) Furosemide Tablet (Lasix Tablet) (12/26/24 10:00) Atorvastatin (Lipitor) (12/26/24 22:00) Donepezil Tablet (Aricept Tablet) (12/26/24 22:00) Nifedipine Er (Procardia Xl (Time-Releas (12/26/24 10:00) *[facility] (12/25/24 22:40) Admit (12/25/24 22:40) Ondansetron Hcl (Zofran) (12/25/24 22:45) Cardiac Diet-2gna,Lofat,Lochol (12/26/24 Breakfast) Condition: Stable (12/25/24 22:40) Acetaminophen Tablet (Tylenol Tablet) (12/25/24 22:45) Bedrest With Bathroom Privileg (12/25/24 22:40) Vital Signs Date Time Temp Pulse Resp B/P (MAP) Pulse Ox O2 Delivery O2 Flow Rate FiO2 12/25/24 19:23 97.4 76 18 144/69 (94) 96 97.4 Assessment/Plan Assessment/Plan Assessment Subdural hematoma, stable End-stage renal disease, dialysis dependent Hypertension CVA with left-sided deficits Dementia Plan Admit the patient to [facility] to the hospitalist Nephrology consultation Physical therapy eval Resume home medications except anticoagulants/antiplatelets Continue treatment per orders. Plan discussed with: Patient My Orders Orders - ARIANNE ROGERCNWilfredo Procedure Category Date Status Time Complete Blood Count LAB 12/25/24 Logged 22:37 Comprehensive LAB 12/25/24 Logged Metabolic Panel 22:37 Troponin-I Hs LAB 12/25/24 Logged 22:37 Chest Xray 1 View XY 12/25/24 Logged 22:37 Pt Request For Service PT 12/25/24 Logged 22:40 Levetiracetam Tablet PHA 12/26/24 Logged (Keppra Tablet) 10:00 Furosemide Tablet PHA 12/26/24 Logged (Lasix Tablet) 10:00 Atorvastatin (Lipitor) PHA 12/26/24 Logged 22:00 Donepezil Tablet PHA 10/1/25 Logged (Aricept Tablet) 22:00 Nifedipine Er PHA 12/26/24 Transmitted (Procardia Xl 10:00 *[facility] CONS 12/25/24 Transmitted -[place] 22:40 Admit ADMIT 12/25/24 Transmitted 22:40 Ondansetron Hcl PHA 12/25/24 Transmitted (Zofran) 22:45 Cardiac DIET 12/26/24 Transmitted Diet-2gna,Lofat,Lochol Breakfast Condition: Stable ZEKE 12/25/24 In Process 22:40 Acetaminophen Tablet PHA 12/25/24 Transmitted (Tylenol Tablet) 22:45 Bedrest With Bathroom ZEKE 12/25/24 In Process Privileg 22:40 Date of Service: Dec 25, 2024 Billing Provider: ARIANNE ROGER Common Visit Codes: [id number] INP/OBS CARE (HIGH) ARIANNE ROGER Dec 25, 2024 22:57
[2024-12-25 23:49] VITALS: BP 138/71; PULSE 78; RESP 18; TEMP 98; O2SAT 98
[2024-12-25 23:54] LABS: Hematocrit 31.0 % (36.0-46.0); Hemoglobin 10.2 g/dL (12.2-16.2); Mean Corpuscular Hemoglobin 30.2 pg (28.0-32.0); Mean Corpuscular Volume 92.1 fL (80.0-100.0); Nucleated Red Blood Cells % 0.1 %
[2024-12-26] VITALS (7 sets, daily range): BP systolic 131–154; BP diastolic 61–90; PULSE 71–79; RESP 16–19; TEMP 97–97.6; O2SAT 96–99
[2024-12-26 00:10] LABS: Albumin 4.4 g/dL (3.2-4.8); Anion Gap 12 (5-15); BUN/Creatinine Ratio 4.6 (10.0-20.0); Blood Urea Nitrogen 14 mg/dL (9-23); Calcium 9.5 mg/dL (8.7-10.4); Carbon Dioxide 24 mmol/L (20-31); Chloride 100 mmol/L (98-107); Potassium 4.6 mmol/L (3.5-5.1); Total Protein 7.9 g/dL (5.7-8.2)
[2024-12-26 00:11] LABS: Bilirubin, Total 0.4 mg/dL (0.2-1.0)
[2024-12-26 00:15] LABS: Alanine Aminotransferase < 9 U/L (7-40); Alkaline Phosphatase 158 U/L (46-116); Glucose 128 mg/dL (74-106); Sodium 136 mmol/L (136-145)
--- NOTE | 2024-12-26 05:14 | DVH ---
CHEST RADIOGRAPH Indication: sob Technique: Single frontal view of the chest was obtained COMPARISON: XY CHEST XRAY 1 VIEW on DOS: 12/15/24, XY CHEST PORTABLE on DOS: 11/29/24, XY CHEST XRAY 1 V IEW on DOS: 08/17/24, XY CHEST XRAY 1 VIEW on DOS: 06/12/24, XY CHEST XRAY 1 VIEW on DOS: 04/19/24 FINDINGS: Lines and Tubes: Tunneled right central venous catheter in satisfactory position Lungs: Mild congestion Pleura: No effusion. No pneumothorax. Cardiomediastinal contours: Unremarkable Bones: Unremarkable IMPRESSION: No significant interval change.
[2024-12-26] MEDS: levETIRAcetam 500 MG TAB PO SCH (10:27)
[2024-12-26] MEDS: FUROSEMIDE 40 MG TAB PO SCH (10:27)
--- NOTE | 2024-12-26 13:21 | DVHPN2 ---
Reviewed: Care Plan, H&P, Labs, Medications, Previous Orders Changes from previous H/P or p: No Changes General: Per HPI Objective Vitals Vital Signs Date Time Temp Pulse Resp B/P (MAP) Pulse Ox O2 Delivery O2 Flow Rate FiO2 12/26/24 10:27 149/90 12/26/24 08:52 97.0 74 19 96 97.0 12/25/24 21:14 Room Air* 0 21 Intake/Output Intake and Output 12/26/24 07:00 Intake Total 0 ml Balance 0 ml Intake Oral 0 ml Medications Current Medications Medications Dose Ordered Sig/Deepak Route Start Time Stop Time Status Last Admin Dose Admin Levetiracetam 1,000 mg BID PO 12/26/24 10:00 12/26/24 10:27 1,000 MG Furosemide 40 mg DAILY PO 12/26/24 10:00 12/26/24 10:27 40 MG Atorvastatin Calcium 20 mg HS PO 12/26/24 22:00 Donepezil HCl 10 mg HS PO 12/26/24 22:00 Nifedipine 90 mg DAILY PO 12/26/24 10:00 12/26/24 10:27 90 MG Ondansetron HCl 4 mg Q4HP PRN IV 12/25/24 22:45 Acetaminophen 650 mg Q6HP PRN PO 12/25/24 22:45 Laboratory Results Laboratory Tests 12/25/24 23:43 Chemistry Test 12/25/24 23:43 Albumin 4.4 g/dL (3.2-4.8) Calcium Level 9.5 mg/dL (8.7-10.4) Total Protein 7.9 g/dL (5.7-8.2) LFT Test 12/25/24 23:43 Alanine Aminotransferase (ALT) < 9 U/L (7-40) Alkaline Phosphatase 158 U/L (46-116) H Aspartate Amino Transferase (AST) 15 U/L (13-40) Total Bilirubin 0.4 mg/dL (0.2-1.0) Assessment/Plan Assessment/Plan 79-year-old female being transferred in stable condition from [facility] for continuity of care and disposition. Patient presented to [facility] on 12/22/2024 for evaluation of altered level of consciousness. CT of the head revealed a left subdural hematoma. Patient was transferred for higher level of care to [facility]. Patient was evaluated by Neurosurgery who did not recommend any acute surgical intervention. Patient was medically managed. It was recommended patient to start antiplatelets/anticoagulants two weeks (01/05/2025) after stable CT of the head (12/23/2024). Patient does have left-sided deficits from recent CVA on 12/14/2024. Patient is a poor historian with history of dementia. Assessment Subdural hematoma, stable End-stage renal disease, dialysis dependent Hypertension CVA with left-sided deficits Dementia weakness Plan Admit the patient to [facility] to the hospitalist Nephrology consultation Physical therapy eval Resume home medications except anticoagulants/antiplatelets Continue treatment per orders. 12/26/2024: pt is still weak, repeat an MRI of brain Plan discussed with: Patient Date of Service: Dec 26, 2024 Billing Provider: CLEMENTINE TURNER DO Common Visit Codes: [id number] INP/OBS CARE(HIGH) CLEMENTINE TURNER DO Dec 26, 2024 13:21
--- NOTE | 2024-12-26 16:01 | DVHCONRES ---
Date Seen: Dec 26, 2024 Resident Creating Document: LOIS SUN RESIDENT Referring Physician JEF Mcdowell Reason for Consultation ESRD on hemodialysis History of Present Illness 79-year-old female past medical history of CVA with left-sided deficit, hypertension, dementia, CAD, seizure, end-stage renal disease on hemodialysis 3 times a week being transferred in stable condition from [facility] for continuity of care and disposition. Patient presented to [facility] on 12/22/2024 for evaluation of altered level of consciousness. CT of the head revealed a left subdural hematoma. Patient was transferred for higher level of care to [facility]. Patient was evaluated by Neurosurgery who did not recommend any acute surgical intervention. Patient was medically managed. It was recommended to start antiplatelets/anticoagulants two weeks (01/05/2025) after stable CT of the head (12/23/2024). Patient does have left-sided deficits from recent CVA on 12/14/2024. Patient is a poor historian with history of dementia. Patient was seen and examined on the bedside. She is alert oriented x3. Mentioned feeling better and no other active complaint this time. Past Medical History CVA, hypertension, dementia, CAD, seizure, end-stage renal disease on hemodialysis Past Surgical History Dialysis access, cholecystectomy, PTCA Family History: Diabetes mellitus G8 MOTHER Hypertension G8 FATHER Allergies: Coded Allergies: NO KNOWN ALLERGIES (Unverified , 01/14/22) Home Meds Active Scripts Rosuvastatin Calcium (Crestor) 20 Mg Tab, 0.5 TAB PO DAILY for 30 Days, #30 TAB 0 Refills Prov:FRANCA SLADE MD 12/18/24 Ergocalciferol (VITAMIN D 20729 UNIT) 50,000 [place], [address] UNIT PO Q7D for 90 Days, #12 CAP Prov:RUCHI TORREZ RESIDENT 06/15/24 Calcitriol (Calcitriol) 0.25 Mcg Cap, 0.25 MCG PO DAILY for 30 Days, #30 CAP 2 Refills Prov:RAMSES HERNANDES RESIDENT 01/13/24 Nifedipine (Nifedipine Er) 90 Mg Tab, 90 MG PO DAILY for 30 Days, #30 TAB 3 Refills Prov:ARIANNE RIZO MD 10/05/23 Reported Medications Furosemide (Furosemide) 40 Mg Tab, 1 TAB PO DAILY for 30 Days, #60 06/14/24 Aspirin (Aspirin Low Dose) 81 Mg Chw, 1 TAB PO DAILY for 90 Days, #90 06/14/24 Levetiracetam (Keppra) 500 Mg Tab, 1 TAB PO BID for 90 Days, #180 06/14/24 Lidocaine (Lidocaine Patch 5%) 5 % Pad, 1 PATCH TOP DAILY for 90 Days, #90 APPLY ONE PATCH TOPICALLY TO CLEAN, DRY SKIN. LEAVE ON FOR 12 HOURS THEN REMOVE. MUST WAIT AT LEAST 12 HOURS BEFORE APPLYING PATCH(ES) AGAIN. 10/03/23 Insulin Glargine (Lantus Solostar) 100 Unit/Ml Inj, 20 UNIT SC DAILY for 75 Days, #15 10/03/23 Ticagrelor Base (Brilinta) 60 Mg Tab, 1 TAB PO DAILY for 90 Days, #90 10/03/23 Pregabalin (Lyrica) 150 Mg Cap, 1 CAP PO BID for 90 Days, #180 10/02/23 Donepezil Hydrochloride (Aricept) 10 Mg Tab, 1 TAB PO QPM for 100 Days, #100 01/17/22 Current Medications Current Medications Medications (Trade) Dose Ordered Sig/Deepak Route PRN Reason Start Time Stop Time Status Last Admin Levetiracetam (Keppra Tablet) 1,000 mg BID PO 12/26/24 10:00 12/26/24 10:27 Furosemide (Lasix Tablet) 40 mg DAILY PO 12/26/24 10:00 12/26/24 10:27 Atorvastatin Calcium (Lipitor) 20 mg HS PO 12/26/24 22:00 Donepezil HCl (Aricept Tablet) 10 mg HS PO 12/26/24 22:00 Nifedipine (Procardia Xl (Time-Release)) 90 mg DAILY PO 12/26/24 10:00 12/26/24 10:27 Ondansetron HCl (Zofran) 4 mg Q4HP PRN IV NAUSEA / VOMITING 12/25/24 22:45 Acetaminophen (Tylenol Tablet) 650 mg Q6HP PRN PO PAIN SCALE 1-3 OR TEMP>100.4 12/25/24 22:45 Review of Systems Constitutional: No: Fever, Chills, Sweats, Weakness, Malaise, Other Eyes: No: Pain, Vision change, Conjunctivae inflammation, Eyelid inflammation, Other, Redness ENT: No: Ear pain, Ear discharge, Nose pain, Nose discharge, Nose congestion, Mouth pain, Mouth swelling, Throat pain, Throat swelling, Other Respiratory: Shortness of breath, improving No: Cough, Dry,Wheezing, Hemoptysis, Pleuritic Pain, Sputum, Wheezing, Other Cardiovascular: No: Chest Pain, Palpitations, Orthopnea, Paroxysmal Noc. Dyspnea, Edema, Lt Headedness, Other Gastrointestinal: No: Nausea, Vomiting, Abdominal Pain, Diarrhea, Constipation, Melena, Hematochezia, Other Musculoskeletal: No: other, neck pain, shoulder pain, arm pain, back pain, hand pain, leg pain, foot pain Neurological:; Left sided weakness, No Numbness, Incoordination, Change in speech, Confusion, Seizures Vital Signs Vital Signs Date Time Temp Pulse Resp B/P (MAP) Pulse Ox O2 Delivery O2 Flow Rate FiO2 12/26/24 13:30 97.6 71 17 154/84 (107) 98 97.6 12/25/24 21:14 Room Air* 0 21 Physical Exam Physical examination: General Appearance: Alert, Oriented X3, Cooperative, No acute distress HEENT: Atraumatic, PERRLA, EOMI, Mucous membrane moist/pink Respiratory: Clear to auscultation, Normal air movement Cardiovascular: Regular rate, Normal S1, Normal S2, No murmurs, no chest wall tenderness Abdominal: Normal bowel sounds, Soft, No tenderness, No hepatospenomegaly, No masses Extremities: No clubbing, No cyanosis, No edema, Normal pulses, No tenderness/swelling Skin: No rashes, No breakdown, No significant lesion Neuro: Left sided weakness, Normal speech, Strength at 5/5 X2 ext, Normal tone, Sensation intact, grossly intact cranial nerves. Psych/Mental Status: Mental status NL, Mood NL Labs/Diagnostic Data Labs Test 12/25/24 23:43 Range/Units White Blood Count 10.8 4.4-10.8 10^3/uL Red Blood Count 3.37 L 4.0-5.20 10^6/uL Hemoglobin 10.2 L 12.2-16.2 g/dL Hematocrit 31.0 L 36.0-46.0 % Mean Corpuscular Volume 92.1 80.0-100.0 fL Mean Corpuscular Hemoglobin 30.2 28.0-32.0 pg Mean Corpuscular Hemoglobin Concent 32.9 32.0-36.0 g/dL Red Cell Distribution Width 14.3 11.8-14.3 % Platelet Count 201 140-450 10^3/uL Mean Platelet Volume 7.6 6.9-10.8 fL Neutrophils (%) (Auto) 63.4 37.0-80.0 % Lymphocytes (%) (Auto) 26.7 10.0-50.0 % Monocytes (%) (Auto) 8.6 0.0-12.0 % Eosinophils (%) (Auto) 1.1 0.0-7.0 % Basophils (%) (Auto) 0.2 0.0-2.0 % Neutrophils # (Auto) 6.8 1.6-8.6 10 ^3/uL Lymphocytes # (Auto) 2.9 0.4-5.4 10 ^3/uL Monocytes # (Auto) 0.9 0-1.3 10 ^3/uL Eosinophils # (Auto) 0.1 0-0.8 10 ^3/uL Basophils # (Auto) 0 0-0.2 10 ^3/uL Nucleated Red Blood Cells 0.1 % Sodium Level 136 136-145 mmol/L Potassium Level 4.6 3.5-5.1 mmol/L Chloride Level 100 98-107 mmol/L Carbon Dioxide Level 24 20-31 mmol/L Anion Gap 12 5-15 Blood Urea Nitrogen 14 9-23 mg/dL Creatinine 3.07 H 0.550-1.02 mg/dL Glomerular Filtration Rate Calc 15 >90 mL/min BUN/Creatinine Ratio 4.6 L 10.0-20.0 Serum Glucose 128 H 74-106 mg/dL Calcium Level 9.5 8.7-10.4 mg/dL Total Bilirubin 0.4 0.2-1.0 mg/dL Aspartate Amino Transferase (AST) 15 13-40 U/L Alanine Aminotransferase (ALT) < 9 7-40 U/L Alkaline Phosphatase 158 H 46-116 U/L Troponin I High Sensitivity 8 </=34 ng/L Total Protein 7.9 5.7-8.2 g/dL Albumin 4.4 3.2-4.8 g/dL Microbiology Date/Time Source Procedure Growth Status 12/25/24 01:13 Nose MRSA Screen - Final Complete Assessment Assessment and plan: # ESRD on hemodialysis # Subdural hematoma # Recent CVA with left-sided deficit # Essential hypertension Plan: - Scheduled for hemodialysis tomorrow - Continue antihypertensives for optimal control of blood pressure - Other management as per primary - Strict I&O - Monitor BMP Thank you so much for the opportunity to consult on your patient. Nephro team will follow the patient. In case of any questions or concerns please feel free to reach out. Plan discussed with . The patient and caregiver team agreed to the plan. Addendum Patient seen and examined, plan discussed with resident. Agree with above, we will follow closely Plan discussed with: Patient, Other (RN) LOIS SUN RESIDENT Dec 26, 2024 16:01 TIFF CLARK MD Dec 27, 2024 10:25
[2024-12-26] MEDS: ATORVASTATIN 20 MG TAB PO SCH (21:27)
[2024-12-26] MEDS: DONEPEZIL HYDROCHLORIDE 5 MG TAB PO SCH (21:27)
[2024-12-27 01:00] VITALS: BP 141/75; PULSE 77; RESP 14; TEMP 98; O2SAT 95
[2024-12-27 05:00] VITALS: BP 150/81; PULSE 71; RESP 16; TEMP 97.9; O2SAT 96
[2024-12-27 09:00] VITALS: BP 142/85; PULSE 74; RESP 17; TEMP 98.6; O2SAT 96
[2024-12-27 09:44] LABS: Chloride 102 mmol/L (98-107); Potassium 4.3 mmol/L (3.5-5.1); Sodium 137 mmol/L (136-145)
[2024-12-27 09:45] LABS: Anion Gap 10 (5-15); Carbon Dioxide 25 mmol/L (20-31)
[2024-12-27 09:46] LABS: Calcium 9.3 mg/dL (8.7-10.4)
[2024-12-27 09:51] LABS: BUN/Creatinine Ratio 6.8 (10.0-20.0)
[2024-12-27 09:52] LABS: Blood Urea Nitrogen 30 mg/dL (9-23); Glucose 148 mg/dL (74-106)
[2024-12-27] MEDS ORDERED: SODIUM CHL 0.9% 1000 ML BAG XX ONE (10:30)
[2024-12-27 13:00] VITALS: BP 156/79; PULSE 65; RESP 16; TEMP 98.5; O2SAT 95
--- NOTE | 2024-12-27 14:46 | DVHPN2 ---
Reviewed: Care Plan, H&P, Labs, Medications, Previous Orders Changes from previous H/P or p: No Changes General: Per HPI Objective Vitals Vital Signs Date Time Temp Pulse Resp B/P (MAP) Pulse Ox O2 Delivery O2 Flow Rate FiO2 12/27/24 13:00 98.5 65 16 156/79 (104) 95 98.5 12/27/24 08:00 Room Air* 0 21 Intake/Output Intake and Output 12/27/24 07:00 Intake Total 1880 ml Output Total 1650 ml Balance 230 ml Intake Oral 1880 ml Output Urine Total 1650 ml Medications Current Medications Medications Dose Ordered Sig/Deepak Route Start Time Stop Time Status Last Admin Dose Admin Levetiracetam 1,000 mg BID PO 12/26/24 10:00 12/27/24 08:49 1,000 MG Furosemide 40 mg DAILY PO 12/26/24 10:00 12/26/24 10:27 40 MG Atorvastatin Calcium 20 mg HS PO 12/26/24 22:00 12/26/24 21:27 20 MG Donepezil HCl 10 mg HS PO 12/26/24 22:00 12/26/24 21:27 10 MG Nifedipine 90 mg DAILY PO 12/26/24 10:00 12/26/24 10:27 90 MG Ondansetron HCl 4 mg Q4HP PRN IV 12/25/24 22:45 Acetaminophen 650 mg Q6HP PRN PO 12/25/24 22:45 Laboratory Results Laboratory Tests 12/25/24 23:43 12/27/24 08:46 Chemistry Test 12/26/24 16:15 12/27/24 08:46 Phosphorus Level 4.1 mg/dL (2.4-5.1) Calcium Level 9.3 mg/dL (8.7-10.4) Microbiology Microbiology Date/Time Source Procedure Growth Status 12/25/24 01:13 Nose MRSA Screen - Final Complete Assessment/Plan Assessment/Plan 79-year-old female being transferred in stable condition from [facility] for continuity of care and disposition. Patient presented to [facility] on 12/22/2024 for evaluation of altered level of consciousness. CT of the head revealed a left subdural hematoma. Patient was transferred for higher level of care to [facility]. Patient was evaluated by Neurosurgery who did not recommend any acute surgical intervention. Patient was medically managed. It was recommended patient to start antiplatelets/anticoagulants two weeks (01/05/2025) after stable CT of the head (12/23/2024). Patient does have left-sided deficits from recent CVA on 12/14/2024. Patient is a poor historian with history of dementia. Assessment Subdural hematoma, stable End-stage renal disease, dialysis dependent Hypertension CVA with left-sided deficits Dementia weakness Plan Admit the patient to [facility] to the hospitalist Nephrology consultation Physical therapy eval Resume home medications except anticoagulants/antiplatelets Continue treatment per orders. 12/26/2024: pt is still weak, repeat an MRI of brain 12/27/2024: MRI of brain pending. Pt able to do PT without issues Plan discussed with: Patient My Orders Orders - CLEMENTINE TURNER DO Procedure Category Date Status Time Brain Head Wo Contrast MRI 12/27/24 Logged 14:08 Date of Service: Dec 27, 2024 Billing Provider: CLEMENTINE TURNER DO Common Visit Codes: [id number] INP/OBS CARE(HIGH) CLEMENTINE TURNER DO Dec 27, 2024 14:46
--- NOTE | 2024-12-27 15:17 | DVH ---
PROCEDURE: MRI BRAIN HEAD WO CONTRAST Indication: recheck on subdural COMPARISON: MRI BRAIN HEAD WO CONTRAST on DOS: 12/16/24, BRAIN HEAD WO CONTRAST on DOS: 01/15/22 TECHNIQUE: Multiplanar multisequence images of the brain are obtained. FINDINGS: Right pontine diffusion restriction measuring 8 mm, similar to prior. Left whole hemispheric subdural hematoma measuring up to 5 mm in thickness most pronounced over the l eft parietal/occipital lobes. The hematoma extends along the posterior falx measuring 2 mm in thickne ss. Along the left middle cranial fossa of the subdural hematoma measures 3 mm in thickness. There is mild crowding of the underlying cerebral sulci. No midline shift. Small right frontal subdural hematoma measuring 3 mm in thickness. Right infra tentorial subdural hem atoma measuring 4 mm in thickness. [id number] periventricular and subcortical white matter T2 and FLAIR hyperintense changes. Mild global cerebral volume loss. The ventricles are midline and normal in size. The cisterns are patent . Intracranial flow voids are preserved Mucosal thickening of the left maxillary sinus. Orbits and retrobulbar spaces unremarkable. IMPRESSION: Acute/subacute infarction within the right andi measuring 8 mm similar to prior. There are bilateral subdural hematomas. The most pronounced is a left holo hemispheric subdural monica monica measuring up to 5 mm in thickness which extends most prominently over the left parietal/ occipit al lobes. There is underlying crowding of the cerebral sulci within the left posterior parietal and occipital lobe but no significant midline shift. Subdural hematomas along the right frontal lobe, infratentorial regions as described above. [id number] chronic microvascular ischemic changes. Mild global cerebral volume loss.
[2024-12-27 17:00] VITALS: BP 134/71; PULSE 75; RESP 16; TEMP 98.7; O2SAT 97
--- NOTE | 2024-12-27 18:24 | DVHPN2 ---
Progress Note Date Seen: Dec 27, 2024 Resident Creating Document: LOIS SUN RESIDENT Medical Necessity Reason Pt with a Central, PICC or Fol: No Subjective Review of Systems Patient was seen and examined on the bedside. She is alert oriented x3. Complaint of pain in the back of the head and no other active complaint Objective vital signs Vital Sign Date Time Temp Pulse Resp B/P (MAP) Pulse Ox O2 Delivery O2 Flow Rate FiO2 12/27/24 17:00 98.7 75 16 134/71 (92) 97 98.7 12/27/24 08:00 Room Air* 0 21 Total Intake and Output 12/26/24 12/26/24 12/27/24 15:00 23:00 07:00 Intake Total 1000 ml 880 ml Output Total 500 ml 1150 ml Balance 500 ml -270 ml medications Current Medications Medications Dose Ordered Sig/Deepak Route Start Time Stop Time Status Last Admin Dose Admin Levetiracetam 1,000 mg BID PO 12/26/24 10:00 12/27/24 08:49 1,000 MG Furosemide 40 mg DAILY PO 12/26/24 10:00 12/27/24 15:05 40 MG Atorvastatin Calcium 20 mg HS PO 12/26/24 22:00 12/26/24 21:27 20 MG Donepezil HCl 10 mg HS PO 12/26/24 22:00 12/26/24 21:27 10 MG Nifedipine 90 mg DAILY PO 12/26/24 10:00 12/27/24 15:05 90 MG Ondansetron HCl 4 mg Q4HP PRN IV 12/25/24 22:45 Acetaminophen 650 mg Q6HP PRN PO 12/25/24 22:45 Examination Physical examination: General Appearance: Alert, Oriented X3, Cooperative, No acute distress HEENT: Atraumatic, PERRLA, EOMI, Mucous membrane moist/pink Respiratory: Clear to auscultation, Normal air movement Cardiovascular: Regular rate, Normal S1, Normal S2, No murmurs, no chest wall tenderness Abdominal: Normal bowel sounds, Soft, No tenderness, No hepatospenomegaly, No masses Extremities: No clubbing, No cyanosis, No edema, Normal pulses, No tenderness/swelling Skin: No rashes, No breakdown, No significant lesion Neuro: Left sided weakness, Normal speech, Strength at 5/5 X2 ext, Normal tone, Sensation intact, grossly intact cranial nerves. Psych/Mental Status: Mental status NL, Mood NL laboratory and microbiology Laboratory Tests 12/27/24 08:46 12/25/24 23:43 Test 12/27/24 08:46 Range/Units Serum Glucose 148 H 74-106 mg/dL Microbiology Date/Time Source Procedure Growth Status 12/25/24 01:13 Nose MRSA Screen - Final Complete Labs and/or images reviewed: Labs reviewed by me, Image(s) reviewed by me Problem List/Assessment/Plan Problem List/Assessment/Plan Assessment and plan: # ESRD on hemodialysis # Subdural hematoma # Recent CVA with left-sided deficit # Essential hypertension Plan: - Hemodialysis today - Continue antihypertensives for optimal control of blood pressure - Other management as per primary - Strict I&O - Monitor BMP Thank you so much for the opportunity to consult on your patient. Nephro team will follow the patient. In case of any questions or concerns please feel free to reach out. Plan discussed with . The patient and caregiver team agreed to the plan. Addendum Patient seen and examined, plan discussed with resident. Agree with above, we will follow closely Plan discussed with: Patient, Other (RN) LOIS SUN RESIDENT Dec 27, 2024 18:24 TIFF CLARK MD Dec 27, 2024 22:47
[2024-12-27 21:00] VITALS: BP 103/53; PULSE 63; RESP 17; TEMP 97.8; O2SAT 98
[2024-12-27] MEDS: EPOETIN ALFA-EPBX 4,000 UNIT/ML VIAL SC ONE (22:21)
[2024-12-28 01:00] VITALS: BP 146/73; PULSE 81; RESP 17; TEMP 98.5; O2SAT 97
[2024-12-28 05:00] VITALS: BP 144/81; PULSE 89; RESP 16; TEMP 99; O2SAT 97
[2024-12-28 06:55] LABS: Anion Gap 12 (5-15); Carbon Dioxide 27 mmol/L (20-31); Chloride 102 mmol/L (98-107); Potassium 4.3 mmol/L (3.5-5.1); Sodium 141 mmol/L (136-145)
[2024-12-28 06:57] LABS: Calcium 9.2 mg/dL (8.7-10.4)
[2024-12-28 07:02] LABS: BUN/Creatinine Ratio 5.7 (10.0-20.0); Blood Urea Nitrogen 17 mg/dL (9-23)
[2024-12-28 07:03] LABS: Glucose 130 mg/dL (74-106)
[2024-12-28 09:00] VITALS: BP 156/81; PULSE 82; RESP 18; TEMP 98.6; O2SAT 97
[2024-12-28 13:25] VITALS: BP 132/57; PULSE 80; RESP 18; TEMP 97.5; O2SAT 100
--- NOTE | 2024-12-28 13:59 | DVHPN2 ---
Progress Note Date Seen: Dec 28, 2024 Resident Creating Document: LOIS SUN RESIDENT Medical Necessity Reason Pt with a Central, PICC or Fol: No Subjective Review of Systems Patient was seen and examined on the bedside. She is alert oriented x3. Complaint of pain in the back of the head and no other active complaint Objective vital signs Vital Sign Date Time Temp Pulse Resp B/P (MAP) Pulse Ox O2 Delivery O2 Flow Rate FiO2 12/28/24 13:25 97.5 80 18 132/57 (82) 100 97.5 12/28/24 08:00 Room Air* 0 21 Total Intake and Output 12/27/24 12/27/24 12/28/24 15:00 23:00 07:00 Intake Total 1000 ml 760 ml Output Total 800 ml Balance 200 ml 760 ml medications Current Medications Medications Dose Ordered Sig/Deepak Route Start Time Stop Time Status Last Admin Dose Admin Levetiracetam 1,000 mg BID PO 12/26/24 10:00 12/28/24 09:01 1,000 MG Furosemide 40 mg DAILY PO 12/26/24 10:00 12/28/24 09:01 40 MG Atorvastatin Calcium 20 mg HS PO 12/26/24 22:00 12/27/24 22:21 20 MG Donepezil HCl 10 mg HS PO 12/26/24 22:00 12/27/24 22:21 10 MG Nifedipine 90 mg DAILY PO 12/26/24 10:00 12/28/24 09:02 90 MG Ondansetron HCl 4 mg Q4HP PRN IV 12/25/24 22:45 Acetaminophen 650 mg Q6HP PRN PO 12/25/24 22:45 Examination Physical examination: General Appearance: Alert, Oriented X3, Cooperative, No acute distress HEENT: Atraumatic, PERRLA, EOMI, Mucous membrane moist/pink Respiratory: Clear to auscultation, Normal air movement Cardiovascular: Regular rate, Normal S1, Normal S2, No murmurs, no chest wall tenderness Abdominal: Normal bowel sounds, Soft, No tenderness, No hepatospenomegaly, No masses Extremities: No clubbing, No cyanosis, No edema, Normal pulses, No tenderness/swelling Skin: No rashes, No breakdown, No significant lesion Neuro: Left sided weakness, Normal speech, Strength at 5/5 X2 ext, Normal tone, Sensation intact, grossly intact cranial nerves. Psych/Mental Status: Mental status NL, Mood NL laboratory and microbiology Laboratory Tests 12/28/24 05:46 12/25/24 23:43 Test 12/28/24 05:46 Range/Units Serum Glucose 130 H 74-106 mg/dL Microbiology Date/Time Source Procedure Growth Status 12/25/24 01:13 Nose MRSA Screen - Final Complete Labs and/or images reviewed: Labs reviewed by me, Image(s) reviewed by me Problem List/Assessment/Plan Problem List/Assessment/Plan Assessment and plan: # ESRD on hemodialysis # Subdural hematoma # Recent CVA with left-sided deficit # Essential hypertension Plan: - Hemodialysis yesterday. - Continue antihypertensives for optimal control of blood pressure - Other management as per primary - Strict I&O - Monitor BMP Thank you so much for the opportunity to consult on your patient. Nephro team will follow the patient. In case of any questions or concerns please feel free to reach out. Plan discussed with . The patient and caregiver team agreed to the plan. Plan discussed with: Patient, Other LOIS SUN RESIDENT Dec 28, 2024 13:59
--- NOTE | 2024-12-28 14:48 | DVHPN2 ---
Reviewed: Care Plan, H&P, Labs, Medications, Previous Orders Changes from previous H/P or p: No Changes General: Per HPI Objective Vitals Vital Signs Date Time Temp Pulse Resp B/P (MAP) Pulse Ox O2 Delivery O2 Flow Rate FiO2 12/28/24 13:25 97.5 80 18 132/57 (82) 100 97.5 12/28/24 08:00 Room Air* 0 21 Intake/Output Intake and Output 12/28/24 07:00 Intake Total 1760 ml Output Total 800 ml Balance 960 ml Intake Oral 1760 ml Output Urine Total 800 ml # Voids 4 General Appearance: Alert, Oriented X3, Cooperative, No acute distress HEENT: Atraumatic Lungs: Clear to auscultation Chest/Breasts: Lumps Cardiovascular: Normal S1, Normal S2 Medications Current Medications Medications Dose Ordered Sig/Deepak Route Start Time Stop Time Status Last Admin Dose Admin Levetiracetam 1,000 mg BID PO 12/26/24 10:00 12/28/24 09:01 1,000 MG Furosemide 40 mg DAILY PO 12/26/24 10:00 12/28/24 09:01 40 MG Atorvastatin Calcium 20 mg HS PO 12/26/24 22:00 12/27/24 22:21 20 MG Donepezil HCl 10 mg HS PO 12/26/24 22:00 12/27/24 22:21 10 MG Nifedipine 90 mg DAILY PO 12/26/24 10:00 12/28/24 09:02 90 MG Ondansetron HCl 4 mg Q4HP PRN IV 12/25/24 22:45 Acetaminophen 650 mg Q6HP PRN PO 12/25/24 22:45 Laboratory Results Laboratory Tests 12/25/24 23:43 12/28/24 05:46 Chemistry Test 12/28/24 05:46 Calcium Level 9.2 mg/dL (8.7-10.4) Microbiology Microbiology Date/Time Source Procedure Growth Status 12/25/24 01:13 Nose MRSA Screen - Final Complete Labs and/or images reviewed: Labs reviewed by me, Image(s) reviewed by me Assessment/Plan Assessment/Plan 79-year-old female being transferred in stable condition from [facility] for continuity of care and disposition. Patient presented to [facility] on 12/22/2024 for evaluation of altered level of consciousness. CT of the head revealed a left subdural hematoma. Patient was transferred for higher level of care to [facility]. Patient was evaluated by Neurosurgery who did not recommend any acute surgical intervention. Patient was medically managed. It was recommended patient to start antiplatelets/anticoagulants two weeks (01/05/2025) after stable CT of the head (12/23/2024). Patient does have left-sided deficits from recent CVA on 12/14/2024. Patient is a poor historian with history of dementia. Assessment Subdural hematoma, stable End-stage renal disease, dialysis dependent Hypertension CVA with left-sided deficits Dementia weakness Plan Admit the patient to [facility] to the hospitalist Nephrology consultation Physical therapy eval Resume home medications except anticoagulants/antiplatelets Continue treatment per orders. 12/26/2024: pt is still weak, repeat an MRI of brain 12/27/2024: MRI of brain pending. Pt able to do PT without issues 12/28/2024: PT recommends SNF, request SNF for PT/OT Plan discussed with: Patient Date of Service: Dec 28, 2024 Billing Provider: CLEMENTINE TURNER DO Common Visit Codes: [id number] INP/OBS CARE(HIGH) CLEMENTINE TURNER DO Dec 28, 2024 14:48
--- NOTE | 2024-12-28 16:40 | DVHDS2 ---
Discharge Summary Date of Admission Dec 25, 2024 at 19:30 Date of Discharge: Dec 28, 2024 Labs/Diagnostic Data: Laboratory Results Test 12/28/24 05:46 12/26/24 16:15 12/25/24 23:43 Sodium Level 141 mmol/L (136-145) Potassium Level 4.3 mmol/L (3.5-5.1) Chloride Level 102 mmol/L (98-107) Carbon Dioxide Level 27 mmol/L (20-31) Anion Gap 12 (5-15) Blood Urea Nitrogen 17 mg/dL (9-23) Creatinine 2.98 mg/dL (0.550-1.02) Glomerular Filtration Rate Calc 15 mL/min (>90) BUN/Creatinine Ratio 5.7 (10.0-20.0) Serum Glucose 130 mg/dL (74-106) Calcium Level 9.2 mg/dL (8.7-10.4) Phosphorus Level 4.1 mg/dL (2.4-5.1) White Blood Count 10.8 10^3/uL (4.4-10.8) Red Blood Count 3.37 10^6/uL (4.0-5.20) Hemoglobin 10.2 g/dL (12.2-16.2) Hematocrit 31.0 % (36.0-46.0) Mean Corpuscular Volume 92.1 fL (80.0-100.0) Mean Corpuscular Hemoglobin 30.2 pg (28.0-32.0) Mean Corpuscular Hemoglobin Concent 32.9 g/dL (32.0-36.0) Red Cell Distribution Width 14.3 % (11.8-14.3) Platelet Count 201 10^3/uL (140-450) Mean Platelet Volume 7.6 fL (6.9-10.8) Neutrophils (%) (Auto) 63.4 % (37.0-80.0) Lymphocytes (%) (Auto) 26.7 % (10.0-50.0) Monocytes (%) (Auto) 8.6 % (0.0-12.0) Eosinophils (%) (Auto) 1.1 % (0.0-7.0) Basophils (%) (Auto) 0.2 % (0.0-2.0) Neutrophils # (Auto) 6.8 10 ^3/uL (1.6-8.6) Lymphocytes # (Auto) 2.9 10 ^3/uL (0.4-5.4) Monocytes # (Auto) 0.9 10 ^3/uL (0-1.3) Eosinophils # (Auto) 0.1 10 ^3/uL (0-0.8) Basophils # (Auto) 0 10 ^3/uL (0-0.2) Nucleated Red Blood Cells 0.1 % Total Bilirubin 0.4 mg/dL (0.2-1.0) Aspartate Amino Transferase (AST) 15 U/L (13-40) Alanine Aminotransferase (ALT) < 9 U/L (7-40) Alkaline Phosphatase 158 U/L (46-116) Troponin I High Sensitivity 8 ng/L (</=34) Total Protein 7.9 g/dL (5.7-8.2) Albumin 4.4 g/dL (3.2-4.8) Other Laboratory Tests 12/28/24 05:46 12/25/24 23:43 Brief Hx & Hospital Course: 79-year-old female being transferred in stable condition from [facility] for continuity of care and disposition. Patient presented to [facility] on 12/22/2024 for evaluation of altered level of consciousness. CT of the head revealed a left subdural hematoma. Patient was transferred for higher level of care to [facility]. Patient was evaluated by Neurosurgery who did not recommend any acute surgical intervention. Patient was medically managed. It was recommended patient to start antiplatelets/anticoagulants two weeks (01/05/2025) after stable CT of the head (12/23/2024). Patient does have left-sided deficits from recent CVA on 12/14/2024. Patient is a poor historian with history of dementia. Assessment Subdural hematoma, stable End-stage renal disease, dialysis dependent Hypertension CVA with left-sided deficits Dementia weakness Plan Admit the patient to [facility] to the hospitalist Nephrology consultation Physical therapy eval Resume home medications except anticoagulants/antiplatelets Continue treatment per orders. 12/26/2024: pt is still weak, repeat an MRI of brain 12/27/2024: MRI of brain pending. Pt able to do PT without issues 12/28/2024: PT recommends SNF, request SNF for PT/OT Condition at Discharge: Fair Final Diagnosis/Problems List see above Discharge Disposition: Home Discharge Instruct/Medications Diet: Cardiac 2g Na,low cholest Activity: No Restrictions, As Tolerated Scheduled Aspirin (Aspirin Low Dose), 1 TAB PO DAILY, (Reported) Calcitriol (Calcitriol), 0.25 MCG PO DAILY Donepezil Hydrochloride (Aricept), 1 TAB PO QPM, (Reported) Ergocalciferol (Vitamin D 52871 Unit), 50,000 UNIT PO Q7D Furosemide (Furosemide), 1 TAB PO DAILY, (Reported) Insulin Glargine (Lantus Solostar), 20 UNIT SC DAILY, (Reported) Levetiracetam (Keppra), 1 TAB PO BID, (Reported) Lidocaine (Lidocaine Patch 5%), 1 PATCH TOP DAILY, (Reported) Nifedipine (Nifedipine Er), 90 MG PO DAILY Pregabalin (Lyrica), 1 CAP PO BID, (Reported) Rosuvastatin Calcium (Crestor), 0.5 TAB PO DAILY Ticagrelor Base (Brilinta), 1 TAB PO DAILY, (Reported) Discharge Statement: "Patient was advised to return to the ER or call 911 if any headaches, dizziness, shortness of breath, chest pain, abdominal pain, bleeding, fevers, or worsening of medical condition. Patient was counseled about treatment plan, medications, possible side effects, patientverbalized understanding. All questions were answered to the best of my ability. This discharge took greater then 30 minutes in planning, reviewing documentation, counseling the patient, and discussing with other team members." ASSESSMENT ASSESSMENT Assessment Date of Service: Dec 28, 2024 Billing Provider: CLEMENTINE TURNER DO Common Visit Codes: [id number] DISCH DAY >30min CLEMENTINE TURNER DO Dec 28, 2024 16:40
[2024-12-28 17:00] VITALS: BP 149/69; PULSE 83; RESP 17; TEMP 98.8; O2SAT 96
[2024-12-28 21:00] VITALS: BP 143/80; PULSE 87; RESP 18; TEMP 98.4; O2SAT 95
[2024-12-29] VITALS (9 sets, daily range): BP systolic 131–178; BP diastolic 61–86; PULSE 65–96; RESP 16–21; TEMP 36.7; O2SAT 94–100
[2024-12-29 06:47] LABS: Calcium 9.9 mg/dL (8.7-10.4); Chloride 100 mmol/L (98-107); Potassium 4.2 mmol/L (3.5-5.1); Sodium 140 mmol/L (136-145)
[2024-12-29 06:48] LABS: Anion Gap 13 (5-15); Carbon Dioxide 27 mmol/L (20-31)
[2024-12-29 06:53] LABS: BUN/Creatinine Ratio 6.0 (10.0-20.0)
[2024-12-29 06:59] LABS: Blood Urea Nitrogen 24 mg/dL (9-23); Glucose 153 mg/dL (74-106)
[2024-12-29] MEDS ORDERED: SODIUM CHL 0.9% 1000 ML BAG XX ONE (08:45)
--- NOTE | 2024-12-29 10:42 | DVHPN2 ---
Progress Note Date Seen: Dec 29, 2024 Medical Necessity Reason Pt with a Central, PICC or Fol: Yes (HD catheter) The following are medically ne: Central Line Objective vital signs Vital Sign Date Time Temp Pulse Resp B/P (MAP) Pulse Ox O2 Delivery O2 Flow Rate FiO2 12/29/24 08:57 98.2 72 16 168/64 (98) 97 98.2 12/29/24 08:00 Room Air* 0 21 Total Intake and Output 12/28/24 12/28/24 12/29/24 15:00 23:00 07:00 Intake Total 750 ml 750 ml Balance 750 ml 750 ml medications Current Medications Medications Dose Ordered Sig/Deepak Route Start Time Stop Time Status Last Admin Dose Admin Levetiracetam 1,000 mg BID PO 12/26/24 10:12/29/24 09:22 1,000 MG Furosemide 40 mg DAILY PO 12/26/24 10:00 12/28/24 09:01 40 MG Atorvastatin Calcium 20 mg HS PO 12/26/24 22:00 12/28/24 22:54 20 MG Donepezil HCl 10 mg HS PO 12/26/24 22:00 12/28/24 22:53 10 MG Nifedipine 90 mg DAILY PO 12/26/24 10:00 12/28/24 09:02 90 MG Ondansetron HCl 4 mg Q4HP PRN IV 12/25/24 22:45 Acetaminophen 650 mg Q6HP PRN PO 12/25/24 22:45 Examination: GENERAL:Normal, NEURO:Abnormal laboratory and microbiology Laboratory Tests 12/29/24 05:57 12/25/24 23:43 Test 12/29/24 05:57 Range/Units Serum Glucose 153 H 74-106 mg/dL Microbiology Date/Time Source Procedure Growth Status 12/25/24 01:13 Nose MRSA Screen - Final Complete Problem List/Assessment/Plan Problem List/Assessment/Plan ESRD on dialysis HD today, no heparin Hypertension- po BP meds nifedpine coreg Subacute CVA subdural hematomas recent hemorrhagic conversion rest of care as per primary Plan discussed with: Patient My Orders My Orders Orders - DARION SUERO MD Procedure Category Date Status Time Hemodialysis Orders ORDERS 12/29/24 Transmitted 08:44 Dialysis Nursing ZEKE 12/29/24 In Process Message 08:44 Document Fluid Input ZEKE 12/29/24 In Process And Outpu 08:44 Total Time (mins): 33 DARION SUERO MD Dec 29, 2024 10:42
[2024-12-29] MEDS: CARVEDILOL 3.125 MG TAB PO SCH (21:20)
[2024-12-30 01:00] VITALS: BP 143/69; PULSE 78; RESP 20; TEMP 97.3; O2SAT 98
[2024-12-30 05:00] VITALS: BP 113/59; PULSE 76; RESP 20; TEMP 98.7; O2SAT 95
[2024-12-30 06:03] LABS: Chloride 101 mmol/L (98-107); Potassium 4.6 mmol/L (3.5-5.1); Sodium 141 mmol/L (136-145)
[2024-12-30 06:04] LABS: Anion Gap 13 (5-15); Carbon Dioxide 27 mmol/L (20-31)
[2024-12-30 06:05] LABS: Calcium 9.4 mg/dL (8.7-10.4)
[2024-12-30 06:10] LABS: BUN/Creatinine Ratio 6.3 (10.0-20.0); Blood Urea Nitrogen 23 mg/dL (9-23)
[2024-12-30 06:15] LABS: Glucose 171 mg/dL (74-106)
[2024-12-30 08:00] VITALS: PULSE 84; RESP 12; O2SAT 95
[2024-12-30 09:12] VITALS: BP 133/77; PULSE 84; RESP 12; TEMP 98.8; O2SAT 96
--- NOTE | 2024-12-30 12:22 | DVHPN2 ---
Progress Note Date Seen: Dec 30, 2024 Medical Necessity Reason Pt with a Central, PICC or Fol: Yes (HD catheter) The following are medically ne: Central Line Objective vital signs Vital Sign Date Time Temp Pulse Resp B/P (MAP) Pulse Ox O2 Delivery O2 Flow Rate FiO2 12/30/24 09:33 84 133/77 12/30/24 09:12 98.8 12 96 98.8 12/30/24 08:00 Room Air* 0 21 Total Intake and Output 12/29/24 12/29/24 12/30/24 15:00 23:00 07:00 Intake Total 460 ml 300 ml Balance 460 ml 300 ml medications Current Medications Medications Dose Ordered Sig/Deepak Route Start Time Stop Time Status Last Admin Dose Admin Levetiracetam 1,000 mg BID PO 12/26/24 10:00 12/30/24 09:32 1,000 MG Furosemide 40 mg DAILY PO 12/26/24 10:00 12/30/24 09:32 40 MG Atorvastatin Calcium 20 mg HS PO 12/26/24 22:00 12/29/24 21:18 20 MG Donepezil HCl 10 mg HS PO 12/26/24 22:00 12/29/24 21:18 10 MG Nifedipine 90 mg DAILY PO 12/26/24 10:00 12/30/24 09:33 90 MG Ondansetron HCl 4 mg Q4HP PRN IV 12/25/24 22:45 Acetaminophen 650 mg Q6HP PRN PO 12/25/24 22:45 Carvedilol 6.25 mg Q12HR PO 12/29/24 22:00 12/30/24 09:33 6.25 MG Examination: GENERAL:Normal, CVS:Normal, NEURO:Abnormal laboratory and microbiology Laboratory Tests 12/30/24 04:42 12/25/24 23:43 Test 12/30/24 04:42 Range/Units Serum Glucose 171 H 74-106 mg/dL Microbiology Date/Time Source Procedure Growth Status 12/25/24 01:13 Nose MRSA Screen - Final Complete Problem List/Assessment/Plan Problem List/Assessment/Plan ESRD on dialysis HD tuesday, no heparin Hypertension- po BP meds nifedipine coreg Subacute CVA subdural hematomas recent hemorrhagic conversion rest of care as per primary Plan discussed with: Patient Dietary Evaluation Review Recommendations by RD: Protein Supplementation Comments: 1) Initiate Nepro bid 2) Add renal restriction to cardiac diet 3) Encourage optimal PO intake 4) Collect HbA1c 5) Follow-up with physical therapy 6) Follow-up with nephrology, neurology, and cardiology 7) Continue to monitor I&O, labs, and skin integrity Expected Outcomes/Goals: 1) appetite and labs to improve 2) f/u in 3-5 days DARION SUERO MD Dec 30, 2024 12:22
[2024-12-30 12:52] VITALS: BP 130/75; PULSE 73; RESP 12; TEMP 98.9; O2SAT 94
[2024-12-31 11:07] LABS: Hepatitis B Surface Antigen Negative (Negative)
[2024-12-31 11:37] LABS: Hepatitis C Antibody Negative (Negative)
--- NOTE | 2024-12-31 20:17 | DVHPN2 ---
Reviewed: Care Plan, H&P, Labs, Medications, Previous Orders Changes from previous H/P or p: No Changes General: Per HPI Objective Vitals Vital Signs Date Time Temp Pulse Resp B/P (MAP) Pulse Ox O2 Delivery O2 Flow Rate FiO2 12/30/24 12:52 98.9 73 12 130/75 (93) 94 98.9 12/30/24 08:00 Room Air* 0 21 General Appearance: Alert, Oriented X3, Cooperative, No acute distress HEENT: Atraumatic Lungs: Clear to auscultation Chest/Breasts: Lumps Cardiovascular: Normal S1, Normal S2 Laboratory Results Laboratory Tests 12/25/24 23:43 12/30/24 04:42 Microbiology Microbiology Date/Time Source Procedure Growth Status 12/25/24 01:13 Nose MRSA Screen - Final Complete Assessment/Plan Assessment/Plan 79-year-old female being transferred in stable condition from [facility] for continuity of care and disposition. Patient presented to [facility] on 12/22/2024 for evaluation of altered level of consciousness. CT of the head revealed a left subdural hematoma. Patient was transferred for higher level of care to [facility]. Patient was evaluated by Neurosurgery who did not recommend any acute surgical intervention. Patient was medically managed. It was recommended patient to start antiplatelets/anticoagulants two weeks (01/05/2025) after stable CT of the head (12/23/2024). Patient does have left-sided deficits from recent CVA on 12/14/2024. Patient is a poor historian with history of dementia. Assessment Subdural hematoma, stable End-stage renal disease, dialysis dependent Hypertension CVA with left-sided deficits Dementia weakness Plan Admit the patient to [facility] to the hospitalist Nephrology consultation Physical therapy eval Resume home medications except anticoagulants/antiplatelets Continue treatment per orders. 12/26/2024: pt is still weak, repeat an MRI of brain 12/27/2024: MRI of brain pending. Pt able to do PT without issues 12/28/2024: PT recommends SNF, request SNF for PT/OT 12/29/2024: pending SNF Plan discussed with: Patient Date of Service: Dec 29, 2024 Billing Provider: CLEMENTINE TURNER DO Common Visit Codes: [id number] INP/OBS CARE(HIGH) CLEMENTINE TURNER DO Dec 31, 2024 20:17
--- NOTE | 2024-12-31 20:18 | DVHPN2 ---
Reviewed: Care Plan, H&P, Labs, Medications, Previous Orders Changes from previous H/P or p: No Changes General: Per HPI Objective Vitals Vital Signs Date Time Temp Pulse Resp B/P (MAP) Pulse Ox O2 Delivery O2 Flow Rate FiO2 12/30/24 12:52 98.9 73 12 130/75 (93) 94 98.9 12/30/24 08:00 Room Air* 0 21 General Appearance: Alert, Oriented X3, Cooperative, No acute distress HEENT: Atraumatic Lungs: Clear to auscultation Chest/Breasts: Lumps Cardiovascular: Normal S1, Normal S2 Laboratory Results Laboratory Tests 12/25/24 23:43 12/30/24 04:42 Microbiology Microbiology Date/Time Source Procedure Growth Status 12/25/24 01:13 Nose MRSA Screen - Final Complete Assessment/Plan Assessment/Plan 79-year-old female being transferred in stable condition from [facility] for continuity of care and disposition. Patient presented to [facility] on 12/22/2024 for evaluation of altered level of consciousness. CT of the head revealed a left subdural hematoma. Patient was transferred for higher level of care to [facility]. Patient was evaluated by Neurosurgery who did not recommend any acute surgical intervention. Patient was medically managed. It was recommended patient to start antiplatelets/anticoagulants two weeks (01/05/2025) after stable CT of the head (12/23/2024). Patient does have left-sided deficits from recent CVA on 12/14/2024. Patient is a poor historian with history of dementia. Assessment Subdural hematoma, stable End-stage renal disease, dialysis dependent Hypertension CVA with left-sided deficits Dementia weakness Plan Admit the patient to [facility] to the hospitalist Nephrology consultation Physical therapy eval Resume home medications except anticoagulants/antiplatelets Continue treatment per orders. 12/26/2024: pt is still weak, repeat an MRI of brain 12/27/2024: MRI of brain pending. Pt able to do PT without issues 12/28/2024: PT recommends SNF, request SNF for PT/OT 12/29/2024: pending SNF 12/30/2024: discharged to SNF when bed is available Plan discussed with: Patient Date of Service: Dec 30, 2024 Billing Provider: CLEMENTINE TURNER DO Common Visit Codes: [id number] INP/OBS CARE(HIGH) CLEMENTINE TURNER DO Dec 31, 2024 20:18
== END 2024-12-30 16:16 | disposition home health service (06) | DRG 64 ==
LOC: WEST WING 19:30
PROVIDERS: ADMIT Internal Medicine; ATTEND Internal Medicine
PROC: 5A1D70Z Performance of Urinary Filtration, Intermittent, Less than 6 Hours Per Day (ICD-10-PCS; principal; 2024-12-27)
PROC: 5A1D70Z Performance of Urinary Filtration, Intermittent, Less than 6 Hours Per Day (ICD-10-PCS; 2024-12-29)
DX: I62.00 Nontraumatic subdural hemorrhage, unspecified (principal); N18.6 End stage renal disease; I12.0 Hypertensive chronic kidney disease with stage 5 chronic kidney disease or end stage renal disease; I69.354 Hemiplegia and hemiparesis following cerebral infarction affecting left non-dominant side; F03.90 Unspecified dementia, unspecified severity, without behavioral disturbance, psychotic disturbance, mood disturbance, and anxiety; I25.10 Atherosclerotic heart disease of native coronary artery without angina pectoris; Z90.49 Acquired absence of other specified parts of digestive tract; Z99.2 Dependence on renal dialysis; Z83.3 Family history of diabetes mellitus; Z82.49 Family history of ischemic heart disease and other diseases of the circulatory system
CPT/HCPCS: 36415; 70551; 71045; 80048; 80053; 80074; 84100; 84484; 85025; 87081; 90935; 97110; 97116; 97163; G0378

== ENCOUNTER 2025-01-08 16:36 | Inpatient (IN) | payer OTHER, MEDICAID ==
[~2025-01-08] VITALS: Ht 154.9 cm; Wt 70.3 kg
[2025-01-09 10:17] VITALS: BP 152/73; PULSE 67; PULSE 76; RESP 17; TEMP 97.9; O2SAT 98
[2025-01-09] MEDS ORDERED: ONDANSETRON HCL 4 MG/2 ML VIAL IV PRN (11:45)
[2025-01-09] MEDS ORDERED: NITROGLYCERIN 0.4 MG SL TAB SL PRN (11:45)
[2025-01-09] MEDS ORDERED: MORPHINE SULFATE INJ 2 MG/ml SYRG IV PRN (11:45)
--- NOTE | 2025-01-09 11:50 | DVHHP2 ---
Review of Systems Allergies: Coded Allergies: NO KNOWN ALLERGIES (Unverified , 01/14/22) Exam Vital Signs Vital Signs Date Time Temp Pulse Resp B/P (MAP) Pulse Ox O2 Delivery O2 Flow Rate FiO2 01/09/25 10:17 97.9 76 17 152/73 (99) 98 97.9 SEPSIS Sepsis Screen Physician Orders Admit (01/09/25 11:45) Nitroglycerin Sublingual (Ntrostat Subli (01/09/25 11:45) Morphine Sulfate Injection (01/09/25 11:45) Stat Ekg For Chest Pain (01/09/25 11:45) Notify Md Of Changes From Base (01/09/25 11:45) [employer] For 24 Hours (01/09/25 11:45) Emergency Dysrhythmia Protocol (01/09/25 11:45) Rhythm Strips Once Every Shift (01/09/25 11:45) Oxygen By Nasal Cannula (01/09/25 11:45) * Swallow Request (01/09/25 11:45) *[facility] (01/09/25 11:45) Hydralazine Injection (Apresoline Inject (01/09/25 11:45) Ondansetron Hcl (Zofran) (01/09/25 11:45) Levetiracetam Ivpb Keppra (01/09/25 22:00) Complete Blood Count (01/09/25 11:45) Comprehensive Metabolic Panel (01/09/25 11:45) PTPTT (01/09/25 11:45) Basic Metabolic Panel (01/10/25 06:00) Complete Blood Count (01/10/25 06:00) Chest Portable (01/09/25 11:45) Vital Signs Date Time Temp Pulse Resp B/P (MAP) Pulse Ox O2 Delivery O2 Flow Rate FiO2 01/09/25 10:17 97.9 76 17 152/73 (99) 98 97.9 Assessment/Plan Assessment/Plan SEE DICTATED NOTE Plan discussed with: Patient My Orders Orders - ARIANNE RIZO MD Procedure Category Date Status Time Admit ADMIT 01/09/25 Transmitted 11:45 Nitroglycerin PHA 01/09/25 Transmitted Sublingual (Ntrostat 11:45 Morphine Sulfate PHA 01/09/25 Transmitted Injection 11:45 Stat Ekg For Chest [facility]EKE 10/15/25 Transmitted Pain 11:45 Notify Md Of Changes ZEKE 01/09/25 Transmitted From Base 11:45 [employer] For [facility]EKE 01/09/25 Transmitted 24 Hours 11:45 Emergency Dysrhythmia [facility] 01/09/25 Transmitted Protocol 11:45 Rhythm Strips Once ZEKE 01/09/25 Transmitted Every Shift 11:45 Oxygen By Nasal RT 01/09/25 Transmitted Cannula 11:45 * Swallow Request ST 01/09/25 Transmitted 11:45 *[facility] CONS 01/09/25 Transmitted -[place] 11:45 Hydralazine Injection PHA 01/09/25 Transmitted (Apresoline Inject 11:45 Ondansetron Hcl PHA 01/09/25 Transmitted (Zofran) 11:45 Levetiracetam Ivpb PHA 01/09/25 Transmitted Keppra 22:00 Complete Blood Count LAB 01/09/25 Transmitted 11:45 Comprehensive LAB 01/09/25 Transmitted Metabolic Panel 11:45 PTPTT LAB 01/09/25 Transmitted 11:45 Basic Metabolic Panel LAB 01/10/25 Verified 06:00 Complete Blood Count LAB 01/10/25 Verified 06:00 Chest Portable XY 01/09/25 Transmitted 11:45 Date of Service: Jan 09, 2025 Billing Provider: ARIANNE RIZO MD Common Visit Codes: [id number] INP/OBS CARE (HIGH) Secondary Visit Codes: [id number] CARE PLAN 30 MINUTES ARIANNE RIZO MD Jan 09, 2025 11:50
[2025-01-09] MEDS ORDERED: DEXTROSE (50%) 50ML SYRG IV PRN (12:00)
--- NOTE | 2025-01-09 12:11 | DVHHP ---
ADMIT DATE: 01/09/2025 HISTORY OF PRESENT ILLNESS: The patient is a 79-year-old lady who has been transferred back from [facility] where she was initially transferred for a subdural hematoma. The patient it appears was managed conservatively and has now been transferred back. The patient at this time denies any significant pain. No chest pain, no shortness of breath, no nausea or vomiting. REVIEW OF SYSTEMS: Review of rest systems otherwise currently negative. PAST MEDICAL HISTORY: Significant for end-stage renal disease, on hemodialysis; recent subdural hematoma; dementia; questionable diabetes mellitus; hypertension; seizure disorder; and previous PTCA. The patient also had a recent CVA with left-sided deficits. MEDICATIONS: She was on aspirin, Brilinta, Lyrica, nifedipine, Keppra, insulin. ALLERGIES: No known drug allergies. SOCIAL HISTORY: No history of smoking or alcohol. FAMILY HISTORY: Negative. PHYSICAL EXAMINATION: GENERAL: The patient is awake, alert. VITAL SIGNS: Temperature 97.9, pulse 76 per minute, blood pressure 152/73. SHEENT: Unremarkable. NECK: There is no JVD. No pedal edema. LUNGS: Equal bilaterally. No added sounds. CARDIOVASCULAR: S1 and S2 is regular. There are no murmurs. ABDOMEN: Soft. There is no organomegaly. NEUROLOGIC: The patient has dementia with left-sided weakness. ASSESSMENT AND PLAN: * Subdural hematoma that will be treated conservatively. * End-stage renal disease. A Nephrology consult will be obtained for continued dialysis. * Hypertension. * CVA with left-sided deficit. * Dementia. * Diabetes mellitus. She will be placed on sliding scale insulin. * Questionable dysphagia. A swallow evaluation will be obtained. * History of PTCA. * Seizure disorder. ADVANCED CARE PLANNING: The patient is a full cod-TIME SPENT: 18 minutes. MD DEANNA Yu/TIM TID: [id number] RECEIPT: [id number] MTD
[2025-01-09] MEDS: InsuLIN REG 1unit/0.01ml Soln (100units/ml) SC SCH (12:50)
[2025-01-09] MEDS: ACCU-CHEK COMFORT CURVE STRIP VI SCH (12:50)
--- NOTE | 2025-01-09 13:03 | DVH ---
INDICATION: RENAL FAILURE TECHNIQUE: Frontal view of the chest. COMPARISON: XY CHEST XRAY 1 VIEW on DOS: 12/26/24, XY CHEST XRAY 1 VIEW on DOS: 12/15/24, XY CHEST PORT ABLE on DOS: 11/29/24, XY CHEST XRAY 1 VIEW on DOS: 08/17/24, XY CHEST XRAY 1 VIEW on DOS: 06/12/24 FINDINGS: Right IJ tunnel dialysis catheter remains in satisfactory position. The heart and mediastinal contour s are grossly unremarkable. There is aortic atherosclerosis. There is no evidence of pleural disease . The lungs are clear. The bony structures of the chest are intact without fracture. IMPRESSION: 1. No evidence of acute disease. 2.Satisfactory position of right IJ dialysis catheter.
[2025-01-09 15:19] VITALS: BP 148/77; PULSE 73; RESP 16; TEMP 98.4; O2SAT 99
[2025-01-09 17:00] VITALS: BP 153/80; PULSE 68; RESP 17; TEMP 96.4; O2SAT 99
[2025-01-09] MEDS: hydrALAZINE HCL 20 MG/ML VL IV PRN (17:48)
[2025-01-09 18:18] LABS: Hematocrit 30.9 % (36.0-46.0); Hemoglobin 9.9 g/dL (12.2-16.2); Mean Corpuscular Hemoglobin 29.3 pg (28.0-32.0); Mean Corpuscular Volume 91.1 fL (80.0-100.0); Nucleated Red Blood Cells % 0.1 %
[2025-01-09 18:26] LABS: Albumin 4.1 g/dL (3.2-4.8); Anion Gap 16 (5-15); BUN/Creatinine Ratio 5.1 (10.0-20.0); Calcium 9.4 mg/dL (8.7-10.4); Carbon Dioxide 20 mmol/L (20-31); Chloride 101 mmol/L (98-107); Glucose 84 mg/dL (74-106); Potassium 4.1 mmol/L (3.5-5.1); Sodium 137 mmol/L (136-145); Total Protein 7.9 g/dL (5.7-8.2)
[2025-01-09 18:27] LABS: Alanine Aminotransferase < 9 U/L (7-40); Alkaline Phosphatase 125 U/L (46-116); Bilirubin, Total 0.3 mg/dL (0.2-1.0); Blood Urea Nitrogen 30 mg/dL (9-23); INR 1.03 (0.9-1.15); Partial Thromboplastin Time 29.6 SEC (24.5-34.5); Prothrombin Time 10.9 sec (9.3-11.8)
[2025-01-09 18:40] VITALS: BP 146/73; PULSE 77
[2025-01-09 20:00] VITALS: PULSE 68; PULSE 71; RESP 17
[2025-01-09 21:00] VITALS: BP 153/74; PULSE 71; RESP 17; TEMP 97.8
[2025-01-09] MEDS: levETIRAcetam 500 mg/100ml 100 ML IV SCH (21:21)
[2025-01-10] VITALS (11 sets, daily range): BP systolic 102–152; BP diastolic 53–88; PULSE 75–96; RESP 15–20; TEMP 97.3–98.6; O2SAT 95–100
[2025-01-10 06:40] LABS: Hematocrit 31.6 % (36.0-46.0); Hemoglobin 10.4 g/dL (12.2-16.2); Mean Corpuscular Hemoglobin 29.3 pg (28.0-32.0); Mean Corpuscular Volume 89.6 fL (80.0-100.0); Nucleated Red Blood Cells % 0.0 %
[2025-01-10 06:54] LABS: Anion Gap 18 (5-15); Calcium 9.7 mg/dL (8.7-10.4); Chloride 100 mmol/L (98-107); Potassium 4.5 mmol/L (3.5-5.1); Sodium 138 mmol/L (136-145)
[2025-01-10 06:56] LABS: Carbon Dioxide 20 mmol/L (20-31)
[2025-01-10 07:00] LABS: BUN/Creatinine Ratio 5.7 (10.0-20.0)
[2025-01-10 07:05] LABS: Blood Urea Nitrogen 37 mg/dL (9-23); Glucose 70 mg/dL (74-106)
--- NOTE | 2025-01-10 13:09 | DVHINCON2 ---
Date of service: Jan 10, 2025 Referring Physician Reason for Consultation ESRD History of Present Illness 79 years old female past medical history of ESRD on dialysis subdural hematoma, dementia, diabetes, hypertension, CVA, coronary artery disease initially transferred for subdural hematoma came back here after conservative management Her last dialysis was on 01/08 and 1.7 L UF off Past Medical History As per HPI Past Surgical History As documented in HPI Allergies: Coded Allergies: NO KNOWN ALLERGIES (Unverified , 01/14/22) Home Meds Active Scripts Rosuvastatin Calcium (Crestor) 20 Mg Tab, 0.5 TAB PO DAILY for 30 Days, #30 TAB 0 Refills Prov:FRANCA SLADE MD 12/18/24 Ergocalciferol (VITAMIN D 57603 UNIT) 50,000 [place], [address] UNIT PO Q7D for 90 Days, #12 CAP Prov:RUCHI TORREZ RESIDENT 06/15/24 Calcitriol (Calcitriol) 0.25 Mcg Cap, 0.25 MCG PO DAILY for 30 Days, #30 CAP 2 Refills Prov:RAMSES HERNANDES RESIDENT 01/13/24 Nifedipine (Nifedipine Er) 90 Mg Tab, 90 MG PO DAILY for 30 Days, #30 TAB 3 Refills Prov:ARIANNE RIZO MD 10/05/23 Reported Medications Furosemide (Furosemide) 40 Mg Tab, 1 TAB PO DAILY for 30 Days, #60 06/14/24 Aspirin (Aspirin Low Dose) 81 Mg Chw, 1 TAB PO DAILY for 90 Days, #90 06/14/24 Levetiracetam (Keppra) 500 Mg Tab, 1 TAB PO BID for 90 Days, #180 06/14/24 Lidocaine (Lidocaine Patch 5%) 5 % Pad, 1 PATCH TOP DAILY for 90 Days, #90 APPLY ONE PATCH TOPICALLY TO CLEAN, DRY SKIN. LEAVE ON FOR 12 HOURS THEN REMOVE. MUST WAIT AT LEAST 12 HOURS BEFORE APPLYING PATCH(ES) AGAIN. 10/03/23 Insulin Glargine (Lantus Solostar) 100 Unit/Ml Inj, 20 UNIT SC DAILY for 75 Days, #15 10/03/23 Ticagrelor Base (Brilinta) 60 Mg Tab, 1 TAB PO DAILY for 90 Days, #90 10/03/23 Pregabalin (Lyrica) 150 Mg Cap, 1 CAP PO BID for 90 Days, #180 10/02/23 Donepezil Hydrochloride (Aricept) 10 Mg Tab, 1 TAB PO QPM for 100 Days, #100 01/17/22 Current Medications Current Medications Medications (Trade) Dose Ordered Sig/Deepak Route PRN Reason Start Time Stop Time Status Last Admin Levetiracetam 100 ml @ 400 mls/hr BID IV 01/09/25 22:00 01/10/25 09:15 Family History: Diabetes mellitus G8 MOTHER Hypertension G8 FATHER Review of Systems Denies any complaints H&P Exam Vital Signs/I&O Vital Sign Date Time Temp Pulse Resp B/P (MAP) Pulse Ox O2 Delivery O2 Flow Rate FiO2 01/10/25 13:00 98.6 86 15 108/71 (83) 95 98.6 01/09/25 20:00 Room Air* 0 21 Intake and Output 01/09/25 01/10/25 19:00 07:00 Intake Total 0 ml Balance 0 ml Intake Oral 0 ml # Voids 2 # Bowel Movements 1 Physical Exam General-not in any distress HEENT-normocephalic, no icterus, no pallor, neck supple Respiratory-fair air entry bilateral, no rhonchi, no wheeze [id number] heard, Abdominal-soft, nontender, nondistended Musculoskeletal-no pedal edema, no calf tenderness, positive weakness Genitourinary-deferred Neuro-awake alert oriented x1-2, Psychiatric-not agitated, cooperative, Labs/Diagnostic Data Labs/Diagnostic Data Laboratory Tests Test 01/10/25 11:21 01/10/25 05:41 01/10/25 04:52 01/10/25 00:17 Range/Units POC Glucose 90 88 106 70-106 mg/dl White Blood Count 9.3 4.4-10.8 10^3/uL Red Blood Count 3.53 L 4.0-5.20 10^6/uL Hemoglobin 10.4 L 12.2-16.2 g/dL Hematocrit 31.6 L 36.0-46.0 % Mean Corpuscular Volume 89.6 80.0-100.0 fL Mean Corpuscular Hemoglobin 29.3 28.0-32.0 pg Mean Corpuscular Hemoglobin Concent 32.7 32.0-36.0 g/dL Red Cell Distribution Width 13.6 11.8-14.3 % Platelet Count 384 140-450 10^3/uL Mean Platelet Volume 7.4 6.9-10.8 fL Neutrophils (%) (Auto) 70.8 37.0-80.0 % Lymphocytes (%) (Auto) 20.9 10.0-50.0 % Monocytes (%) (Auto) 6.6 0.0-12.0 % Eosinophils (%) (Auto) 1.3 0.0-7.0 % Basophils (%) (Auto) 0.4 0.0-2.0 % Neutrophils # (Auto) 6.6 1.6-8.6 10 ^3/uL Lymphocytes # (Auto) 1.9 0.4-5.4 10 ^3/uL Monocytes # (Auto) 0.6 0-1.3 10 ^3/uL Eosinophils # (Auto) 0.1 0-0.8 10 ^3/uL Basophils # (Auto) 0 0-0.2 10 ^3/uL Nucleated Red Blood Cells 0.0 % Sodium Level 138 136-145 mmol/L Potassium Level 4.5 3.5-5.1 mmol/L Chloride Level 100 98-107 mmol/L Carbon Dioxide Level 20 20-31 mmol/L Anion Gap 18 H 5-15 Blood Urea Nitrogen 37 H 9-23 mg/dL Creatinine 6.54 H 0.550-1.02 mg/dL Glomerular Filtration Rate Calc 6 >90 mL/min BUN/Creatinine Ratio 5.7 L 10.0-20.0 Serum Glucose 70 L 74-106 mg/dL Calcium Level 9.7 8.7-10.4 mg/dL Test 01/09/25 17:51 01/09/25 16:54 01/09/25 13:00 Range/Units White Blood Count 12.1 H 4.4-10.8 10^3/uL Red Blood Count 3.39 L 4.0-5.20 10^6/uL Hemoglobin 9.9 L 12.2-16.2 g/dL Hematocrit 30.9 L 36.0-46.0 % Mean Corpuscular Volume 91.1 80.0-100.0 fL Mean Corpuscular Hemoglobin 29.3 28.0-32.0 pg Mean Corpuscular Hemoglobin Concent 32.1 32.0-36.0 g/dL Red Cell Distribution Width 13.5 11.8-14.3 % Platelet Count 381 140-450 10^3/uL Mean Platelet Volume 6.8 L 6.9-10.8 fL Neutrophils (%) (Auto) 73.5 37.0-80.0 % Lymphocytes (%) (Auto) 17.6 10.0-50.0 % Monocytes (%) (Auto) 7.2 0.0-12.0 % Eosinophils (%) (Auto) 1.5 0.0-7.0 % Basophils (%) (Auto) 0.2 0.0-2.0 % Neutrophils # (Auto) 8.9 H 1.6-8.6 10 ^3/uL Lymphocytes # (Auto) 2.1 0.4-5.4 10 ^3/uL Monocytes # (Auto) 0.9 0-1.3 10 ^3/uL Eosinophils # (Auto) 0.2 0-0.8 10 ^3/uL Basophils # (Auto) 0 0-0.2 10 ^3/uL Nucleated Red Blood Cells 0.1 % Prothrombin Time 10.9 9.3-11.8 sec Prothrombin Time INR 1.03 0.9-1.15 Activated Partial Thromboplast Time 29.6 24.5-34.5 SEC Sodium Level 137 136-145 mmol/L Potassium Level 4.1 3.5-5.1 mmol/L Chloride Level 101 98-107 mmol/L Carbon Dioxide Level 20 20-31 mmol/L Anion Gap 16 H 5-15 Blood Urea Nitrogen 30 H 9-23 mg/dL Creatinine 5.86 H 0.550-1.02 mg/dL Glomerular Filtration Rate Calc 7 >90 mL/min BUN/Creatinine Ratio 5.1 L 10.0-20.0 Serum Glucose 84 74-106 mg/dL Calcium Level 9.4 8.7-10.4 mg/dL Total Bilirubin 0.3 0.2-1.0 mg/dL Aspartate Amino Transferase (AST) 29 13-40 U/L Alanine Aminotransferase (ALT) < 9 7-40 U/L Alkaline Phosphatase 125 H 46-116 U/L Total Protein 7.9 5.7-8.2 g/dL Albumin 4.1 3.2-4.8 g/dL POC Glucose 96 115 H 70-106 mg/dl Assessment ESRD on dialysis Subdural hematoma HTN DM CVA Anemia recs HD today will follow jude with HD Plan discussed with: Patient TIFF CLARK MD Jan 10, 2025 13:09
--- NOTE | 2025-01-10 13:52 | DVHPN2 ---
Progress Note Date Seen: Jan 10, 2025 Medical Necessity Reason Pt with a Central, PICC or Fol: No Subjective Patient reports: No new complaints Review of Systems: HEENT:Normal, CVS:Normal, RESPIRATORY:Normal, GI:Normal, :Normal, MSK:Normal, NEURO:Normal Objective vital signs Vital Sign Date Time Temp Pulse Resp B/P (MAP) Pulse Ox O2 Delivery O2 Flow Rate FiO2 01/10/25 13:00 98.6 86 15 108/71 (83) 95 98.6 01/09/25 20:00 Room Air* 0 21 Total Intake and Output 01/09/25 01/09/25 01/10/25 15:00 23:00 07:00 Intake Total 0 ml Balance 0 ml medications Current Medications Medications Dose Ordered Sig/Deepak Route Start Time Stop Time Status Last Admin Dose Admin Nitroglycerin 0.4 mg Q5MINP PRN SL 01/09/25 11:45 Morphine Sulfate 2 mg Q30M PRN IV 01/09/25 11:45 Hydralazine HCl 10 mg Q6HP PRN IV 01/09/25 11:45 01/09/25 17:48 10 MG Ondansetron HCl 4 mg Q6HPRN PRN IV 01/09/25 11:45 Levetiracetam 100 ml @ 400 mls/hr BID IV 01/09/25 22:00 01/10/25 09:15 400 MLS/HR Diagnostic Test (Pha) 1 strip Q6HR 01/09/25 12:00 01/10/25 05:45 1 STRIP Insulin Human Regular Q6HR SC 01/09/25 12:00 Dextrose 50 ml UD PRN IV 01/09/25 12:00 Examination: GENERAL:Normal, HEENT:Normal, NECK:Normal, LUNGS:Normal, CVS:Normal, ABDOMEN:Normal, MSK:Normal, SKIN:Normal, NEURO:Normal, :Normal laboratory and microbiology Laboratory Tests 01/10/25 04:52 Test 01/10/25 04:52 Range/Units Serum Glucose 70 L 74-106 mg/dL Microbiology Date/Time Source Procedure Growth Status 01/09/25 14:00 Nose MRSA Screen - Final Complete Problem List/Assessment/Plan Problem List/Assessment/Plan * Subdural hematoma that will be treated conservatively. * End-stage renal disease. A Nephrology consult will be obtained for continued dialysis. * Hypertension. * CVA with left-sided deficit. * Dementia. * Diabetes mellitus. She will be placed on sliding scale insulin. * Questionable dysphagia. A swallow evaluation will be obtained. * History of PTCA. * Seizure disorder: keppra advance care planning- full code- time spent 19 mins Plan discussed with: Patient My Orders My Orders Orders - ARIANNE RIZO MD Procedure Category Date Status Time * [employer] Supervisor CONS 01/09/25 Transmitted Consult * Dietary Consult CONS 01/09/25 Transmitted 14:35 Renal DIET 01/10/25 Transmitted Standard(2gna,3gk,Lopho) Dinner Pt Request For Service PT 01/10/25 Transmitted 13:49 Levetiracetam Tablet PHA 01/10/25 Transmitted (Keppra Tablet) 22:00 * [employer] Supervisor CONS 01/10/25 Transmitted Consult Dietary Evaluation Review Comments: Nutrition Recommendation: 1) Advance to renal standard diet as medically feasible 2) Nephro-kristyn 1 tab daily, Vishal 1 pk daily 3) Monitor PO intake, lab values, weight trend, and I/O Expected Outcomes/Goals: Intake to meet >75% estimated needs Lab values to improve Fu 2-3 days Date of Service: Jan 10, 2025 Billing Provider: ARIANNE RIZO MD Common Visit Codes: [id number] INP/OBS CARE(HIGH) Secondary Visit Codes: [id number] CARE PLAN 30 MINUTES ARIANNE RIZO MD Jan 10, 2025 13:52
[2025-01-10] MEDS ORDERED: levETIRAcetam 500 MG TAB PO SCH (22:00)
[2025-01-11] VITALS (8 sets, daily range): BP systolic 114–149; BP diastolic 58–80; PULSE 65–100; RESP 16–20; TEMP 98.7–99.3; O2SAT 92–99
[2025-01-11] MEDS: EPOETIN ALFA-EPBX 4,000 UNIT/ML VIAL SC ONE (01:44)
[2025-01-11] MEDS: levETIRAcetam 500 mg/100ml 100 ML IV SCH (03:01)
--- NOTE | 2025-01-11 10:29 | DVHPN2 ---
Subjective Patient is still altered mental status. Reviewed: Care Plan, H&P, Labs, Medications Changes from previous H/P or p: No Changes General: Per HPI Objective Vitals Vital Signs Date Time Temp Pulse Resp B/P (MAP) Pulse Ox O2 Delivery O2 Flow Rate FiO2 01/11/25 08:37 99.3 100 18 128/63 (84) 98 99.3 01/10/25 20:15 Room Air* 0 21 Intake/Output Intake and Output 01/11/25 07:00 # Voids 4 # Bowel Movements 2 General Appearance: Alert, Other (Oriented to name only.) HEENT: Atraumatic, PERRLA Lungs: Clear to auscultation, Normal air movement Cardiovascular: Normal S1, Normal S2 Musculoskeletal: Weak motor strength RUE, Weak motor strength LUE, Weak motor strength RLE, Weak motor strength LLE Skin: Dry, Intact Psych/Mental Status: Mental status NL, Mood NL Medications Current Medications Medications Dose Ordered Sig/Deepak Route Start Time Stop Time Status Last Admin Dose Admin Nitroglycerin 0.4 mg Q5MINP PRN SL 01/09/25 11:45 Morphine Sulfate 2 mg Q30M PRN IV 01/09/25 11:45 Hydralazine HCl 10 mg Q6HP PRN IV 01/09/25 11:45 01/09/25 17:48 10 MG Ondansetron HCl 4 mg Q6HPRN PRN IV 01/09/25 11:45 Diagnostic Test (Pha) 1 strip Q6HR 01/09/25 12:00 01/11/25 00:00 1 STRIP Insulin Human Regular Q6HR SC 01/09/25 12:00 Dextrose 50 ml UD PRN IV 01/09/25 12:00 Levetiracetam 500 mg BID PO 01/10/25 22:00 UNV Heparin Sodium (Porcine) 3,200 units MEGAN PRN XX 01/10/25 22:15 Levetiracetam 100 ml @ 400 mls/hr BID IV 01/11/25 02:06 01/11/25 09:15 400 MLS/HR Laboratory Results Laboratory Tests 01/10/25 04:52 Microbiology Microbiology Date/Time Source Procedure Growth Status 01/09/25 14:00 Nose MRSA Screen - Final Complete Labs and/or images reviewed: Labs reviewed by me, Image(s) reviewed by me Assessment/Plan Assessment/Plan Impression: -subdural hematoma -ESRD with hemodialysis -primary hypertension -history of CVA with left-sided deficit -dementia -diabetes mellitus -CAD with history of PTCA -seizure disorder -dysphagia Plan: -swallow evaluation pending -PT consultation -continue antiplatelet medication -regular insulin sliding scale -nephrology consultation for hemodialysis -continue antiepileptic -repeat labs in a.m. -social service consultation for discharge planning Total time spent with patient discussing and formulating plan of care: 35 minutes. This medical document was created using an electronic medical record system with [employer] dictation system. Although this document has been carefully reviewed, there may still be some phonetic and typographical errors. These areas are purely typographical due to imperfections of the software programs, and do not reflect any compromise in the patient's medical care. Plan discussed with: Patient, Other (RN) My Orders Orders - MIGUEL COHN NP Procedure Category Date Status Time Basic Metabolic Panel LAB 01/12/25 Verified 04:00 Complete Blood Count LAB 01/11/25 Verified 10:24 Date of Service: Jan 11, 2025 Billing Provider: MIGUEL COHN NP Common Visit Codes: [id number] INP/OBS CARE(HIGH) MIGUEL COHN NP Jan 11, 2025 10:29
[2025-01-11 14:19] LABS: Hematocrit 28.5 % (36.0-46.0); Hemoglobin 9.0 g/dL (12.2-16.2); Mean Corpuscular Hemoglobin 29.1 pg (28.0-32.0); Mean Corpuscular Volume 92.0 fL (80.0-100.0); Nucleated Red Blood Cells % 0.1 %
[2025-01-12] VITALS (9 sets, daily range): BP systolic 118–170; BP diastolic 62–85; PULSE 60–77; RESP 16–18; TEMP 97.5–99; O2SAT 95–100
[2025-01-12 06:58] LABS: Anion Gap 17 (5-15); Carbon Dioxide 24 mmol/L (20-31); Chloride 101 mmol/L (98-107); Potassium 3.8 mmol/L (3.5-5.1); Sodium 142 mmol/L (136-145)
[2025-01-12 07:00] LABS: Calcium 9.3 mg/dL (8.7-10.4)
[2025-01-12 07:05] LABS: BUN/Creatinine Ratio 3.6 (10.0-20.0); Blood Urea Nitrogen 20 mg/dL (9-23); Glucose 91 mg/dL (74-106)
--- NOTE | 2025-01-12 11:38 | DVHPN2 ---
Progress Note - Dictate Date Seen: Jan 12, 2025 Medical Necessity Reason Pt with a Central, PICC or Fol: No Subjective Patient opens eyes to voice, minimally communicative vital signs Vital Sign Date Time Temp Pulse Resp B/P (MAP) Pulse Ox O2 Delivery O2 Flow Rate FiO2 01/12/25 08:38 98.7 70 17 148/77 (100) 99 98.7 01/12/25 07:38 Room Air* 0 21 Total Intake and Output 01/11/25 01/11/25 01/12/25 15:00 23:00 07:00 Intake Total 50 ml 140 ml Balance 50 ml 140 ml medications Current Medications Medications Dose Ordered Sig/Deepak Route Start Time Stop Time Status Last Admin Dose Admin Nitroglycerin 0.4 mg Q5MINP PRN SL 01/09/25 11:45 Morphine Sulfate 2 mg Q30M PRN IV 01/09/25 11:45 Hydralazine HCl 10 mg Q6HP PRN IV 01/09/25 11:45 01/09/25 17:48 10 MG Ondansetron HCl 4 mg Q6HPRN PRN IV 01/09/25 11:45 Diagnostic Test (Pha) 1 strip Q6HR 01/09/25 12:00 01/12/25 11:33 1 STRIP Insulin Human Regular Q6HR SC 01/09/25 12:00 Dextrose 50 ml UD PRN IV 01/09/25 12:00 Levetiracetam 500 mg BID PO 01/10/25 22:00 UNV Heparin Sodium (Porcine) 3,200 units MEGAN PRN XX 01/10/25 22:15 Levetiracetam 100 ml @ 400 mls/hr BID IV 01/11/25 02:06 01/12/25 09:05 400 MLS/HR objective Gen: nad heent: nc/at, mmm lungs: cta anteriorly cvs: no rub abd: soft, bowel sounds audible ext: no edema skin: no rash laboratory and microbiology Laboratory Tests 01/12/25 04:27 01/11/25 14:00 Test 01/12/25 04:27 Range/Units Serum Glucose 91 74-106 mg/dL Assessment/Plan ESRD on dialysis Subdural hematoma HTN DM CVA Anemia recs - hemodialysis today - UF as tolerated - no systemic heparin Dietary Evaluation Review Comments: Nutrition Recommendation: 1) Advance to renal standard diet as medically feasible 2) Nephro-kristyn 1 tab daily, Vishal 1 pk daily 3) Monitor PO intake, lab values, weight trend, and I/O Expected Outcomes/Goals: Intake to meet >75% estimated needs Lab values to improve Fu 2-3 days Plan discussed with: Other FREDY RODNEY MD Jan 12, 2025 11:38
--- NOTE | 2025-01-12 17:23 | DVHPN2 ---
Subjective CHART REVIWED/looks rested Reviewed: Care Plan, H&P, Labs, Medications Changes from previous H/P or p: No Changes General: Per HPI Objective Vitals Vital Signs Date Time Temp Pulse Resp B/P (MAP) Pulse Ox O2 Delivery O2 Flow Rate FiO2 01/12/25 17:00 98.0 72 16 127/64 (85) 95 98.0 01/12/25 07:38 Room Air* 0 21 Intake/Output Intake and Output 01/12/25 07:00 Intake Total 190 ml Balance 190 ml Intake Oral 190 ml # Voids 2 General Appearance: Alert, Other (Oriented to name only./answers simple questions) HEENT: Atraumatic, PERRLA Lungs: Clear to auscultation, Normal air movement Cardiovascular: Normal S1, Normal S2 Musculoskeletal: Weak motor strength RUE, Weak motor strength LUE, Other (moves all four extremities on request) Neuro: Normal speech, Other (normal speech but confused at baseline after sdh) Skin: Dry, Intact Psych/Mental Status: Mood NL Medications Current Medications Medications Dose Ordered Sig/Deepak Route Start Time Stop Time Status Last Admin Dose Admin Nitroglycerin 0.4 mg Q5MINP PRN SL 01/09/25 11:45 Morphine Sulfate 2 mg Q30M PRN IV 01/09/25 11:45 Hydralazine HCl 10 mg Q6HP PRN IV 01/09/25 11:45 01/09/25 17:48 10 MG Ondansetron HCl 4 mg Q6HPRN PRN IV 01/09/25 11:45 Diagnostic Test (Pha) 1 strip Q6HR 01/09/25 12:00 01/12/25 17:10 1 STRIP Insulin Human Regular Q6HR SC 01/09/25 12:00 Dextrose 50 ml UD PRN IV 01/09/25 12:00 Levetiracetam 500 mg BID PO 01/10/25 22:00 UNV Heparin Sodium (Porcine) 3,200 units MEGAN PRN XX 01/10/25 22:15 Levetiracetam 100 ml @ 400 mls/hr BID IV 01/11/25 02:06 01/12/25 09:05 400 MLS/HR Laboratory Results Laboratory Tests 01/11/25 14:00 01/12/25 04:27 Chemistry Test 01/12/25 04:27 Calcium Level 9.3 mg/dL (8.7-10.4) Microbiology Microbiology Date/Time Source Procedure Growth Status 01/09/25 14:00 Nose MRSA Screen - Final Complete Assessment/Plan Assessment/Plan subdural hematoma- sequelae h/o cva with residual h/o cad ppn untill family makes decision on peg- refusing to swallow food in mouth per [facility] records Plan discussed with: Patient, Other (nurse) Date of Service: Jan 12, 2025 Billing Provider: DAVID SAUCEDO MD Common Visit Codes: [id number] INP/OBS CARE(MOD) DAVID SAUCEDO MD Jan 12, 2025 17:23
[2025-01-12] MEDS: SODIUM CHLORIDE 0.9% 1,000 ML IV SCH (18:13)
[2025-01-12] MEDS ORDERED: PPN PER PHARMACY 0 ML IV SCH (18:30)
[2025-01-12] MEDS ORDERED: CLINIMIX PER PHARMACY 0 ML IV SCH (18:45)
[2025-01-12] MEDS ORDERED: DEXTROSE (50%) 50ML SYRG IV SCH (19:00)
[2025-01-12] MEDS: AMINO ACID INFUSION IN D10W 1,000 ML IV SCH (21:58)
[2025-01-13] VITALS (8 sets, daily range): BP systolic 111–143; BP diastolic 58–74; PULSE 68–80; RESP 16–20; TEMP 97.8–99.4; O2SAT 93–100
[2025-01-13] MEDS: InsuLIN REG 1unit/0.01ml Soln (100units/ml) SC SCH (00:05)
[2025-01-13] MEDS: ACCU-CHEK COMFORT CURVE STRIP VI SCH (00:05)
[2025-01-13 08:22] LABS: Albumin 3.9 g/dL (3.2-4.8); Alkaline Phosphatase 113 U/L (46-116); Anion Gap 19 (5-15); BUN/Creatinine Ratio 4.6 (10.0-20.0); Blood Urea Nitrogen 23 mg/dL (9-23); Calcium 9.4 mg/dL (8.7-10.4); Carbon Dioxide 21 mmol/L (20-31); Chloride 103 mmol/L (98-107); Magnesium 2.1 mg/dL (1.6-2.6); Sodium 143 mmol/L (136-145); Total Protein 7.6 g/dL (5.7-8.2); Triglycerides 148 mg/dL (< 150)
[2025-01-13 08:26] LABS: Glucose 146 mg/dL (74-106); Potassium 3.3 mmol/L (3.5-5.1)
[2025-01-13 08:27] LABS: Alanine Aminotransferase < 9 U/L (7-40); Bilirubin, Total 0.3 mg/dL (0.2-1.0)
[2025-01-13] MEDS: POTASSIUM CHL 20MEQ/100ML 100 ML IV ONE (15:32)
--- NOTE | 2025-01-13 16:00 | DVHPN2 ---
Progress Note - Dictate Date Seen: Jan 13, 2025 Medical Necessity Reason Pt with a Central, PICC or Fol: No Subjective Mentation unchanged, per patient's RN patient has been slightly more aggressive, challenging to work with today. vital signs Vital Sign Date Time Temp Pulse Resp B/P (MAP) Pulse Ox O2 Delivery O2 Flow Rate FiO2 01/13/25 12:46 98.9 68 20 135/69 (91) 98 98.9 01/13/25 08:05 Room Air* 0 21 Total Intake and Output 01/12/25 01/12/25 01/13/25 15:00 23:00 07:00 Intake Total 100 ml 0 ml 0 ml Balance 100 ml 0 ml 0 ml medications Current Medications Medications Dose Ordered Sig/Deepak Route Start Time Stop Time Status Last Admin Dose Admin Hydralazine HCl 10 mg Q6HP PRN IV 01/09/25 11:45 01/09/25 17:48 10 MG Levetiracetam 500 mg BID PO 01/10/25 22:00 UNV Heparin Sodium (Porcine) 3,200 units MEGAN PRN XX 01/10/25 22:15 Levetiracetam 100 ml @ 400 mls/hr BID IV 01/11/25 02:06 01/13/25 10:07 400 MLS/HR Sodium Chloride 1,000 ml @ 60 mls/hr [id number] IV 01/12/25 18:00 01/12/25 18:13 60 MLS/HR Amino Acids 0 ml @ 0 mls/hr PER PHARMACY IV 01/12/25 18:30 UNV Amino Acids 0 ml @ 0 mls/hr PER PHARMACY IV 01/12/25 18:45 Amino Acids/ Electrolytes/ Dextrose 1,000 ml @ 41 mls/hr DAILY@2200 IV 01/12/25 22:00 01/12/25 21:58 41 MLS/HR Diagnostic Test (Pha) 1 strip Q6HR 01/13/25 00:00 01/13/25 00:05 1 STRIP Insulin Human Regular FOLLOW SLIDING SCALE Q6HR SC 01/13/25 00:00 01/13/25 00:05 2 UNITS Dextrose 50 ml UD IV 01/12/25 19:00 objective Gen: nad heent: nc/at, mmm lungs: cta anteriorly cvs: no rub abd: soft, bowel sounds audible ext: no edema skin: no rash laboratory and microbiology Laboratory Tests 01/13/25 07:14 01/12/25 04:27 01/11/25 14:00 Test 01/13/25 07:14 Range/Units Serum Glucose 146 H 74-106 mg/dL Assessment/Plan ESRD on dialysis Subdural hematoma HTN DM CVA Anemia recs - next dialysis tentatively January 15 Dietary Evaluation Review Comments: Nutrition Recommendation: 1) Advance to renal standard diet as medically feasible 2) Nephro-kristyn 1 tab daily, Vishal 1 pk daily 3) Monitor PO intake, lab values, weight trend, and I/O Expected Outcomes/Goals: Intake to meet >75% estimated needs Lab values to improve Fu 2-3 days Plan discussed with: Other FREDY RODNEY MD Jan 13, 2025 16:00
--- NOTE | 2025-01-13 16:35 | DVHPN2 ---
Subjective CHART REVIWED/looks rested Reviewed: Care Plan, H&P, Labs, Medications Changes from previous H/P or p: No Changes General: Per HPI Objective Vitals Vital Signs Date Time Temp Pulse Resp B/P (MAP) Pulse Ox O2 Delivery O2 Flow Rate FiO2 01/13/25 12:46 98.9 68 20 135/69 (91) 98 98.9 01/13/25 08:05 Room Air* 0 21 Intake/Output Intake and Output 01/13/25 07:00 Intake Total 100 ml Balance 100 ml Intake Oral 0 ml IV Total 100 ml General Appearance: Alert, Other (Oriented to name only./answers simple questions) HEENT: Atraumatic, PERRLA Lungs: Clear to auscultation, Normal air movement Cardiovascular: Normal S1, Normal S2 Abdomen: Normal bowel sounds, Soft, No tenderness, No hepatospenomegaly Musculoskeletal: Weak motor strength RUE, Weak motor strength LUE, Other (moves BOTH UPPER EXTRMITIES ON REQUEST/unamle to understand and move legs) Neuro: Normal speech, Other (normal speech but confused at baseline after sdh) Skin: Dry, Intact Psych/Mental Status: Mood NL Medications Current Medications Medications Dose Ordered Sig/Deepak Route Start Time Stop Time Status Last Admin Dose Admin Hydralazine HCl 10 mg Q6HP PRN IV 01/09/25 11:45 01/09/25 17:48 10 MG Levetiracetam 500 mg BID PO 01/10/25 22:00 UNV Heparin Sodium (Porcine) 3,200 units MEGAN PRN XX 01/10/25 22:15 Levetiracetam 100 ml @ 400 mls/hr BID IV 01/11/25 02:06 01/13/25 10:07 400 MLS/HR Sodium Chloride 1,000 ml @ 60 mls/hr [id number] IV 01/12/25 18:00 01/12/25 18:13 60 MLS/HR Amino Acids 0 ml @ 0 mls/hr PER PHARMACY IV 01/12/25 18:30 UNV Amino Acids 0 ml @ 0 mls/hr PER PHARMACY IV 01/12/25 18:45 Amino Acids/ Electrolytes/ Dextrose 1,000 ml @ 41 mls/hr DAILY@2200 IV 01/12/25 22:00 01/12/25 21:58 41 MLS/HR Diagnostic Test (Pha) 1 strip Q6HR 01/13/25 00:00 01/13/25 00:05 1 STRIP Insulin Human Regular FOLLOW SLIDING SCALE Q6HR SC 01/13/25 00:00 01/13/25 00:05 2 UNITS Dextrose 50 ml UD IV 01/12/25 19:00 Laboratory Results Laboratory Tests 01/11/25 14:00 01/12/25 04:27 01/13/25 07:14 Chemistry Test 01/13/25 07:14 Albumin 3.9 g/dL (3.2-4.8) Calcium Level 9.4 mg/dL (8.7-10.4) Magnesium Level 2.1 mg/dL (1.6-2.6) Phosphorus Level 3.1 mg/dL (2.4-5.1) Total Protein 7.6 g/dL (5.7-8.2) Lipid panel Test 01/13/25 07:14 Triglycerides Level 148 mg/dL (< 150) LFT Test 01/13/25 07:14 Alanine Aminotransferase (ALT) < 9 U/L (7-40) Alkaline Phosphatase 113 U/L (46-116) Aspartate Amino Transferase (AST) 22 U/L (13-40) Total Bilirubin 0.3 mg/dL (0.2-1.0) Microbiology Microbiology Date/Time Source Procedure Growth Status 01/09/25 14:00 Nose MRSA Screen - Final Complete Labs and/or images reviewed: Labs reviewed by me, Image(s) reviewed by me Assessment/Plan Assessment/Plan subdural hematoma- sequelae-on keppra for seizure prophylaxis h/o cva with residual h/o cad on ppn./swallowing evaluation done\\recommend pureed diet-add esrd on dialysis- had dialysiis yesterday htn stable Plan discussed with: Other (nursing at bedside/no family at bedside-no calls from family requesting update) My Orders Orders - DAVID SAUCEDO MD Procedure Category Date Status Time Sequential ZEKE 01/12/25 In Process Compression Device 17:24 PPN ORDERS 01/12/25 Transmitted 17:24 Ppn Per Pharmacy ZEKE 01/12/25 In Process 17:24 Sodium Chloride 0.9% PHA 01/12/25 In Process 18:00 Clinimix Per Pharmacy PHA 01/12/25 In Process 18:45 Amino Acid Infusion PHA 01/12/25 In Process In D10w (Clinimix 4. 22:00 Glucose Blood PHA 01/13/25 In Process (Accu-Chek Comfort 00:00 Insulin R (Human) PHA 01/13/25 In Process (Insulin R) 00:00 Dextrose 50% Syringe PHA 01/12/25 In Process 19:00 Clinimix Per Pharmacy ZEKE 01/12/25 In Process 22:00 Potassium Chl PHA 01/13/25 In Process 20meq/100ml 15:00 Comprehensive LAB 01/14/25 Verified Metabolic Panel 04:00 Magnesium LAB 01/14/25 Verified 04:00 Phosphorus LAB 01/14/25 Verified 04:00 Clinimix Per Pharmacy ZEKE 01/13/25 In Process 22:00 Date of Service: Jan 03, 2025 Billing Provider: DAVID SAUCEDO MD Common Visit Codes: [id number] INP/OBS CARE(MOD) DAVID SAUCEDO MD Jan 13, 2025 16:35
[2025-01-14] VITALS (9 sets, daily range): BP systolic 115–157; BP diastolic 66–85; PULSE 63–72; RESP 16–18; TEMP 96.6–98.5; O2SAT 97–100
--- NOTE | 2025-01-14 10:13 | DVHPN2 ---
Progress Note Date Seen: Jan 14, 2025 Medical Necessity Reason Pt with a Central, PICC or Fol: No Subjective Patient reports: No new complaints Review of Systems: HEENT:Normal, CVS:Normal, RESPIRATORY:Normal, GI:Normal, :Normal, MSK:Normal, NEURO:Normal Objective vital signs Vital Sign Date Time Temp Pulse Resp B/P (MAP) Pulse Ox O2 Delivery O2 Flow Rate FiO2 01/14/25 09:00 98.5 63 18 140/85 (103) 100 98.5 01/13/25 20:00 Room Air* 0 21 Total Intake and Output 01/13/25 01/13/25 01/14/25 15:00 23:00 07:00 Intake Total 100 ml 410 ml 0 ml Balance 100 ml 410 ml 0 ml medications Current Medications Medications Dose Ordered Sig/Deepak Route Start Time Stop Time Status Last Admin Dose Admin Hydralazine HCl 10 mg Q6HP PRN IV 01/09/25 11:45 01/09/25 17:48 10 MG Levetiracetam 500 mg BID PO 01/10/25 22:00 UNV Heparin Sodium (Porcine) 3,200 units MEGAN PRN XX 01/10/25 22:15 Levetiracetam 100 ml @ 400 mls/hr BID IV 01/11/25 02:06 01/13/25 21:44 400 MLS/HR Sodium Chloride 1,000 ml @ 60 mls/hr [id number] IV 01/12/25 18:00 01/14/25 03:33 60 MLS/HR Amino Acids 0 ml @ 0 mls/hr PER PHARMACY IV 01/12/25 18:30 UNV Amino Acids 0 ml @ 0 mls/hr PER PHARMACY IV 01/12/25 18:45 Amino Acids/ Electrolytes/ Dextrose 1,000 ml @ 41 mls/hr DAILY@2200 IV 01/12/25 22:00 01/13/25 21:44 41 MLS/HR Diagnostic Test (Pha) 1 strip Q6HR 01/13/25 00:00 01/14/25 05:17 1 STRIP Insulin Human Regular FOLLOW SLIDING SCALE Q6HR SC 01/13/25 00:00 01/14/25 05:22 2 UNITS Dextrose 50 ml UD IV 01/12/25 19:00 Examination: GENERAL:Normal, HEENT:Normal, NECK:Normal, LUNGS:Normal, CVS:Normal, ABDOMEN:Normal, MSK:Normal, SKIN:Normal, NEURO:Normal, :Normal laboratory and microbiology Laboratory Tests 01/13/25 07:14 01/12/25 04:27 01/11/25 14:00 Test 01/13/25 07:14 Range/Units Serum Glucose 146 H 74-106 mg/dL Microbiology Date/Time Source Procedure Growth Status 01/09/25 14:00 Nose MRSA Screen - Final Complete Problem List/Assessment/Plan Problem List/Assessment/Plan * Subdural hematoma that will be treated conservatively. * End-stage renal disease. A Nephrology consult will be obtained for continued dialysis. * Hypertension. * CVA with left-sided deficit. * Dementia. * Diabetes mellitus. She will be placed on sliding scale insulin. * Questionable dysphagia: pureed diet per speech * History of PTCA. * Seizure disorder: armin advance care planning- full code- time spent 19 mins Plan discussed with: Patient Dietary Evaluation Review Comments: Nutrition Recommendation: 1) Advance to renal standard diet as medically feasible 2) Nephro-kristyn 1 tab daily, Vishal 1 pk daily 3) Monitor PO intake, lab values, weight trend, and I/O Expected Outcomes/Goals: Intake to meet >75% estimated needs Lab values to improve Fu 2-3 days Date of Service: Jan 14, 2025 Billing Provider: ARIANNE RIZO MD Common Visit Codes: [id number] INP/OBS CARE(HIGH) ARIANNE RIZO MD Jan 14, 2025 10:13
--- NOTE | 2025-01-14 15:38 | DVHPN2 ---
Progress Note Date Seen: Jan 14, 2025 Medical Necessity Reason Pt with a Central, PICC or Fol: No Subjective Review of Systems: Deferred Objective vital signs Vital Sign Date Time Temp Pulse Resp B/P (MAP) Pulse Ox O2 Delivery O2 Flow Rate FiO2 01/14/25 13:00 98.5 69 18 140/72 (94) 99 98.5 01/14/25 08:05 Room Air* 0 21 Total Intake and Output 01/13/25 01/13/25 01/14/25 15:00 23:00 07:00 Intake Total 100 ml 410 ml 0 ml Balance 100 ml 410 ml 0 ml medications Current Medications Medications Dose Ordered Sig/Deepak Route Start Time Stop Time Status Last Admin Dose Admin Hydralazine HCl 10 mg Q6HP PRN IV 01/09/25 11:45 01/09/25 17:48 10 MG Levetiracetam 500 mg BID PO 01/10/25 22:00 UNV Heparin Sodium (Porcine) 3,200 units MEGAN PRN XX 01/10/25 22:15 Levetiracetam 100 ml @ 400 mls/hr BID IV 01/11/25 02:06 01/13/25 21:44 400 MLS/HR Sodium Chloride 1,000 ml @ 60 mls/hr [id number] IV 01/12/25 18:00 01/14/25 03:33 60 MLS/HR Amino Acids 0 ml @ 0 mls/hr PER PHARMACY IV 01/12/25 18:30 UNV Amino Acids 0 ml @ 0 mls/hr PER PHARMACY IV 01/12/25 18:45 Amino Acids/ Electrolytes/ Dextrose 1,000 ml @ 41 mls/hr DAILY@2200 IV 01/12/25 22:00 01/13/25 21:44 41 MLS/HR Diagnostic Test (Pha) 1 strip Q6HR 01/13/25 00:00 01/14/25 05:17 1 STRIP Insulin Human Regular FOLLOW SLIDING SCALE Q6HR SC 01/13/25 00:00 01/14/25 05:22 2 UNITS Dextrose 50 ml UD IV 01/12/25 19:00 Examination: GENERAL:Abnormal, CVS:Normal, NEURO:Abnormal laboratory and microbiology Laboratory Tests 01/13/25 07:14 01/12/25 04:27 01/11/25 14:00 Test 01/13/25 07:14 Range/Units Serum Glucose 146 H 74-106 mg/dL Microbiology Date/Time Source Procedure Growth Status 01/09/25 14:00 Nose MRSA Screen - Final Complete Problem List/Assessment/Plan Problem List/Assessment/Plan End-stage renal disease on hemodialysis Next dialysis will be scheduled tomorrow Subdural hematoma Defer management to primary medical team currently conservative management Hypertension continue p.o. blood pressure medications Anemia due to chronic kidney disease -iron and KARINA therapy as per KDIGO renal recommendation guidelines Rest of care as per primary medical team Plan discussed with: Other Dietary Evaluation Review Comments: Nutrition Recommendation: 1) Advance to renal standard diet as medically feasible 2) Nephro-kristyn 1 tab daily, Vishal 1 pk daily 3) Monitor PO intake, lab values, weight trend, and I/O Expected Outcomes/Goals: Intake to meet >75% estimated needs Lab values to improve Fu 2-3 days DARION SUERO MD Jan 14, 2025 15:38
[2025-01-14 19:28] LABS: Albumin 4.2 g/dL (3.2-4.8); Alkaline Phosphatase 115 U/L (46-116); Anion Gap 17 (5-15); BUN/Creatinine Ratio 4.9 (10.0-20.0); Calcium 10.3 mg/dL (8.7-10.4); Carbon Dioxide 21 mmol/L (20-31); Chloride 105 mmol/L (98-107); Magnesium 2.2 mg/dL (1.6-2.6); Sodium 143 mmol/L (136-145); Total Protein 8.2 g/dL (5.7-8.2)
[2025-01-14 19:29] LABS: Bilirubin, Total 0.3 mg/dL (0.2-1.0)
[2025-01-14 19:30] LABS: Alanine Aminotransferase < 9 U/L (7-40); Blood Urea Nitrogen 34 mg/dL (9-23); Glucose 202 mg/dL (74-106); Potassium 3.3 mmol/L (3.5-5.1)
[2025-01-15] VITALS (8 sets, daily range): BP systolic 124–146; BP diastolic 52–84; PULSE 61–94; RESP 16–18; TEMP 98–98.3; O2SAT 96–100
[2025-01-15 06:45] LABS: Hematocrit 30.8 % (36.0-46.0); Hemoglobin 10.1 g/dL (12.2-16.2); Mean Corpuscular Hemoglobin 29.5 pg (28.0-32.0); Mean Corpuscular Volume 90.4 fL (80.0-100.0); Nucleated Red Blood Cells % 0.1 %
[2025-01-15 07:07] LABS: Alkaline Phosphatase 111 U/L (46-116); Anion Gap 16 (5-15); BUN/Creatinine Ratio 5.3 (10.0-20.0); Calcium 9.8 mg/dL (8.7-10.4); Carbon Dioxide 24 mmol/L (20-31); Chloride 104 mmol/L (98-107); Magnesium 2.2 mg/dL (1.6-2.6); Sodium 144 mmol/L (136-145); Total Protein 7.8 g/dL (5.7-8.2)
[2025-01-15 07:08] LABS: Albumin 4.0 g/dL (3.2-4.8)
[2025-01-15 07:17] LABS: Alanine Aminotransferase < 9 U/L (7-40); Bilirubin, Total 0.3 mg/dL (0.2-1.0); Blood Urea Nitrogen 39 mg/dL (9-23); Glucose 156 mg/dL (74-106); Potassium 3.4 mmol/L (3.5-5.1)
[2025-01-15] MEDS: EPOETIN ALFA-EPBX 10,000 UNIT/1ML VIAL SC SCH (09:20)
--- NOTE | 2025-01-15 09:53 | DVHPN2 ---
Progress Note Date Seen: Jan 15, 2025 Medical Necessity Reason Pt with a Central, PICC or Fol: No Subjective Changes from previous H/P or p: No Changes Objective vital signs Vital Sign Date Time Temp Pulse Resp B/P (MAP) Pulse Ox O2 Delivery O2 Flow Rate FiO2 01/15/25 08:38 98.0 67 18 132/70 (90) 100 98.0 01/14/25 20:00 Room Air* 0 21 Total Intake and Output 01/14/25 01/14/25 01/15/25 15:00 23:00 07:00 Intake Total 100 ml 0 ml Balance 100 ml 0 ml medications Current Medications Medications Dose Ordered Sig/Deepak Route Start Time Stop Time Status Last Admin Dose Admin Hydralazine HCl 10 mg Q6HP PRN IV 01/09/25 11:45 01/09/25 17:48 10 MG Levetiracetam 500 mg BID PO 01/10/25 22:00 UNV Heparin Sodium (Porcine) 3,200 units MEGAN PRN XX 01/10/25 22:15 Levetiracetam 100 ml @ 400 mls/hr BID IV 01/11/25 02:06 01/15/25 09:03 400 MLS/HR Sodium Chloride 1,000 ml @ 60 mls/hr [id number] IV 01/12/25 18:00 01/14/25 21:56 60 MLS/HR Amino Acids 0 ml @ 0 mls/hr PER PHARMACY IV 01/12/25 18:30 UNV Amino Acids 0 ml @ 0 mls/hr PER PHARMACY IV 01/12/25 18:45 Amino Acids/ Electrolytes/ Dextrose 1,000 ml @ 41 mls/hr DAILY@2200 IV 01/12/25 22:00 01/14/25 21:55 41 MLS/HR Diagnostic Test (Pha) 1 strip Q6HR 01/13/25 00:00 01/15/25 05:00 1 STRIP Insulin Human Regular FOLLOW SLIDING SCALE Q6HR SC 01/13/25 00:00 01/15/25 05:03 4 UNITS Dextrose 50 ml UD IV 01/12/25 19:00 Epoetin Champ-epbx 10,000 unit TUTHSA SC 01/15/25 10:00 Examination: GENERAL:Abnormal, CVS:Normal, NEURO:Abnormal laboratory and microbiology Laboratory Tests 01/15/25 05:00 Test 01/15/25 05:00 Range/Units Serum Glucose 156 H 74-106 mg/dL Microbiology Date/Time Source Procedure Growth Status 01/09/25 14:00 Nose MRSA Screen - Final Complete Problem List/Assessment/Plan Problem List/Assessment/Plan End-stage renal disease on hemodialysis dialysis today Subdural hematoma Defer management to primary medical team currently conservative management Hypertension continue p.o. blood pressure medications Anemia due to chronic kidney disease -iron and KARINA therapy as per KDIGO renal recommendation guidelines Rest of care as per primary medical team Plan discussed with: Other My Orders My Orders Orders - DARION SUERO MD Procedure Category Date Status Time Hemodialysis Orders ORDERS 01/15/25 Transmitted 07:00 Dialysis Nursing ZEKE 01/15/25 In Process Message 07:00 Document Fluid Input ZEKE 01/15/25 In Process And Outpu 07:00 Epoetin Champ-Epbx PHA 01/15/25 In Process (Retacrit) 10:00 Dietary Evaluation Review Comments: Nutrition Recommendation: 1) Advance to renal standard diet as medically feasible 2) Nephro-kristyn 1 tab daily, Vishal 1 pk daily 3) Monitor PO intake, lab values, weight trend, and I/O Expected Outcomes/Goals: Intake to meet >75% estimated needs Lab values to improve Fu 2-3 days DARION SUERO MD Jan 15, 2025 09:53
--- NOTE | 2025-01-15 10:12 | DVHPN2 ---
Progress Note Date Seen: Jan 15, 2025 Medical Necessity Reason Pt with a Central, PICC or Fol: No Subjective Patient reports: No new complaints Review of Systems: HEENT:Normal, CVS:Normal, RESPIRATORY:Normal, GI:Normal, :Normal, MSK:Normal, NEURO:Normal Objective vital signs Vital Sign Date Time Temp Pulse Resp B/P (MAP) Pulse Ox O2 Delivery O2 Flow Rate FiO2 01/15/25 08:38 98.0 67 18 132/70 (90) 100 98.0 01/14/25 20:00 Room Air* 0 21 Total Intake and Output 01/14/25 01/14/25 01/15/25 15:00 23:00 07:00 Intake Total 100 ml 0 ml Balance 100 ml 0 ml medications Current Medications Medications Dose Ordered Sig/Deepak Route Start Time Stop Time Status Last Admin Dose Admin Hydralazine HCl 10 mg Q6HP PRN IV 01/09/25 11:45 01/09/25 17:48 10 MG Levetiracetam 500 mg BID PO 01/10/25 22:00 UNV Heparin Sodium (Porcine) 3,200 units MEGAN PRN XX 01/10/25 22:15 Levetiracetam 100 ml @ 400 mls/hr BID IV 01/11/25 02:06 01/15/25 09:03 400 MLS/HR Sodium Chloride 1,000 ml @ 60 mls/hr [id number] IV 01/12/25 18:00 01/14/25 21:56 60 MLS/HR Amino Acids 0 ml @ 0 mls/hr PER PHARMACY IV 01/12/25 18:30 UNV Amino Acids 0 ml @ 0 mls/hr PER PHARMACY IV 01/12/25 18:45 Amino Acids/ Electrolytes/ Dextrose 1,000 ml @ 41 mls/hr DAILY@2200 IV 01/12/25 22:00 01/14/25 21:55 41 MLS/HR Diagnostic Test (Pha) 1 strip Q6HR 01/13/25 00:00 01/15/25 05:00 1 STRIP Insulin Human Regular FOLLOW SLIDING SCALE Q6HR SC 01/13/25 00:00 01/15/25 05:03 4 UNITS Dextrose 50 ml UD IV 01/12/25 19:00 Epoetin Champ-epbx 10,000 unit TUTHSA SC 01/15/25 10:00 Examination: GENERAL:Normal, HEENT:Normal, NECK:Normal, LUNGS:Normal, CVS:Normal, ABDOMEN:Normal, MSK:Normal, SKIN:Normal, NEURO:Normal, :Normal laboratory and microbiology Laboratory Tests 01/15/25 05:00 Test 01/15/25 05:00 Range/Units Serum Glucose 156 H 74-106 mg/dL Microbiology Date/Time Source Procedure Growth Status 01/09/25 14:00 Nose MRSA Screen - Final Complete Problem List/Assessment/Plan Problem List/Assessment/Plan * Subdural hematoma that will be treated conservatively. * End-stage renal disease. A Nephrology consult will be obtained for continued dialysis. * Hypertension. * CVA with left-sided deficit. * Dementia. * Diabetes mellitus. She will be placed on sliding scale insulin. * Questionable dysphagia: pureed diet per speech * History of PTCA. * Seizure disorder: armin advance care planning- full code- time spent 19 mins Plan discussed with: Patient My Orders My Orders Orders - ARIANNE RIZO MD Procedure Category Date Status Time * Senior Gl Accountant CONS 01/14/25 Transmitted Consult Apply Z-Guard ZEKE 01/14/25 In Process 16:34 Dietary Evaluation Review Comments: Nutrition Recommendation: 1) Advance to renal standard diet as medically feasible 2) Nephro-kristyn 1 tab daily, Vishal 1 pk daily 3) Monitor PO intake, lab values, weight trend, and I/O Expected Outcomes/Goals: Intake to meet >75% estimated needs Lab values to improve Fu 2-3 days Date of Service: Jan 15, 2025 Billing Provider: ARIANNE RIZO MD Common Visit Codes: [id number] INP/OBS CARE(HIGH) ARIANNE RIZO MD Jan 15, 2025 10:12
[2025-01-15] MEDS ORDERED: ALBUMIN 25% 100 ML IV PRN (10:30)
[2025-01-15] MEDS: SODIUM CHL 0.9% 1000 ML BAG XX ONE ×5 (10:40→14:05)
[2025-01-15] MEDS: POTASSIUM CHL 20MEQ/100ML 100 ML IV ONE (14:12)
[2025-01-16] VITALS (7 sets, daily range): BP systolic 109–138; BP diastolic 68–77; PULSE 61–78; RESP 18–19; TEMP 96.9–98.1; O2SAT 94–100
[2025-01-16 07:17] LABS: Alanine Aminotransferase < 9 U/L (7-40); Albumin 4.0 g/dL (3.2-4.8); Alkaline Phosphatase 123 U/L (46-116); Anion Gap 13 (5-15); BUN/Creatinine Ratio 6.7 (10.0-20.0); Blood Urea Nitrogen 32 mg/dL (9-23); Calcium 9.9 mg/dL (8.7-10.4); Carbon Dioxide 25 mmol/L (20-31); Chloride 103 mmol/L (98-107); Glucose 284 mg/dL (74-106); Magnesium 1.9 mg/dL (1.6-2.6); Potassium 4.0 mmol/L (3.5-5.1); Sodium 141 mmol/L (136-145); Total Protein 7.5 g/dL (5.7-8.2)
[2025-01-16 07:25] LABS: Bilirubin, Total 0.2 mg/dL (0.2-1.0)
--- NOTE | 2025-01-16 10:15 | DVHPN2 ---
Progress Note Date Seen: Jan 16, 2025 Medical Necessity Reason Pt with a Central, PICC or Fol: No Subjective Patient reports: No new complaints Review of Systems: HEENT:Normal, CVS:Normal, RESPIRATORY:Normal, GI:Normal, :Normal, MSK:Normal, NEURO:Normal Objective vital signs Vital Sign Date Time Temp Pulse Resp B/P (MAP) Pulse Ox O2 Delivery O2 Flow Rate FiO2 01/16/25 09:19 96.9 67 18 129/73 (91) 94 96.9 01/15/25 20:00 Room Air* 0 21 Total Intake and Output 01/15/25 01/15/25 01/16/25 15:00 23:00 07:00 Intake Total 1361 ml 0 ml Output Total 0 ml Balance 1361 ml 0 ml medications Current Medications Medications Dose Ordered Sig/Deepak Route Start Time Stop Time Status Last Admin Dose Admin Hydralazine HCl 10 mg Q6HP PRN IV 01/09/25 11:45 01/09/25 17:48 10 MG Levetiracetam 500 mg BID PO 01/10/25 22:00 UNV Heparin Sodium (Porcine) 3,200 units MEGAN PRN XX 01/10/25 22:15 Levetiracetam 100 ml @ 400 mls/hr BID IV 01/11/25 02:06 01/16/25 09:52 400 MLS/HR Sodium Chloride 1,000 ml @ 60 mls/hr [id number] IV 01/12/25 18:00 01/16/25 05:06 60 MLS/HR Amino Acids 0 ml @ 0 mls/hr PER PHARMACY IV 01/12/25 18:30 UNV Amino Acids 0 ml @ 0 mls/hr PER PHARMACY IV 01/12/25 18:45 Amino Acids/ Electrolytes/ Dextrose 1,000 ml @ 41 mls/hr DAILY@2200 IV 01/12/25 22:00 01/15/25 21:16 41 MLS/HR Diagnostic Test (Pha) 1 strip Q6HR 01/13/25 00:00 01/16/25 05:06 1 STRIP Insulin Human Regular FOLLOW SLIDING SCALE Q6HR SC 01/13/25 00:00 01/16/25 05:08 16 UNITS Dextrose 50 ml UD IV 01/12/25 19:00 Epoetin Champ-epbx 10,000 unit TUTHSA SC 01/15/25 10:00 01/15/25 14:24 10,000 UNIT Examination: GENERAL:Normal, HEENT:Normal, NECK:Normal, LUNGS:Normal, CVS:Normal, ABDOMEN:Normal, MSK:Normal, SKIN:Normal, NEURO:Normal, :Normal laboratory and microbiology Laboratory Tests 01/16/25 06:36 01/15/25 05:00 Test 01/16/25 06:36 Range/Units Serum Glucose 284 H 74-106 mg/dL Microbiology Date/Time Source Procedure Growth Status 01/09/25 14:00 Nose MRSA Screen - Final Complete Problem List/Assessment/Plan Problem List/Assessment/Plan * Subdural hematoma that will be treated conservatively. * End-stage renal disease. A Nephrology consult will be obtained for continued dialysis. * Hypertension. * CVA with left-sided deficit. * Dementia. * Diabetes mellitus. She will be placed on sliding scale insulin. * Questionable dysphagia: pureed diet per speech- not eating adequately, pockets food- long dw sister Charisma- requests to proceed with PEG placement * History of PTCA. * Seizure disorder: armin advance care planning- full code- time spent 19 mins Plan discussed with: Other (sister Charisma) Dietary Evaluation Review Comments: Nutrition Recommendation: 1) Advance to renal standard diet as medically feasible 2) Nephro-kristyn 1 tab daily, Vishal 1 pk daily 3) Monitor PO intake, lab values, weight trend, and I/O Expected Outcomes/Goals: Intake to meet >75% estimated needs Lab values to improve Fu 2-3 days Date of Service: Jan 16, 2025 Billing Provider: ARIANNE RIZO MD Common Visit Codes: [id number] INP/OBS CARE(HIGH) ARIANNE RIZO MD Jan 16, 2025 10:15
--- NOTE | 2025-01-16 15:48 | DVHPN2 ---
Progress Note Date Seen: Jan 16, 2025 Medical Necessity Reason Pt with a Central, PICC or Fol: No Objective vital signs Vital Sign Date Time Temp Pulse Resp B/P (MAP) Pulse Ox O2 Delivery O2 Flow Rate FiO2 01/16/25 12:30 97.8 70 18 138/71 (93) 100 97.8 01/16/25 08:00 Room Air* 0 21 Total Intake and Output 01/15/25 01/15/25 01/16/25 15:00 23:00 07:00 Intake Total 1361 ml 0 ml Output Total 0 ml Balance 1361 ml 0 ml medications Current Medications Medications Dose Ordered Sig/Deepak Route Start Time Stop Time Status Last Admin Dose Admin Hydralazine HCl 10 mg Q6HP PRN IV 01/09/25 11:45 01/09/25 17:48 10 MG Levetiracetam 500 mg BID PO 01/10/25 22:00 UNV Heparin Sodium (Porcine) 3,200 units MEGAN PRN XX 01/10/25 22:15 Levetiracetam 100 ml @ 400 mls/hr BID IV 01/11/25 02:06 01/16/25 09:52 400 MLS/HR Sodium Chloride 1,000 ml @ 60 mls/hr [id number] IV 01/12/25 18:00 01/16/25 05:06 60 MLS/HR Amino Acids 0 ml @ 0 mls/hr PER PHARMACY IV 01/12/25 18:30 UNV Amino Acids 0 ml @ 0 mls/hr PER PHARMACY IV 01/12/25 18:45 Amino Acids/ Electrolytes/ Dextrose 1,000 ml @ 41 mls/hr DAILY@2200 IV 01/12/25 22:00 01/15/25 21:16 41 MLS/HR Diagnostic Test (Pha) 1 strip Q6HR 01/13/25 00:00 01/16/25 12:26 1 STRIP Insulin Human Regular FOLLOW SLIDING SCALE Q6HR SC 01/13/25 00:00 01/16/25 12:31 4 UNITS Dextrose 50 ml UD IV 01/12/25 19:00 Epoetin Champ-epbx 10,000 unit TUTHSA SC 01/15/25 10:00 01/15/25 14:24 10,000 UNIT laboratory and microbiology Laboratory Tests 01/16/25 06:36 01/15/25 05:00 Test 01/16/25 06:36 Range/Units Serum Glucose 284 H 74-106 mg/dL Microbiology Date/Time Source Procedure Growth Status 01/09/25 14:00 Nose MRSA Screen - Final Complete Problem List/Assessment/Plan Problem List/Assessment/Plan End-stage renal disease on hemodialysis dialysis tentative or tuesday Subdural hematoma Defer management to primary medical team currently conservative management Hypertension continue p.o. blood pressure medications Anemia due to chronic kidney disease -iron and KARINA therapy as per KDIGO renal recommendation guidelines AMS- dementia w/ superimposed delirium bouts of confusion Rest of care as per primary medical team Plan discussed with: Patient Dietary Evaluation Review Comments: Nutrition Recommendation: 1) Advance to renal standard diet as medically feasible 2) Nephro-kristyn 1 tab daily, Vishal 1 pk daily 3) Monitor PO intake, lab values, weight trend, and I/O Expected Outcomes/Goals: Intake to meet >75% estimated needs Lab values to improve Fu 2-3 days DARION SUERO MD Jan 16, 2025 15:48
--- NOTE | 2025-01-16 18:09 | DVHCONRES ---
Date Seen: Jan 16, 2025 Resident Creating Document: JHAJJ,SARPUNEET RESIDENT Referring Physician Dr. Rizo Reason for Consultation PEG tube placement History of Present Illness Patient is a 79-year-old female with a medical history of end-stage renal disease, hypertension, CVA with left-sided deficits, dementia, subdural hematoma with a complaint of dysphagia/difficulty swallowing. GI were consulted for possible PEG tube placement since the patient is not able to swallow and keeps the food in her mouth. Past Medical History ESRD, dementia, hypertension, recent subdural hematoma, CVA with left-sided deficit Past Surgical History No recent surgeries reported Family History: Diabetes mellitus G8 MOTHER Hypertension G8 FATHER Family History No significant Social History No current smoking, alcohol, drug use Allergies: Coded Allergies: NO KNOWN ALLERGIES (Unverified , 01/14/22) Home Meds Active Scripts Rosuvastatin Calcium (Crestor) 20 Mg Tab, 0.5 TAB PO DAILY for 30 Days, #30 TAB 0 Refills Prov:FRANCA SLADE MD 12/18/24 Ergocalciferol (VITAMIN D 73712 UNIT) 50,000 [place], [address] UNIT PO Q7D for 90 Days, #12 CAP Prov:RUCHI TORREZ RESIDENT 06/15/24 Calcitriol (Calcitriol) 0.25 Mcg Cap, 0.25 MCG PO DAILY for 30 Days, #30 CAP 2 Refills Prov:RAMSES HERNANDES RESIDENT 01/13/24 Nifedipine (Nifedipine Er) 90 Mg Tab, 90 MG PO DAILY for 30 Days, #30 TAB 3 Refills Prov:ARIANNE RIZO MD 10/05/23 Reported Medications Furosemide (Furosemide) 40 Mg Tab, 1 TAB PO DAILY for 30 Days, #60 06/14/24 Aspirin (Aspirin Low Dose) 81 Mg Chw, 1 TAB PO DAILY for 90 Days, #90 06/14/24 Levetiracetam (Keppra) 500 Mg Tab, 1 TAB PO BID for 90 Days, #180 06/14/24 Lidocaine (Lidocaine Patch 5%) 5 % Pad, 1 PATCH TOP DAILY for 90 Days, #90 APPLY ONE PATCH TOPICALLY TO CLEAN, DRY SKIN. LEAVE ON FOR 12 HOURS THEN REMOVE. MUST WAIT AT LEAST 12 HOURS BEFORE APPLYING PATCH(ES) AGAIN. 10/03/23 Insulin Glargine (Lantus Solostar) 100 Unit/Ml Inj, 20 UNIT SC DAILY for 75 Days, #15 10/03/23 Ticagrelor Base (Brilinta) 60 Mg Tab, 1 TAB PO DAILY for 90 Days, #90 10/03/23 Pregabalin (Lyrica) 150 Mg Cap, 1 CAP PO BID for 90 Days, #180 10/02/23 Donepezil Hydrochloride (Aricept) 10 Mg Tab, 1 TAB PO QPM for 100 Days, #100 01/17/22 Review of Systems Patient seen and examined at the bedside Alert and oriented x1 and does not follow commands Reports of some diffuse abdominal pain Vital Signs Vital Signs Date Time Temp Pulse Resp B/P (MAP) Pulse Ox O2 Delivery O2 Flow Rate FiO2 01/16/25 12:30 97.8 70 18 138/71 (93) 100 97.8 01/16/25 08:00 Room Air* 0 21 Physical Exam Gen - no pallor, no scleral icterus Skin - Patients skin is warm and dry. HEENT - normocephalic, atraumatic, dry mucous membranes. Neck - supple, no lymphadenopathy Pulmonary - B/L equal air entry with vesicular breath sounds cardiovascular - regular S1,S2 heard GI - soft, mildly tender abdomen. Bowel sounds normoactive. Neurological - Patient is alert and oriented x1. Recent history of stroke with left-sided deficit. Patient is not able to follow commands Labs/Diagnostic Data Labs Test 01/16/25 16:10 01/16/25 06:36 01/15/25 05:00 01/13/25 07:14 Range/Units POC Glucose 116 H 70-106 mg/dl Sodium Level 141 136-145 mmol/L Potassium Level 4.0 3.5-5.1 mmol/L Chloride Level 103 98-107 mmol/L Carbon Dioxide Level 25 20-31 mmol/L Anion Gap 13 5-15 Blood Urea Nitrogen 32 H 9-23 mg/dL Creatinine 4.77 #H 0.550-1.02 mg/dL Glomerular Filtration Rate Calc 9 >90 mL/min BUN/Creatinine Ratio 6.7 L 10.0-20.0 Serum Glucose 284 H 74-106 mg/dL Calcium Level 9.9 8.7-10.4 mg/dL Phosphorus Level 2.5 2.4-5.1 mg/dL Magnesium Level 1.9 1.6-2.6 mg/dL Total Bilirubin 0.2 0.2-1.0 mg/dL Aspartate Amino Transferase (AST) 16 13-40 U/L Alanine Aminotransferase (ALT) < 9 7-40 U/L Alkaline Phosphatase 123 H 46-116 U/L Total Protein 7.5 5.7-8.2 g/dL Albumin 4.0 3.2-4.8 g/dL White Blood Count 8.7 4.4-10.8 10^3/uL Red Blood Count 3.41 L 4.0-5.20 10^6/uL Hemoglobin 10.1 L 12.2-16.2 g/dL Hematocrit 30.8 L 36.0-46.0 % Mean Corpuscular Volume 90.4 80.0-100.0 fL Mean Corpuscular Hemoglobin 29.5 28.0-32.0 pg Mean Corpuscular Hemoglobin Concent 32.7 32.0-36.0 g/dL Red Cell Distribution Width 13.9 11.8-14.3 % Platelet Count 236 140-450 10^3/uL Mean Platelet Volume 7.1 6.9-10.8 fL Neutrophils (%) (Auto) 64.4 37.0-80.0 % Lymphocytes (%) (Auto) 23.7 10.0-50.0 % Monocytes (%) (Auto) 8.6 0.0-12.0 % Eosinophils (%) (Auto) 2.8 0.0-7.0 % Basophils (%) (Auto) 0.5 0.0-2.0 % Neutrophils # (Auto) 5.6 1.6-8.6 10 ^3/uL Lymphocytes # (Auto) 2.1 0.4-5.4 10 ^3/uL Monocytes # (Auto) 0.8 0-1.3 10 ^3/uL Eosinophils # (Auto) 0.2 0-0.8 10 ^3/uL Basophils # (Auto) 0 0-0.2 10 ^3/uL Nucleated Red Blood Cells 0.1 % Triglycerides Level 148 < 150 mg/dL Test 01/11/25 14:00 01/09/25 17:51 Range/Units Hepatitis B Surface Antigen Negative Negative Prothrombin Time 10.9 9.3-11.8 sec Prothrombin Time INR 1.03 0.9-1.15 Activated Partial Thromboplast Time 29.6 24.5-34.5 SEC Microbiology Date/Time Source Procedure Growth Status 01/09/25 14:00 Nose MRSA Screen - Final Complete Assessment Assessment Subdural hematoma CVA with left-sided deficit Dysphagia ESRD on dialysis Plan - patient's [id number] Maite were called and explained about the PEG tube placement for which she agreed - patient to be taken for PEG tube placement on Tuesday - on Clinimix - PUD prophylaxis Plan discussed with Dr. Gutierrez Plan discussed with: Other ([id number] Maite, RN summer) JEAN PIERRE DUNHAM RESIDENT Jan 16, 2025 18:09
[2025-01-17 01:07] VITALS: BP 107/71; PULSE 77; RESP 20; TEMP 97.9; O2SAT 100
[2025-01-17 08:00] VITALS: PULSE 66; PULSE 75; RESP 18; O2SAT 99
--- NOTE | 2025-01-17 10:16 | DVHPN2 ---
Progress Note Date Seen: Jan 17, 2025 Medical Necessity Reason Pt with a Central, PICC or Fol: No Subjective Patient reports: No new complaints Review of Systems: HEENT:Normal, CVS:Normal, RESPIRATORY:Normal, GI:Normal, :Normal, MSK:Normal, NEURO:Normal Objective vital signs Vital Sign Date Time Temp Pulse Resp B/P (MAP) Pulse Ox O2 Delivery O2 Flow Rate FiO2 01/17/25 01:07 97.9 77 20 107/71 (83) 100 97.9 01/16/25 20:00 Room Air* 0 21 Total Intake and Output 01/16/25 01/16/25 01/17/25 15:00 23:00 07:00 Intake Total 100 ml 1211 ml 0 ml Output Total 0 ml Balance 100 ml 1211 ml 0 ml medications Current Medications Medications Dose Ordered Sig/Deepak Route Start Time Stop Time Status Last Admin Dose Admin Hydralazine HCl 10 mg Q6HP PRN IV 01/09/25 11:45 01/09/25 17:48 10 MG Levetiracetam 500 mg BID PO 01/10/25 22:00 UNV Heparin Sodium (Porcine) 3,200 units MEGAN PRN XX 01/10/25 22:15 Levetiracetam 100 ml @ 400 mls/hr BID IV 01/11/25 02:06 01/16/25 21:29 400 MLS/HR Sodium Chloride 1,000 ml @ 60 mls/hr [id number] IV 01/12/25 18:00 01/16/25 21:29 60 MLS/HR Amino Acids 0 ml @ 0 mls/hr PER PHARMACY IV 01/12/25 18:30 UNV Amino Acids 0 ml @ 0 mls/hr PER PHARMACY IV 01/12/25 18:45 Amino Acids/ Electrolytes/ Dextrose 1,000 ml @ 41 mls/hr DAILY@2200 IV 01/12/25 22:00 01/16/25 21:29 41 MLS/HR Diagnostic Test (Pha) 1 strip Q6HR 01/13/25 00:00 01/17/25 00:23 1 STRIP Insulin Human Regular FOLLOW SLIDING SCALE Q6HR SC 01/13/25 00:00 01/17/25 00:23 8 UNITS Dextrose 50 ml UD IV 01/12/25 19:00 Epoetin Champ-epbx 10,000 unit TUTHSA RI 01/15/25 10:00 01/15/25 14:24 10,000 UNIT Examination: GENERAL:Normal, HEENT:Normal, NECK:Normal, LUNGS:Normal, CVS:Normal, ABDOMEN:Normal, MSK:Normal, SKIN:Normal, NEURO:Normal, :Normal laboratory and microbiology Laboratory Tests 01/16/25 06:36 01/15/25 05:00 Test 01/16/25 06:36 Range/Units Serum Glucose 284 H 74-106 mg/dL Microbiology Date/Time Source Procedure Growth Status 01/09/25 14:00 Nose MRSA Screen - Final Complete Problem List/Assessment/Plan Problem List/Assessment/Plan * Subdural hematoma that will be treated conservatively. * End-stage renal disease. A Nephrology consult will be obtained for continued dialysis. * Hypertension. * CVA with left-sided deficit. * Dementia. * Diabetes mellitus. She will be placed on sliding scale insulin. * Questionable dysphagia: pureed diet per speech- not eating adequately, pockets food- long dw sister Charisma- requests to proceed with PEG placement- planned for am * History of PTCA. * Seizure disorder: keppra updated son/daughter in law regards plan of care/peg placement advance care planning- full code- time spent 19 mins Plan discussed with: Patient, Son My Orders My Orders Orders - ARIANNE RIZO MD Procedure Category Date Status Time Insert Midline ORDERS 01/17/25 Transmitted 10:05 Insert Midline ORDERS 01/17/25 Verified 10:14 Basic Metabolic Panel LAB 01/18/25 Verified 06:00 Complete Blood Count LAB 01/18/25 Verified 06:00 Dietary Evaluation Review Comments: Nutrition Recommendation: 1) Advance to renal standard diet as medically feasible 2) Nephro-kristyn 1 tab daily, Vishal 1 pk daily 3) Monitor PO intake, lab values, weight trend, and I/O Expected Outcomes/Goals: Intake to meet >75% estimated needs Lab values to improve Fu 2-3 days Date of Service: Jan 17, 2025 Billing Provider: ARIANNE RIZO MD Common Visit Codes: [id number] INP/OBS CARE(HIGH) ARIANNE RIZO MD Jan 17, 2025 10:16
[2025-01-17 12:21] LABS: Albumin 4.1 g/dL (3.2-4.8); Anion Gap 13 (5-15); BUN/Creatinine Ratio 6.5 (10.0-20.0); Calcium 10.2 mg/dL (8.7-10.4); Carbon Dioxide 21 mmol/L (20-31); Chloride 105 mmol/L (98-107); Magnesium 1.8 mg/dL (1.6-2.6); Potassium 3.6 mmol/L (3.5-5.1); Sodium 139 mmol/L (136-145); Total Protein 8.0 g/dL (5.7-8.2)
[2025-01-17] MEDS ORDERED: HYDROMORPHONE HCL 1 MG/ML INJ IV PRN (12:30)
[2025-01-17 12:36] LABS: Alanine Aminotransferase < 9 U/L (7-40); Alkaline Phosphatase 126 U/L (46-116); Blood Urea Nitrogen 38 mg/dL (9-23); Glucose 213 mg/dL (74-106)
[2025-01-17 12:37] LABS: Bilirubin, Total 0.3 mg/dL (0.2-1.0)
[2025-01-17 13:04] VITALS: BP 131/71; PULSE 68; RESP 22; TEMP 97.9; O2SAT 99
[2025-01-17] MEDS: ceFAZolin 1GM/50ML 50 ML IV ONE (13:30)
--- NOTE | 2025-01-17 15:15 | DVHPN2 ---
Progress Note Date Seen: Jan 17, 2025 Medical Necessity Reason Pt with a Central, PICC or Fol: Yes The following are medically ne: Central Line (HD catheter) Subjective Review of Systems: Deferred Objective vital signs Vital Sign Date Time Temp Pulse Resp B/P (MAP) Pulse Ox O2 Delivery O2 Flow Rate FiO2 01/17/25 13:04 97.9 68 22 131/71 (91) 99 97.9 01/17/25 08:00 Room Air* 0 21 Total Intake and Output 01/16/25 01/16/25 01/17/25 15:00 23:00 07:00 Intake Total 100 ml 1211 ml 0 ml Output Total 0 ml Balance 100 ml 1211 ml 0 ml medications Current Medications Medications Dose Ordered Sig/Deepak Route Start Time Stop Time Status Last Admin Dose Admin Hydralazine HCl 10 mg Q6HP PRN IV 01/09/25 11:45 01/09/25 17:48 10 MG Levetiracetam 500 mg BID PO 01/10/25 22:00 UNV Heparin Sodium (Porcine) 3,200 units MEGAN PRN XX 01/10/25 22:15 Levetiracetam 100 ml @ 400 mls/hr BID IV 01/11/25 02:06 01/17/25 13:01 400 MLS/HR Sodium Chloride 1,000 ml @ 60 mls/hr [id number] IV 01/12/25 18:00 01/16/25 21:29 60 MLS/HR Amino Acids 0 ml @ 0 mls/hr PER PHARMACY IV 01/12/25 18:30 UNV Amino Acids 0 ml @ 0 mls/hr PER PHARMACY IV 01/12/25 18:45 Amino Acids/ Electrolytes/ Dextrose 1,000 ml @ 41 mls/hr DAILY@2200 IV 01/12/25 22:00 01/16/25 21:29 41 MLS/HR Diagnostic Test (Pha) 1 strip Q6HR 01/13/25 00:00 01/17/25 00:23 1 STRIP Insulin Human Regular FOLLOW SLIDING SCALE Q6HR SC 01/13/25 00:00 01/17/25 00:23 8 UNITS Dextrose 50 ml UD IV 01/12/25 19:00 Epoetin Champ-epbx 10,000 unit TUTHSA SC 01/15/25 10:00 01/17/25 13:29 10,000 UNIT Hydromorphone HCl 0.25 mg Q4HPRN PRN IV 01/17/25 12:30 laboratory and microbiology Laboratory Tests 01/17/25 11:27 01/15/25 05:00 Test 01/17/25 11:27 Range/Units Serum Glucose 213 H 74-106 mg/dL Microbiology Date/Time Source Procedure Growth Status 01/09/25 14:00 Nose MRSA Screen - Final Complete Problem List/Assessment/Plan Problem List/Assessment/Plan End-stage renal disease on hemodialysis dialysis tentative tuesday Subdural hematoma Defer management to primary medical team currently conservative management Hypertension continue p.o. blood pressure medications Anemia due to chronic kidney disease -iron and KARINA therapy as per KDIGO renal recommendation guidelines AMS- dementia w/ superimposed delirium bouts of confusion nutrition pending peg placement Rest of care as per primary medical team Plan discussed with: Patient Dietary Evaluation Review Comments: Nutrition Recommendation: 1) Advance to renal standard diet as medically feasible 2) Nephro-kristyn 1 tab daily, Vishal 1 pk daily 3) Monitor PO intake, lab values, weight trend, and I/O Expected Outcomes/Goals: Intake to meet >75% estimated needs Lab values to improve Fu 2-3 days DARION SUERO MD Jan 17, 2025 15:15
[2025-01-17 17:00] VITALS: BP 117/77; PULSE 69; RESP 20; TEMP 98; O2SAT 99
[2025-01-17] MEDS ORDERED: LORazepam 0.5 MG TAB PO PRN (17:15)
[2025-01-17] MEDS: SODIUM PHOSPHATES 20 MEQ in SODIUM CHL 0.9% 100 ML IV ONE (17:35)
[2025-01-17 20:00] VITALS: PULSE 64; PULSE 74; RESP 18; O2SAT 100
--- NOTE | 2025-01-17 20:38 | DVHPN2 ---
Progress Note - Dictate Date Seen: Jan 17, 2025 Medical Necessity Reason Pt with a Central, PICC or Fol: Yes The following are medically ne: Central Line (HD catheter) Subjective No new complaints, patient resting comfortably Patient would pocket food in her mouth during swallow eval Patient has underlying dementia and is non cooperative vital signs Vital Sign Date Time Temp Pulse Resp B/P (MAP) Pulse Ox O2 Delivery O2 Flow Rate FiO2 01/17/25 17:00 98.0 69 20 117/77 (90) 99 98.0 01/17/25 08:00 Room Air* 0 21 Total Intake and Output 01/16/25 01/16/25 01/17/25 15:00 23:00 07:00 Intake Total 100 ml 1211 ml 0 ml Output Total 0 ml Balance 100 ml 1211 ml 0 ml medications Current Medications Medications Dose Ordered Sig/Deepak Route Start Time Stop Time Status Last Admin Dose Admin Hydralazine HCl 10 mg Q6HP PRN IV 01/09/25 11:45 01/09/25 17:48 10 MG Levetiracetam 500 mg BID PO 01/10/25 22:00 UNV Heparin Sodium (Porcine) 3,200 units MEGAN PRN XX 01/10/25 22:15 Levetiracetam 100 ml @ 400 mls/hr BID IV 01/11/25 02:06 01/17/25 13:01 400 MLS/HR Amino Acids 0 ml @ 0 mls/hr PER PHARMACY IV 01/12/25 18:30 UNV Amino Acids 0 ml @ 0 mls/hr PER PHARMACY IV 01/12/25 18:45 Amino Acids/ Electrolytes/ Dextrose 1,000 ml @ 41 mls/hr DAILY@2200 IV 01/12/25 22:00 01/16/25 21:29 41 MLS/HR Diagnostic Test (Pha) 1 strip Q6HR 01/13/25 00:00 01/17/25 17:34 1 STRIP Insulin Human Regular FOLLOW SLIDING SCALE Q6HR SC 01/13/25 00:00 01/17/25 17:51 8 UNITS Dextrose 50 ml UD IV 01/12/25 19:00 Epoetin Champ-epbx 10,000 unit TUTHSA SC 01/15/25 10:00 01/17/25 13:29 10,000 UNIT Hydromorphone HCl 0.25 mg Q4HPRN PRN IV 01/17/25 12:30 Lorazepam 0.5 mg Q6HP PRN PO 01/17/25 17:15 objective Examination: GENERAL:Normal, HEENT:Normal, NECK:Normal, LUNGS:Normal, CVS:Normal, ABDOMEN:Normal, MSK:Normal, SKIN:Normal, NEURO:Normal, :Normal laboratory and microbiology Laboratory Tests 01/17/25 11:27 01/15/25 05:00 Test 01/17/25 11:27 Range/Units Serum Glucose 213 H 74-106 mg/dL Problems(with codes): (1) Oropharyngeal dysphagia (2) Stroke-like symptoms (3) End-stage renal disease on hemodialysis (4) Generalized weakness (5) Renal insufficiency Prognosis Plan Hospitalist and family are requesting a PEG tube placement to give supplemental feedings Patient will be kept NPO after midnight and patient will be scheduled for a PEG tube placement tomorrow Hold blood thinners aspirin and NSAIDs Dietary Evaluation Review Comments: Nutrition Recommendation: 1) Advance to renal standard diet as medically feasible 2) Nephro-kristyn 1 tab daily, Vishal 1 pk daily 3) Monitor PO intake, lab values, weight trend, and I/O Expected Outcomes/Goals: Intake to meet >75% estimated needs Lab values to improve Fu 2-3 days Plan discussed with: Other (Dr Vargas) GEORGES JACOBO MD Jan 17, 2025 20:38
[2025-01-17 21:00] VITALS: BP 156/91; PULSE 74; RESP 18; TEMP 97.8; O2SAT 100
[2025-01-18] VITALS (9 sets, daily range): BP systolic 102–151; BP diastolic 37–72; PULSE 62–80; RESP 13–18; TEMP 97.1–98.5; O2SAT 96–100
[2025-01-18] MEDS ORDERED: SODIUM CHL 0.9% 1000 ML BAG XX ONE (07:00)
[2025-01-18 07:31] LABS: Hematocrit 25.2 % (36.0-46.0); Hemoglobin 8.4 g/dL (12.2-16.2); Mean Corpuscular Hemoglobin 29.4 pg (28.0-32.0); Mean Corpuscular Volume 88.7 fL (80.0-100.0); Nucleated Red Blood Cells % 0.0 %
[2025-01-18 08:02] LABS: INR 1.07 (0.9-1.15); Prothrombin Time 11.3 sec (9.3-11.8)
[2025-01-18 08:06] LABS: Partial Thromboplastin Time 98.2 SEC (24.5-34.5)
[2025-01-18 08:51] LABS: Albumin 3.2 g/dL (3.2-4.8); Alkaline Phosphatase 108 U/L (46-116); Anion Gap 12 (5-15); BUN/Creatinine Ratio 6.1 (10.0-20.0); Blood Urea Nitrogen 20 mg/dL (9-23); Calcium 8.7 mg/dL (8.7-10.4); Carbon Dioxide 26 mmol/L (20-31); Chloride 104 mmol/L (98-107); Magnesium 1.6 mg/dL (1.6-2.6); Sodium 142 mmol/L (136-145); Total Protein 6.2 g/dL (5.7-8.2)
[2025-01-18 08:54] LABS: Alanine Aminotransferase < 9 U/L (7-40); Glucose 221 mg/dL (74-106); Potassium 3.1 mmol/L (3.5-5.1)
[2025-01-18 08:55] LABS: Bilirubin, Total 0.2 mg/dL (0.2-1.0)
[2025-01-18 11:48] LABS: INR 1.06 (0.9-1.15); Partial Thromboplastin Time 28.4 SEC (24.5-34.5); Prothrombin Time 11.2 sec (9.3-11.8)
--- NOTE | 2025-01-18 13:10 | DVHPN2 ---
Progress Note Date Seen: Jan 18, 2025 Medical Necessity Reason Pt with a Central, PICC or Fol: Yes The following are medically ne: Central Line (HD catheter) Subjective Patient reports: No new complaints Review of Systems: Deferred Objective vital signs Vital Sign Date Time Temp Pulse Resp B/P (MAP) Pulse Ox O2 Delivery O2 Flow Rate FiO2 01/18/25 09:53 97.8 75 18 142/57 (85) 100 97.8 01/18/25 08:00 Room Air* 0 21 Total Intake and Output 01/17/25 01/17/25 01/18/25 15:00 23:00 07:00 Intake Total 100 ml 50 ml 0 ml Output Total 0 ml Balance 100 ml 50 ml 0 ml medications Current Medications Medications Dose Ordered Sig/Deepak Route Start Time Stop Time Status Last Admin Dose Admin Hydralazine HCl 10 mg Q6HP PRN IV 01/09/25 11:45 01/09/25 17:48 10 MG Levetiracetam 500 mg BID PO 01/10/25 22:00 UNV Heparin Sodium (Porcine) 3,200 units MEGAN PRN XX 01/10/25 22:15 01/18/25 03:27 3,200 UNITS Levetiracetam 100 ml @ 400 mls/hr BID IV 01/11/25 02:06 01/18/25 10:14 400 MLS/HR Amino Acids 0 ml @ 0 mls/hr PER PHARMACY IV 01/12/25 18:30 UNV Amino Acids 0 ml @ 0 mls/hr PER PHARMACY IV 01/12/25 18:45 Amino Acids/ Electrolytes/ Dextrose 1,000 ml @ 41 mls/hr DAILY@2200 IV 01/12/25 22:00 01/17/25 21:54 41 MLS/HR Diagnostic Test (Pha) 1 strip Q6HR 01/13/25 00:00 01/17/25 17:34 1 STRIP Insulin Human Regular FOLLOW SLIDING SCALE Q6HR SC 01/13/25 00:00 01/17/25 17:51 8 UNITS Dextrose 50 ml UD IV 01/12/25 19:00 Epoetin Champ-epbx 10,000 unit TUTHSA SC 01/15/25 10:00 01/17/25 13:29 10,000 UNIT Hydromorphone HCl 0.25 mg Q4HPRN PRN IV 01/17/25 12:30 Lorazepam 0.5 mg Q6HP PRN PO 01/17/25 17:15 laboratory and microbiology Laboratory Tests 01/18/25 07:00 Test 01/18/25 07:00 Range/Units Serum Glucose 221 H 74-106 mg/dL Microbiology Date/Time Source Procedure Growth Status 01/09/25 14:00 Nose MRSA Screen - Final Complete Problem List/Assessment/Plan Problem List/Assessment/Plan End-stage renal disease on hemodialysis --HD tomorrow Subdural hematoma Defer management to primary medical team currently conservative management Hypertension continue p.o. blood pressure medications Anemia due to chronic kidney disease -iron and KARINA therapy as per KDIGO renal recommendation guidelines AMS- dementia w/ superimposed delirium bouts of confusion nutrition pending peg placement Plan discussed with: Patient Dietary Evaluation Review Comments: Nutrition Recommendation: 1) Advance to renal standard diet as medically feasible 2) Nephro-kristyn 1 tab daily, Vishal 1 pk daily 3) Monitor PO intake, lab values, weight trend, and I/O Expected Outcomes/Goals: Intake to meet >75% estimated needs Lab values to improve Fu 2-3 days TIFF CLARK MD Jan 18, 2025 13:10
[2025-01-18] MEDS ORDERED: PROPOFOL 10 MG/ML 20 ML IV ONE (14:54)
[2025-01-18] MEDS ORDERED: GLYCOPYRROLATE 0.2 MG/ML 1ML VIAL ONE (14:54)
[2025-01-18] MEDS ORDERED: ONDANSETRON HCL 4 MG/2 ML VIAL ONE (14:54)
[2025-01-18] MEDS ORDERED: LIDOCAINE 2% (LOCAL ANESTH.) PF 5ml SDV ONE (14:54)
[2025-01-18] MEDS ORDERED: MIDAZOLAM HCL 2MG/2ML 2ml VIAL (1mg/ml) ONE (14:54)
[2025-01-18] MEDS ORDERED: fentaNYL CITRATE 100 MCG/2 ML VL ONE (14:54)
--- NOTE | 2025-01-18 14:55 | DVHPN2 ---
Subjective Patient is still altered mental status. Reviewed: Care Plan, H&P, Labs, Medications Changes from previous H/P or p: No Changes General: Per HPI Objective Vitals Vital Signs Date Time Temp Pulse Resp B/P (MAP) Pulse Ox O2 Delivery O2 Flow Rate FiO2 01/18/25 14:16 98.1 70 18 133/37 (69) 99 98.1 01/18/25 08:00 Room Air* 0 21 Intake/Output Intake and Output 01/18/25 07:00 Intake Total 150 ml Output Total 0 ml Balance 150 ml Intake Oral 0 ml IV Total 150 ml Output Urine Total 0 ml General Appearance: Alert, Cooperative, No acute distress, Other (Oriented to name only./answers simple questions) HEENT: Atraumatic, PERRLA Lungs: Clear to auscultation, Normal air movement Cardiovascular: Normal S1, Normal S2 Abdomen: Normal bowel sounds, Soft, No tenderness, No hepatospenomegaly Musculoskeletal: Weak motor strength RUE, Weak motor strength LUE, Other (moves BOTH UPPER EXTRMITIES ON REQUEST/unamle to understand and move legs) Neuro: Normal speech, Other (normal speech but confused at baseline after sdh) Skin: Dry, Intact Psych/Mental Status: Mood NL Medications Current Medications Medications Dose Ordered Sig/Deepak Route Start Time Stop Time Status Last Admin Dose Admin Hydralazine HCl 10 mg Q6HP PRN IV 01/09/25 11:45 01/09/25 17:48 10 MG Levetiracetam 500 mg BID PO 01/10/25 22:00 UNV Heparin Sodium (Porcine) 3,200 units MEGAN PRN XX 01/10/25 22:15 01/18/25 03:27 3,200 UNITS Levetiracetam 100 ml @ 400 mls/hr BID IV 01/11/25 02:06 01/18/25 10:14 400 MLS/HR Amino Acids 0 ml @ 0 mls/hr PER PHARMACY IV 01/12/25 18:30 UNV Amino Acids 0 ml @ 0 mls/hr PER PHARMACY IV 01/12/25 18:45 Amino Acids/ Electrolytes/ Dextrose 1,000 ml @ 41 mls/hr DAILY@2200 IV 01/12/25 22:00 01/17/25 21:54 41 MLS/HR Diagnostic Test (Pha) 1 strip Q6HR 01/13/25 00:00 01/17/25 17:34 1 STRIP Insulin Human Regular FOLLOW SLIDING SCALE Q6HR SC 01/13/25 00:00 01/17/25 17:51 8 UNITS Dextrose 50 ml UD IV 01/12/25 19:00 Epoetin Champ-epbx 10,000 unit TUTHSA SC 01/15/25 10:00 01/17/25 13:29 10,000 UNIT Hydromorphone HCl 0.25 mg Q4HPRN PRN IV 01/17/25 12:30 Lorazepam 0.5 mg Q6HP PRN PO 01/17/25 17:15 Laboratory Results Laboratory Tests 01/18/25 07:00 Chemistry Test 01/18/25 07:00 Albumin 3.2 g/dL (3.2-4.8) Calcium Level 8.7 mg/dL (8.7-10.4) Magnesium Level 1.6 mg/dL (1.6-2.6) Phosphorus Level 1.5 mg/dL (2.4-5.1) L Total Protein 6.2 g/dL (5.7-8.2) Coagulation Test 01/18/25 07:00 01/18/25 11:05 Prothrombin Time 11.3 sec (9.3-11.8) 11.2 sec (9.3-11.8) Prothrombin Time INR 1.07 (0.9-1.15) 1.06 (0.9-1.15) Activated Partial Thromboplast Time 98.2 SEC (24.5-34.5) *H 28.4 SEC (24.5-34.5) LFT Test 01/18/25 07:00 Alanine Aminotransferase (ALT) < 9 U/L (7-40) Alkaline Phosphatase 108 U/L (46-116) Aspartate Amino Transferase (AST) 13 U/L (13-40) Total Bilirubin 0.2 mg/dL (0.2-1.0) Microbiology Microbiology Date/Time Source Procedure Growth Status 01/09/25 14:00 Nose MRSA Screen - Final Complete Labs and/or images reviewed: Labs reviewed by me, Image(s) reviewed by me Assessment/Plan Assessment/Plan Impression: -subdural hematoma -ESRD with hemodialysis -primary hypertension -history of CVA with left-sided deficit -dementia -diabetes mellitus -CAD with history of PTCA -seizure disorder -dysphagia Plan: Events: EGD today -PT consultation -continue antiplatelet medication -regular insulin sliding scale -nephrology consultation for hemodialysis -continue antiepileptic -repeat labs in a.m. -social service consultation for discharge planning Total time spent with patient discussing and formulating plan of care: 35 minutes. This medical document was created using an electronic medical record system with [employer] dictation system. Although this document has been carefully reviewed, there may still be some phonetic and typographical errors. These areas are purely typographical due to imperfections of the software programs, and do not reflect any compromise in the patient's medical care. Plan discussed with: Patient, Other (RN) My Orders Orders - MIGUEL COHN NP Procedure Category Date Status Time Basic Metabolic Panel LAB 01/19/25 Verified 04:00 Magnesium LAB 01/19/25 Verified 04:00 Phosphorus LAB 01/19/25 Verified 04:00 Date of Service: Jan 18, 2025 Billing Provider: MIGUEL COHN NP Common Visit Codes: [id number] INP/OBS CARE(HIGH) MIUGEL COHN NP Jan 18, 2025 14:55
[2025-01-18] MEDS: ceFAZolin 2 GM/D5W50ml 50 ML IV ONE (15:06)
--- NOTE | 2025-01-18 15:42 | DVHINCON2 ---
Date of service: Jan 18, 2025 Family History: Diabetes mellitus G8 MOTHER Hypertension G8 FATHER Allergies: Uncoded Allergies: TAPE (Allergy, Unknown, 01/17/25) Home Meds Active Scripts Rosuvastatin Calcium (Crestor) 20 Mg Tab, 0.5 TAB PO DAILY for 30 Days, #30 TAB 0 Refills Prov:FRANCA SLADE MD 12/18/24 Ergocalciferol (VITAMIN D 42626 UNIT) 50,000 [place], [address] UNIT PO Q7D for 90 Days, #12 CAP Prov:RUCHI TORREZ RESIDENT 06/15/24 Calcitriol (Calcitriol) 0.25 Mcg Cap, 0.25 MCG PO DAILY for 30 Days, #30 CAP 2 Refills Prov:RAMSES HERNANDES RESIDENT 01/13/24 Nifedipine (Nifedipine Er) 90 Mg Tab, 90 MG PO DAILY for 30 Days, #30 TAB 3 Refills Prov:AIRANNE RIZO MD 10/05/23 Reported Medications Furosemide (Furosemide) 40 Mg Tab, 1 TAB PO DAILY for 30 Days, #60 06/14/24 Aspirin (Aspirin Low Dose) 81 Mg Chw, 1 TAB PO DAILY for 90 Days, #90 06/14/24 Levetiracetam (Keppra) 500 Mg Tab, 1 TAB PO BID for 90 Days, #180 06/14/24 Lidocaine (Lidocaine Patch 5%) 5 % Pad, 1 PATCH TOP DAILY for 90 Days, #90 APPLY ONE PATCH TOPICALLY TO CLEAN, DRY SKIN. LEAVE ON FOR 12 HOURS THEN REMOVE. MUST WAIT AT LEAST 12 HOURS BEFORE APPLYING PATCH(ES) AGAIN. 10/03/23 Insulin Glargine (Lantus Solostar) 100 Unit/Ml Inj, 20 UNIT SC DAILY for 75 Days, #15 10/03/23 Ticagrelor Base (Brilinta) 60 Mg Tab, 1 TAB PO DAILY for 90 Days, #90 10/03/23 Pregabalin (Lyrica) 150 Mg Cap, 1 CAP PO BID for 90 Days, #180 10/02/23 Donepezil Hydrochloride (Aricept) 10 Mg Tab, 1 TAB PO QPM for 100 Days, #100 01/17/22 Current Medications Current Medications Medications (Trade) Dose Ordered Sig/Deepak Route PRN Reason Start Time Stop Time Status Last Admin Lorazepam (Ativan Tablet) 0.5 mg Q6HP PRN PO ANXIETY 01/17/25 17:15 Vital Signs Vital Signs Date Time Temp Pulse Resp B/P (MAP) Pulse Ox O2 Delivery O2 Flow Rate FiO2 01/18/25 14:16 98.1 70 18 133/37 (69) 99 98.1 01/18/25 08:00 Room Air* 0 21 Labs/Diagnostic Data Labs Test 01/18/25 11:05 01/18/25 07:00 01/17/25 17:31 01/13/25 07:14 Range/Units Prothrombin Time 11.2 9.3-11.8 sec Prothrombin Time INR 1.06 0.9-1.15 Activated Partial Thromboplast Time 28.4 24.5-34.5 SEC White Blood Count 7.1 4.4-10.8 10^3/uL Red Blood Count 2.84 L 4.0-5.20 10^6/uL Hemoglobin 8.4 #L 12.2-16.2 g/dL Hematocrit 25.2 #L 36.0-46.0 % Mean Corpuscular Volume 88.7 80.0-100.0 fL Mean Corpuscular Hemoglobin 29.4 28.0-32.0 pg Mean Corpuscular Hemoglobin Concent 33.2 32.0-36.0 g/dL Red Cell Distribution Width 14.7 H 11.8-14.3 % Platelet Count 148 140-450 10^3/uL Mean Platelet Volume 7.1 6.9-10.8 fL Neutrophils (%) (Auto) 68.9 37.0-80.0 % Lymphocytes (%) (Auto) 20.6 10.0-50.0 % Monocytes (%) (Auto) 7.9 0.0-12.0 % Eosinophils (%) (Auto) 2.3 0.0-7.0 % Basophils (%) (Auto) 0.3 0.0-2.0 % Neutrophils # (Auto) 4.9 1.6-8.6 10 ^3/uL Lymphocytes # (Auto) 1.5 0.4-5.4 10 ^3/uL Monocytes # (Auto) 0.6 0-1.3 10 ^3/uL Eosinophils # (Auto) 0.2 0-0.8 10 ^3/uL Basophils # (Auto) 0 0-0.2 10 ^3/uL Nucleated Red Blood Cells 0.0 % Sodium Level 142 136-145 mmol/L Potassium Level 3.1 L 3.5-5.1 mmol/L Chloride Level 104 98-107 mmol/L Carbon Dioxide Level 26 20-31 mmol/L Anion Gap 12 5-15 Blood Urea Nitrogen 20 # 9-23 mg/dL Creatinine 3.28 #H 0.550-1.02 mg/dL Glomerular Filtration Rate Calc 14 >90 mL/min BUN/Creatinine Ratio 6.1 L 10.0-20.0 Serum Glucose 221 H 74-106 mg/dL Calcium Level 8.7 8.7-10.4 mg/dL Phosphorus Level 1.5 L 2.4-5.1 mg/dL Magnesium Level 1.6 1.6-2.6 mg/dL Total Bilirubin 0.2 0.2-1.0 mg/dL Aspartate Amino Transferase (AST) 13 13-40 U/L Alanine Aminotransferase (ALT) < 9 7-40 U/L Alkaline Phosphatase 108 46-116 U/L Total Protein 6.2 5.7-8.2 g/dL Albumin 3.2 3.2-4.8 g/dL POC Glucose 221 H 70-106 mg/dl Triglycerides Level 148 < 150 mg/dL Test 01/11/25 14:00 Range/Units Hepatitis B Surface Antigen Negative Negative Microbiology Date/Time Source Procedure Growth Status 01/09/25 14:00 Nose MRSA Screen - Final Complete Assessment [id number] DYSPHAGIA MALNUTRITION PEG PLACEMENT NO DRAINS EBL [address] Karis JACOBO NO COMPLICATIONS Plan discussed with: Other IVANNA JACOBO MD Jan 18, 2025 15:42
[2025-01-18] MEDS ORDERED: ONDANSETRON HCL 4 MG/2 ML VIAL IV PRN (15:45)
--- NOTE | 2025-01-18 15:49 | DVHOP2 ---
Operative Report DATE OF OPERATION: 01/18/25 PROCEDURE: Upper Endoscopy with PEG tube placement PREOPERATIVE INDICATION: The patient is a 79 -year-old female undergoing endoscopy for PEG tube placement, failed swallow evaluation and failure to thrive underlying severe dementia POSTOPERATIVE DIAGNOSES: 1. Mild gastroduodenitis otherwise normal examination up to the 2nd and 3rd part of the duodenal 2. Percutaneous gastrostomy tube was placed through the anterior abdominal wall under sterile conditions by Dr. Rebeka Gutierrez using endoscopic guidance and assistance by wa as per standard protocol 3. Repeat endoscopy was performed to confirm adequate placement of the PEG tube PROCEDURE PERFORMED BY: Georges Gutierrez GI NURSE: Monica SCOPE: Olympus videoendoscope. ASA CLASS: 3 PREOPERATIVE MEDICATIONS: Mac sedation, Dr. Vences; Maulik two PROCEDURE IN DETAIL: After obtaining an informed consent, the patient was placed on left lateral decubitus position. The patient was then sedated with the above medications. A bite block was placed between her teeth. The endoscope was then passed through the oropharynx, into the esophagus, and through the stomach and pylorus up to the second and third part of the duodenum. The endoscope was then withdrawn. The 2nd and 3rd part of the duodenal and the duodenal bulb were normal. The pre-pyloric area and antrum showed bilateral gastritis On retroflexion the fundus and cardia were normal. There was good bile drainage. Using the light from the endoscope a percutaneous gastrostomy tube was placed through the anterior abdominal wall under sterile conditions into the distal body of the stomach Endoscopic guidance and assistance was used and placement was done as per standard protocol. Repeat endoscopy was performed to confirm adequate placement The patient tolerated the procedure well without difficulty. COMPLICATIONS : None SPECIMENS: None DISPOSITION: Transfer back to the floor Stable PLAN: 1. Do not use gastrostomy today 2. Will place pt on Protonix 40 mg IV once a day 3. See postop PEG tube placement instructions GEORGES GUTIERREZ MD Jan 18, 2025 15:49
--- NOTE | 2025-01-18 15:56 | DVHOP ---
DATE OF SURGERY: 01/18/2025 PREOPERATIVE DIAGNOSES: Dysphagia and dehydration. POSTOPERATIVE DIAGNOSES: Dysphagia and dehydration. PROCEDURE: Placement of PEG placement in conjunction with Dr. Irma Gutierrez's endoscopy. DESCRIPTION OF PROCEDURE: The patient was prepped and draped in the usual sterile fashion in the supine position, the left upper abdomen was re-exposed. Endoscopy was carried out. The light was seen shining through in the upper abdomen. A suitable spot was selected. lidocaine was infiltrated in the location. A small incision was applied and the Angiocatheter needle was advanced through the incision into the anterior wall of the stomach. The needle was withdrawn. The catheter was left in place and the guidewire was advanced through the catheter, grasped by the endoscope, pulled out of the mouth and the G-tube was engaged with the guidewire, pulled back into the mouth into the anterior wall of the stomach and outside the abdominal wall and the cuff was located well within the anterior abdominal wall confirmed by the repeat EGD by Dr. Irma Gutierrez. She will be dictating her part and then the final connections with the catheter were established. Dressing was applied. The patient tolerated the procedure well with no complications. MD ALONZO Carney/THELMA TID: [id number] RECEIPT: [id number] cc: Nilesh Reyna MD
--- NOTE | 2025-01-18 15:59 | DVHINCON2 ---
DATE OF CONSULTATION: 01/18/2025 HISTORY OF PRESENT ILLNESS: The patient is a 79-year-old, transferred from [facility]. She was initially transferred for subdural hematoma. It was managed conservatively and now she is being wanting to have a feeding tube placed as she is not able to eat or drink. PAST MEDICAL HISTORY: End-stage renal disease, recent dialysis done, subdural hematoma, dementia, questionable diabetes, hypertension, seizure disorder, and she had recent CVA with left-sided deficits. PHYSICAL EXAMINATION: VITAL SIGNS: Afebrile, stable signs. HEENT: There is no evidence of pallor, cyanosis, or jaundice. NECK: Supple, nontender. No thyromegaly. No lymphadenopathy. CHEST AND LUNGS: Clear. HEART: Within normal limits. ABDOMEN: Soft. NEUROLOGIC: Not assessed. EXTREMITIES: Unremarkable. CLINICAL IMPRESSION: Dehydration, dysphagia. PLAN: Will be to place the PEG tube placement in conjunction with Dr. Irma Gutierrez's endoscopy. MD ALONZO Carney/MANSI TID: [id number] RECEIPT: [id number] cc: Nilesh Reyna MD
[2025-01-18] MEDS: ACCU-CHEK COMFORT CURVE STRIP VI ONE (16:06)
[2025-01-18] MEDS: POTASSIUM PHOSPHATE 22 MEQ in SODIUM CHL 0.9% 100 ML IV ONE (17:18)
[2025-01-19 01:00] VITALS: BP 90/43; PULSE 74; PULSE 83; RESP 18; TEMP 98.2; O2SAT 97
[2025-01-19 05:00] VITALS: BP 92/83; PULSE 78; RESP 18; TEMP 97.7; O2SAT 99
[2025-01-19] MEDS: ENSURE CLEAR Apple 8oz Carton PO SCH (06:00)
[2025-01-19 08:00] VITALS: PULSE 75; PULSE 77; RESP 18; O2SAT 99
[2025-01-19] MEDS ORDERED: [UNRECOGNIZED DRUG - CODE] OR (08:15)
--- NOTE | 2025-01-19 08:18 | DVHDS2 ---
Discharge Summary Date of Admission Jan 09, 2025 at 10:17 Date of Discharge: Jan 19, 2025 Admitting Diagnosis Subdural hematoma Labs/Diagnostic Data: Laboratory Results Test 01/19/25 02:00 01/18/25 11:05 01/18/25 07:00 01/13/25 07:14 POC Glucose 124 mg/dl (70-106) Prothrombin Time 11.2 sec (9.3-11.8) Prothrombin Time INR 1.06 (0.9-1.15) Activated Partial Thromboplast Time 28.4 SEC (24.5-34.5) White Blood Count 7.1 10^3/uL (4.4-10.8) Red Blood Count 2.84 10^6/uL (4.0-5.20) Hemoglobin 8.4 g/dL (12.2-16.2) Hematocrit 25.2 % (36.0-46.0) Mean Corpuscular Volume 88.7 fL (80.0-100.0) Mean Corpuscular Hemoglobin 29.4 pg (28.0-32.0) Mean Corpuscular Hemoglobin Concent 33.2 g/dL (32.0-36.0) Red Cell Distribution Width 14.7 % (11.8-14.3) Platelet Count 148 10^3/uL (140-450) Mean Platelet Volume 7.1 fL (6.9-10.8) Neutrophils (%) (Auto) 68.9 % (37.0-80.0) Lymphocytes (%) (Auto) 20.6 % (10.0-50.0) Monocytes (%) (Auto) 7.9 % (0.0-12.0) Eosinophils (%) (Auto) 2.3 % (0.0-7.0) Basophils (%) (Auto) 0.3 % (0.0-2.0) Neutrophils # (Auto) 4.9 10 ^3/uL (1.6-8.6) Lymphocytes # (Auto) 1.5 10 ^3/uL (0.4-5.4) Monocytes # (Auto) 0.6 10 ^3/uL (0-1.3) Eosinophils # (Auto) 0.2 10 ^3/uL (0-0.8) Basophils # (Auto) 0 10 ^3/uL (0-0.2) Nucleated Red Blood Cells 0.0 % Sodium Level 142 mmol/L (136-145) Potassium Level 3.1 mmol/L (3.5-5.1) Chloride Level 104 mmol/L (98-107) Carbon Dioxide Level 26 mmol/L (20-31) Anion Gap 12 (5-15) Blood Urea Nitrogen 20 mg/dL (9-23) Creatinine 3.28 mg/dL (0.550-1.02) Glomerular Filtration Rate Calc 14 mL/min (>90) BUN/Creatinine Ratio 6.1 (10.0-20.0) Serum Glucose 221 mg/dL (74-106) Calcium Level 8.7 mg/dL (8.7-10.4) Phosphorus Level 1.5 mg/dL (2.4-5.1) Magnesium Level 1.6 mg/dL (1.6-2.6) Total Bilirubin 0.2 mg/dL (0.2-1.0) Aspartate Amino Transferase (AST) 13 U/L (13-40) Alanine Aminotransferase (ALT) < 9 U/L (7-40) Alkaline Phosphatase 108 U/L (46-116) Total Protein 6.2 g/dL (5.7-8.2) Albumin 3.2 g/dL (3.2-4.8) Triglycerides Level 148 mg/dL (< 150) Test 01/11/25 14:00 Hepatitis B Surface Antigen Negative (Negative) Other Laboratory Tests 01/18/25 07:00 Brief Hx & Hospital Course: HISTORY OF PRESENT ILLNESS: The patient is a 79-year-old lady who has been transferred back from [facility] where she was initially transferred for a subdural hematoma. The patient it appears was managed conservatively and has now been transferred back. The patient at this time denies any significant pain. No chest pain, no shortness of breath, no nausea or vomiting. Course of hospitalization: Patient had nephrology consultation for which patient was placed on hemodialysis while in the hospital. Attempts were made to feed patient, with the patient undergoing swallow evaluation by speech therapist. Patient was found to be in aspiration risk. GI consultation was obtained, with the patient undergoing PEG tube placement yesterday afternoon. Patient will be discharged home and continue hemodialysis treatments, as well as receiving clinically improved tube feeding formula by outpatient pharmacy equivalent to Yesica sheridan steady in the hospital. Primary nursing will educate patient with feeding patient via G- tube. She will also receive home health services at the time of discharge. Physical examination General: Alert and Oriented x3. No acute distress. Well-nourished. Eyes: EOMI. Anicteric. HENT: Moist mucous membranes. Lungs: Clear to auscultation bilaterally. No accessory muscle use. Cardiovascular: Regular rate and rhythm. No murmur. No JVD. Abdomen: Soft, non-tender and non-distended. No palpable masses. G-tube Extremities: No edema. Non-tender. Left-sided weakness Skin: No rashes or lesions. Warm. Neurologic: No focal neurological deficits. CN II-XII grossly intact, but not individually tested. Psychiatric: Cooperative. Appropriate mood and affect. Total time spent with patient discussing and formulating plan of care: 35 minutes. This medical document was created using an electronic medical record system with [employer] dictation system. Although this document has been carefully reviewed, there may still be some phonetic and typographical errors. These areas are purely typographical due to imperfections of the software programs, and do not reflect any compromise in the patient's medical care. Consults/Reason for consult Nephrology: Hemodialysis GI: Peg tube placement Condition at Discharge: Fair Final Diagnosis/Problems List Subdural Hematoma -ESRD with hemodialysis -primary hypertension -history of CVA with left-sided deficit -dementia -diabetes mellitus -CAD with history of PTCA -seizure disorder -dysphagia Discharge Disposition: Home Discharge Instruct/Medications Diet: See Comment Activity: No Restrictions, As Tolerated Follow Up/Referral: PCP in 1-2 weeks Medications: Nepro or equivalent tube feeding, for bottles a day via G-tube Continue all home medications Scheduled Aspirin (Aspirin Low Dose), 1 TAB PO DAILY, (Reported) Calcitriol (Calcitriol), 0.25 MCG PO DAILY Donepezil Hydrochloride (Aricept), 1 TAB PO QPM, (Reported) Ergocalciferol (Vitamin D 53943 Unit), 50,000 UNIT PO Q7D Furosemide (Furosemide), 1 TAB PO DAILY, (Reported) Insulin Glargine (Lantus Solostar), 20 UNIT SC DAILY, (Reported) Levetiracetam (Keppra), 1 TAB PO BID, (Reported) Lidocaine (Lidocaine Patch 5%), 1 PATCH TOP DAILY, (Reported) Nifedipine (Nifedipine Er), 90 MG PO DAILY Nutritional Supplements (Ensure Clinical Strength), 1 BOTTLE OR QID Pregabalin (Lyrica), 1 CAP PO BID, (Reported) Rosuvastatin Calcium (Crestor), 0.5 TAB PO DAILY Ticagrelor Base (Brilinta), 1 TAB PO DAILY, (Reported) 36 Discharge Statement: "Patient was advised to return to the ER or call 911 if any headaches, dizziness, shortness of breath, chest pain, abdominal pain, bleeding, fevers, or worsening of medical condition. Patient was counseled about treatment plan, medications, possible side effects, patientverbalized understanding. All questions were answered to the best of my ability. This discharge took greater then 30 minutes in planning, reviewing documentation, counseling the patient, and discussing with other team members." ASSESSMENT ASSESSMENT Assessment Subdural Hematoma Date of Service: Jan 19, 2025 Billing Provider: MIGUEL COHN NP Common Visit Codes: 92822-VQV/OBS DISCH DAY >30min MIGUEL COHN NP Jan 19, 2025 08:18
[2025-01-19 09:00] VITALS: BP 135/66; PULSE 56; RESP 20; TEMP 98.8; O2SAT 90
[2025-01-19 12:44] VITALS: BP 139/45; PULSE 74; RESP 20; TEMP 99.2; O2SAT 95
--- NOTE | 2025-01-19 23:31 | DVHPN2 ---
Progress Note - Dictate Date Seen: Jan 19, 2025 (Late entryPatient seen at 10:00 a.m.) Medical Necessity Reason Pt with a Central, PICC or Fol: Yes The following are medically ne: Central Line (HD catheter) Subjective No new complaints, patient resting comfortably Postop day 1. S/P PEG tube placement Patient has an abdominal binder on Patient would pocket food in her mouth during swallow eval Patient has underlying dementia and is non cooperative vital signs Vital Sign Date Time Temp Pulse Resp B/P (MAP) Pulse Ox O2 Delivery O2 Flow Rate FiO2 01/19/25 12:44 99.2 74 20 139/45 (76) 95 99.2 01/19/25 08:00 Room Air* 0 21 Total Intake and Output 01/18/25 01/18/25 01/19/25 15:00 23:00 07:00 Intake Total 243 ml 0 ml 0 ml Balance 243 ml 0 ml 0 ml medications Current Medications Medications Dose Ordered Sig/Deepak Route Start Time Stop Time Status Last Admin Dose Admin Levetiracetam 500 mg BID PO 01/10/25 22:00 UNV Amino Acids 0 ml @ 0 mls/hr PER PHARMACY IV 01/12/25 18:30 UNV objective Examination: GENERAL:Normal, HEENT:Normal, NECK:Normal, LUNGS:Normal, CVS:Normal, ABDOMEN:Normal; G-tube site is clear, MSK:Normal, SKIN:Normal, NEURO:Normal, :Normal laboratory and microbiology Laboratory Tests 01/18/25 07:00 Test 01/18/25 07:00 Range/Units Serum Glucose 221 H 74-106 mg/dL Problems(with codes): (1) Stroke-like symptoms (2) Dysphagia as late effect of cerebrovascular accident (CVA) (3) End-stage renal disease on hemodialysis (4) Generalized weakness (5) Oropharyngeal dysphagia (6) Gastroduodenitis Prognosis Plan Discharge planning is in progress Patient is being discharged home Apparently patient's family is a home health care provider and we will be administrating her G-tube feedings She has already educated on ongoing G-tube care Outpatient follow up with GI Services as needed Dietary Evaluation Review Comments: Nutrition Recommendation: 1) Advance to renal standard diet as medically feasible 2) Nephro-kristyn 1 tab daily, Vishal 1 pk daily 3) Monitor PO intake, lab values, weight trend, and I/O Expected Outcomes/Goals: Intake to meet >75% estimated needs Lab values to improve Fu 2-3 days Plan discussed with: Patient, Other (Nurse) GEORGES JACOBO MD Jan 19, 2025 23:30
== END 2025-01-19 14:30 | disposition home or self-care (01) | DRG 82 ==
LOC: TELE-CENTR 01-09 10:17
PROVIDERS: ADMIT Nurse Practitioner Acute Care; ATTEND Nurse Practitioner Acute Care
PROC: 5A1D70Z Performance of Urinary Filtration, Intermittent, Less than 6 Hours Per Day (ICD-10-PCS; 2025-01-10)
PROC: 5A1D70Z Performance of Urinary Filtration, Intermittent, Less than 6 Hours Per Day (ICD-10-PCS; 2025-01-12)
PROC: 5A1D70Z Performance of Urinary Filtration, Intermittent, Less than 6 Hours Per Day (ICD-10-PCS; 2025-01-15)
PROC: 5A1D70Z Performance of Urinary Filtration, Intermittent, Less than 6 Hours Per Day (ICD-10-PCS; 2025-01-17)
PROC: 05HD33Z Insertion of Infusion Device into Right Cephalic Vein, Percutaneous Approach (ICD-10-PCS; 2025-01-17)
PROC: B54MZZA Ultrasonography of Right Upper Extremity Veins, Guidance (ICD-10-PCS; 2025-01-17)
PROC: 0DH63UZ Insertion of Feeding Device into Stomach, Percutaneous Approach (ICD-10-PCS; principal; 2025-01-18 15:16)
DX: S06.5XAA Traumatic subdural hemorrhage with loss of consciousness status unknown, initial encounter (principal); N18.6 End stage renal disease; E46 Unspecified protein-calorie malnutrition; I12.0 Hypertensive chronic kidney disease with stage 5 chronic kidney disease or end stage renal disease; E11.22 Type 2 diabetes mellitus with diabetic chronic kidney disease; G40.909 Epilepsy, unspecified, not intractable, without status epilepticus; F03.90 Unspecified dementia, unspecified severity, without behavioral disturbance, psychotic disturbance, mood disturbance, and anxiety; I25.10 Atherosclerotic heart disease of native coronary artery without angina pectoris; D63.1 Anemia in chronic kidney disease; K29.90 Gastroduodenitis, unspecified, without bleeding; F03.C0 Unspecified dementia, severe, without behavioral disturbance, psychotic disturbance, mood disturbance, and anxiety; R13.10 Dysphagia, unspecified; Z68.26 Body mass index [BMI] 26.0-26.9, adult; X58.XXXA Exposure to other specified factors, initial encounter; E86.0 Dehydration; Z99.2 Dependence on renal dialysis; Z98.61 Coronary angioplasty status; Z83.3 Family history of diabetes mellitus; Z82.49 Family history of ischemic heart disease and other diseases of the circulatory system; Y93.89 Activity, other specified; Y92.89 Other specified places as the place of occurrence of the external cause; Y99.8 Other external cause status
CPT/HCPCS: 36415; 43246; 71045; 80048; 80053; 82962; 83735; 84100; 84478; 85018; 85025; 85610; 85730; 87081; 87340; 90935; 92610; 97110; 97163; 97530; G0378; J1642; J1815; J2003; J2250; J2405; J2704; J3480

== ENCOUNTER 2025-02-12 04:51 | Inpatient (IN) | payer OTHER, MEDICAID ==
[~2025-02-12] VITALS: Ht 152.4 cm; Wt 57.0 kg
[~2025-02-12 04:51] MED LIST changes: +[UNRECOGNIZED DRUG - CODE] OR
[2025-02-12 05:40] VITALS: RESP 12; O2SAT 100
--- NOTE | 2025-02-12 05:44 | ECG ---
[facility] Test Date: 2025-02-12 Test Time: 04:58:25 Pat Name: LAMAR GLOVER Department: ED Room: [address] [place] [address] Gender: F Election Supervisor: KADY : 1945 Requested By: EMERGENCY EMERGENCY Order Number: [id number] Reading MD: Deric Nguyen Measurements Intervals [place] Rate: 74 P: 60 OH: 136 QRS: 38 QRSD: 96 T: 181 QT: 395 QTc: 439 Interpretive Statements Sinus rhythm Abnrm T, consider ischemia, anterolateral lds Minimal ST elevation, inferior leads Electronically Signed On 02-12-2025 18:00:22 PST by Deric Nguyen Please click the below link to view image of tracing.
--- NOTE | 2025-02-12 06:31 | ED.PDOC ---
History of Present Illness HPI Comments 79-year-old female who comes in with chief complaint of possible CVA. The patient was transferred from [facility]. The patient does has a history of CVA hypertension elevated cholesterol, diabetes, ESRD on dialysis. She gets dialyzed on Tuesday/ and Tuesday. The patient missed her dialysis session this past Tuesday. She presented to the emergency department's [facility] with some left-sided weakness. According to the EMS, the family reported that the patient was acting appropriately at 9:30 p.m. the night before and her grandson return to check on her and she had weakness on the left side. The patient was noted to have left- sided weakness along with facial droop. A CAT scan was done at the facility and it seems that the patient does has chronic and possible subacute changes. Dr. Yanes who was the emergency department's on contacted Dr. Diaz who has accepted the patient to be transferred to our facility. Upon arrival, the patient is still seems to be little bit altered. We did attempt to ask the patient has some questions but she is unable to answer the questions appropriately Chief Complaint: ALOC Time Seen by MD: 06:04 Primary Care Provider: UNKNOWN Reviewed Notes: Nurses Notes, Field Marketing Team Leader Notes, Medications, Allergies (Allergies to take) Allergies: Uncoded Allergies: TAPE (Allergy, Unknown, 01/17/25) Home Meds Active Scripts Nutritional Supplements (Ensure Clinical Strength) Vanilla Liq, 1 BOTTLE OR QID for 30 Days, #120 LIQ Please change formula to one that is appropriate for a Hemodialysis patient. Prov:MIGUEL COHN NP 01/19/25 Rosuvastatin Calcium (Crestor) 20 Mg Tab, 0.5 TAB PO DAILY for 30 Days, #30 TAB 0 Refills Prov:FRANCA SLADE MD 12/18/24 Ergocalciferol (VITAMIN D 02791 UNIT) 50,000 [place], [address] UNIT PO Q7D for 90 Days, #12 CAP Prov:RUCHI TORREZ RESIDENT 06/15/24 Calcitriol (Calcitriol) 0.25 Mcg Cap, 0.25 MCG PO DAILY for 30 Days, #30 CAP 2 Refills Prov:RAMSES HERNANDES RESIDENT 01/13/24 Nifedipine (Nifedipine Er) 90 Mg Tab, 90 MG PO DAILY for 30 Days, #30 TAB 3 Refills Prov:ARIANNE RIZO MD 10/05/23 Reported Medications Furosemide (Furosemide) 40 Mg Tab, 1 TAB PO DAILY for 30 Days, #60 06/14/24 Aspirin (Aspirin Low Dose) 81 Mg Chw, 1 TAB PO DAILY for 90 Days, #90 06/14/24 Levetiracetam (Keppra) 500 Mg Tab, 1 TAB PO BID for 90 Days, #180 06/14/24 Lidocaine (Lidocaine Patch 5%) 5 % Pad, 1 PATCH TOP DAILY for 90 Days, #90 APPLY ONE PATCH TOPICALLY TO CLEAN, DRY SKIN. LEAVE ON FOR 12 HOURS THEN REMOVE. MUST WAIT AT LEAST 12 HOURS BEFORE APPLYING PATCH(ES) AGAIN. 10/03/23 Insulin Glargine (Lantus Solostar) 100 Unit/Ml Inj, 20 UNIT SC DAILY for 75 Days, #15 10/03/23 Ticagrelor Base (Brilinta) 60 Mg Tab, 1 TAB PO DAILY for 90 Days, #90 10/03/23 Pregabalin (Lyrica) 150 Mg Cap, 1 CAP PO BID for 90 Days, #180 10/02/23 Donepezil Hydrochloride (Aricept) 10 Mg Tab, 1 TAB PO QPM for 100 Days, #100 01/17/22 Information Source: Patient, Emergency Med Personnel Mode of Arrival: EMS Severity: Moderate Timing: Days Duration: Since onset Prehospital treatment: Mobile Security Specialist Associated signs and symptoms Altered mental status with left-sided weakness Past Medical History PAST MEDICAL HISTORY: CAD, CHF, Dementia, DM, ESRD, High Lipids, HTN, Seizures Surgical History: Cholecystectomy, PTCA 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 History: Denies all 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 Hx Family History Family History: Reviewed,noncontributory to illness Social History Smoker: Non-Smoker Alcohol: Denies ETOH Use Drugs: Denies Drug Use Lives In: Home Constitutional: denies: chills, diaphoresis, fatigue, fever, malaise, sweats, weakness, others EENTM: denies: blurred vision, double vision, ear bleeding, ear discharge, ear drainage, ear pain, ear ringing, eye pain, eye redness, hearing loss, mouth pain, mouth swelling, nasal discharge, nose bleeding, nose congestion, nose pain, photophobia, tearing, throat pain, throat swelling, voice changes, others Respiratory: denies: cough, hemoptysis, orthopnea, SOB at rest, shortness of breath, SOB with excertion, stridor, wheezing, others Cardiovascular: denies: chest pain, dizzy spells, diaphoresis, Dyspnea on exertion, edema, irregular heart beat, left arm pain, lightheadedness, palpitations, PND, syncope, others Gastrointestinal: denies: abdomen distended, abdominal pain, blood streaked bowels, constipated, diarrhea, dysphagia, difficulty swallowing, hematemesis, melena, nausea, poor appetite, poor fluid intake, rectal bleeding, rectal pain, vomiting, others Genitourinary: denies: abnormal vagina bleeding, burning, dyspareunia, dysuria, flank pain, frequency, hematuria, incontinence, pain, , vagina discharge, urgency, others Neurological: reports: left sided weakness, others (Altered mental status, left-sided facial droop); denies: dizziness, fainting, headache, left sided numbness, numbness, paresthesia, pre-existing deficit, right sided numbness, right sided weakness, seizure, speech problems, tingling, tremors, weakness Musculoskeletal: denies: back pain, gout, joint pain, joint swelling, muscle pain, muscle stiffness, neck pain, others Integumetry: denies: bruises, change in color, change in hair/nails, dryness, laceration, lesions, lumps, rash, wounds, others Allergic/Immunocompromised: denies: Difficulty Healing, Frequent Infections, Hives, Itching, others Hematologic/Lymphatic: denies: anemia, blood clots, easy bleeding, easy bruising, swollen glands, others Endocrine: denies: excessive hunger, excessive sweating, excessive thirst, excessive urination, flushing, intolerance to cold, intolerance to heat, unexplained weight gain, unexplained weight loss, others Psychiatric: denies: anxiety, bipolar disorder, depression, hopeless, panic disorder, schizophrenia, sleepless, suicidal, others Physical Exam General Appearance: Mild Distress HEENT: Normal ENT Inspection, Pharynx Normal, TMs Normal Neck: Full Range of Motion, Non-Tender, Normal, Normal Inspection Respiratory: Chest Non-Tender, Lungs Clear, No Accessory Muscle Use, No Respiratory Distress, Normal Breath Sounds Cardiovascular: No Edema, No JVD, No Murmur, No Gallop, Normal Peripheral Pulses, Regular Rate/Rhythm Breast Exam: Deferred Gastrointestinal: No Organomegaly, Non Tender, No Pulsatile Mass, Normal Bowel Sounds, Soft Genitalia: Deferred Pelvic: Deferred Rectal: Deferred Extremities: No calf tenderness, Normal capillary refill, Normal inspection, N ormal range of motion, Non-tender, No pedal edema Musculoskeletal : Apperance: Normal Neurologic: betting agency manager II-XII nml as Tested, Facial Droop, Motor Weakness (Left- sided), No Sensory Deficits Cerebellar Function: Normal Reflexes: Normal Skin: Dry, Normal Color, Warm Lymphatic: No Adenopathy Was a procedure done? Was a procedure done?: No Differential Dx Considerations may include: CVA, generalized weakness, sepsis, TIA, Benson's palsy X-Ray, Labs, Meds, VS Vital Signs Date Time Temp Pulse Resp B/P (MAP) Pulse Ox O2 Delivery O2 Flow Rate FiO2 02/12/25 05:12 98.0 76 18 122/59 94 98.0 02/12/25 04:58 74 IV Hep-Lock has already been established. We are continuing to monitor the patient here in the emergency department's for a new mental status changes. Time of 1ST Reevaluation: 06:29 Reevaluation 1ST: Unchanged Patient Education/Counseling: Other (Patient is somewhat confused) Family Education/Counseling: No Family Present SEPSIS Sepsis Screen Date sepsis recognized/suspect: Feb 12, 2025 Time Sepsis recognized/suspect: 05 Recent Procedure: No On Antibiotic Therapy: No Respiratory Rate >20: No Heart Rate >90: No Temp<36 C (96.8 F) or >38.3 C: No SBP <90 or MAP <65 mmHG: No New Acute Mental Status Change: No Is the patient on CPAP, BIPAP,: No Vital Signs Date Time Temp Pulse Resp B/P (MAP) Pulse Ox O2 Delivery O2 Flow Rate FiO2 02/12/25 05:12 98.0 76 18 122/59 94 98.0 02/12/25 04:58 74 Departure 1 Departure Time of Disposition: 06:30 Impression: Primary Impression: Left-sided weakness Additional Impression: ESRD on dialysis Disposition: ADMITTED INPATIENT Admit to: [facility] Condition: Fair Critical Care Note Critical Care Time?: No Stability Stability form required: Yes Unstable for transfer: Telemetry monitoring (Telemetry monitoring required), ED Physician Assesment (Clinical assesment) Heart Score Heart Score: Heart Score Response (Comments) Value History N/A 0 EKG N/A 0 Age N/A 0 Risk Factors N/A 0 Troponin N/A 0 Total 0 KAEL TOLEDO MD Feb 12, 2025 06:31
[2025-02-12 07:35] VITALS: PULSE 67; RESP 10; O2SAT 100
[2025-02-12] MEDS ORDERED: HYDROcodone-ACET 5/325MG TAB PO PRN (08:45)
[2025-02-12] MEDS ORDERED: ONDANSETRON HCL 4 MG/2 ML VIAL IV PRN (08:45)
[2025-02-12] MEDS ORDERED: MORPHINE SULFATE INJ 2 MG/ml SYRG IV PRN (08:45)
[2025-02-12] MEDS ORDERED: NITROGLYCERIN 0.4 MG SL TAB SL PRN (08:45)
[2025-02-12] MEDS ORDERED: ACETAMINOPHEN 325 MG TAB PO PRN (08:45)
[2025-02-12] MEDS ORDERED: DOCUSATE SOD 100 MG CAP PO PRN (08:45)
--- NOTE | 2025-02-12 09:19 | DVHHP2 ---
History of Present Illness Reason for Visit: ALOC, left sided weakness History of Present Illness Jennifer Lambert is a 79-year-old female with past medical history of ESRD on HD, CVA with left sided weakness, subdural hematoma, dementia, diabetes, and seizures, who was transferred from [facility] this morning. The patient was brought to [facility] due to ALOC and left sided weakness. On assessment patient has left sided hemiparalysis, will admit for further work up and MRI. 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, subdural hematoma) Renal/: Chronic renal failure (ESRD on HD) Endocrine: Diabetes Smoke: No ALCOHOL: none Drugs: None Lives: with Family Domestic Violence: Neg Review of Systems Constitutional: No: Fever, Chills, Sweats, Weakness, Malaise, Other Eyes: No: Pain, Vision change, Conjunctivae inflammation, Eyelid inflammation, Other, Redness ENT: No: Ear pain, Ear discharge, Nose pain, Nose discharge, Nose congestion, Mouth pain, Mouth swelling, Throat pain, Throat swelling, Other Respiratory: No: Cough, Dry, Shortness of breath, SOB with excertion, Wheezing, Hemoptysis, Pleuritic Pain, Sputum, Wheezing, Other Cardiovascular: No: Chest Pain, Palpitations, Orthopnea, Paroxysmal Noc. Dyspnea, Edema, Lt Headedness, Other Gastrointestinal: No: Nausea, Vomiting, Abdominal Pain, Diarrhea, Constipation, Melena, Hematochezia, Other Genitourinary: No Dysuria, No Frequency, No Incontinence, No Hematuria, No Retention, No Other Musculoskeletal: No: other, neck pain, shoulder pain, arm pain, back pain, hand pain, leg pain, foot pain Skin: No: Rash, Lesions, Jaundice, Bruising, Other Neurological: Weakness, Incoordination, Change in speech, Confusion; No: Numbness, Seizures, Other Allergies: Uncoded Allergies: TAPE (Allergy, Unknown, 01/17/25) Exam Vital Signs Vital Signs Date Time Temp Pulse Resp B/P (MAP) Pulse Ox O2 Delivery O2 Flow Rate FiO2 02/12/25 08:00 69 02/12/25 06:00 13 131/69 (89) 02/12/25 05:40 100 Nasal Cannula* 2 28 02/12/25 05:40 97.7 97.7 General Appearance: Alert, Other (Oriented x 1) HEENT: Atraumatic, PERRLA Cardiovascular: Regular rate, Normal S1, Normal S2 Abdominal: Normal bowel sounds, Soft, Other (Peg tube in place) Extremities: Other (left sided hemiparalysis) Skin: No rashes, No breakdown, No significant lesion Neuro: Other (slurred speech, left sided hemiparalysis) Labs/Xrays Labs ordered and pending, Chest X-ray ordered and pending, Brain MRI ordered and pending, SEPSIS Sepsis Screen Date sepsis recognized/suspect: Feb 12, 2025 Time Sepsis recognized/suspect: 539 Recent Procedure: No On Antibiotic Therapy: No Respiratory Rate >20: No Heart Rate >90: No Temp<36 C (96.8 F) or >38.3 C: No SBP <90 or MAP <65 mmHG: No New Acute Mental Status Change: Yes Is the patient on CPAP, BIPAP,: No Physician Orders Data Migration Lead (02/12/25 ) Admit (02/12/25 08:44) Code Status (02/12/25 08:44) Renal Standard(2gna,3gk,Lopho) (02/12/25 Breakfast) Hydrocodone-Acet 5/325mg Tab ([place] 5/32 (02/12/25 08:45) Ondansetron Hcl (Zofran) (02/12/25 08:45) Docusate Sodium Capsule (Colace Capsule) (02/12/25 08:45) Complete Blood Count (02/13/25 04:00) Comprehensive Metabolic Panel (02/13/25 04:00) Pt Request For Service (02/12/25 08:44) Condition: Critical (02/12/25 08:44) Acetaminophen Tablet (Tylenol Tablet) (02/12/25 08:45) Nitroglycerin Sublingual (Ntrostat Subli (02/12/25 08:45) Morphine Sulfate Injection (02/12/25 08:45) Stat Ekg For Chest Pain (02/12/25 08:44) Notify Md Of Changes From Base (02/12/25 08:44) Concrete Fence Builder For 24 Hours (02/12/25 08:44) Emergency Dysrhythmia Protocol (02/12/25 08:44) Rhythm Strips Once Every Shift (02/12/25 08:44) Oxygen By Nasal Cannula (02/12/25 08:44) * Neurology Consult (02/12/25 08:44) Brain Head Wo Contrast (02/12/25 08:44) Comprehensive Metabolic Panel (02/12/25 08:44) Complete Blood Count (02/12/25 08:44) Lactic Acid W/ Reflex Order (02/12/25 08:44) Blood Culture (02/12/25 08:44) Speech Evaluation (02/12/25 08:44) Fall Risk Precautions In Place QSHIFT (02/12/25 08:44) Vital Signs Date Time Temp Pulse Resp B/P (MAP) Pulse Ox O2 Delivery O2 Flow Rate FiO2 02/12/25 08:00 69 02/12/25 06:00 74 13 131/69 (89) 02/12/25 05:40 12 100 Nasal Cannula* 2 28 02/12/25 05:40 97.7 66 12 111/59 (76) 100 97.7 02/12/25 05:12 98.0 76 18 122/59 94 98.0 02/12/25 04:58 74 Assessment/Plan Assessment/Plan Assessment: Left-sided weakness, Possible stroke, Possible metabolic encephalopathy, ESRD on HD, Diabetes, Hyperlipidemia, Plan: Admit to Tele, Neurology consult, Nephrology consult, MRI of brain, NPO, Speech therapy evaluation, Physical therapy evaluation, Dietary consult for tube feedings, Accu checks with sliding scale, Home medications reconciled, Plan discussed with: Patient 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 Procedure Category Date Status Time Admit ADMIT 02/12/25 Transmitted 08:44 Code Status CODE 02/12/25 Transmitted 08:44 Renal DIET 02/12/25 Transmitted Standard(2gna,3gk,Lopho) Breakfast Hydrocodone-Acet PHA 02/12/25 Transmitted 5/325mg Tab ([place] 08:45 Ondansetron Hcl PHA 02/12/25 Transmitted (Zofran) 08:45 Docusate Sodium PHA 02/12/25 Transmitted Capsule (Colace 08:45 Complete Blood Count LAB 02/13/25 Verified 04:00 Comprehensive LAB 02/13/25 Verified Metabolic Panel 04:00 Pt Request For Service PT 02/12/25 Transmitted 08:44 Condition: Critical [facility] 02/12/25 Transmitted 08:44 Acetaminophen Tablet PHA 02/12/25 Transmitted (Tylenol Tablet) 08:45 Nitroglycerin [facility] 02/12/25 Transmitted Sublingual (Ntrostat 08:45 Morphine Sulfate PHA 02/12/25 Transmitted Injection 08:45 Stat Ekg For Chest [facility] 02/12/25 Transmitted Pain 08:44 Notify Md Of Changes [facility] 02/12/25 Transmitted From Base 08:44 Concrete Fence Builder For [facility] 02/12/25 Transmitted 24 Hours 08:44 Emergency Dysrhythmia [facility] 02/12/25 Transmitted Protocol 08:44 Rhythm Strips Once [facility] 02/12/25 Transmitted Every Shift 08:44 Oxygen By Nasal RT 02/12/25 Transmitted Cannula 08:44 * Neurology Consult CONS 02/12/25 Transmitted 08:44 Brain Head Wo Contrast MRI 02/12/25 Transmitted 08:44 Comprehensive LAB 02/12/25 Transmitted Metabolic Panel 08:44 Complete Blood Count LAB 02/12/25 Transmitted 08:44 Lactic Acid W/ Reflex LAB 02/12/25 Transmitted Order 08:44 Blood Culture NING 02/12/25 Transmitted 08:[address] 02/12/25 Transmitted 08:44 Fall Risk Precautions [facility] 02/12/[address] 08:44 Date of Service: Feb 12, 2025 Billing Provider: DALE CROWDER Common Visit Codes: [id number] INP/OBS CARE (HIGH) DALE CROWDER Feb 12, 2025 09:19
--- NOTE | 2025-02-12 09:27 | DVH ---
EXAM: XY CHEST PORTABLE Indication: SOB Technique: Single frontal view of the chest was obtained Comparison: XY CHEST PORTABLE on DOS: 01/09/25, XY CHEST XRAY 1 VIEW on DOS: 12/26/24, XY CHEST XRAY 1 VIEW on DOS: 12/15/24, XY CHEST PORTABLE on DOS: 11/29/24, XY CHEST XRAY 1 VIEW on DOS: 08/17/24 FINDINGS: Lines and Tubes: Right central venous catheter tip projects over the superior vena cava. Lungs: No focal consolidation. Pleura: No effusion. No pneumothorax. Cardiomediastinal contours: Unremarkable. Atherosclerotic vascular calcifications of the thoracic aorta are noted. Bones: No acute osseous abnormality. IMPRESSION: No acute cardiopulmonary disease.
[2025-02-12 09:55] LABS: Hematocrit 36.5 % (36.0-46.0); Hemoglobin 11.8 g/dL (12.2-16.2); Mean Corpuscular Hemoglobin 29.6 pg (28.0-32.0); Mean Corpuscular Volume 91.5 fL (80.0-100.0); Nucleated Red Blood Cells % 0.0 %
[2025-02-12 10:02] LABS: Albumin 4.0 g/dL (3.2-4.8); Anion Gap 15 (5-15); BUN/Creatinine Ratio 6.5 (10.0-20.0); Calcium 9.6 mg/dL (8.7-10.4); Carbon Dioxide 24 mmol/L (20-31); Chloride 99 mmol/L (98-107); Potassium 3.9 mmol/L (3.5-5.1); Sodium 138 mmol/L (136-145); Total Protein 7.9 g/dL (5.7-8.2)
[2025-02-12 10:03] LABS: Alanine Aminotransferase < 9 U/L (7-40); Alkaline Phosphatase 151 U/L (46-116); Bilirubin, Total 0.2 mg/dL (0.2-1.0); Blood Urea Nitrogen 46 mg/dL (9-23); Glucose 181 mg/dL (74-106)
--- NOTE | 2025-02-12 10:47 | DVH ---
PROCEDURE: MRI BRAIN HEAD WO CONTRAST INDICATION: Left-sided weakness, Possible stroke EXAM DATE: 02/12/2025 09:55 AM COMPARISON: MRI BRAIN HEAD WO CONTRAST on DOS: 12/27/24, MRI BRAIN HEAD WO CONTRAST on DOS: 12/16/24, CT HEAD WITHOUT CONTRAST on DOS: 12/15/24, CT HEAD WITHOUT CONTRAST on DOS: 11/29/24, CT HEAD WITHOUT CONTRAST on DOS: 06/13/24 TECHNIQUE: MRI of the brain without intravenous contrast. FINDINGS: Diffusion restriction with corresponding T2/FLAIR hyperintensity throughout the cortex of the right insula, superior right temporal lobe posteriorly, right parietal lobe, and right parieto-occipital region. Few other scattered foci of diffusion restriction within the posterior right frontal lobe. No significant mass effect, midline shift, or hydrocephalus. Trace bilateral subdural hematomas, improved when compared to the prior study. Moderate generalized cerebral volume loss with scattered foci of increased T2/FLAIR signal in the subcortical, deep, and periventricular white matter of both cerebral hemispheres compatible with moderate chronic small vessel ischemia. Remote infarct within the left occipital lobe. The major vascular flow voids are present. The visualized paranasal sinuses and mastoid air cells are clear. The surrounding soft tissues and osseous structures are unremarkable. IMPRESSION: Acute infarct throughout the right posterior frontal, parietal, and superior temporal lobes as well as the right insula. Trace chronic subdural hematomas.
--- NOTE | 2025-02-12 10:56 | DVHINCON2 ---
Date of service: Feb 12, 2025 Reason for Consultation End-stage renal disease History of Present Illness 79-year-old female with past medical history of end-stage renal disease on hemodialysis, hypertension, hyperlipidemia, vascular dementia, history of multiple strokes in the past and complicated by subdural hematoma. She presented to [facility] due to a change in mental state and was transferred directly to [facility] due to insurance a CT of the brain done at [place] showed core infarct with volume measurement of 29 mL in the posterior right MCA territory with total ischemic tissue at risk of 47 mL. She is currently now undergoing MRI of the brain at [facility] Past Medical History as above Allergies: Uncoded Allergies: TAPE (Allergy, Unknown, 01/17/25) Home Meds Active Scripts Nutritional Supplements (Ensure Clinical Strength) Vanilla Liq, 1 BOTTLE OR QID for 30 Days, #120 LIQ Please change formula to one that is appropriate for a Hemodialysis patient. Prov:MIGUEL COHN NP 01/19/25 Rosuvastatin Calcium (Crestor) 20 Mg Tab, 0.5 TAB PO DAILY for 30 Days, #30 TAB 0 Refills Prov:FRANCA SLADE MD 12/18/24 Ergocalciferol (VITAMIN D 00609 UNIT) 50,000 [place], [address] UNIT PO Q7D for 90 Days, #12 CAP Prov:RUCHI TORREZ RESIDENT 06/15/24 Calcitriol (Calcitriol) 0.25 Mcg Cap, 0.25 MCG PO DAILY for 30 Days, #30 CAP 2 Refills Prov:RAMSES HERNANDES RESIDENT 01/13/24 Nifedipine (Nifedipine Er) 90 Mg Tab, 90 MG PO DAILY for 30 Days, #30 TAB 3 Refills Prov:ARIANNE RIZO MD 10/05/23 Reported Medications Furosemide (Furosemide) 40 Mg Tab, 1 TAB PO DAILY for 30 Days, #60 06/14/24 Aspirin (Aspirin Low Dose) 81 Mg Chw, 1 TAB PO DAILY for 90 Days, #90 06/14/24 Levetiracetam (Keppra) 500 Mg Tab, 1 TAB PO BID for 90 Days, #180 06/14/24 Lidocaine (Lidocaine Patch 5%) 5 % Pad, 1 PATCH TOP DAILY for 90 Days, #90 APPLY ONE PATCH TOPICALLY TO CLEAN, DRY SKIN. LEAVE ON FOR 12 HOURS THEN REMOVE. MUST WAIT AT LEAST 12 HOURS BEFORE APPLYING PATCH(ES) AGAIN. 10/03/23 Insulin Glargine (Lantus Solostar) 100 Unit/Ml Inj, 20 UNIT SC DAILY for 75 Days, #15 10/03/23 Ticagrelor Base (Brilinta) 60 Mg Tab, 1 TAB PO DAILY for 90 Days, #90 10/03/23 Pregabalin (Lyrica) 150 Mg Cap, 1 CAP PO BID for 90 Days, #180 10/02/23 Donepezil Hydrochloride (Aricept) 10 Mg Tab, 1 TAB PO QPM for 100 Days, #100 01/17/22 Current Medications Current Medications Medications (Trade) Dose Ordered Sig/Deepak Route PRN Reason Start Time Stop Time Status Last Admin Acetaminophen/ Hydrocodone Bitart ([place] 5/325MG Tab) 1 tab Q4HP PRN PO MODERATE PAIN (4-6 PAIN SCALE) 02/12/25 08:45 UNV Ondansetron HCl (Zofran) 4 mg Q4HP PRN IV NAUSEA / VOMITING 02/12/25 08:45 UNV Docusate Sodium (Colace Capsule) 100 mg BIDPRN PRN PO FOR CONSTIPATION 02/12/25 08:45 UNV Acetaminophen (Tylenol Tablet) 650 mg Q6HP PRN PO PAIN SCALE 1-3 OR TEMP>100.4 02/12/25 08:45 UNV Nitroglycerin (Ntrostat Sublingual) 0.4 mg Q5MINP PRN SL FOR CHEST PAIN 02/12/25 08:45 UNV Morphine Sulfate 2 mg Q30M PRN IV FOR CHEST PAIN 02/12/25 08:45 UNV Family History: Diabetes mellitus G8 MOTHER Hypertension G8 FATHER Review of Systems Can not obtain due to altered mental state H&P Exam Vital Signs/I&O Vital Sign Date Time Temp Pulse Resp B/P (MAP) Pulse Ox O2 Delivery O2 Flow Rate FiO2 02/12/25 10:38 63 13 121/54 (76) 98 02/12/25 07:35 96.2 96.2 02/12/25 07:35 Nasal Cannula* 1 24 Physical Exam Elderly female Appears ill nonverbal facial asymmetry abdomen is soft no pitting edema tunneled dialysis catheter Labs/Diagnostic Data Labs/Diagnostic Data Laboratory Tests Test 11/18/25 09:34 Range/Units White Blood Count 9.9 4.4-10.8 10^3/uL Red Blood Count 3.98 L 4.0-5.20 10^6/uL Hemoglobin 11.8 L 12.2-16.2 g/dL Hematocrit 36.5 36.0-46.0 % Mean Corpuscular Volume 91.5 80.0-100.0 fL Mean Corpuscular Hemoglobin 29.6 28.0-32.0 pg Mean Corpuscular Hemoglobin Concent 32.3 32.0-36.0 g/dL Red Cell Distribution Width 15.6 H 11.8-14.3 % Platelet Count 306 140-450 10^3/uL Mean Platelet Volume 7.1 6.9-10.8 fL Neutrophils (%) (Auto) 66.7 37.0-80.0 % Lymphocytes (%) (Auto) 23.2 10.0-50.0 % Monocytes (%) (Auto) 6.9 0.0-12.0 % Eosinophils (%) (Auto) 2.8 0.0-7.0 % Basophils (%) (Auto) 0.4 0.0-2.0 % Neutrophils # (Auto) 6.6 1.6-8.6 10 ^3/uL Lymphocytes # (Auto) 2.3 0.4-5.4 10 ^3/uL Monocytes # (Auto) 0.7 0-1.3 10 ^3/uL Eosinophils # (Auto) 0.3 0-0.8 10 ^3/uL Basophils # (Auto) 0 0-0.2 10 ^3/uL Nucleated Red Blood Cells 0.0 % Sodium Level 138 136-145 mmol/L Potassium Level 3.9 3.5-5.1 mmol/L Chloride Level 99 98-107 mmol/L Carbon Dioxide Level 24 20-31 mmol/L Anion Gap 15 5-15 Blood Urea Nitrogen 46 H 9-23 mg/dL Creatinine 7.13 H 0.550-1.02 mg/dL Glomerular Filtration Rate Calc 5 >90 mL/min BUN/Creatinine Ratio 6.5 L 10.0-20.0 Serum Glucose 181 H 74-106 mg/dL Lactic Acid Level 1.5 0.4-2.0 mmol/L Calcium Level 9.6 8.7-10.4 mg/dL Total Bilirubin 0.2 0.2-1.0 mg/dL Aspartate Amino Transferase (AST) 12 L 13-40 U/L Alanine Aminotransferase (ALT) < 9 7-40 U/L Alkaline Phosphatase 151 H 46-116 U/L Total Protein 7.9 5.7-8.2 g/dL Albumin 4.0 3.2-4.8 g/dL Assessment End-stage renal disease on hemodialysis Acute on subacute CVA with mental status change and focal deficits History of hypertension Dementia Patient went for MRI of the brain is currently undergoing neurologic evaluation We will assess patient post results to determine if dialysis is required today Plan discussed with: Other (nurse) DARION SUERO MD Feb 12, 2025 10:56
[2025-02-12] MEDS: IOHEXOL 350 MG/ML 100ML IJ ONE (14:06)
--- NOTE | 2025-02-12 14:51 | DVH ---
CT STROKE CTH Indication: Stroke EXAM DATE: 02/12/2025 02:09 PM COMPARISON: CT HEAD WITHOUT CONTRAST on DOS: 12/15/24, MRI brain from today TECHNIQUE: CT of the head without intravenous contrast. RADIATION DOSE: FINDINGS: There is contrast from a previous examination which limits evaluation. Left parietal subdural hematoma appears subacute measuring 3 mm thickness. There is acute subdural hematoma along the left tentorium cerebelli and posterior left falx measuring 3 mm in thickness which appears acute in appearance. No midline shift. Ventricles normal in size. Cisterns patent. Evolving infarction right frontal/ parietal and temporal lobe, subinsular cortex, better seen on previous MRI. Moderate periventricular and subcortical white matter chronic microvascular ischemic changes. Old right pontine infarct. Mastoids well pneumatized. Left maxillary sinus disease. Orbits, retrobulbar spaces unremarkable. IMPRESSION: Acute subdural hematoma along the posterior left falx and left tentorium cerebelli measuring 3 mm in thickness. Subacute appearing left parietal subdural hematoma measuring 3 mm in thickness. Evolving acute infarction right frontal/ parietal/ temporal lobe, better seen on concurrent MRI from today. Moderate chronic microvascular ischemic changes.
--- NOTE | 2025-02-12 14:58 | DVH ---
EXAM: CT ANGIO HEAD/NECK DATE OF SERVICE: 02/12/2025 02:09 PM ORDERING PHYSICIAN: DALE CROWDER REASON FOR EXAM: LARGE VESSEL OCCLUSIONS ACUTE STROKE TECHNIQUE: CTA of the brain and neck was performed after the administration of contrast . Axial images of the head and neck are obtained. Coronal and sagittal images were then reformatted for review. MIP reformats were obtained and reviewed. COMPARISON: CT head from today, MRI brain from today FINDINGS: FINDINGS: The right common carotid artery demonstrates no high-grade stenosis. There is [id number] calcification right carotid bulb. Right internal carotid artery demonstrates no high-grade stenosis. Right middle cerebral artery demonstrates no high-grade stenosis. The right anterior cerebral artery demonstrates no high-grade stenosis. The left common carotid artery demonstrates no high-grade stenosis. Mild calcification of the left carotid bulb. Left internal carotid artery demonstrates no high-grade stenosis. The left middle cerebral artery demonstrates no high-grade stenosis. The left anterior cerebral artery demonstrates no high-grade stenosis. The right vertebral artery demonstrates no high-grade stenosis. The left vertebral artery demonstrates no high-grade stenosis. Basilar artery demonstrates no high-grade stenosis. The bilateral posterior cerebral arteries demonstrate no high-grade stenosis. There is origin of the bilateral posterior cerebral arteries. Left parietal subacute subdural hematoma. Left tentorium and posterior falcine subdural hematoma that is acute in appearance, better seen on concurrent CT head from today. Heterogeneous thyroid gland with multiple nodules. Moderate to advanced cervical degenerative disc disease. Right IJ Perma catheter. IMPRESSION: No large vessel high-grade stenosis. Acute appearing subdural hematoma along the posterior left falx and left tentorium cerebellar as described on CT head measuring up to 3 mm in thickness. Subacute appearing left parietal subdural hematoma measuring 3 mm in thickness. Evolving right cerebral infarction as described on CT head and MRI brain from today. Heterogeneous thyroid gland with multiple nodules. This can be further evaluated thyroid ultrasound in the nonemergent setting. Critical Result: Stroke, subdural hematoma findings Findings discussed with DALE CROWDER at 02/12/2025 03:00 PM, and acknowledged receipt and understanding of the findings. ..
[2025-02-12] MEDS ORDERED: NIFE1TAB31 PO (17:30)
[2025-02-12] MEDS ORDERED: DEXTROSE (50%) 50ML SYRG IV PRN (17:45)
[2025-02-12] MEDS: ACCU-CHEK COMFORT CURVE STRIP VI SCH (18:00)
[2025-02-12] MEDS: InsuLIN REG 1unit/0.01ml Soln (100units/ml) SC SCH (18:30)
[2025-02-12 19:30] VITALS: PULSE 75; RESP 12; O2SAT 100
[2025-02-12] MEDS: DONEPEZIL HYDROCHLORIDE 5 MG TAB PO SCH (22:16)
[2025-02-12] MEDS: levETIRAcetam 500 MG TAB PO SCH (22:16)
[2025-02-12] MEDS: PREGABALIN 25 MG CAP PO SCH (22:17)
--- NOTE | 2025-02-12 22:52 | DVHINCON2 ---
Date of service: Feb 12, 2025 Referring Physician Hansa Reason for Consultation Left-sided weakness, possible stroke History of Present Illness Ms. Lambert is a 79 years old female with a history of hypertension, diabetes, dyslipidemia, coronary artery disease, congestive heart failure, chronic kidney failure on hemodialysis, dementia, seizure, TIA, she was transferred from the [facility] to the [facility] 12/15/24 with a chief complaint of for stroke-like syndrome. At this time, she is awake, oriented to person, place, she knows year and the month, she has good social skills, but it is not very good historian, the history is obtained from her, and her family Paperwork from the [facility] reviewed and summarized I saw on 01/15/2022 for seizure and dementia, 06/13/2024 , 12/15/2024 (MRI positive) for stroke for ALOC On 12/14/2024, she had fall at home and she noticed weakness in the left arm than leg and she was not able to get up, she noticed the left foot did not feel the shoe. Her MRI brain scan confirmed acute pontine stroke. The patient had a good recovery, she was able to walk with we still can not home, at home, she is on Brilinta 60 mg daily, aspirin 81 mg daily, rosuvastatin 10 mg daily Once in the trauma center, her Brilinta and aspirin was recommended to be discontinued, however the patient was discontinued with no change in her medications Around 2021, the patient slept excessively, and on waking up, she had shaking in the left face and shoulder, he was sent to the [facility] where she was said to have seizure, and she has been on Keppra 500 mg b.i.d. since, she also takes Lyrica 150 mg b.i.d. for pain in the joints. This only seizure the family is aware of For about three years, the patient has had progressive intermittent short-term memory difficulty, her daughter patient mind could be sometimes, she stopped driving in 2022 she got lost driving, she has lost in her neighborhood, she is on Aricept date at home On 12/15/2024, her family reported that she is on Brilinta 60 mg q.d, Aricept 10 mg daily, aspirin 81 mg daily, keppra 500mg bid, lyrica 150mg bid Ext Med Hx 02/12/2025: Rosuvastatin 10 mg daily, Keppra 500 mg b.i.d., Aricept 10 mg daily, pregabalin 150 mg b.i.d. WBC/HB/PLT, 12/15/2024: 11.5/10.8/257/92.2, 02/12/2025: 9.9/11.8/ 203/91.5 BUN/CR, 06/12/2024: 35/4.27, 06/13/2024: 31/3.64, 12/15/2024: 25/3.67, 02/12/2025: 46/7.13 GFR, 12/15/2024: 12, 02/12/2025: 5 HGB A1c, 06/12/2024: 6.9. 12/15/2024: 7 TBI/AST/ALT/AP, 12/01/24: 0.3/19/9/151, unremarkable TG/HDL/LDL/HDL, 09/2023: 74/153/73/61. 06/14/2024: 120/153/83/43 Vitamin B12, 12/2021: 301, 05/2024: 535 Folic acid, 12/2020: 4.71 TSH, 12/2021: 0.73, 05/2024: 1.03 Echocardiogram, 12/16/2024: MILD LVH AND MILD LV DIASTOLIC DYSFUNCTION LV EF IS 60% SLIGHTLY DILATED LA SEVERE PULMONARY HYPERTENSION RVSP IS 61 MM OF HG AND IS VERY HIGH NORMAL VALVES NO EFFUSION CT head, 06/13/2024: 1. No CT evidence of acute intracranial abnormality. 2. Nonacute findings as described above CT head, 12/15/2024: No acute intracranial abnormality CT head, 02/12/2025: Acute subdural hematoma along the posterior left falx and left tentorium cerebelli measuring 3 mm in thickness. Subacute appearing left parietal subdural hematoma measuring 3 mm in thickness. Evolving acute infarction right frontal/ parietal/ temporal lobe, better seen on concurrent MRI from today. Moderate chronic microvascular ischemic changes. CTA head, neck, 02/12/25: No large vessel high-grade stenosis. Acute appearing subdural hematoma along the posterior left falx and left tentorium cerebellar as described on CT head measuring up to 3 mm in thickness. Subacute appearing left parietal subdural hematoma measuring 3 mm in thickness. Evolving right cerebral infarction as described on CT head and MRI brain from today. Heterogeneous thyroid gland with multiple nodules. This can be further evaluated thyroid ultrasound in the nonemergent setting. Critical Result: Stroke, subdural hematoma findings MRI head, 01/15/2022: There is mild to moderate microvascular ischemic disease of the supratentorial white matter and brainstem. There is no acute infarct MR head, 12/16/2024: Acute right brainstem infarct, no evidence of acute bleed no significant edema MRI head, 02/12/2025: Acute infarct throughout the right posterior frontal, parietal, and superior temporal lobes as well as the right insula. Trace chronic subdural hematomas Past Medical History Hypertension, diabetes, dyslipidemia, coronary artery disease, congestive heart failure, chronic kidney failure on hemodialysis, dementia, seizure, TIA/CVA Past Surgical History Cholecystectomy, PTCA Family History: Diabetes mellitus G8 MOTHER Hypertension G8 FATHER Family History Hypertension, diabetes Social History She was a tobacco smoker, but no history of alcohol or recreational substance abuse Allergies: Uncoded Allergies: TAPE (Allergy, Unknown, 01/17/25) Home Meds Active Scripts Nutritional Supplements (Ensure Clinical Strength) Vanilla Liq, 1 BOTTLE OR QID for 30 Days, #120 LIQ Please change formula to one that is appropriate for a Hemodialysis patient. Prov:MIGUEL COHN PIGMENT PROCESSOR 01/19/25 Rosuvastatin Calcium (Crestor) 20 Mg Tab, 0.5 TAB PO DAILY for 30 Days, #30 TAB 0 Refills Prov:FRANCA SLADE MD 12/18/24 Ergocalciferol (VITAMIN D 24821 UNIT) 50,000 [place], [address] UNIT PO Q7D for 90 Days, #12 CAP Prov:RUCHI TORREZ RESIDENT 06/15/24 Calcitriol (Calcitriol) 0.25 Mcg Cap, 0.25 MCG PO DAILY for 30 Days, #30 CAP 2 Refills Prov:RAMSES HERNANDES RESIDENT 01/13/24 Reported Medications Nifedipine (Nifedipine Er) 30 Mg Tab, 30 MG PO DAILY 02/12/25 Furosemide (Furosemide) 40 Mg Tab, 1 TAB PO DAILY for 30 Days, #60 06/14/24 Aspirin (Aspirin Low Dose) 81 Mg Chw, 1 TAB PO DAILY for 90 Days, #90 06/14/24 Levetiracetam (Keppra) 500 Mg Tab, 1 TAB PO BID for 90 Days, #180 06/14/24 Lidocaine (Lidocaine Patch 5%) 5 % Pad, 1 PATCH TOP DAILY for 90 Days, #90 APPLY ONE PATCH TOPICALLY TO CLEAN, DRY SKIN. LEAVE ON FOR 12 HOURS THEN REMOVE. MUST WAIT AT LEAST 12 HOURS BEFORE APPLYING PATCH(ES) AGAIN. 10/03/23 Insulin Glargine (Lantus Solostar) 100 Unit/Ml Inj, 20 UNIT SC DAILY for 75 Days, #15 10/03/23 Ticagrelor Base (Brilinta) 60 Mg Tab, 1 TAB PO DAILY for 90 Days, #90 10/03/23 Pregabalin (Lyrica) 150 Mg Cap, 1 CAP PO BID for 90 Days, #180 10/02/23 Donepezil Hydrochloride (Aricept) 10 Mg Tab, 1 TAB PO QPM for 100 Days, #100 01/17/22 Discontinued Scripts Nifedipine (Nifedipine Er) 90 Mg Tab, 90 MG PO DAILY for 30 Days, #30 TAB 3 Refills Prov:ARIANNE RIOZ MD 10/05/23 Current Medications Current Medications Medications (Trade) Dose Ordered Sig/Deepak Route PRN Reason Start Time Stop Time Status Last Admin Acetaminophen/ Hydrocodone Bitart ([place] 5/325MG Tab) 1 tab Q4HP PRN PO MODERATE PAIN (4-6 PAIN SCALE) 02/12/25 08:45 Ondansetron HCl (Zofran) 4 mg Q4HP PRN IV NAUSEA / VOMITING 02/12/25 08:45 Docusate Sodium (Colace Capsule) 100 mg BIDPRN PRN PO FOR CONSTIPATION 02/12/25 08:45 Acetaminophen (Tylenol Tablet) 650 mg Q6HP PRN PO PAIN SCALE 1-3 OR TEMP>100.4 02/12/25 08:45 Nitroglycerin (Ntrostat Sublingual) 0.4 mg Q5MINP PRN SL FOR CHEST PAIN 02/12/25 08:45 Morphine Sulfate 2 mg Q30M PRN IV FOR CHEST PAIN 02/12/25 08:45 Levetiracetam (Keppra Tablet) 500 mg BID PO 02/12/25 22:00 02/12/25 22:16 Aspirin 81 mg DAILY PO 02/13/25 10:00 Donepezil HCl (Aricept Tablet) 10 mg HS PO 02/12/25 22:00 02/12/25 22:16 Insulin Glargine (Lantus) 20 units DAILY SC 02/13/25 10:00 Pregabalin (Lyrica Capsule) 50 mg BID PO 02/12/25 22:00 02/12/25 22:17 Atorvastatin Calcium (Lipitor) 20 mg HS PO 02/13/25 22:00 Nifedipine (Procardia Xl (Time-Release)) 30 mg DAILY PO 02/13/25 10:00 Diagnostic Test (Pha) (Accu-Chek Comfort Curve T) 1 strip Q6HR 02/12/25 18:00 02/12/25 18:00 Insulin Human Regular (InsuLIN R) Q6HR SC 02/12/25 18:00 02/12/25 18:30 Dextrose 50 ml UD PRN IV Blood Sugar LESS THAN 60 02/12/25 17:45 Review of Systems The other systems are negative Vital Signs Vital Signs Date Time Temp Pulse Resp B/P (MAP) Pulse Ox O2 Delivery O2 Flow Rate FiO2 02/12/25 20:00 80 12 164/83 (110) 100 02/12/25 19:30 Nasal Cannula* 3 32 02/12/25 07:35 96.2 96.2 Physical Exam GENERAL EXAM: General: the patient is well developed and nourished. No acute distress. HEENT: Normocephalic, neck is supple, no carotid bruits. No mass. RESPIRATORY: Normal respiratory effort with symmetrical lung expansion. Lungs clear to auscultation. CARDIOVASCULAR: Regular rate and rhythm with no murmurs. S1, S2. ABDOMEN: Soft, nontender, normal bowel sound NEUROLOGICAL: MENTAL STATUS: Arousable SPEECH, LANGUAGE, HIGHER CORTICAL FUNCTION: Speech is slurry CRANIAL NERVES: #2: Intact visual nichols to confrontation. The optic discs were sharp. #3,4,6: Pupils are equal, round and reactive. EOMs full and conjugate. No nystagmus. #5: Facial sensationfine in all three divisions bilaterally. Mandibular strength intact. #7: Facial muscles symmetrical and strength intact (inadequate examined, RN reported left facial droop). #8: Hearing grossly normal to voice. #9,10: Deferred #11: Trapezius and sternomastoid strength intact bilaterally. #12: Tongue midline. No fasciculations or atrophy. SENSATION: Sensation to touch and pinprick is ok MOTOR: Normal tone in the upper and lower extremity. Normal muscle bulk. No fasciculations. No abnormal movements or posturing. Muscle strength of the major groups in the right extremities: Arm: 2-3/5, le/5/5. Muscle strength of the major groups in the left extremities is 0/5. REFLEXES: Deep tendon reflexes are symmetrical. No pathological reflexes. CEREBELLAR/COORDINATION: Deferred. GAIT/STATION: deferred. Labs/Diagnostic Data Labs Test 02/12/25 18:25 02/12/25 09:34 Range/Units POC Glucose 193 H 70-106 mg/dl White Blood Count 9.9 4.4-10.8 10^3/uL Red Blood Count 3.98 L 4.0-5.20 10^6/uL Hemoglobin 11.8 L 12.2-16.2 g/dL Hematocrit 36.5 36.0-46.0 % Mean Corpuscular Volume 91.5 80.0-100.0 fL Mean Corpuscular Hemoglobin 29.6 28.0-32.0 pg Mean Corpuscular Hemoglobin Concent 32.3 32.0-36.0 g/dL Red Cell Distribution Width 15.6 H 11.8-14.3 % Platelet Count 306 140-450 10^3/uL Mean Platelet Volume 7.1 6.9-10.8 fL Neutrophils (%) (Auto) 66.7 37.0-80.0 % Lymphocytes (%) (Auto) 23.2 10.0-50.0 % Monocytes (%) (Auto) 6.9 0.0-12.0 % Eosinophils (%) (Auto) 2.8 0.0-7.0 % Basophils (%) (Auto) 0.4 0.0-2.0 % Neutrophils # (Auto) 6.6 1.6-8.6 10 ^3/uL Lymphocytes # (Auto) 2.3 0.4-5.4 10 ^3/uL Monocytes # (Auto) 0.7 0-1.3 10 ^3/uL Eosinophils # (Auto) 0.3 0-0.8 10 ^3/uL Basophils # (Auto) 0 0-0.2 10 ^3/uL Nucleated Red Blood Cells 0.0 % Sodium Level 138 136-145 mmol/L Potassium Level 3.9 3.5-5.1 mmol/L Chloride Level 99 98-107 mmol/L Carbon Dioxide Level 24 20-31 mmol/L Anion Gap 15 5-15 Blood Urea Nitrogen 46 H 9-23 mg/dL Creatinine 7.13 H 0.550-1.02 mg/dL Glomerular Filtration Rate Calc 5 >90 mL/min BUN/Creatinine Ratio 6.5 L 10.0-20.0 Serum Glucose 181 H 74-106 mg/dL Lactic Acid Level 1.5 0.4-2.0 mmol/L Calcium Level 9.6 8.7-10.4 mg/dL Total Bilirubin 0.2 0.2-1.0 mg/dL Aspartate Amino Transferase (AST) 12 L 13-40 U/L Alanine Aminotransferase (ALT) < 9 7-40 U/L Alkaline Phosphatase 151 H 46-116 U/L Total Protein 7.9 5.7-8.2 g/dL Albumin 4.0 3.2-4.8 g/dL Assessment Acute left-sided weakness secondary to acute stroke Chronic stroke Acute on chronic subdural hematoma Partial seizure Dementia, Alzheimer disease Vascular dementia Plan/Recommendation Monitoring Supportive treatment Telemetry Echocardiogram Aspirin 81 mg daily Lipitor 20 mg daily Keppra 500mg bid, Lyrica 150mg bid Aricept 10 mg linda Ativan for seizure breakthrough GI prophylaxis Up to chair Physical therapy Nephrology on case Time spent is 55 minutes Progress: Poor This medical document was created using an electronic medical record system with [employer] computerized dictation system. Although this document has been carefully reviewed, there may still be some phonetic and typographical errors. These areas are purely typographical due to imperfections of the software programs, and do not reflect any compromise in the patient's medical care. Plan discussed with: Daughter, Other CORAL KABA MD Feb 12, 2025 22:51
[2025-02-12 23:56] VITALS: PULSE 78; RESP 18; O2SAT 100
[2025-02-13] VITALS (11 sets, daily range): BP systolic 129–176; BP diastolic 57–95; PULSE 63–95; RESP 14–17; TEMP 97–97.9; O2SAT 94–100
[2025-02-13] MEDS: PREGABALIN 25 MG CAP PO SCH (00:30)
[2025-02-13] MEDS ORDERED: LORazepam 2MG/ML-1ML VIAL IV PRN (00:30)
[2025-02-13] MEDS: hydrALAZINE HCL 20 MG/ML VL IV ONE (03:05)
[2025-02-13 06:12] LABS: Hematocrit 37.7 % (36.0-46.0); Hemoglobin 12.3 g/dL (12.2-16.2); Mean Corpuscular Hemoglobin 30.3 pg (28.0-32.0); Mean Corpuscular Volume 92.9 fL (80.0-100.0); Nucleated Red Blood Cells % 0.1 %
[2025-02-13 06:21] LABS: Albumin 3.4 g/dL (3.2-4.8); Anion Gap 18 (5-15); BUN/Creatinine Ratio 6.5 (10.0-20.0); Calcium 8.9 mg/dL (8.7-10.4); Carbon Dioxide 21 mmol/L (20-31); Chloride 103 mmol/L (98-107); Glucose 106 mg/dL (74-106); Potassium 4.3 mmol/L (3.5-5.1); Sodium 142 mmol/L (136-145); Total Protein 6.6 g/dL (5.7-8.2)
[2025-02-13 06:22] LABS: Alanine Aminotransferase < 9 U/L (7-40); Alkaline Phosphatase 129 U/L (46-116); Bilirubin, Total 0.2 mg/dL (0.2-1.0); Blood Urea Nitrogen 52 mg/dL (9-23)
[2025-02-13] MEDS: levETIRAcetam 500 mg/100ml 100 ML IV ONE ×2 (11:15→11:52)
--- NOTE | 2025-02-13 11:15 | BSKYNEURO ---
[facility] # Demographics Consult Type: Acute Stroke Level 1 (0-4.5 hrs) Patient Location: Inpatient First Name: LAMAR Last Name: BELEN Date of : 1945 Age: 79 Gender: Female Facility: [facility] Time of Initial Page (): 02/13/2025 11:07 First Contact with Site (): 02/13/2025 11:08 # HPI History: Here for stroke yesterday. Today new aphasia - not speaking only mumbling. # Scores Time of exam and NIHSS (): 02/13/2025 11:09 Level of Consciousness 1a: [0] = Alert; keenly responsive LOC Questions 1b: [1] = Answers one correctly LOC Commands 1c: [2] = Performs neither correctly Best Gaze 2: [0] = Normal Visual 3: [0] = No visual loss Facial Palsy 4: [0] = Normal symmetrical movements Motor Arm Left 5a: [4] = No movement Motor Arm Right 5b: [0] = No drift Motor Leg Left 6a: [0] = No drift Motor Leg Right 6b: [1] = Drift Limb Ataxia 7: [0] = Absent Sensory 8: [0] = Normal Best Language 9: [2] = Severe aphasia Dysarthria 10: [0] = Normal Extinction and Inattention 11: [0] = No abnormality NIHSS Total: 10 # Exam Vitals: vital signs reviewed # [facility]-- Past Medical History: - stroke - seizure Medications: keppra 500mg bid # Data Head CT: - hemorrhage sdh MRI: - acute ischemia - per radiologist read right pariatal stroke. # Assessment Impression: - Subdural Hematoma Obtain repeat ct to ensure no worsening f sdh obtain eeg to r/o subclinical seizure. Hold asa until discussing with radiology and nsgy Differential Diagnosis: - Ischemic Stroke (Acute) # Plan Thrombolytic/Intervention: Possible IA candidate Thrombolytic Exclusion (< 3 hour window): - stroke within 3 months Target Blood Pressure: SBP < 180 Imaging: (urgency: STAT): - CT Head without contrast AND call back with results if abnormal Diagnostic Test: - EEG Other: - If patient has any neurological deterioration please call me back immediately - I have discussed my recommendations with the referring provider - consult neurosurgery # Logistics Attestation of consult completion: The patient is located at: [facility]. Facility staff participated in the visit. I performed this telemedicine visit from my offsite office utilizing interactive 2 way audio and visual telecommunication technology at the request of the onsite inpatient provider. Total time spent in telemedicine encounter: I spent 21 minutes reviewing clinical data and/or imaging, obtaining history, examining the patient, communicating with the onsite care team, and in preparation of this report. # Demographics First Name: LAMAR Last Name: BELEN Facility: [facility] Electronically signed at 02/13/2025 11:15 ([place] Time) by Kev Ambriz MD Yes BARBARA AMBRIZ MD Feb 13, 2025 11:15
[2025-02-13 12:17] LABS: Hematocrit 41.3 % (36.0-46.0); Hemoglobin 12.9 g/dL (12.2-16.2); Mean Corpuscular Hemoglobin 29.7 pg (28.0-32.0); Mean Corpuscular Volume 94.7 fL (80.0-100.0); Nucleated Red Blood Cells % 0.1 %
[2025-02-13 12:30] LABS: Albumin 3.7 g/dL (3.2-4.8); Anion Gap 18 (5-15); BUN/Creatinine Ratio 6.5 (10.0-20.0); Calcium 9.5 mg/dL (8.7-10.4); Carbon Dioxide 22 mmol/L (20-31); Chloride 101 mmol/L (98-107); Magnesium 2.3 mg/dL (1.6-2.6); Potassium 4.5 mmol/L (3.5-5.1); Sodium 141 mmol/L (136-145); Total Protein 7.0 g/dL (5.7-8.2)
[2025-02-13 12:35] LABS: Alanine Aminotransferase < 9 U/L (7-40); Alkaline Phosphatase 139 U/L (46-116); Bilirubin, Total 0.2 mg/dL (0.2-1.0); Blood Urea Nitrogen 50 mg/dL (9-23); Glucose 122 mg/dL (74-106); INR 1.02 (0.9-1.15); Partial Thromboplastin Time 23.5 SEC (24.5-34.5); Prothrombin Time 10.8 sec (9.3-11.8)
--- NOTE | 2025-02-13 12:37 | DVH ---
EXAM: CT STROKE CTH INDICATION: stroke TECHNIQUE: CT images of the head were obtained without administration of IV contrast. CT scans at this facility use dose modulation, iterative reconstruction, and/or weight based dosing when appropriate to reduce radiation dose to as low as reasonably achievable. COMPARISON: CT STROKE CTH on DOS: 02/12/25 FINDINGS: PARENCHYMA: Increased density along bilateral basal ganglia, [id number] involving the striatum right external capsule and insular cortex however difficult to differentiate between contrast enhancement versus hemorrhage given contrast administration. Question intra-axial hemorrhage of the left occipital lobe. Mild scattered hypoattenuation along the periventricular, centrum semiovale, and deep white matter tracts, which are nonspecific however statistically most likely represent chronic microvascular ischemic change. VENTRICLES: No hydrocephalus. EXTRA-AXIAL SPACES: Interval significant subarachnoid hemorrhage along the right frontal lobe and right parietal lobe extending inferiorly to the right sylvian fissure. Additional subarachnoid hemorrhage of the left parietal lobe and left occipital lobe. Difficult to exclude blood products along the posterior falx cerebri and left tentorial leaflet. OTHER: The bony structures are intact. Visualized portions of the paranasal sinuses and mastoid air cells are clear. IMPRESSION: 1. Interval significant subarachnoid hemorrhage along the right frontal lobe and right parietal lobe extending inferiorly to the right sylvian fissure. 2. Additional subarachnoid hemorrhage of the left parietal lobe and left occipital lobe. 3. Difficult to exclude blood products along the posterior falx cerebri and left tentorial leaflet. 4. Question intra-axial hemorrhage of the left occipital lobe. 5. Increased density along bilateral basal ganglia, [id number]-left involving the striatum right external capsule and insular cortex however difficult to differentiate between contrast enhancement versus hemorrhage given contrast administration. 6. Overall significant interval worsening.
[2025-02-13] MEDS ORDERED: ETOMIDATE (2MG/ML) 20ML VIAL IV ONE (13:21)
[2025-02-13] MEDS ORDERED: ROCURONIUM 10MG/ML 10ML VIAL IV ONE (13:22)
[2025-02-13] MEDS ORDERED: MIDAZOLAM DRIP 100 mg/100mL NS 100 ML IV ONE (13:32)
[2025-02-13] MEDS ORDERED: fentaNYL Drip 2500mCg/250mlNS 250 ML IV ONE (13:32)
[2025-02-13] MEDS ORDERED: NOREPINEPHRINE 8 MG/250ML KIT 250 ML IV ONE (13:37)
[2025-02-13] MEDS: INSULIN LANTUS (GLARGINE) 1 /0.01ml (100units/ml) SC SCH (13:52)
--- NOTE | 2025-02-13 14:43 | DVHPN2 ---
Progress Note Date Seen: Feb 13, 2025 Medical Necessity Reason Pt with a Central, PICC or Fol: No Subjective Changes from previous H/P or p: Changes (nonverbal) Objective vital signs Vital Sign Date Time Temp Pulse Resp B/P (MAP) Pulse Ox O2 Delivery O2 Flow Rate FiO2 02/13/25 09:00 97.5 78 16 137/73 (94) 98 97.5 02/13/25 08:00 Nasal Cannula* 2 28 Total Intake and Output 02/12/25 02/12/25 02/13/25 15:00 23:00 07:00 Intake Total 0 ml Balance 0 ml medications Current Medications Medications Dose Ordered Sig/Deepak Route Start Time Stop Time Status Last Admin Dose Admin Acetaminophen/ Hydrocodone Bitart 1 tab Q4HP PRN PO 02/12/25 08:45 Ondansetron HCl 4 mg Q4HP PRN IV 02/12/25 08:45 Docusate Sodium 100 mg BIDPRN PRN PO 02/12/25 08:45 Acetaminophen 650 mg Q6HP PRN PO 02/12/25 08:45 Nitroglycerin 0.4 mg Q5MINP PRN SL 02/12/25 08:45 Morphine Sulfate 2 mg Q30M PRN IV 02/12/25 08:45 Levetiracetam 500 mg BID PO 02/12/25 22:00 02/13/25 10:19 500 MG Aspirin 81 mg DAILY PO 02/13/25 10:00 02/13/25 10:19 81 MG Donepezil HCl 10 mg HS PO 02/12/25 22:00 02/12/25 22:16 10 MG Insulin Glargine 20 units DAILY SC 02/13/25 10:00 Atorvastatin Calcium 20 mg HS PO 02/13/25 22:00 Nifedipine 30 mg DAILY PO 02/13/25 10:00 Diagnostic Test (Pha) 1 strip Q6HR 02/12/25 18:00 02/13/25 13:53 1 STRIP Insulin Human Regular Q6HR SC 02/12/25 18:00 02/12/25 18:30 3 UNITS Dextrose 50 ml UD PRN IV 02/12/25 17:45 Pregabalin 50 mg BID PO 02/13/25 00:30 Lorazepam 1 mg Q5MINP PRN IV 02/13/25 00:30 Examination: NEURO:Abnormal laboratory and microbiology Laboratory Tests 02/13/25 11:59 Test 02/13/25 11:59 Range/Units Serum Glucose 122 H 74-106 mg/dL Microbiology Date/Time Source Procedure Growth Status 02/12/25 09:50 Blood Blood Culture - Preliminary NO GROWTH AFTER 24 HOURS OF INCUBATION. Resulted Problem List/Assessment/Plan Problem List/Assessment/Plan End-stage renal disease on hemodialysis Acute on subacute CVA with mental status change and focal deficits History of hypertension Dementia AAOxO nonverbal currently does tube feeds unable to eat new stroke code today interval left and Right Subarachnoid hemorrhage discussed with son now DNI/DNR will stop dialysis treatments , agree with PCP plan to send for hospice Plan discussed with: Son Dietary Evaluation Review Comments: Assessment: Patient on ventilator; EN feasible and GI tract accessible. High risk for malnutrition; requires full nutrition support. Intervention: If EN feasible: Tube feeding: Nepro Carb Steady @ 35 mL/hr Provides: Protein: 68 g Energy: 1487 kcal Free Water: 611 mL Meets 100% of estimated protein and energy needs. If EN not feasible: Offer TPN per pharmacy to meet: Protein: 68 g Energy: 1729-0409 kcal. Initiate per refeeding precautions and monitor labs. Monitoring & Follow-Up: Daily labs (electrolytes, renal function, glucose). Reassess nutrition plan when patient is extubated and able to transition to oral or modified feeding route. Expected Outcomes/Goals: Off vent, advance to CCHO-60 Renal standard diet when pt passes [employer] OPER[employer] APPRENTICE DARION Gamboa MD Feb 13, 2025 14:43
--- NOTE | 2025-02-13 14:44 | DVHPN2 ---
Reviewed: H&P Changes from previous H/P or p: No Changes General: Per HPI Eyes: No Pain, No Vision change, No Conjunctivae inflammation, No Eyelid inflammation, No Other, No Redness ENT: No Ear pain, No Ear discharge, No Nose pain, No Nose discharge, No Nose congestion, No Mouth pain, No Mouth swelling, No Throat pain, No Throat swelling, No Other Cardiovascular: No Chest Pain, No Palpitations, No Orthopnea, No Paroxysmal Noc. Dyspnea, No Edema, No Lt Headedness, No Other Respiratory: No Cough, No Dry, No Shortness of breath, No SOB with excertion, No Wheezing, No Hemoptysis, No Pleuritic Pain, No Sputum, No Other Gastrointestinal: No Nausea, No Vomiting, No Abdominal Pain, No Diarrhea, No Constipation, No Melena, No Hematochezia, No Other Genitourinary: No Dysuria, No Frequency, No Incontinence, No Hematuria, No Retention, No Other Musculoskeletal: No other, No neck pain, No shoulder pain, No arm pain, No back pain, No hand pain, No leg pain, No foot pain Skin: No Rash, No Lesions, No Jaundice, No Bruising, No Other Objective Vitals Vital Signs Date Time Temp Pulse Resp B/P (MAP) Pulse Ox O2 Delivery O2 Flow Rate FiO2 02/13/25 09:00 97.5 78 16 137/73 (94) 98 97.5 02/13/25 08:00 Nasal Cannula* 2 28 Intake/Output Intake and Output 02/13/25 07:00 Intake Total 0 ml Balance 0 ml Intake Oral 0 ml # Voids 1 Exam GEN: Healthy appearing, well-developed, NAD. HEENT: NC/AT; MMM. CV: RRR, no m/r/g. LUNGS: CTAB, no w/r/c. ABD: Soft, NT/ND, NBS, no masses or organomegaly. EXT: skin Warm, well perfused. no rashes. No clubbing, cyanosis, or edema. NEURO: Decreased alertness, we will open eyes to tactile stimuli. Mumbling, aphasia, left sided motor deficit, right facial droop. Medications Current Medications Medications Dose Ordered Sig/Deepak Route Start Time Stop Time Status Last Admin Dose Admin Acetaminophen/ Hydrocodone Bitart 1 tab Q4HP PRN PO 02/12/25 08:45 Ondansetron HCl 4 mg Q4HP PRN IV 02/12/25 08:45 Docusate Sodium 100 mg BIDPRN PRN PO 02/12/25 08:45 Acetaminophen 650 mg Q6HP PRN PO 02/12/25 08:45 Nitroglycerin 0.4 mg Q5MINP PRN SL 02/12/25 08:45 Morphine Sulfate 2 mg Q30M PRN IV 02/12/25 08:45 Levetiracetam 500 mg BID PO 02/12/25 22:00 02/13/25 10:19 500 MG Aspirin 81 mg DAILY PO 02/13/25 10:00 02/13/25 10:19 81 MG Donepezil HCl 10 mg HS PO 02/12/25 22:00 02/12/25 22:16 10 MG Insulin Glargine 20 units DAILY SC 02/13/25 10:00 Atorvastatin Calcium 20 mg HS PO 02/13/25 22:00 Nifedipine 30 mg DAILY PO 02/13/25 10:00 Diagnostic Test (Pha) 1 strip Q6HR 02/12/25 18:00 02/13/25 13:53 1 STRIP Insulin Human Regular Q6HR SC 02/12/25 18:00 02/12/25 18:30 3 UNITS Dextrose 50 ml UD PRN IV 02/12/25 17:45 Pregabalin 50 mg BID PO 02/13/25 00:30 Lorazepam 1 mg Q5MINP PRN IV 02/13/25 00:30 Laboratory Results Laboratory Tests 02/13/25 11:59 Chemistry Test 02/13/25 05:26 02/13/25 11:59 Albumin 3.4 g/dL (3.2-4.8) 3.7 g/dL (3.2-4.8) Calcium Level 8.9 mg/dL (8.7-10.4) 9.5 mg/dL (8.7-10.4) Total Protein 6.6 g/dL (5.7-8.2) 7.0 g/dL (5.7-8.2) Magnesium Level 2.3 mg/dL (1.6-2.6) Coagulation Test 02/13/25 11:59 Prothrombin Time 10.8 sec (9.3-11.8) Prothrombin Time INR 1.02 (0.9-1.15) Activated Partial Thromboplast Time 23.5 SEC (24.5-34.5) L LFT Test 02/13/25 05:26 02/13/25 11:59 Alanine Aminotransferase (ALT) < 9 U/L (7-40) < 9 U/L (7-40) Alkaline Phosphatase 129 U/L (46-116) H 139 U/L (46-116) H Aspartate Amino Transferase (AST) 21 U/L (13-40) 18 U/L (13-40) Total Bilirubin 0.2 mg/dL (0.2-1.0) 0.2 mg/dL (0.2-1.0) Microbiology Microbiology Date/Time Source Procedure Growth Status 02/12/25 09:50 Blood Blood Culture - Preliminary NO GROWTH AFTER 24 HOURS OF INCUBATION. Resulted Labs and/or images reviewed: Labs reviewed by me, Image(s) reviewed by me Assessment/Plan Assessment/Plan Jennifer Lambert Heber is a 79-year-old female with past medical history of ESRD on HD, CVA with left sided weakness, subdural hematoma, dementia, diabetes, and seizures, who was transferred from [facility] this morning. The patient was brought to [facility] due to ALOC and left sided weakness. On assessment patient has left sided hemiparalysis, will admit for further work up and MRI. 02/13: Rapid response called this a.m. approximately 10:00 a.m.. Please see rapid response report. Stroke code activated. Patient on admit had MRI done which showed acute infarct throughout right posterior, frontal, parietal and superior temporal lobes as well as right insula. Also trace chronic subdural hematomas. Later at 2:00 p.m. 02/[address] is done which is showing acute subdural hematoma along posterior left falx and left tentorium cerebelli measuring 3 mm in thickness and subacute left parietal subdural hematoma measuring 3 mm in thickness, and then involving acute infarct as seen in MRI. Critical result is not impressive as patient has chronic subdural hematomas and there was no acute change in mentation. Vitals were stable. A CTA head and neck was done showing no large vessel high-grade stenosis. After the rapid response and stroke code activation on 04/15 11:00 a.m., there is a repeat CT head noncontrast showing significant subarachnoid hemorrhage along right frontal lobe and right parietal lobe extending inferiorly to right sylvian fissure. Additional subarachnoid hemorrhage of left parietal lobe and left occipital lobe. The blood Plavix could be extending to the posterior falx cerebri and left tentorial leaflet. There is increased density bilateral basal ganglia which could be additional hemorrhage in this region involving striatum right external capsule and insular cortex. Critical result is appreciated, discussed with Neurosurgery [facility] and they want to accept, family wanting all measures to be carried out. Plan is to transfer patient and intubate but further discussion is held regarding quality of life after significant interventions and with a history of significant recurrent strokes, brain bleeds, ESRD, age and significant chance of poor prognosis and mortality, discussion is held with Nephrology, son Tyron, medicine team myself, given the poor prognosis and very poor outcome expected from current situation in disease burden, family understands these serious morbidities and high chance of mortality and the poor prognosis and agree with DNR DNI and well discuss hospice care further. We will hold off intubation and transfer to Neurosurgery to [facility], deescalate care to telemetry, change code status to DNR DNI, hold off aspirin, continue other medications crushed through G-tube. Diagnosis: Acute subarachnoid hemorrhage, left parietal lobe, left occipital lobe, right frontal lobe, right parietal lobe, right sylvian fissure Multiple acute on chronic subdural hemorrhage, posterior left falx, left tentorium cerebellar, left parietal. Acute on chronic ischemic stroke infarct, acute infarct in right frontal, posterior, parietal, superior temporal lobes, right insula ESRD on HD History of multiple CVA with left-sided weakness History of subdural hemorrhage and brain bleed Dementia, likely vascular dementia Diabetes History of seizures Plan: DNR DNI Continue G-tube feeds, aspiration precautions NPO Blood pressure goal systolic less than 140 Hold off aspirin and any other antiplatelets Hold off any chemical DVT prophylaxis Continue other medications crushed through G-tube Hospice discussion with family Tele DNR DNI Plan discussed with: Patient My Orders Orders - FRANCA SLADE MD Procedure Category Date Status Time Eeg Awake/Sleep/Act EEG 02/13/25 Transmitted 11:[address] 02/13/25 Resulted 11:07 Lactic Acid W/ Reflex LAB 02/13/25 Logged Order 11:17 Discharge DISCHARGE 02/13/25 Transmitted 12:56 Date of Service: Feb 13, 2025 Billing Provider: FRANCA SLADE MD Common Visit Codes: 28714-[id number] INP/OBS CARE(HIGH) FRANCA SLADE MD Feb 13, 2025 14:44
--- NOTE | 2025-02-13 18:34 | DVHSR ---
APPROVED REPORT EXAM: Two-dimensional and M-mode echocardiogram with Doppler and color Doppler. Blood Pressure: 129/57 mmHg INDICATION CVA/TIA: RISK FACTORS Height: 5', Weight: 125 DIMENSIONS LVDd 3.3 (3.8-5.7cm) LA (2D) 3.9 (1.9-4.0cm) Aortic Root 2.6 (2.0-3.7cm) LVDs 2.5 (2.5-4.0cm) LA (MM) (1.9-4.0cm) Aortic Cusp Exc 1.4 (1.5-2.0cm) EF (%) 50.0 (55-70%) Rt. Atrium (1.9-4.0cm) Asc. Aorta cm IVSd 1.0 (0.7-1.1cm) RV (D) (1.8-2.4cm) Mitral Valve Mitral Mitral Stenosis E wave 0.51m/s MV Mean GR. mmHg A wave 0.61m/s MV Peak GR. mmHg E/A ratio 0.8 2D MVA cm2 DECEL Time 244ms PRESS 1/2 Time ms Aortic Valve Aortic Valve Aortic Stenosis V1 0.74m/s AO Mean GR. 3mmHg V2 1.21m/s AO Peak GR. 6mmHg LVOT Diameter 1.9 (1.8-2.4cm) Doppler ROLLY 1.73cm2 Other Information Quality : Technically Limited Rhythm : Technically limited study due to body habitus. Conclusion Technically good study. Sinus rhythm. Normal chamber sizes. Valves are normal. EF of 55% with normal RV function. Dopplers unremarkable. No pericardial effusion masses or vegetations.
[2025-02-13] MEDS: ATORVASTATIN 20 MG TAB PO SCH (21:55)
[2025-02-14] VITALS (8 sets, daily range): BP systolic 128–139; BP diastolic 72–82; PULSE 59–88; RESP 15–18; TEMP 36; O2SAT 95–100
--- NOTE | 2025-02-14 00:26 | DVHPN2 ---
Progress Note - Dictate Date Seen: Feb 13, 2025 Medical Necessity Reason Pt with a Central, PICC or Fol: No Subjective Ms. Lambert is a 79 years old female with a history of hypertension, diabetes, dyslipidemia, coronary artery disease, congestive heart failure, chronic kidney failure on hemodialysis, dementia, seizure, TIA, she was transferred from the [facility] to the [facility] 12/15/24 with a chief complaint of for stroke-like syndrome. I saw on 01/15/2022 for seizure and dementia, 06/13/2024 , 12/15/2024 (MRI positive) for stroke for ALOC I have seen and examined the patient, talked to her nurse, the case was discussed with Dr. Chi Shaw several times during daytime, blue violet Neurology input appreciated For her CT brain scan showed new subarachnoid hemorrhage The patient is awake, able to say something but not able to provide a history not in acute distress No change in the motor examination, she only moves the right arm than leg On 12/15/2024, her family reported that she is on Brilinta 60 mg q.d, Aricept 10 mg daily, aspirin 81 mg daily, keppra 500mg bid, lyrica 150mg bid Ext Med Hx 02/12/2025: Rosuvastatin 10 mg daily, Keppra 500 mg b.i.d., Aricept 10 mg daily, pregabalin 150 mg b.i.d. WBC/HB/PLT, 12/15/2024: 11.5/10.8/257/92.2, 02/12/2025: 9.9/11.8/ 203/91.5 BUN/CR, 06/12/2024: 35/4.27, 06/13/2024: 31/3.64, 12/15/2024: 25/3.67, 02/12/2025: 46/7.13 GFR, 12/15/2024: 12, 02/12/2025: 5 HGB A1c, 06/12/2024: 6.9. 12/15/2024: 7 TBI/AST/ALT/AP, 12/01/24: 0.3/19//151, unremarkable TG/HDL/LDL/HDL, 09/2023: 74/153/73/61. 06/14/2024: 120/153/83/43 Vitamin B12, 12/2021: 301, 05/2024: 535 Folic acid, 12/2020: 4.71 TSH, 12/2021: 0.73, 05/2024: 1.03 Echocardiogram, 12/16/2024: MILD LVH AND MILD LV DIASTOLIC DYSFUNCTION LV EF IS 60% SLIGHTLY DILATED LA SEVERE PULMONARY HYPERTENSION RVSP IS 61 MM OF HG AND IS VERY HIGH NORMAL VALVES NO EFFUSION CT head, 06/13/2024: 1. No CT evidence of acute intracranial abnormality. 2. Nonacute findings as described above CT head, 12/15/2024: No acute intracranial abnormality CT head, 02/12/2025: Acute subdural hematoma along the posterior left falx and left tentorium cerebelli measuring 3 mm in thickness. Subacute appearing left parietal subdural hematoma measuring 3 mm in thickness. Evolving acute infarction right frontal/ parietal/ temporal lobe, better seen on concurrent MRI from today. Moderate chronic microvascular ischemic changes. CT head, 02/13/2025: 1. Interval significant subarachnoid hemorrhage along the right frontal lobe and right parietal lobe extending inferiorly to the right sylvian fissure. 2. Additional subarachnoid hemorrhage of the left parietal lobe and left occipital lobe. 3. Difficult to exclude blood products along the posterior falx cerebri and left tentorial leaflet. 4. Question intra-axial hemorrhage of the left occipital lobe. 5. Increased density along bilateral basal ganglia, [id number]-left involving the striatum right external capsule and insular cortex however difficult to differentiate between contrast enhancement versus hemorrhage given contrast administration. 6. Overall significant interval worsening. CTA head, neck, 02/12/25: No large vessel high-grade stenosis. Acute appearing subdural hematoma along the posterior left falx and left tentorium cerebellar as described on CT head measuring up to 3 mm in thickness. Subacute appearing left parietal subdural hematoma measuring 3 mm in thickness. Evolving right cerebral infarction as described on CT head and MRI brain from today. Heterogeneous thyroid gland with multiple nodules. This can be further evaluated thyroid ultrasound in the nonemergent setting. Critical Result: Stroke, subdural hematoma findings MRI head, 01/15/2022: There is mild to moderate microvascular ischemic disease of the supratentorial white matter and brainstem. There is no acute infarct MR head, 12/16/2024: Acute right brainstem infarct, no evidence of acute bleed no significant edema MRI head, 02/12/2025: Acute infarct throughout the right posterior frontal, parietal, and superior temporal lobes as well as the right insula. Trace chronic subdural hematomas vital signs Vital Sign Date Time Temp Pulse Resp B/P (MAP) Pulse Ox O2 Delivery O2 Flow Rate FiO2 02/13/25 21:13 97.5 66 15 134/87 (103) 100 97.5 02/13/25 20:00 Nasal Cannula* 2 28 Total Intake and Output 02/13/25 02/13/25 02/14/25 15:00 23:00 07:00 Intake Total 0 ml Balance 0 ml medications Current Medications Medications Dose Ordered Sig/Deepak Route Start Time Stop Time Status Last Admin Dose Admin Acetaminophen/ Hydrocodone Bitart 1 tab Q4HP PRN PO 02/12/25 08:45 Ondansetron HCl 4 mg Q4HP PRN IV 02/12/25 08:45 Docusate Sodium 100 mg BIDPRN PRN PO 02/12/25 08:45 Acetaminophen 650 mg Q6HP PRN PO 02/12/25 08:45 Nitroglycerin 0.4 mg Q5MINP PRN SL 02/12/25 08:45 Morphine Sulfate 2 mg Q30M PRN IV 02/12/25 08:45 Levetiracetam 500 mg BID PO 02/12/25 22:00 02/13/25 21:54 500 MG Aspirin 81 mg DAILY PO 02/13/25 10:00 02/13/25 10:19 81 MG Donepezil HCl 10 mg HS PO 02/12/25 22:00 02/13/25 21:54 10 MG Insulin Glargine 20 units DAILY SC 02/13/25 10:00 Atorvastatin Calcium 20 mg HS PO 02/13/25 22:00 02/13/25 21:55 20 MG Nifedipine 30 mg DAILY PO 02/13/25 10:00 Diagnostic Test (Pha) 1 strip Q6HR 02/12/25 18:00 02/13/25 17:39 1 STRIP Insulin Human Regular Q6HR SC 02/12/25 18:00 02/12/25 18:30 3 UNITS Dextrose 50 ml UD PRN IV 02/12/25 17:45 Pregabalin 50 mg BID PO 02/13/25 00:30 02/13/25 21:54 50 MG Lorazepam 1 mg Q5MINP PRN IV 02/13/25 00:30 objective General: the patient is well developed and nourished. No acute distress. MENTAL STATUS: Subjective SPEECH, LANGUAGE, HIGHER CORTICAL FUNCTION: Speech is slurry CRANIAL NERVES: Pupils are equal, round and reactive. EOMs full and conjugate. No nystagmus. Facial sensationfine in all three divisions bilaterally. Mandibular strength intact. Facial muscles symmetrical and strength intact SENSATION: Sensation to touch and pinprick is ok MOTOR: Normal tone in the upper and lower extremity. Normal muscle bulk. No fasciculations. No abnormal movements or posturing. Muscle strength of the major groups in the right extremities: Arm: 2-3/5, le/5. Muscle strength of the major groups in the left extremities is 0/5. REFLEXES: Deep tendon reflexes are symmetrical. No pathological reflexes. CEREBELLAR/COORDINATION: Deferred. GAIT/STATION: deferred. laboratory and microbiology Laboratory Tests 02/13/25 11:59 Test 02/13/25 11:59 Range/Units Serum Glucose 122 H 74-106 mg/dL Problem List Acute subarachnoid hemorrhage Acute left-sided weakness secondary to acute stroke Chronic stroke Acute on chronic subdural hematoma Partial seizure Dementia, Alzheimer disease Vascular dementia Assessment/Plan Monitoring Supportive treatment Telemetry Echocardiogram D/C Aspirin 81 mg daily Lipitor 20 mg daily Keppra 500mg bid, Lyrica 150mg bid Aricept 10 mg linda Ativan for seizure breakthrough GI prophylaxis Up to chair Physical therapy Nephrology on case Patient needs to be transferred to higher level care RE: SAH This medical document was created using an electronic medical record system with [employer] dictation system. Although this document has been carefully reviewed, there may still be some phonetic and typographical errors. These areas are purely typographical due to imperfections of the software programs, and do not reflect any compromise in the patient's medical care. Prognosis Poor Dietary Evaluation Review Comments: Assessment: Patient on ventilator; EN feasible and GI tract accessible. High risk for malnutrition; requires full nutrition support. Intervention: If EN feasible: Tube feeding: Nepro Carb Steady @ 35 mL/hr Provides: Protein: 68 g Energy: 1487 kcal Free Water: 611 mL Meets 100% of estimated protein and energy needs. If EN not feasible: Offer TPN per pharmacy to meet: Protein: 68 g Energy: 9610-8706 kcal. Initiate per refeeding precautions and monitor labs. Monitoring & Follow-Up: Daily labs (electrolytes, renal function, glucose). Reassess nutrition plan when patient is extubated and able to transition to oral or modified feeding route. Expected Outcomes/Goals: Off vent, advance to CCHO-60 Renal standard diet when pt passes STATUARY PAINTER eval. Plan discussed with: Other Critical Care Time(min): 40 CORAL KABA MD Feb 14, 2025 00:26
--- NOTE | 2025-02-14 09:49 | DVHDS2 ---
Discharge Summary Date of Admission Feb 12, 2025 at 08:44 Date of Discharge: Feb 13, 2025 Labs/Diagnostic Data: Laboratory Results Test 02/14/25 05:24 02/13/25 20:44 02/13/25 11:59 POC Glucose 116 mg/dl (70-106) Lactic Acid Level 1.5 mmol/L (0.4-2.0) White Blood Count 10.5 10^3/uL (4.4-10.8) Red Blood Count 4.36 10^6/uL (4.0-5.20) Hemoglobin 12.9 g/dL (12.2-16.2) Hematocrit 41.3 % (36.0-46.0) Mean Corpuscular Volume 94.7 fL (80.0-100.0) Mean Corpuscular Hemoglobin 29.7 pg (28.0-32.0) Mean Corpuscular Hemoglobin Concent 31.3 g/dL (32.0-36.0) Red Cell Distribution Width 15.8 % (11.8-14.3) Platelet Count 275 10^3/uL (140-450) Mean Platelet Volume 7.1 fL (6.9-10.8) Neutrophils (%) (Auto) 73.6 % (37.0-80.0) Lymphocytes (%) (Auto) 17.1 % (10.0-50.0) Monocytes (%) (Auto) 7.7 % (0.0-12.0) Eosinophils (%) (Auto) 1.3 % (0.0-7.0) Basophils (%) (Auto) 0.3 % (0.0-2.0) Neutrophils # (Auto) 7.7 10 ^3/uL (1.6-8.6) Lymphocytes # (Auto) 1.8 10 ^3/uL (0.4-5.4) Monocytes # (Auto) 0.8 10 ^3/uL (0-1.3) Eosinophils # (Auto) 0.1 10 ^3/uL (0-0.8) Basophils # (Auto) 0 10 ^3/uL (0-0.2) Nucleated Red Blood Cells 0.1 % Prothrombin Time 10.8 sec (9.3-11.8) Prothrombin Time INR 1.02 (0.9-1.15) Activated Partial Thromboplast Time 23.5 SEC (24.5-34.5) Sodium Level 141 mmol/L (136-145) Potassium Level 4.5 mmol/L (3.5-5.1) Chloride Level 101 mmol/L (98-107) Carbon Dioxide Level 22 mmol/L (20-31) Anion Gap 18 (5-15) Blood Urea Nitrogen 50 mg/dL (9-23) Creatinine 7.66 mg/dL (0.550-1.02) Glomerular Filtration Rate Calc 5 mL/min (>90) BUN/Creatinine Ratio 6.5 (10.0-20.0) Serum Glucose 122 mg/dL (74-106) Calcium Level 9.5 mg/dL (8.7-10.4) Magnesium Level 2.3 mg/dL (1.6-2.6) Total Bilirubin 0.2 mg/dL (0.2-1.0) Aspartate Amino Transferase (AST) 18 U/L (13-40) Alanine Aminotransferase (ALT) < 9 U/L (7-40) Alkaline Phosphatase 139 U/L (46-116) Total Protein 7.0 g/dL (5.7-8.2) Albumin 3.7 g/dL (3.2-4.8) Prolactin 43.96 ng/mL (2.8-29.2) Other Laboratory Tests 02/13/25 11:59 Brief Hx & Hospital Course: 79-year-old female with past medical history of ESRD on HD, CVA with left sided weakness, subdural hematoma, dementia, diabetes, and seizures, who was transferred from [facility] this morning. The patient was brought to [facility] due to ALOC and left sided weakness. On assessment patient has left sided hemiparalysis, will admit for further work up and MRI. 02/13: Rapid response called this a.m. approximately 10:00 a.m.. Please see rapid response report. Stroke code activated. Patient on admit had MRI done which showed acute infarct throughout right posterior, frontal, parietal and superior temporal lobes as well as right insula. Also trace chronic subdural hematomas. Later at 2:00 p.m. 02/[address] is done which is showing acute subdural hematoma along posterior left falx and left tentorium cerebelli measuring 3 mm in thickness and subacute left parietal subdural hematoma measuring 3 mm in thickness, and then involving acute infarct as seen in MRI. Critical result is not impressive as patient has chronic subdural hematomas and there was no acute change in mentation. Vitals were stable. A CTA head and neck was done showing no large vessel high-grade stenosis. After the rapid response and stroke code activation on 04/15 11:00 a.m., there is a repeat CT head noncontrast showing significant subarachnoid hemorrhage along right frontal lobe and right parietal lobe extending inferiorly to right sylvian fissure. Additional subarachnoid hemorrhage of left parietal lobe and left occipital lobe. The blood Plavix could be extending to the posterior falx cerebri and left tentorial leaflet. There is increased density bilateral basal ganglia which could be additional hemorrhage in this region involving striatum right external capsule and insular cortex. Critical result is appreciated, discussed with Neurosurgery Joaquim Francois and they want to accept, family wanting all measures to be carried out. Plan is to transfer patient and intubate but further discussion is held regarding quality of life after significant interventions and with a history of significant recurrent strokes, brain bleeds, ESRD, age and significant chance of poor prognosis and mortality, discussion is held with Nephrology, son Tyron, medicine team myself, given the poor prognosis and very poor outcome expected from current situation in disease burden, family understands these serious morbidities and high chance of mortality and the poor prognosis and agree with DNR DNI and well discuss hospice care further. We will hold off intubation and transfer to Neurosurgery to Hydro, deescalate care to telemetry, change code status to DNR DNI, hold off aspirin, continue other medications crushed through G-tube. 02/14: Patient continues to open eyes to verbal stimuli. Patient is not able to open her eyes, continues to have right facial droop left body weakness. She is DNR DNI now. Had discussion with Tyron again today. Son is acting as decision maker as next of kin, he wants to move forward with hospice discussion. We will consult palliative/hospice services and social workers as well. Diagnosis: Acute subarachnoid hemorrhage, left parietal lobe, left occipital lobe, right frontal lobe, right parietal lobe, right sylvian fissure Multiple acute on chronic subdural hemorrhage, posterior left falx, left tentorium cerebellar, left parietal. Acute on chronic ischemic stroke infarct, acute infarct in right frontal, posterior, parietal, superior temporal lobes, right insula ESRD on HD History of multiple CVA with left-sided weakness History of subdural hemorrhage and brain bleed Dementia, likely vascular dementia Diabetes History of seizures plan: - discharge to hospice Condition at Discharge: Fair Final Diagnosis/Problems List Acute subarachnoid hemorrhage, left parietal lobe, left occipital lobe, right frontal lobe, right parietal lobe, right sylvian fissure Multiple acute on chronic subdural hemorrhage, posterior left falx, left tentorium cerebellar, left parietal. Acute on chronic ischemic stroke infarct, acute infarct in right frontal, posterior, parietal, superior temporal lobes, right insula ESRD on HD History of multiple CVA with left-sided weakness History of subdural hemorrhage and brain bleed Dementia, likely vascular dementia Diabetes History of seizures Discharge Disposition: Hospice - Home Discharge Instruct/Medications Diet: See Comment Diet comment: NPO Activity: No Restrictions, As Tolerated Scheduled Aspirin (Aspirin Low Dose), 1 TAB PO DAILY, (Reported) Calcitriol (Calcitriol), 0.25 MCG PO DAILY Donepezil Hydrochloride (Aricept), 1 TAB PO QPM, (Reported) Ergocalciferol (Vitamin D 74782 Unit), 50,000 UNIT PO Q7D Furosemide (Furosemide), 1 TAB PO DAILY, (Reported) Insulin Glargine (Lantus Solostar), 20 UNIT SC DAILY, (Reported) Levetiracetam (Keppra), 1 TAB PO BID, (Reported) Lidocaine (Lidocaine Patch 5%), 1 PATCH TOP DAILY, (Reported) Nifedipine (Nifedipine Er), 30 MG PO DAILY, (Reported) Nutritional Supplements (Ensure Clinical Strength), 1 BOTTLE OR QID Pregabalin (Lyrica), 1 CAP PO BID, (Reported) Rosuvastatin Calcium (Crestor), 0.5 TAB PO DAILY Ticagrelor Base (Brilinta), 1 TAB PO DAILY, (Reported) Discontinued Medications Nifedipine (Nifedipine Er), 90 MG PO DAILY Discharge Statement: "Patient was advised to return to the ER or call 911 if any headaches, dizziness, shortness of breath, chest pain, abdominal pain, bleeding, fevers, or worsening of medical condition. Patient was counseled about treatment plan, medications, possible side effects, patientverbalized understanding. All questions were answered to the best of my ability. This discharge took greater then 30 minutes in planning, reviewing documentation, counseling the patient, and discussing with other team members." Date of Service: Feb 14, 2025 Billing Provider: FRANCA SLADE MD Common Visit Codes: 77654-MLV/OBS DISCH DAY >30min FRANCA SLADE MD Feb 14, 2025 09:49
--- NOTE | 2025-02-14 10:59 | DVHPN2 ---
Progress Note - Dictate Date Seen: Feb 14, 2025 Medical Necessity Reason Pt with a Central, PICC or Fol: No Subjective Ms. Lambert is a 79 years old female with a history of hypertension, diabetes, dyslipidemia, coronary artery disease, congestive heart failure, chronic kidney failure on hemodialysis, dementia, seizure, TIA, she was transferred from the [facility] to the [facility] 12/15/24 with a chief complaint of for stroke-like syndrome. I saw on 01/15/2022 for seizure and dementia, 06/13/2024 , 12/15/2024 (MRI positive) for stroke for ALOC I have seen and examined the patient, talked to her nurse, Dr. Chi Shaw. The family had change patient code to DNR She is awake, she does not vocalize, follow my verbal commands, but she tracks a little bit She only moves the right arm than leg On 12/15/2024, her family reported that she is on Brilinta 60 mg q.d, Aricept 10 mg daily, aspirin 81 mg daily, keppra 500mg bid, lyrica 150mg bid Ext Med Hx 02/12/2025: Rosuvastatin 10 mg daily, Keppra 500 mg b.i.d., Aricept 10 mg daily, pregabalin 150 mg b.i.d. WBC/HB/PLT, 12/15/2024: 11.5/10.8/257/92.2, 02/12/2025: 9.9/11.8/ 203/91.5 BUN/CR, 06/12/2024: 35/4.27, 06/13/2024: 31/3.64, 12/15/2024: 25/3.67, 02/12/2025: 46/7.13 GFR, 12/15/2024: 12, 02/12/2025: 5 HGB A1c, 06/12/2024: 6.9. 12/15/2024: 7 TBI/AST/ALT/AP, 12/01/24: 0.3///151, unremarkable TG/HDL/LDL/HDL, 09/2023: 74/153/73/61. 06/14/2024: 120/153/83/43 Vitamin B12, 12/2021: 301, 05/2024: 535 Folic acid, 12/2020: 4.71 TSH, 12/2021: 0.73, 05/2024: 1.03 Echocardiogram, 12/16/2024: MILD LVH AND MILD LV DIASTOLIC DYSFUNCTION LV EF IS 60% SLIGHTLY DILATED LA SEVERE PULMONARY HYPERTENSION RVSP IS 61 MM OF HG AND IS VERY HIGH NORMAL VALVES NO EFFUSION CT head, 06/13/2024: 1. No CT evidence of acute intracranial abnormality. 2. Nonacute findings as described above CT head, 12/15/2024: No acute intracranial abnormality CT head, 02/12/2025: Acute subdural hematoma along the posterior left falx and left tentorium cerebelli measuring 3 mm in thickness. Subacute appearing left parietal subdural hematoma measuring 3 mm in thickness. Evolving acute infarction right frontal/ parietal/ temporal lobe, better seen on concurrent MRI from today. Moderate chronic microvascular ischemic changes. CT head, 02/13/2025: 1. Interval significant subarachnoid hemorrhage along the right frontal lobe and right parietal lobe extending inferiorly to the right sylvian fissure. 2. Additional subarachnoid hemorrhage of the left parietal lobe and left occipital lobe. 3. Difficult to exclude blood products along the posterior falx cerebri and left tentorial leaflet. 4. Question intra-axial hemorrhage of the left occipital lobe. 5. Increased density along bilateral basal ganglia, [id number]-left involving the striatum right external capsule and insular cortex however difficult to differentiate between contrast enhancement versus hemorrhage given contrast administration. 6. Overall significant interval worsening. CTA head, neck, 02/12/25: No large vessel high-grade stenosis. Acute appearing subdural hematoma along the posterior left falx and left tentorium cerebellar as described on CT head measuring up to 3 mm in thickness. Subacute appearing left parietal subdural hematoma measuring 3 mm in thickness. Evolving right cerebral infarction as described on CT head and MRI brain from today. Heterogeneous thyroid gland with multiple nodules. This can be further evaluated thyroid ultrasound in the nonemergent setting. Critical Result: Stroke, subdural hematoma findings MRI head, 01/15/2022: There is mild to moderate microvascular ischemic disease of the supratentorial white matter and brainstem. There is no acute infarct MR head, 12/16/2024: Acute right brainstem infarct, no evidence of acute bleed no significant edema MRI head, 02/12/2025: Acute infarct throughout the right posterior frontal, parietal, and superior temporal lobes as well as the right insula. Trace chronic subdural hematomas vital signs Vital Sign Date Time Temp Pulse Resp B/P (MAP) Pulse Ox O2 Delivery O2 Flow Rate FiO2 02/14/25 09:00 97.1 67 17 128/79 (95) 100 97.1 02/13/25 20:00 Nasal Cannula* 2 28 Total Intake and Output 02/13/25 02/13/25 02/14/25 15:00 23:00 07:00 Intake Total 0 ml 0 ml Balance 0 ml 0 ml medications Current Medications Medications Dose Ordered Sig/Deepak Route Start Time Stop Time Status Last Admin Dose Admin Acetaminophen/ Hydrocodone Bitart 1 tab Q4HP PRN PO 02/12/25 08:45 Ondansetron HCl 4 mg Q4HP PRN IV 02/12/25 08:45 Docusate Sodium 100 mg BIDPRN PRN PO 02/12/25 08:45 Acetaminophen 650 mg Q6HP PRN PO 02/12/25 08:45 Nitroglycerin 0.4 mg Q5MINP PRN SL 02/12/25 08:45 Morphine Sulfate 2 mg Q30M PRN IV 02/12/25 08:45 Levetiracetam 500 mg BID PO 02/12/25 22:00 02/13/25 21:54 500 MG Aspirin 81 mg DAILY PO 02/13/25 10:00 02/13/25 10:19 81 MG Donepezil HCl 10 mg HS PO 02/12/25 22:00 02/13/25 21:54 10 MG Insulin Glargine 20 units DAILY SC 02/13/25 10:00 Atorvastatin Calcium 20 mg HS PO 02/13/25 22:00 02/13/25 21:55 20 MG Nifedipine 30 mg DAILY PO 02/13/25 10:00 Diagnostic Test (Pha) 1 strip Q6HR 02/12/25 18:00 02/14/25 05:25 1 STRIP Insulin Human Regular Q6HR SC 02/12/25 18:00 02/12/25 18:30 3 UNITS Dextrose 50 ml UD PRN IV 02/12/25 17:45 Pregabalin 50 mg BID PO 02/13/25 00:30 02/13/25 21:54 50 MG Lorazepam 1 mg Q5MINP PRN IV 02/13/25 00:30 objective General: the patient is well developed and nourished. No acute distress. MENTAL STATUS: Subjective SPEECH, LANGUAGE, HIGHER CORTICAL FUNCTION: Subjective CRANIAL NERVES: Pupils are equal, round and reactive. EOMs full and conjugate. No nystagmus. Facial sensationfine in all three divisions bilaterally. Mandibular strength intact. Facial muscles symmetrical and strength intact SENSATION: Sensation to touch and pinprick is ok MOTOR: Normal tone in the upper and lower extremity. Normal muscle bulk. No fasciculations. No abnormal movements or posturing. Muscle strength of the major groups in the right extremities: Arm: 2-3/5, le/5. Muscle strength of the major groups in the left extremities is 0/5. REFLEXES: Deep tendon reflexes are symmetrical. No pathological reflexes. CEREBELLAR/COORDINATION: Deferred. GAIT/STATION: deferred. laboratory and microbiology Laboratory Tests 02/13/25 11:59 Test 02/13/25 11:59 Range/Units Serum Glucose 122 H 74-106 mg/dL Problem List Acute subarachnoid hemorrhage Acute left-sided weakness secondary to acute stroke Chronic stroke Acute on chronic subdural hematoma Partial seizure Dementia, Alzheimer disease Vascular dementia Assessment/Plan Monitoring Supportive treatment Telemetry Lipitor 20 mg daily Keppra 500mg bid, Lyrica 150mg bid Aricept 10 mg linda Ativan for seizure breakthrough GI prophylaxis Up to chair Physical therapy Nephrology on case This medical document was created using an electronic medical record system with [employer] dictation system. Although this document has been carefully reviewed, there may still be some phonetic and typographical errors. These areas are purely typographical due to imperfections of the software programs, and do not reflect any compromise in the patient's medical care. Prognosis poor Dietary Evaluation Review Comments: Assessment: Patient on ventilator; EN feasible and GI tract accessible. High risk for malnutrition; requires full nutrition support. Intervention: If EN feasible: Tube feeding: Nepro Carb Steady @ 35 mL/hr Provides: Protein: 68 g Energy: 1487 kcal Free Water: 611 mL Meets 100% of estimated protein and energy needs. If EN not feasible: Offer TPN per pharmacy to meet: Protein: 68 g Energy: 3739-5912 kcal. Initiate per refeeding precautions and monitor labs. Monitoring & Follow-Up: Daily labs (electrolytes, renal function, glucose). Reassess nutrition plan when patient is extubated and able to transition to oral or modified feeding route. Expected Outcomes/Goals: Off vent, advance to CCHO-60 Renal standard diet when pt passes PLATEMAN eval. Plan discussed with: Other Total Time (mins): 35 CORAL KABA MD Feb 14, 2025 10:59
--- NOTE | 2025-02-14 15:26 | DVHPN2 ---
Progress Note Date Seen: Feb 14, 2025 Medical Necessity Reason Pt with a Central, PICC or Fol: No Objective vital signs Vital Sign Date Time Temp Pulse Resp B/P (MAP) Pulse Ox O2 Delivery O2 Flow Rate FiO2 02/14/25 12:23 97.4 88 18 132/82 (99) 98 97.4 02/14/25 08:20 Nasal Cannula* 2 28 Total Intake and Output 02/13/25 02/13/25 02/14/25 15:00 23:00 07:00 Intake Total 0 ml 0 ml Balance 0 ml 0 ml medications Current Medications Medications Dose Ordered Sig/Deepak Route Start Time Stop Time Status Last Admin Dose Admin Acetaminophen/ Hydrocodone Bitart 1 tab Q4HP PRN PO 02/12/25 08:45 Ondansetron HCl 4 mg Q4HP PRN IV 02/12/25 08:45 Docusate Sodium 100 mg BIDPRN PRN PO 02/12/25 08:45 Acetaminophen 650 mg Q6HP PRN PO 02/12/25 08:45 Nitroglycerin 0.4 mg Q5MINP PRN SL 02/12/25 08:45 Morphine Sulfate 2 mg Q30M PRN IV 02/12/25 08:45 Levetiracetam 500 mg BID PO 02/12/25 22:00 02/14/25 11:23 500 MG Donepezil HCl 10 mg HS PO 02/12/25 22:00 02/13/25 21:54 10 MG Insulin Glargine 20 units DAILY SC 02/13/25 10:00 Atorvastatin Calcium 20 mg HS PO 02/13/25 22:00 02/13/25 21:55 20 MG Nifedipine 30 mg DAILY PO 02/13/25 10:00 Diagnostic Test (Pha) 1 strip Q6HR 02/12/25 18:00 02/14/25 12:46 1 STRIP Insulin Human Regular Q6HR SC 02/12/25 18:00 02/12/25 18:30 3 UNITS Dextrose 50 ml UD PRN IV 02/12/25 17:45 Pregabalin 50 mg BID PO 02/13/25 00:30 02/14/25 11:22 50 MG Lorazepam 1 mg Q5MINP PRN IV 02/13/25 00:30 laboratory and microbiology Laboratory Tests 02/13/25 11:59 Test 02/13/25 11:59 Range/Units Serum Glucose 122 H 74-106 mg/dL Microbiology Date/Time Source Procedure Growth Status 02/12/25 09:50 Blood Blood Culture - Preliminary NO GROWTH AFTER 48 HOURS OF INCUBATION. Resulted Problem List/Assessment/Plan Problem List/Assessment/Plan End-stage renal disease on hemodialysis Acute on subacute CVA with mental status change and focal deficits History of hypertension Dementia AAOxO nonverbal currently does tube feeds unable to eat interval left and Right Subarachnoid hemorrhage discussed with son now DNI/DNR will stop dialysis treatments , agree with PCP plan to send for hospice no further HD , will sign off case . reconsult if have further questions Plan discussed with: Other Dietary Evaluation Review Comments: Assessment: Patient on ventilator; EN feasible and GI tract accessible. High risk for malnutrition; requires full nutrition support. Intervention: If EN feasible: Tube feeding: Nepro Carb Steady @ 35 mL/hr Provides: Protein: 68 g Energy: 1487 kcal Free Water: 611 mL Meets 100% of estimated protein and energy needs. If EN not feasible: Offer TPN per pharmacy to meet: Protein: 68 g Energy: 8879-1688 kcal. Initiate per refeeding precautions and monitor labs. Monitoring & Follow-Up: Daily labs (electrolytes, renal function, glucose). Reassess nutrition plan when patient is extubated and able to transition to oral or modified feeding route. Expected Outcomes/Goals: Off vent, advance to CCHO-60 Renal standard diet when pt passes CLOTH BOOKER jose. DARION SUERO MD Feb 14, 2025 15:26
--- NOTE | 2025-02-15 20:12 | DVHEEG2 ---
Neurology EEG Procedural Note Procedural Note EXAM DATE: 02/13/2025 REFERRING DOCTOR: Dr. Delvalle TECHNIQUE: Eighteen channels of EEG, 2 channels of EOG, and 1 channel of EKG were recorded using the International 10/20 system. CLINICAL DATA: The patient was referred for an EEG evaluation for the evidence of seizure disorder. MEDICATIONS: See the chart BACKGROUND ACTIVITY: The record showed moderate amount of low to medium voltage polymorphic delta and theta waveform over both hemispheres, that was reactive to external stimuli ACTIVATION: Hyperventilation: Not done Photic Stimulation: Not done Sleep: Not seen IMPRESSION: This is a moderately abnormal EEG, this EEG is seen in moderate cerebral dysfunction due to metabolic/hypoxic encephalopathy or medication effects, please correlate clinically The EKG channel showed a regular heart rate of 60/min[place] [address] CORAL KABA MD Feb 15, 2025 20:12
== END 2025-02-14 17:50 | disposition hospice, home (50) | DRG 64 ==
LOC: ER 04:51 → EDBD 04:51 → OVERFLOW 08:44 → TELE-WESTW 23:43 → ICU WEST 02-13 13:38 → TELE-WESTW 02-13 15:25 → TELE-EAST 02-13 21:00
PROVIDERS: ADMIT Student in an Organized Health Care Education/Training Program; ATTEND Student in an Organized Health Care Education/Training Program
DX: I63.9 Cerebral infarction, unspecified (principal); I60.9 Nontraumatic subarachnoid hemorrhage, unspecified; N18.6 End stage renal disease; I62.01 Nontraumatic acute subdural hemorrhage; I13.2 Hypertensive heart and chronic kidney disease with heart failure and with stage 5 chronic kidney disease, or end stage renal disease; Z99.2 Dependence on renal dialysis; G81.94 Hemiplegia, unspecified affecting left nondominant side; G40.909 Epilepsy, unspecified, not intractable, without status epilepticus; E11.22 Type 2 diabetes mellitus with diabetic chronic kidney disease; F02.80 Dementia in other diseases classified elsewhere, unspecified severity, without behavioral disturbance, psychotic disturbance, mood disturbance, and anxiety; Z51.5 Encounter for palliative care; Z66 Do not resuscitate; G30.9 Alzheimer's disease, unspecified; F01.50 Vascular dementia, unspecified severity, without behavioral disturbance, psychotic disturbance, mood disturbance, and anxiety; I25.10 Atherosclerotic heart disease of native coronary artery without angina pectoris; F17.200 Nicotine dependence, unspecified, uncomplicated; E78.00 Pure hypercholesterolemia, unspecified; Z91.048 Other nonmedicinal substance allergy status; Z79.899 Other long term (current) drug therapy; Z79.82 Long term (current) use of aspirin; Z90.49 Acquired absence of other specified parts of digestive tract; Z82.49 Family history of ischemic heart disease and other diseases of the circulatory system; Z83.3 Family history of diabetes mellitus
CPT/HCPCS: 36415; 70450; 70496; 70498; 70551; 71045; 80053; 82962; 83605; 83735; 84146; 85025; 85610; 85730; 87040; 93005; 93306; 95819; G0378; J1815